=== PATIENT | male | born 1950 ===

== ENCOUNTER 2025-01-29 21:03 | Emergency (ER) | payer MEDICARE, SELFPAY ==
--- NOTE | ~2025-01-29 | XR_ITS ---
CLINICAL HISTORY: blunt trauma 3 view left foot Comparison: None Findings: Severe osteopenia. No acute fracture or dislocation. No ankle effusion. No radiopaque foreign body. IMPRESSION: 1. No acute findings. This document has been electronically signed by: Sabra Parra MD on 01/30/2025 00:31:28
--- NOTE | ~2025-01-29 | XR_ITS ---
CLINICAL HISTORY: post reduction 2 view right shoulder Comparison: CR/DE - XR SHOULDER RT MIN 2V - 01/29/25 23:36 EDT Findings: Normal alignment of the AC joint. No fracture or dislocation on the internal rotation views. IMPRESSION: Normal alignment of the AC joint status post reduction. This document has been electronically signed by: Sabra Parra MD on 01/30/2025 01:46:05
--- NOTE | ~2025-01-29 | XR_ITS ---
CLINICAL HISTORY: closed injury 3 view right foot Comparison: None Findings: Severe osteopenia. No acute fracture or dislocation. No ankle effusion. No radiopaque foreign body. IMPRESSION: No acute findings. This document has been electronically signed by: Sabra Parra MD on 01/30/2025 00:32:47
--- NOTE | ~2025-01-29 | XR_ITS ---
CLINICAL HISTORY: pain 3 view right wrist Comparison: None Findings: No fractures or dislocations. 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 No radiopaque foreign body. IMPRESSION: 1. No acute findings This document has been electronically signed by: Sabra Parra MD on 01/30/2025 00:30:03
--- NOTE | ~2025-01-29 | XR_ITS ---
CLINICAL HISTORY: fall 3 view right elbow Comparison: None Findings: No acute fractures or dislocations. No joint effusion. No radiopaque foreign body. IMPRESSION: 1. No acute findings This document has been electronically signed by: Sabra Parra MD on 01/30/2025 00:27:17
--- NOTE | ~2025-01-29 | XR_ITS ---
CLINICAL HISTORY: fall 3 view right shoulder Comparison: None Findings: No acute fracture. Age indeterminate type III AC joint injury with elevated distal clavicle relative to the acromion. Anterior subluxation of the humeral head. IMPRESSION: 1. Age indeterminate type III AC joint injury. 2. Anterior subluxation of the humeral head. This document has been electronically signed by: Sabra Parra MD on 01/30/2025 00:36:36
[2025-01-29 21:11] VITALS: BP 130/77; BP 157/95; PULSE 100; PULSE 110; RESP 17; TEMP 36.9; O2SAT 99; BMI 27.0
[2025-01-29 21:32] LABS: Appearance Urine Cloudy; Color Urine Yellow; Glucose Urine UA Negative (Negative); Leukocyte Esterase Urine Large (3+) (Negative); Nitrite Urine Positive (Negative); Specific Gravity - Urine 1.015 (1.005-1.025); UMIC TRIGGER UACC YES; Urine Blood Moderate (2+) (Negative); Urine Ketones Negative (Negative); Urine Protein 30 (1+) mg/dL (Neg-Trace)
[2025-01-29 21:43] LABS: Bacteria Urine 4+ (None Seen); RBC Urine >20 /HPF (0-2); Squamous Epithelial Cell Urine 0-2 /HPF (0-2); UACC Culture Trigger YES; WBC Urine >50 /HPF (0-5)
[2025-01-29 22:14] VITALS: BP 121/76; PULSE 113; RESP 20; TEMP 37.3; O2SAT 99
--- NOTE | 2025-01-29 22:47 | ED_ITS ---
HPI - Male Genitourinary General Chief complaint: Urogenital-Male Stated complaint: catheter issues Time Seen by Provider: 01/29/25 22:17 Source: family Mode of arrival: EMS Limitations: no limitations History of Present Illness ED Provider: HPI Narrative: Patient is paraplegic from thoracic 7 with indwelling Vicente catheter brought by his son 2 days ago from [place] comes here as son noticed purulent discharge in the urine also son was afraid as when they tried to move him from the plain to the wheelchair the pulled his right side patient complaining of pain in the right shoulder although patient has chronic right shoulder pain in the past patient is bed-bound mostly Related Data Previous Rx's ?Medication ?Instructions ?Recorded cefuroxime axetil 500 mg tablet 500 mg PO BID 7 days #14 tabs 01/30/25 Allergies Allergy/AdvReac Type Severity Reaction Status Date / Time No Known Allergies Allergy Verified 01/29/25 21:18 Review of Systems 2 Review of Systems: Yes all other systems are reviewed and are negative PMFSH Past Medical History Medical History Chronic indwelling Vicente catheter Neurogenic bladder Conus medullaris syndrome Hypertension Type 2 diabetes mellitus Chronic paraplegia Social History Social History Advance Directives: No Advance Directives Information Provided: No Do you have a plan to hurt others: No Plan Physical Exam 2 Vital Signs: Vital Signs: Last Vital Signs Temp 97.8 F 01/30/25 01:11 Pulse 106 H 01/30/25 01:11 Resp 18 01/30/25 01:11 BP 121/80 01/30/25 01:11 Pulse Ox 98 01/30/25 01:11 O2 Del Method Room Air 01/30/25 01:11 BMI result Body Mass Index 27.0 Appearance: Alert. Oriented X3. No acute distress. Eyes: PERRLA, No Nystagmus ENT: Pharynx normal. Oral Mucosa moist Neck: Normal inspection. Neck supple. CVS: Normal heart rate and rhythm. Pulses normal. Respiratory: No respiratory distress. Equal air entry bilateral, no wheezing/rales/rhonchi Abdomen: Soft and nontender. Bowel sounds are present, no mass palpable, no CVA tenderness Skin: Skin warm and dry. Normal skin color. Normal skin turgor. Extremities: Paraplegic good movements of the upper extremity Neuro: Oriented X 3. Paraplegic blow T7 Medications Administered Discontinued Medications Generic Name Dose Route Start Last Admin Trade Name Freq PRN Reason Stop Dose Admin Cefuroxime Axetil 500 mg 01/29/25 23:38 01/29/25 23:57 Cefuroxime Axetil 500 Mg Tablet PO 01/29/25 23:39 500 mg ONCE ONE Administration Lidocaine HCl 10 ml 01/30/25 00:55 01/30/25 01:46 Lidocaine Hcl 1 % Mpf 5 Ml Vial INFILTRATI 01/30/25 00:56 10 ml ONCE ONE Administration Medical Decision Making Medical Decision Making [facility] Narrative: Patient with UTI with chronic indwelling Vicente catheter with history of paraplegia x-ray your showed subluxation of the right shoulder which was placed back sling was given to the patient patient is bed-bound and does have chronic pain in the right shoulder likely chronic subluxation Differential Diagnosis Differential Diagnoses: The differential diagnosis associated with the presentation includes Lab Data [facility] Lab Attestation statement: I reviewed the patient's lab results. 01/29/25 22:54 01/29/25 22:54 Labs: Lab Results 01/29/25 01/29/25 Range/Units 21:24 22:54 WBC 7.4 (4.8-10.8) X10*3/uL RBC 4.44 L (4.60-5.80) X10*6/uL Hgb 11.9 L (14.0-18.0) g/dl Hct 34.3 L (42.0-52.0) % MCV 77.3 L (80.0-98.0) fL MCH 26.8 L (27.0-33.0) pg MCHC 34.7 (31.0-36.0) g/dl RDW 13.8 (11.0-16.0) % Plt Count 281 (160-400) X10*3/uL MPV 9.7 (9.4-12.4) fL Immature Gran % (Auto) 0.4 (0.0-0.4) % Neut % (Auto) 58.2 (45-73) % Lymph % (Auto) 23.7 (20-40) % [place] % (Auto) 13.4 H (2-11) % Eos % (Auto) 3.9 (0-4) % Baso % (Auto) 0.4 (0-2) % Lymph # (Auto) 1.8 (1.2-4.9) X10*3/uL [place] # (Auto) 1.0 (0.1-1.2) X10*3/uL Eos # (Auto) 0.3 (0.0-0.4) X10*3/uL Baso # (Auto) 0.0 (0.0-0.2) X10*3/uL Abs Immat Gran (auto) 0.03 (0.00-0.03) X10*3/uL Absolute Neuts (auto) 4.3 (2.0-8.3) x10*3/uL Absolute Nucleated RBC 0.000 (0.0-0.012) X10*3/uL Nucleated RBC % (auto) 0.0 (0.0-0.2) /100WBC Sodium 140 (135-145) mmol/L Potassium 3.6 (3.3-5.1) mmol/L Chloride 107 (96-108) mmol/L Carbon Dioxide 21 L (22-29) mmol/L Anion Gap 16 (12-20) BUN 27 H (9-16) mg/dL Creatinine 0.70 (0.5-1.4) mg/dL Estim Creat Clear Calc 81.7 Estimated GFR > 60 Random Glucose 118 H (60-115) mg/dL Calcium 8.8 (8.4-10.2) mg/dL Total Bilirubin 0.3 (0.0-1.0) mg/dL AST 36 (5-37) U/L ALT 29 (0-40) U/L Alkaline Phosphatase 116 (39-117) U/L Total Protein 6.8 (6.5-8.0) g/dL Albumin 3.5 (3.5-5.0) g/dL Urine Color Yellow Urine Appearance Cloudy Urine pH 5.0 (5.0-9.0) Ur Specific [place] 1.015 (1.005-1.025) Urine Protein 30 (1+) H (Neg-Trace) mg/dL Urine Glucose (UA) Negative (Negative) mg/dL Urine Ketones Negative (Negative) mg/dL Urine Blood Moderate (2+) H (Negative) Urine Nitrite Positive H (Negative) Ur Leukocyte Esterase Large (3+) H (Negative) Urine RBC >20 H (0-2) /HPF Urine WBC >50 H (0-5) /HPF Ur Squamous Epith Cells 0-2 (0-2) /HPF Urine Bacteria 4+ (None Seen) Hyaline Casts 6-10 (0-2) /LPF Radiology Impression Discussion of test interpretation with radiology: I have reviewed the radiologist's reading. Procedures Orthopedic Joint Reduction Joint #1: Time Out Performed: Yes Side: right Joint Reduction Location: shoulder Analgesia: hematoma block Local Anesthesia: lidocaine 1% Amount of anesthesic used (mL): 10 Shoulder Technique Used (if applicable): external rotation Technique used: traction/counter-traction Post-reduction neuro exam: intact Post-reduction vascular: intact Post Reduction X-Ray Obtained: Yes Post Reduction X-Ray Results: reduced Splint Applied: Yes Patient Tolerated Procedure: well Discharge Plan Discharge Clinical Impression: Urinary tract infection, Anterior subluxation of right shoulder Patient Disposition: Home, Self-Care Instructions: Shoulder Dislocation (ED), Catheter-associated Urinary Tract Infection (ED) Additional Instructions: Likely patient has chronic sub luxation of the right shoulder may use sling to support Drink plenty of fluids Antibiotic as prescribed Follow up with your PCP Prescriptions: New cefuroxime axetil 500 mg tablet 500 mg PO BID 7 Days Qty: 14 0RF Print Language: Urdu
[2025-01-29 22:57] LABS: MANUAL DIFF FLAG NO
[2025-01-29 23:01] LABS: Basophils Percent Auto 0.4 % (0-2); Eosinophils Absolute Auto 0.3 X10*3/uL (0.0-0.4); Eosinophils Percent Auto 3.9 % (0-4); Hematocrit 34.3 % (42.0-52.0); Hemoglobin 11.9 g/dl (14.0-18.0); Imm Gran Abs Auto 0.03 X10*3/uL (0.00-0.03); Imm Gran Pct Auto 0.4 % (0.0-0.4); Lymphocytes Absolute Auto 1.8 X10*3/uL (1.2-4.9); Lymphocytes Percent Auto 23.7 % (20-40); Mean Corpuscular HGB Conc 34.7 g/dl (31.0-36.0); Mean Corpuscular Hemoglobin 26.8 pg (27.0-33.0); Mean Corpuscular Volume 77.3 fL (80.0-98.0); Mean Platelet Volume 9.7 fL (9.4-12.4); Monocytes Percent Auto 13.4 % (2-11); Neutrophils Absolute Auto 4.3 x10*3/uL (2.0-8.3); Neutrophils Percent Auto 58.2 % (45-73); Platelet Count 281 X10*3/uL (160-400); Red Blood Count 4.44 X10*6/uL (4.60-5.80); Red Cell Distribution Width 13.8 % (11.0-16.0); White Blood Count 7.4 X10*3/uL (4.8-10.8)
--- NOTE | 2025-01-29 23:03 | PC.NURSE ---
pt biba from home, a&ox4, respirations even and unlabored. pt is paralyzed waist down, has chronic saha. per family members, pt saha has been draining thick urine and clots and has been draining around the saha. urine sample sent from saha port. pt also reports right shoulder pain from plane ride here.
--- NOTE | 2025-01-29 23:05 | PC.NURSE ---
pt previous saha removed per provider order. new 20F saha placed, pt tolerated well, 100ml urine voided.
[2025-01-29 23:16] LABS: Alanine Aminotransferase 29 U/L (0-40); Albumin Level 3.5 g/dL (3.5-5.0); Alkaline Phosphatase 116 U/L (39-117); Anion Gap 16 (12-20); Aspartate Amino Transferase 36 U/L (5-37); Bilirubin Total 0.3 mg/dL (0.0-1.0); Blood Urea Nitrogen 27 mg/dL (9-16); Calcium 8.8 mg/dL (8.4-10.2); Carbon Dioxide 21 mmol/L (22-29); Chloride 107 mmol/L (96-108); Creatinine Clr Calc Pharmacy 81.7; Estimated Glomerular Filt Rate > 60; Glucose Random 118 mg/dL (60-115); Potassium 3.6 mmol/L (3.3-5.1); Sodium 140 mmol/L (135-145); Total Protein 6.8 g/dL (6.5-8.0)
[2025-01-29] MEDS: cefuroxime axetiL 500 MG TABLET PO (23:57)
[2025-01-30 01:11] VITALS: BP 121/80; PULSE 106; RESP 18; TEMP 36.6; O2SAT 98
[2025-01-30] MEDS: Lidocaine HCl 1 % MPF 5 ML VIAL 10 ML INFILTRATI (01:46)
--- NOTE | 2025-01-30 02:01 | PC.NURSE ---
ems at bedside for transport.
[2025-01-30 02:03] VITALS: BP 114/59; PULSE 101; RESP 16; TEMP 36.6; O2SAT 96
[2025-01-30 02:10] VITALS: BP 114/59; PULSE 101; RESP 16; TEMP 36.6; O2SAT 96
--- NOTE | 2025-01-30 02:10 | PC.NURSE ---
late entry- shoulder reduced by , sling placed on right shoulder
== END 2025-01-30 02:11 | disposition home or self-care (01) ==
PROVIDERS: Emergency Provider Internal Medicine
DX: S43.004A Unspecified dislocation of right shoulder joint, initial encounter (principal); N39.0 Urinary tract infection, site not specified; R39.15 Urgency of urination; M79.672 Pain in left foot; M25.521 Pain in right elbow; M79.671 Pain in right foot; M79.601 Pain in right arm; M25.511 Pain in right shoulder; M25.531 Pain in right wrist; X50.9XXA Other and unspecified overexertion or strenuous movements or postures, initial encounter; Y93.9 Activity, unspecified; Y92.9 Unspecified place or not applicable; Y99.8 Other external cause status; Z79.899 Other long term (current) drug therapy
CPT/HCPCS: 23650; 36415; 51702; 73020; 73030; 73070; 73100; 73630; 80053; 81001; 85025; 87086; 87088; 87186; 99284; 99285; J2003

== ENCOUNTER → 2025-01-29 22:44 | Outpatient (BNV) | payer MEDICARE, SELFPAY | PROVIDERS: Emergency Provider Internal Medicine; Visit Provider Radiology Diagnostic Radiology | DX: S43.001A Unspecified subluxation of right shoulder joint, initial encounter (principal); W19.XXXA Unspecified fall, initial encounter; S99.922A Unspecified injury of left foot, initial encounter; M25.531 Pain in right wrist; S99.921A Unspecified injury of right foot, initial encounter | CPT/HCPCS: 73030; 73070; 73100; 73630 ==

== ENCOUNTER → 2025-01-30 01:11 | Outpatient (BNV) | payer MEDICARE, SELFPAY | PROVIDERS: Emergency Provider Internal Medicine; Visit Provider Radiology Diagnostic Radiology | DX: S43.084D Other dislocation of right shoulder joint, subsequent encounter (principal) | CPT/HCPCS: 73020 ==

== ENCOUNTER 2025-02-08 09:57 | Outpatient (REF) | payer MEDICARE, MEDICAID, SELFPAY ==
--- NOTE | ~2025-02-08 | XR_ITS ---
EXAMINATION: XR SHOULDER 2 OR MORE VIEWS RIGHT HISTORY: M25.511 - Pain in right shoulder COMPARISON: Comparison is made with the prior examination dated 01/30/2025. FINDINGS: Three views of the right shoulder are submitted. The examination is limited by difficulty in patient positioning. Osseous mineralization is normal. There is no fracture or dislocation. The glenohumeral joint is not well evaluated. There is mild degenerative change of the AC joint. The soft tissues are unremarkable. XR/XR shoulder RT min 2V IMPRESSION: Limited examination due to difficulty in patient positioning. Mild degenerative change of the AC joint. Electronically signed by: Lemuel Wynne MD 02/08/2025 11:33 AM EDT
== END 2025-02-08 09:58 | disposition home or self-care (01) ==
LOC: HO.HMGCX 09:57
PROVIDERS: Visit Provider Physician Assistant
DX: M25.511 Pain in right shoulder (principal); G89.29 Other chronic pain; R69 Illness, unspecified; R60.0 Localized edema
CPT/HCPCS: 73030; 99212

== ENCOUNTER 2025-02-08 09:57 | Outpatient (AMB) | payer MEDICARE, MEDICAID, SELFPAY ==
--- NOTE | 2025-02-08 10:01 | MHC.OFFWIV ---
Intake Vital Signs 02/08/25 10:07 BP 122/80 Blood Pressure Location Lt brachial Position Sitting Pulse 110 H Pulse Source Pulse Oximeter Pulse Oximetry (%) 99 Oxygen Delivery Method Room Air Intake Visit Reasons: [employer] Rt shoulder pain, foot issues Intake Note: Patient here for right shoulder pain. Patient Tobacco Use Status: Never used Tobacco Allergies No Known Allergies Allergy (Verified 02/08/25 10:03) HPI HPI Comments History of Present Illness Details History of Present Illness - The patient is a 74-year-old male with a past med hx of conus medullaris syndrome, CKD2 (mild), DM2, chronic saha presenting with elbow pain and follow-up for shoulder dislocation. - His elbow pain is described as substantial and recurring. - The shoulder dislocation was identified after the patient attended the ER on January 30 post-exacerbation of shoulder discomfort, initially noted upon return from [place]. - Despite the diagnosis, no analgesic regimen was provided at that visit. - Recently, the patient developed bilateral leg swelling, reported three days prior to this presentation, with concerns about possible dietary influences or medication effects. Denies increased salt intake or fluid intake. Was using compression stockings but does not have them anymore. - His medical history includes chronic kidney disease stage 2 and type 2 diabetes mellitus, influencing the management decisions regarding the use of NSAIDs. - The patient also has an indwelling Saha catheter, placed in the ED on 01/30 but has no Urologist or services to change it set up yet. - A urinary tract infection was treated with antibiotics for seven days, and the patient notes no ongoing urinary complaints. - Pt has an appt to establish care with PCP on 09/01 with [facility] [place], Eduardo Knowles NP however he has no supplies to check his BG due to issues when he moved here from [place]. He does have a supply of daily medications, which he is taking, as prescribed. Physical Exam General: Cooperative, healthy appearing, comfortable, no acute distress and well developed Orientation: Patient oriented x3 Limitations: paraplegic in wheelchair Head: Normal to inspection Ears: Hearing grossly normal bilaterally Nose: Normal External nose present Face and sinus: Normal facial exam Eyes: Appearance normal, both eyes and all related structures Neck: Normal visual inspection and Yes full ROM Respiratory: Normal respiratory effort and able to speak in complete sentences. Skin: No rashes or lesions noted Neuro: Patient oriented x3 Spine: no TTP cervical spine, torticollis noted towards the right Extremities: trace pitting edema bl le, right UE unable to flex or abduct beyond level of shoulder, hands 5/5 strength, sensation intact, full rom fingers and hand and elbow. [facility] Medical History (Updated 02/08/25 @ 11:26 by Natali Ramos PA-C) Chronic indwelling Saha catheter Neurogenic bladder Conus medullaris syndrome Hypertension Type 2 diabetes mellitus Chronic paraplegia Social History Patient Tobacco Use Status: Never used Tobacco Review of Systems Const All systems reviewed & are unremarkable except as noted in HPI and below Physical Exam Vital Signs: Last Vital Signs Pulse 122 H 02/08/25 10:07 BP 122/80 02/08/25 10:07 Pulse Ox 99 02/08/25 10:07 Oxygen Delivery Method Room Air 02/08/25 10:07 Assessment & Plan Assessment & Plan (1) Shoulder pain, right: Code(s): M25.511 - Pain in right shoulder Qualifiers: Chronicity: chronic Qualified Code(s): M25.511 - Pain in right shoulder; G89.29 - Other chronic pain Plan: For the elbow pain, we will get XR to verify he did not dislocate it again. He is aware if it is dislocated, he will need to go to the ED. I have prescribed meloxicam to BE USED SPARINGLY to manage severe pain and instructed the patient to use it sparingly due to chronic kidney disease (GFR >60 last week) and diabetes. I also recommended Voltaren gel, Tylenol and ice for relief. A sling should be employed for shoulder support to reduce discomfort and aid recovery, pt was given sling at ED visit last week. Monitoring for symptoms of recurrent UTI is essential, with a plan to seek emergency care if febrility occurs. The Saha catheter requires attention for scheduled removal and further urological evaluation, once he establishes care with the PCP. Patient was informed and verbally consented to the use of an ambient scribe for clinic note documentation during this visit. (2) Multiple chronic diseases: Code(s): R69 - Illness, unspecified Plan: I was able to call [facility] [place] PCP and got the pt an appt on 02/12 at 3:15pm with Shilpa Marie PA-C to establish care with a new PCP to address chronic saha (will need exchange services), CKD, and diabetes management and supplies. His son states he will upload his medical records to the portal. (3) Leg edema: Code(s): R60.0 - Localized edema Plan: For bilateral trace edema LE, I advised the use of compression stockings and to continue furosemide as usual. Lower salt intake. Orders: Orders XR shoulder RT min 2V Today M25.511 - Pain in right shoulder Medications: New meloxicam 15 mg PO DAILY 15 tabs 0RF Discontinued cefuroxime axetil Discontinued Reason: Patient Completed Course 500 mg PO BID 7 days 14 tabs 0RF Coding Level of Care Code New Pt Level 5 (02967) Diagnoses Chronic right shoulder pain M25.511; G89.29 Chronicity: chronic Multiple chronic diseases R69 Leg edema R60.0
[2025-02-08 10:07] VITALS: BP 122/80; PULSE 110; O2SAT 99
== END 2025-02-08 11:54 | disposition home or self-care (01) ==
PROVIDERS: Visit Provider Physician Assistant
DX: M25.511 Pain in right shoulder (principal); G89.29 Other chronic pain; R69 Illness, unspecified; R60.0 Localized edema

== ENCOUNTER → 2025-02-08 11:09 | Outpatient (BNV) | payer MEDICARE, MEDICAID, SELFPAY | PROVIDERS: Visit Provider Radiology Diagnostic Radiology | DX: M25.511 Pain in right shoulder (principal) | CPT/HCPCS: 73030 ==

== ENCOUNTER 2025-02-12 14:39 | Outpatient (AMB) | payer MEDICARE, MEDICAID, SELFPAY ==
--- NOTE | 2025-02-12 14:53 | A.OFFPC_ITS ---
Vital Signs 02/12/25 14:55 Height 5 ft 5 in BMI Reason not done Patient refused/unable BP 104/70 Blood Pressure Location Lt brachial Position Sitting Pulse 90 Pulse Source Pulse Oximeter Pulse Oximetry (%) 94 Oxygen Delivery Method Room Air Intake Visit Reasons: new patient Intake Note: Patient is a new patient here to establish care for DMII. Transferring care from [place] Medical records received. Vp Biology Required: No Accompanied by: Son Allergies No Known Allergies Allergy (Verified 02/12/25 15:01) Medication List - Last Reconciled 02/12/25 by Shilpa Marie PA-C atorvastatin 40 mg PO DAILY captopril 50 mg PO BID furosemide 40 mg PO DAILY meloxicam 15 mg PO DAILY metformin 500 mg PO DAILY pantoprazole 40 mg PO DAILY Tobacco use date assessed: 02/12/25 Fall risk assessment: No Falls in past year Last assessed Fall Risk: 02/12/25 Dental Screening Dental Screen Date: 02/12/25 Did you have a dental visit in the last 12 months?: No Did you have a dental problem in the last 6 months where you did not have access to dental care?: No Was dental information given to patient?: Patient declined HPI new patient HPI Details 74-year-old male coming to the office fo r the 1st time. Past medical history of hypertension, chronic kidney disease stage 2, diabetes mellitus, paraplegia, neurogenic bowel, conus medullaris syndrome. In review of the notes, patient was seen in [facility] ED for 04/2025 recently moved from [place] having purulent discharge in the urine and right shoulder pain. Patient found to have urinary tract infection given cefuroxime and discharged home.?Patient was seen in [facility] walk-in clinic 02/08/2025 for bilateral edema recommend furosemide and compression stockings and patient was discharged home. Presenting with concerns related to indwelling catheter management and situational depression. He has an indwelling catheter that requires management due to reports of pus formation, highlighting the need for urologist consultation. He was recently treated for UTI with antibiotic. He's also suffering from possible depressive symptoms due to recent relocation from [place], which led to separation from supportive relationships. A recent shoulder dislocation has been a concern, emphasizing a need for potential orthopedic follow-up. He is also requiring BODY COVERER and VNA services for difficulty with ADLs and medication and Vicente management. [facility] Medical History (Updated 02/12/25 @ 15:25 by Shilpa Marie PA-C) Type 2 diabetes mellitus with diabetic peripheral angiopathy without gangrene Type 2 diabetes mellitus with hyperglycemia Rash and other nonspecific skin eruption Neurogenic bowel, not elsewhere classified Other hemorrhoids Hiccough Nontraumatic subarachnoid hemorrhage, unspecified Hypertensive 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, with stage 1 through stage 4 chronic kidney disease, or unspecified chronic kidney disease Chronic kidney disease, stage 2 (mild) 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, complete Chronic indwelling Vicente catheter Neurogenic bladder Conus medullaris syndrome Hypertension Type 2 diabetes mellitus Chronic paraplegia Surgical History (Updated 02/12/25 @ 15:18 by Shilpa Marie PA-C) History of carpal tunnel release Social History Housing: House Patient Tobacco Use Status: Never used Tobacco e-Cigarette/Vaping Use: Never Used Cognitive needs: No Hearing needs: No Vision needs: No Questionnaire PHQ-9 Over the last 2 weeks, how often have you been bothered by any of the following problems? 1. Little interest or pleasure in doing things: several days 2. Feeling down, depressed, or hopeless: several days 3. Trouble falling or staying asleep, or sleeping too much: more than half the days 4. Feeling tired or having little energy: more than half the days 5. Poor appetite or overeating: more than half the days 6. Feeling bad about yourself - or that you are a failure or have let yourself or your family down: nearly every day 7. Trouble concentrating on things, such as reading the newspaper or watching television: more than half the days 8. Moving or speaking so slowly that other people could have noticed. Or the opposite - being so fidgety or restless that you have been moving around a lot more than usual: more than half the days 9. Thoughts that you would be better off or of hurting yourself in some way: not at all Total score: 15 Depression Screening Interpretation: Positive Depression Screening Follow-up: Existing condition and Declines treatment Depression Screening Done: Yes 66631 - PHQ-9 Billing: Yes Source: Developed by Drs. Lemuel Blake, Yazmin B.WAlphonso Hinojosa and colleagues, with an educational alisha from [employer]. Thrive Questionnaire Date Thrive assessed: 02/12/25 I am a: Patient What is your living situation today?: I have a steady place to live Within the past 12 months, did the food you bought not last and you didn't have the money to get more?: I choose not to answer this question Within the past 12 months, did you worry whether your food would run out before you got money to buy more?: I choose not to answer this question Do you have trouble paying for medicines?: Yes Do you have trouble getting transportation to medical appointments?: Yes Do you have trouble paying your heating and electricity bill?: Yes Do you have trouble taking care of your child, family member or friend?: No Do you have trouble with day-to-day activities such as bathing, preparing meals, shopping, managing finances, etc.?: Yes Are you currently unemployed and looking for a job?: I choose not to answer this question Are you interested in more education?: Yes Please select the resources that you would like help with: Paying for medicine, Transportation, Utilities, Care for elder or disabled and Daily support Currently or been in a relationship where the following occur: I choose not to answer THRIVE Score: 2 AUDIT C Alcohol Use Questionnaire (AUDIT-C) 1. How often do you have a drink containing alcohol?: Never 3. How often do you have six or more drinks on one occasion?: Never Total Score: 0 NASEEM-7 AMB Questionnaire NASEEM-7 Date NASEEM - 7 assessed: 02/12/25 Feeling nervous, anxious, or on edge: 2 = More than half the days Not being able to stop or control worryin = More than half the days Worrying too much about different things: 2 = More than half the days Trouble relaxin = More than half the days Being so restless that it is hard to sit still: 0 = Not at all Becoming easily annoyed or irritable: 2 = More than half the days Feeling afraid as if something awful might happen: 0 = Not at all Total NASEEM-7 score (0-4 normal; 5-9 mild; 10-14 moderate; 15-21 severe): 10 Source: Developed by Drs. Lemuel Blake, Alphonso Blevins and colleagues, with an educational alisha from [employer]. NASEEM-7 Assessment Billing NASEEM-7 Assessment Tool: NASEEM-7 Assessment 73061 Review of Systems Const Denies body aches, Denies chills, Denies fever(s), Denies headache(s) and Denies poor appetite Eyes Reports no additional complaints ENT Denies dysphagia, Denies dizziness, Denies headache(s) and Denies odynophagia Card Denies chest pain, Denies syncope, Denies edema, Denies irregular heart rhythm, Denies lightheadedness and Denies dyspnea Resp Denies cough and Denies dyspnea GI Denies abdominal pain, Denies constipation, Denies dysphagia, Denies diarrhea, Denies nausea, Denies odynophagia and Denies vomiting Reports no additional complaints Musc Reports no additional complaints and Denies abnormal gait Skin/Breast Reports system reviewed and no additional complaints, except as documented Neuro Denies abnormal gait, Denies dizziness, Denies syncope and Denies headache(s) Psych Reports no additional complaints Physical exam (Primary Care) Vital Signs: Last Vital Signs Pulse 90 02/12/25 14:55 BP 104/70 02/12/25 14:55 Pulse Ox 94 02/12/25 14:55 Oxygen Delivery Method Room Air 02/12/25 14:55 Tobacco/Smoking Status: Tobacco use Status Tobacco use date assessed 02/12/25 02/12/25 15:09 Patient Tobacco Use Status Never used Tobacco 02/12/25 14:54 e-Cigarette/Vaping Use Never Used 02/12/25 15:09 PHQ-9: PHQ-9 Score PHQ-9: Total score 15 02/12/25 15:31 Depression Screening Interpretation: Positive Depression Screening Follow-up: Existing condition and Declines treatment Thrive Assessment: Date of Thrive Assessment Date Thrive assessed 02/12/25 02/12/25 15:00 Currently or been in a relationship where the following occur: I choose not to answer Const General: cooperative, healthy appearing, comfortable and no acute distress Orientation/consciousness: patient oriented x3 HENMT Head: Yes normocephalic Ears: hearing grossly normal bilaterally General nose exam: Normal external nose present Eyes General: appearance normal, both eyes and all related structures Conjunctivae: conjunctivae normal Neck Neck: Yes full ROM and Yes no lymphadenopathy Resp Effort & Inspection: normal respiratory effort Auscultation: clear to auscultation bilaterally, no crackles, no rales, no rhonchi and no wheezes Cardio Rate: regular rate Rhythm: regular rhythm Skin General skin exam: no rashes or lesions noted Neuro General: patient oriented x3 Gait exam (Neuro): Normal gait present Extrem General: Yes normal to inspection, Yes full ROM and No edema Psych Affect: normal affect Attitude: cooperative Insight: Good insight present (Psych) Judgement: Good judgement present (Psych) Results AMB Hemoglobin A1c AMB Hemoglobin A1c 5.6 % Last Edit by RHYS Rodriguez on 02/12/25 15:31 Results Reviewed Results Reviewed: Laboratory Last Values Hgb A1c (Clinic) 5.6 % (4.0-6.0) 02/12/25 15:31 Coding Level of Care Code New Pt Level 4 (38066) Diagnoses Indwelling Vicente catheter present Z97.8 Incontinence R32 Paraplegia G82.20 Chronic right shoulder pain M25.511; G89.29 Chronicity: chronic Depression F32.A Anxiety F41.9 GERD (gastroesophageal reflux disease) K21.9 Conus medullaris syndrome G95.81 Type 2 diabetes mellitus E11.9 Hypertension I10 Chronic kidney disease, stage 2 (mild) N18.2 Additional Codes NASEEM-7 Assessment Billing - NASEEM-7 Assessment Tool: NASEEM-7 Assessment 06934 ([id number]) PHQ-9 - 89724 - PHQ-9 Billing: Yes ([id number]) Assessment & Plan Assessment & Plan (1) Indwelling Vicente catheter present: Code(s): Z97.8 - Presence of other specified devices Category: Medical Plan: Patient has presence of indwelling Vicente catheter requiring follow up and routine maintenance. Referral was placed to VNA for Vicente management and referral was placed to Urology for ongoing treatment. (2) Incontinence: Code(s): R32 - Unspecified urinary incontinence Category: Medical Plan: Referral was placed to Urology for neurogenic bladder. 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 His last MRI from 2022 was evidence. Plan to obtain new MRI and refer to spine Clinic for further evaluation and treatment. (4) Shoulder pain, right: Code(s): M25.511 - Pain in right shoulder Category: Medical Qualifiers: Chronicity: chronic Qualified Code(s): M25.511 - Pain in right shoulder; G89.29 - Other chronic pain Plan: Patient having right shoulder pain following dislocation injury. Shoulders currently in place and resting in his sling. Education was provided on appropriate sling application and referral was placed to Orthopedics today. (5) Depression: Code(s): F32.A - Depression, unspecified Category: Medical Plan: Patient complaining of depression and anxiety symptoms and positive screening test today. Referral was placed to counseling and declining medication management at this time. (6) Anxiety: Code(s): F41.9 - Anxiety disorder, unspecified Category: Medical Plan: See above plan (7) GERD (gastroesophageal reflux disease): Code(s): K21.9 - Gastro-esophageal reflux disease without esophagitis Category: Medical Plan: Avoid trigger foods such as citrus, tomato products, soda, caffeine, spicy foods and other foods that may be irritating to your stomach. Avoid laying flat 3-4 hours after eating and elevate the head of the bed 30 degrees to prevent acid from moving into the esophagus. Continue on pantoprazole (8) Conus medullaris syndrome: Code(s): G95.81 - Conus medullaris syndrome Category: Medical Plan: MRI was obtained in 2022 showing evidence of conus medullaris syndrome. Order was placed for repeat MRI and referral was placed to spine clinic today. (9) Type 2 diabetes mellitus: Code(s): E11.9 - Type 2 diabetes mellitus without complications Category: Medical Plan: Decrease the amount of carbohydrates such as pasta, bread, rice, and potatoes and limit the amount of sweets. Although fruits are generally healthy they should be eaten in moderation as they are still high in sugar. Hemoglobin A1c goal of less than 7%. A1c 5.5% today advised to discontinue metformin at this time. Plan to repeat in 3 months (10) Hypertension: Code(s): I10 - Essential (primary) hypertension Category: Medical Plan: Continue on current blood pressure medication. Avoid salt intake and encourage healthy diet and regular exercise. (11) Chronic kidney disease, stage 2 (mild): Code(s): N18.2 - Chronic kidney disease, stage 2 (mild) Category: Medical Plan: Continue to avoid kidney irritants and stay well hydrated. Plan For the management of the indwelling catheter, I will arrange a referral for urology consultation to address reported pus formation and mitigate risk of further complications. Further coordination with visiting nurses will ensure comprehensive evaluation and care. Orthopedic consultation is warranted for the shoulder dislocation, alongside physical therapy to restore function and manage discomfort. Due to depressive symptoms related to situational changes, referral to a counselor is advisable for cognitive and emotional support. Dietary modifications were advised to manage carbohydrate intake and blood sugar levels. Blood pressure management will be monitored, possibly adjusting medication regimens as needed. Additional referrals for specialists and follow-ups will be coordinated as necessary to address all concerns effectively. This note was constructed using voice recognition software. While every effort has been made to ensure accuracy and carpet winder, still areas may have been included sometimes these areas may affect the content or meeting of the given symptoms. Total time spent caring for the patient today was 30 minutes. This includes time spent before the visit reviewing the chart, time spent during the visit, and time spent after the visit and documentation. Patient was informed and verbally consented to the use of an ambient scribe for clinic note documentation during this visit. Orders: Orders Complete Blood Count Auto Diff 02/12/25 E11.9 - Type 2 diabetes mellitus without complications, Z00.00 - Encounter for general adult medical examination without abnormal findings Vitamin D 25-OH Total 02/12/25 E11.9 - Type 2 diabetes mellitus without complications, Z00.00 - Encounter for general adult medical examination without abnormal findings AMB Hemoglobin A1c 02/12/25 E11.9 - Type 2 diabetes mellitus without complications Comprehensive Met. Panel 02/12/25 E11.9 - Type 2 diabetes mellitus without complications, Z00.00 - Encounter for general adult medical examination without abnormal findings Lipid Panel 02/12/25 E11.9 - Type 2 diabetes mellitus without complications, E78.00 - Pure hypercholesterolemia, unspecified TSH reflex Free T4 02/12/25 E11.9 - Type 2 diabetes mellitus without complications, Z00.00 - Encounter for general adult medical examination without abnormal findings Vitamin B12 and Folate 02/12/25 E11.9 - Type 2 diabetes mellitus without complications, Z00.00 - Encounter for general adult medical examination without abnormal findings Referrals Urology Referral R32 - Unspecified urinary incontinence, Z97.8 - Presence of other specified devices Counseling Referral F32.A - Depression, unspecified, F41.9 - Anxiety disorder, unspecified Neuro Spine Referral G95.81 - Conus medullaris syndrome [facility] Referral G82.20 - Paraplegia, unspecified, G89.29 - Other chronic pain, M25.511 - Pain in right shoulder, Z97.8 - Presence of other specified devices Orthopedics Referral G89.29 - Other chronic pain, M25.511 - Pain in right shoulder Medications: New blood pressure monitor As directed 1 ea 0RF comp.stocking,knee,long,medium As directed 10-20 mmHg 12 ea 0RF lidocaine 5% leave on most painful area for up to 12 hrs 1 patch topical DAILY 30 ea 0RF Changed From furosemide 40 mg PO DAILY To furosemide 40 mg PO Q OTHER DAY 15 tabs 0RF
[2025-02-12 14:55] VITALS: BP 104/70; PULSE 90; O2SAT 94
== END 2025-02-12 15:52 | disposition home or self-care (01) ==
LOC: HO.HMCH 14:40
DX: E11.9 Type 2 diabetes mellitus without complications (principal)

== ENCOUNTER → 2025-02-12 14:39 | Outpatient (BNVA) | payer MEDICARE, MEDICAID, SELFPAY | DX: E11.22 Type 2 diabetes mellitus with diabetic chronic kidney disease (principal); I12.9 Hypertensive chronic kidney disease with stage 1 through stage 4 chronic kidney disease, or unspecified chronic kidney disease; N18.2 Chronic kidney disease, stage 2 (mild); G82.20 Paraplegia, unspecified; G95.81 Conus medullaris syndrome; R32 Unspecified urinary incontinence; M25.511 Pain in right shoulder; G89.29 Other chronic pain; F32.A Depression, unspecified; F41.9 Anxiety disorder, unspecified; K21.9 Gastro-esophageal reflux disease without esophagitis; Z96.0 Presence of urogenital implants; Z87.440 Personal history of urinary (tract) infections | CPT/HCPCS: 83036; 96127; 99202 ==

== ENCOUNTER 2025-02-15 23:07 | Emergency (ER) | payer MEDICARE, MEDICAID, SELFPAY ==
--- NOTE | ~2025-02-15 | XR_ITS ---
CLINICAL HISTORY: cp 1 view chest x-ray Comparison: None Findings: No consolidation or effusion. Normal size heart. No acute fracture. IMPRESSION: 1. No acute findings. This document has been electronically signed by: Mathew Estes MD on 02/16/2025 00:46:34
[2025-02-15 23:41] VITALS: BP 110/71; BP 128/69; PULSE 102; PULSE 105; RESP 14; TEMP 36.9; O2SAT 98; O2SAT 99; BMI 21.3
--- NOTE | 2025-02-15 23:59 | ED.MALEGU ---
HPI - Male Genitourinary General Chief complaint: Urogenital-Male Stated complaint: ?sepsis, uti, cloudy urine Time Seen by Provider: 02/15/25 23:37 History of Present Illness HPI Narrative: Patient is a 74-year-old male his paraplegic. Baseline patient has no sensation no motor no touch from the level of the nipple line down. Patient is from [place] just came to [place] about 2 weeks ago son has been giving him care. He has a PCP in the area. Usually Vicente change every 2 weeks to 1 month. Patient has not had his Vicente catheter change. The mental status is not changed patient has no fever no chills. He is awake alert he answers questions. He has no coughing or congestion he has no chest pain. Related Data Home Medications ?Medication ?Instructions ?Recorded ?Confirmed atorvastatin 40 mg tablet 40 mg PO DAILY 02/08/25 02/12/25 captopril 50 mg tablet 50 mg PO BID 02/08/25 02/12/25 pantoprazole 40 mg tablet,delayed 40 mg PO DAILY 02/08/25 02/12/25 release Previous Rx's ?Medication ?Instructions ?Recorded meloxicam 15 mg tablet 15 mg PO DAILY #15 tabs 02/08/25 blood pressure monitor #1 02/12/25 comp.stocking,knee,long,medium #12 02/12/25 furosemide 40 mg tablet 40 mg PO Q OTHER DAY #15 tabs 02/12/25 lidocaine 5 % topical patch 1 patch topical DAILY #30 ea 02/12/25 Disposable bed pads #100 02/15/25 adult diapers #240 02/15/25 disposable gloves #200 02/15/25 foam wedge #2 02/15/25 wipes #3 02/15/25 Allergies Allergy/AdvReac Type Severity Reaction Status Date / Time No Known Allergies Allergy Verified 02/15/25 23:44 Review of Systems Review of Systems: Positive need for Vicente change [facility] Past Medical History Attestation statement: The following information was validated with the patient. Medical History Type 2 diabetes mellitus with diabetic peripheral angiopathy without gangrene Type 2 diabetes mellitus with hyperglycemia Rash and other nonspecific skin eruption Neurogenic bowel, not elsewhere classified Other hemorrhoids Hiccough Nontraumatic subarachnoid hemorrhage, unspecified Hypertensive 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, with stage 1 through stage 4 chronic kidney disease, or unspecified chronic kidney disease Chronic kidney disease, stage 2 (mild) 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, complete Chronic indwelling Vicente catheter Neurogenic bladder Conus medullaris syndrome Hypertension Type 2 diabetes mellitus Chronic paraplegia Surgical History History of carpal tunnel release Social History Social History Housing: House Patient Tobacco Use Status: Never used Tobacco e-Cigarette/Vaping Use: Never Used Advance Directives: No Advance Directives Information Provided: Yes Do you have a plan to hurt others: No Plan Cognitive needs: No Hearing needs: No Vision needs: No Physical Exam Vital Signs: Vital Signs: Last Vital Signs Temp 98.5 F 02/15/25 23:41 Pulse 102 H 02/15/25 23:41 Resp 14 02/15/25 23:41 BP 128/69 02/15/25 23:41 Pulse Ox 99 02/15/25 23:41 O2 Del Method Room Air 02/15/25 23:41 BMI result Body Mass Index 21.3 Appearance: Alert. Oriented X3. No acute distress. Eyes: Pupils equal, round and reactive to light. ENT: Pharynx normal. Neck: Normal inspection. Neck supple. No lymph nodes noted. No crepitus CVS: Normal heart rate and rhythm. Pulses normal. Normal S1 and S2 Respiratory: No respiratory distress. Breath sounds normal. No Wheezing. No rales Abdomen: Soft and nontender. No rigidity. No distention. good BS x4 Skin: Skin warm and dry. Normal skin color. Normal skin turgor. No decubitus ulcer noted on his back. Extremities: No lower extremity edema. No motor in the lower extremity good motor movement in bilateral upper extremity. Neuro: Oriented X 3. No motor no sensation no pain below the level of T5. Lower extremity seems to be contracted. Medications Administered Discontinued Medications Generic Name Dose Route Start Last Admin Trade Name Freq PRN Reason Stop Dose Admin Sodium Chloride 500 mls @ 999 mls/hr 02/15/25 23:45 02/16/25 00:27 Ns IV 02/16/25 00:15 999 mls/hr .Q31M WAN Administration Medical Decision Making Medical Decision Making [facility] Narrative: Patient has no fever no chills no change in behavior mental status is baseline per son. Has a chronic Vicente catheter in place wanted it change. It also has looked a low more cloudy than usual. Explained to patient's family with no change in mental status no fever no chills the urine most likely will be colonized. Nevertheless we can certainly change the Vicente catheter. Send off some basic labs. We will check x-rays. There is no signs of decubitus ulcer. Currently in stable condition. Patient's son stated that he has enough help at home. His PCP is helping him arrange for additional visiting nurse. He does not want him to wait for case management. Patient's chest x-ray by my interpretation is grossly negative. Patient is white count is normal. Electrolytes baseline. No acute distress. COVID flu RSV were all negative. Patient has no fever no chills no change in behavior the urine likely going to be infected but is really more a colonization rather than a true infection. Will discharge patient home. Currently in stable condition. A new Vicente was placed. Differential Diagnosis Differential Diagnoses: The differential diagnosis associated with the presentation includes Vicente replacement, colonization of urine, COVID flu RSV, pneumonia Admission/Observation Consideration of admission/observation: Escalation of care including admission/observation considered Lab Data [facility] Lab Attestation statement: I reviewed the patient's lab results. 02/16/25 00:17 02/16/25 00:17 Labs: Lab Results 02/16/25 Range/Units 00:17 WBC 7.8 (4.8-10.8) X10*3/uL RBC 4.86 (4.60-5.80) X10*6/uL Hgb 12.9 L (14.0-18.0) g/dl Hct 38.4 L (42.0-52.0) % MCV 79.0 L (80.0-98.0) fL MCH 26.5 L (27.0-33.0) pg MCHC 33.6 (31.0-36.0) g/dl RDW 13.9 (11.0-16.0) % Plt Count 354 D (160-400) X10*3/uL MPV 9.8 (9.4-12.4) fL Immature Gran % (Auto) 0.5 H (0.0-0.4) % Neut % (Auto) 52.4 (45-73) % Lymph % (Auto) 30.2 (20-40) % [place] % (Auto) 12.6 H (2-11) % Eos % (Auto) 3.5 (0-4) % Baso % (Auto) 0.8 (0-2) % Lymph # (Auto) 2.3 (1.2-4.9) X10*3/uL [place] # (Auto) 1.0 (0.1-1.2) X10*3/uL Eos # (Auto) 0.3 (0.0-0.4) X10*3/uL Baso # (Auto) 0.1 (0.0-0.2) X10*3/uL Abs Immat Gran (auto) 0.04 H (0.00-0.03) X10*3/uL Absolute Neuts (auto) 4.1 (2.0-8.3) x10*3/uL Absolute Nucleated RBC 0.000 (0.0-0.012) X10*3/uL Nucleated RBC % (auto) 0.0 (0.0-0.2) /100WBC Sodium 139 (135-145) mmol/L Potassium 5.0 D (3.3-5.1) mmol/L Chloride 104 (96-108) mmol/L Carbon Dioxide 24 (22-29) mmol/L Anion Gap 16 (12-20) BUN 29 H (9-16) mg/dL Creatinine 0.70 (0.5-1.4) mg/dL Estim Creat Clear Calc 86.8 Estimated GFR > 60 Random Glucose 113 (60-115) mg/dL Calcium 9.7 D (8.4-10.2) mg/dL Total Bilirubin 0.3 (0.0-1.0) mg/dL Direct Bilirubin 0.1 (0.0-0.5) mg/dL AST 46 H (5-37) U/L ALT 53 H (0-40) U/L Alkaline Phosphatase 107 (39-117) U/L Total Protein 7.6 (6.5-8.0) g/dL Albumin 3.9 (3.5-5.0) g/dL Influenza Type A (PCR) NEGATIVE (Negative) Influenza Type B (PCR) NEGATIVE (Negative) RSV RNA Qual (PCR) NEGATIVE (Negative) SARS-CoV-2 RNA (RT-PCR) NEGATIVE (Negative) Independent Interpretation I performed an independent interpretation of an: Plain X-Ray (Chest x-ray negative) Radiology Impression Discussion of test interpretation with radiology: I have reviewed the radiologist's reading. Independent Historian Clinical information obtained from an independent historian. History obtained from or confirmed by: Other (Patient's son) External Record Review Previous labs reviewed Chronic Conditions History of being a paraplegic Social Determinants Patient?s care significantly limited by Social Determinants of Health including: Problems related to primary support group Discharge Plan Discharge Clinical Impression: Paraplegia Patient Disposition: Home, Self-Care Instructions: Vicente Catheter Placement and Care (ED) Prescriptions: No Action (DME) adult diapers large See Rx Instructions .Route .MEDSUPPLY Qty: 240 11RF Rx Instructions: As directed (DME) wipes See Rx Instructions .Route .MEDSUPPLY Qty: 3 11RF Rx Instructions: As directed (DME) Disposable bed pads See Rx Instructions .Route .MEDSUPPLY Qty: 100 11RF Rx Instructions: As directed (DME) disposable gloves Misc See Rx Instructions .Route Qty: 200 11RF Rx Instructions: As directed (DME) foam wedge See Rx Instructions .Route .MEDSUPPLY Qty: 2 0RF Rx Instructions: As directed atorvastatin 40 mg tablet 40 mg PO DAILY captopril 50 mg tablet 50 mg PO BID pantoprazole 40 mg tablet,delayed release (DR/EC) 40 mg PO DAILY meloxicam 15 mg tablet 15 mg PO DAILY Qty: 15 0RF (DME) blood pressure monitor Kit See Rx Instructions .Route Qty: 1 0RF Rx Instructions: As directed (DME) comp.stocking,knee,long,medium Misc See Rx Instructions .Route Qty: 12 0RF Rx Instructions: As directed 10-20 mmHg lidocaine 5 % adhesive patch,medicated 1 patch topical DAILY Qty: 30 0RF Rx Instructions: leave on most painful area for up to 12 hrs furosemide 40 mg tablet 40 mg PO Q OTHER DAY Qty: 15 0RF Print Language: Ukrainian
[2025-02-16 00:25] LABS: Basophils Absolute Auto 0.1 X10*3/uL (0.0-0.2); Basophils Percent Auto 0.8 % (0-2); Eosinophils Absolute Auto 0.3 X10*3/uL (0.0-0.4); Eosinophils Percent Auto 3.5 % (0-4); Hematocrit 38.4 % (42.0-52.0); Hemoglobin 12.9 g/dl (14.0-18.0); Imm Gran Abs Auto 0.04 X10*3/uL (0.00-0.03); Imm Gran Pct Auto 0.5 % (0.0-0.4); Lymphocytes Absolute Auto 2.3 X10*3/uL (1.2-4.9); Lymphocytes Percent Auto 30.2 % (20-40); MANUAL DIFF FLAG NO; Mean Corpuscular HGB Conc 33.6 g/dl (31.0-36.0); Mean Corpuscular Hemoglobin 26.5 pg (27.0-33.0); Mean Platelet Volume 9.8 fL (9.4-12.4); Monocytes Percent Auto 12.6 % (2-11); Neutrophils Absolute Auto 4.1 x10*3/uL (2.0-8.3); Neutrophils Percent Auto 52.4 % (45-73); Platelet Count 354 X10*3/uL (160-400); Red Blood Count 4.86 X10*6/uL (4.60-5.80); Red Cell Distribution Width 13.9 % (11.0-16.0); White Blood Count 7.8 X10*3/uL (4.8-10.8)
[2025-02-16] MEDS: 0.9 % Sodium Chloride 500 ML 999 ML IV (00:27)
[2025-02-16 00:43] LABS: Alanine Aminotransferase 53 U/L (0-40); Albumin Level 3.9 g/dL (3.5-5.0); Alkaline Phosphatase 107 U/L (39-117); Anion Gap 16 (12-20); Aspartate Amino Transferase 46 U/L (5-37); Bilirubin Direct 0.1 mg/dL (0.0-0.5); Bilirubin Total 0.3 mg/dL (0.0-1.0); Blood Urea Nitrogen 29 mg/dL (9-16); Calcium 9.7 mg/dL (8.4-10.2); Carbon Dioxide 24 mmol/L (22-29); Chloride 104 mmol/L (96-108); Creatinine Clr Calc Pharmacy 86.8; Estimated Glomerular Filt Rate > 60; Glucose Random 113 mg/dL (60-115); Sodium 139 mmol/L (135-145); Total Protein 7.6 g/dL (6.5-8.0)
[2025-02-16 01:04] LABS: Influenza A PCR NEGATIVE (Negative); Influenza B PCR NEGATIVE (Negative); Resp Syncy Virus RNA Qual PCR NEGATIVE (Negative); SARS COV2 PCR INHOUSE NEGATIVE (Negative)
[2025-02-16 01:30] VITALS: BP 122/61; PULSE 94; O2SAT 100
[2025-02-16 01:49] LABS: Appearance Urine Cloudy; Color Urine Yellow; Glucose Urine UA Negative (Negative); Leukocyte Esterase Urine Large (3+) (Negative); Nitrite Urine Positive (Negative); UMIC TRIGGER UACC YES; Urine Blood Large (3+) (Negative); Urine Ketones Negative (Negative); Urine Protein Trace mg/dL (Neg-Trace)
[2025-02-16 02:00] VITALS: BP 110/65; PULSE 108; O2SAT 100
[2025-02-16 02:09] LABS: Bacteria Urine 2+ (None Seen); Hyaline Casts Urine 0-2 /LPF (0-2); RBC Urine >20 /HPF (0-2); Squamous Epithelial Cell Urine 0-2 /HPF (0-2); UACC Culture Trigger YES; WBC Urine >50 /HPF (0-5)
--- NOTE | 2025-02-16 02:35 | PC.NURSE ---
saha replaced per dr green 20french coude 30cc balloon inflated upon removal 26cc balloon deflated pt tolerated well 30cc immediate output pt pending discharge awaiting ems trasnport back home
[2025-02-16 02:45] VITALS: BP 117/56; PULSE 102; O2SAT 100
[2025-02-16 04:22] VITALS: BP 104/70; PULSE 103; RESP 20; TEMP 36.8; O2SAT 98
[2025-02-16 04:23] VITALS: BP 104/70; PULSE 103; RESP 20; TEMP 36.8; O2SAT 98
== END 2025-02-16 04:45 | disposition home or self-care (01) ==
PROVIDERS: Emergency Provider Emergency Medicine Emergency Medical Services
DX: T83.511A Infection and inflammatory reaction due to indwelling urethral catheter, initial encounter (principal); N39.0 Urinary tract infection, site not specified; B96.20 Unspecified Escherichia coli [E. coli] as the cause of diseases classified elsewhere; B96.5 Pseudomonas (aeruginosa) (mallei) (pseudomallei) as the cause of diseases classified elsewhere; Y73.8 Miscellaneous gastroenterology and urology devices associated with adverse incidents, not elsewhere classified; Y92.9 Unspecified place or not applicable; G82.20 Paraplegia, unspecified; Z03.818 Encounter for observation for suspected exposure to other biological agents ruled out
CPT/HCPCS: 0241U; 36415; 51702; 71045; 80048; 80076; 81001; 85025; 87086; 87088; 87186; 96360; 96361; 99284; 99285

== ENCOUNTER → 2025-02-15 23:59 | Outpatient (BNV) | payer MEDICARE, MEDICAID, SELFPAY | PROVIDERS: Emergency Provider Emergency Medicine Emergency Medical Services; Visit Provider Radiology Diagnostic Radiology | DX: R07.9 Chest pain, unspecified (principal) | CPT/HCPCS: 71045 ==

== ENCOUNTER → 2025-02-22 08:39 | Outpatient (BNV) | payer MEDICARE, MEDICAID, SELFPAY | PROVIDERS: Visit Provider Radiology Diagnostic Radiology | DX: G95.81 Conus medullaris syndrome (principal) | CPT/HCPCS: 72158 ==

== ENCOUNTER 2025-02-22 08:58 | Outpatient (REF) | payer MEDICARE, MEDICAID, SELFPAY ==
--- NOTE | ~2025-02-22 | MR_ITS ---
EXAMINATION: MR LUMBAR SPINE WITHOUT AND WITH CONTRAST CLINICAL INFORMATION: Conus medullaris syndrome COMPARISON: None available. TECHNIQUE: MRI of the lumbar spine was obtained using routine sequences with and without contrast. Intravenous contrast: Gadavist 7.5 mL FINDINGS: There is normal lumbar lordosis. The vertebral heights and disc heights are maintained. There is grade 1 retrolisthesis L2 over L3. Rest of the vertebral alignment is normal. The T12-L1, L1-2 and L2-3 disc levels are unremarkable with a capacious thecal sac and patent neural foramina. At L2-3 disc level there is retrolisthesis loss of disc space. There is mild AP canal stenosis. The neural foramina are minimally narrowed bilaterally. No underlying disc bulge, herniation or spinal canal stenosis. At L3-4 disc level there is [id number] canal stenosis. There is no disc bulge, herniation. The neural foramina are mildly narrowed bilaterally. At L4-5 disc level there is no significant disc bulge or herniation. There is mild canal stenosis. The neural foramina are narrowed bilaterally. There is mild to moderate AP canal stenosis. At L5-S1 disc level there is noted of disc bulge, herniation or spinal canal stenosis. The neural foramina is mildly narrowed bilaterally. The facet joints are symmetrical and normal. The ligament flavum is symmetric and normal. There is abnormal T2 signal seen in the distal cord extending into the body of conus and approximately measures 3.8 cm in craniocaudad length. On precontrast exam there is slight hyperintensity on the T1 sequence. Postcontrast there is mild heterogeneous peripheral enhancement and minimal inhomogeneous central cord enhancement. Also visualized is focal enhancing dural nodule at the posterior tip of conus likely a primary or metastatic nodule. Differential diagnosis includes acute versus chronic myelitis. Etiologies such as chemotherapy, trauma, demyelination, infarction cord. Enhancing nodule may represent primary or dropped metastasis. There is mild nonspecific enhancement seen in the left ligament flavum and anterior dura at the L5-S1 disc level likely previous site of lumbar printer. Correlate clinically. The bone marrow signal is normal. The paravertebral soft tissues are normal. MR/MR lumbar spine wo/w con IMPRESSION: Abnormal conus as described above. Enhancing nodule posterior conus likely intradural. Differential diagnoses as described above. Recommend neurology consult Mild spinal canal stenosis L3-4 and L4-5 disc levels Electronically signed by: Jw Peace MD 02/22/2025 11:19 AM EDT RP Results were discussed with PA/ AUDIT SPEC Shilpa Nichols by phone at 10:45 AM
[2025-02-22] MEDS: gadobutroL 7.5 ML VIAL IVPUSH (10:11)
== END 2025-02-22 08:59 | disposition home or self-care (01) ==
LOC: HO.MRI 08:58
DX: K59.2 Neurogenic bowel, not elsewhere classified (principal); G95.81 Conus medullaris syndrome
CPT/HCPCS: 72158; A9585

== ENCOUNTER 2025-03-12 09:53 | Outpatient (REF) | payer MEDICARE, MEDICAID, SELFPAY ==
[2025-03-12 10:18] LABS: MANUAL DIFF FLAG NO
[2025-03-12 10:53] LABS: Basophils Absolute Auto 0.1 X10*3/uL (0.0-0.2); Basophils Percent Auto 0.8 % (0-2); Eosinophils Absolute Auto 0.3 X10*3/uL (0.0-0.4); Eosinophils Percent Auto 4.4 % (0-4); Hematocrit 41.3 % (42.0-52.0); Hemoglobin 13.4 g/dl (14.0-18.0); Imm Gran Abs Auto 0.03 X10*3/uL (0.00-0.03); Imm Gran Pct Auto 0.5 % (0.0-0.4); Lymphocytes Percent Auto 30.4 % (20-40); Mean Corpuscular HGB Conc 32.4 g/dl (31.0-36.0); Mean Corpuscular Hemoglobin 25.6 pg (27.0-33.0); Mean Platelet Volume 10.7 fL (9.4-12.4); Monocytes Absolute Auto 0.6 X10*3/uL (0.1-1.2); Monocytes Percent Auto 9.6 % (2-11); Neutrophils Absolute Auto 3.6 x10*3/uL (2.0-8.3); Neutrophils Percent Auto 54.3 % (45-73); Platelet Count 293 X10*3/uL (160-400); Red Blood Count 5.23 X10*6/uL (4.60-5.80); Red Cell Distribution Width 14.4 % (11.0-16.0); White Blood Count 6.6 X10*3/uL (4.8-10.8)
[2025-03-12 11:57] LABS: Folate 11.8 ng/mL (> or = 4.0); Vitamin B12 565 pg/mL (200-900)
[2025-03-12 12:20] LABS: Alanine Aminotransferase 121 U/L (0-40); Albumin Level 4.1 g/dL (3.5-5.0); Alkaline Phosphatase 97 U/L (39-117); Anion Gap 15 (12-20); Aspartate Amino Transferase 70 U/L (5-37); Bilirubin Total 0.4 mg/dL (0.0-1.0); Blood Urea Nitrogen 27 mg/dL (9-16); Carbon Dioxide 23 mmol/L (22-29); Chloride 105 mmol/L (96-108); Cholesterol 147 mg/dL (<200); Estimated Glomerular Filt Rate > 60; Glucose Random 107 mg/dL (60-115); HDL Cholesterol 40 mg/dL (>40); LDL Cholesterol Calculated 92 mg/dL (<100); Potassium 4.2 mmol/L (3.3-5.1); Sodium 139 mmol/L (135-145); TSH reflex Free T4 1.98 uIU/mL (0.32-4.0); Triglycerides 75 mg/dL (<150); Vitamin D 25-OH Total 44.6 ng/mL (>30)
== END 2025-03-12 09:54 | disposition home or self-care (01) ==
LOC: HO.LAB 09:53
DX: Z00.00 Encounter for general adult medical examination without abnormal findings (principal); E11.9 Type 2 diabetes mellitus without complications; E78.00 Pure hypercholesterolemia, unspecified; N31.9 Neuromuscular dysfunction of bladder, unspecified; Z96.0 Presence of urogenital implants
CPT/HCPCS: 36415; 80053; 80061; 82306; 82607; 82746; 84443; 85025; 99202

== ENCOUNTER 2025-03-12 13:38 | Outpatient (AMB) | payer MEDICARE, MEDICAID, SELFPAY ==
--- NOTE | 2025-03-12 13:47 | A.OFFVIS_ITS ---
Intake Visit Reasons: urinary incontinence/ chronic catheter Intake Note: Pt presents to the office today for urinary incontinence/chronic catheter. Allergies No Known Allergies Allergy (Verified 03/12/25 14:16) Medication List - Last Reconciled 03/12/25 by GINO Noguera [adult diapers As directed] ascorbic acid (vitamin C) 1 g PO DAILY 90 days atorvastatin 40 mg PO DAILY blood pressure monitor As directed captopril 50 mg PO BID comp.stocking,knee,long,medium As directed 10-20 mmHg [Disposable bed pads As directed] disposable gloves As directed [foam wedge As directed] furosemide 40 mg PO Q OTHER DAY [sabra lift As directed] lidocaine 5% 1 patch topical DAILY meloxicam 15 mg PO DAILY methenamine hippurate 1 g PO DAILY 90 days oral thermometer, electronic (Oral Temp Thermometer) As directed pantoprazole 40 mg PO DAILY [power hospital bed As directed] [power wheelchair As directed] [wipes As directed] HPI Comments Details: Kike is a very pleasant 74-year-old male patient of Dr. Marie was accompanied by his son at today's office visit. He has a past medical history of type 2 diabetes, neurogenic bowel, hemorrhoids, chronic kidney disease, neurogenic bladder, paraplegia, and hypertension. He presents to the office today as a new patient for a neurogenic bladder. In discussion with the patient and his son today he reports recently moving here from [place] and is looking to establish urological care. He reports since the diagnosis of paraplegia in [place] 2 years ago he has had an indwelling Vicente catheter. He discusses conus medullaris syndrome since his diagnosis of he has since had a neurogenic bladder and an indwelling Vicente catheter. The son and patient report he is changing Vicente catheter every 2 weeks. He also discusses his history of recurrent urinary tract infections. We did discussed further treatment options to include suprapubic tube. We also discussed suppression for recurrent urinary tract infections. Indwelling Vicente catheter is intact and Vicente is draining clear yellow urine. He reports prior to diagnosis of conus medullaris syndrome he had no bothersome urinary issues or concerns. He denies hematuria, flank pain, fever, and or chills. All questions were answered. [facility] Medical History (Updated 03/12/25 @ 14:29 by GINO Noguera) Type 2 diabetes mellitus with diabetic peripheral angiopathy without gangrene Type 2 diabetes mellitus with hyperglycemia Rash and other nonspecific skin eruption Neurogenic bowel, not elsewhere classified Other hemorrhoids Hiccough Nontraumatic subarachnoid hemorrhage, unspecified Hypertensive 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, with stage 1 through stage 4 chronic kidney disease, or unspecified chronic kidney disease Chronic kidney disease, stage 2 (mild) 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, complete Chronic indwelling Vicente catheter Neurogenic bladder Conus medullaris syndrome Hypertension Type 2 diabetes mellitus Chronic paraplegia Surgical History History of carpal tunnel release Social History Housing: House Patient Tobacco Use Status: Never used Tobacco e-Cigarette/Vaping Use: Never Used Cognitive needs: No Hearing needs: No Vision needs: No Review of Systems Eyes Reports no additional complaints ENT Reports no additional complaints Card Reports as per HPI Resp Reports no additional complaints GI Reports as per HPI Reports as per HPI Musc Reports as per HPI Neuro Reports as per HPI Psych Reports no additional complaints Endo Reports as per HPI Paul/Lymph Reports no additional complaints Physical Exam Const General: cooperative, healthy appearing, comfortable, no acute distress, well developed, alert and awake Orientation/consciousness: patient oriented x3 Limitations: other limitations (Stretcher) HEENT Head: Yes normal to inspection Eyes General: appearance normal, both eyes and all related structures Neck Neck: Yes normal visual inspection Chest Chest palpation & inspection: normal inspection of the chest Resp Effort & Inspection: normal respiratory effort and able to speak in complete sentences Cardio Rate: regular rate GI Inspection: Yes normal to inspection Other: Indwelling Vicente catheter draining clear yellow urine Skin General skin exam: no rashes or lesions noted Neuro General: patient oriented x3 Psych Appearance: well kempt Mental Status: mental status grossly normal Speech and movement: Clear speech present Affect: normal affect Attitude: cooperative Thought content: Normal thought content present Insight: Fair insight present (Psych) Judgement: Fair judgement present (Psych) Assessment & Plan Assessment & Plan (1) Neurogenic bladder: Code(s): N31.9 - Neuromuscular dysfunction of bladder, unspecified Category: Medical Plan We discussed further treatment options to include suprapubic tube verses indwelling Vicente catheter; risks and benefits of these interventions were discussed. We discussed further treatment options of recurrent urinary tract infections Will continue with catheter changes through care tenders as requested at this time; will send orders We discussed cycling bladder with catheter cap verses drainage bag Start methenamine and vitamin-C as discussed. Will obtain PSA for further assessment evaluation. Will obtain renal ultrasound Follow-up in 3 months with imaging and labs to be completed prior; or sooner with any issues, concerns, and or questions. Orders: Orders Prostate Specific Antigen Today N31.9 - Neuromuscular dysfunction of bladder, unspecified US retroperitoneal comp Today N31.9 - Neuromuscular dysfunction of bladder, unspecified Medications: New ascorbic acid (vitamin C) 1 g PO DAILY 90 tabs 1RF 90 days N39.0 - Urinary tract infection, site not specified methenamine hippurate 1 g PO DAILY 90 tabs 1RF 90 days N39.0 - Urinary tract infection, site not specified Patient Instructions: The patient had an opportunity to ask questions regarding the treatment plan. All questions were answered. Physical exam, labs, and imaging were discussed and reviewed in detail. As well as risks, benefits, and discussion of treatment choices. No major barriers to understanding were identified. The patient expressed understanding and agreement with the above treatment plan. The patient was made aware they should contact our office by phone for worsening of their current condition, the appearance of new symptoms, or with any questions or concerns. Compliance is encouraged with any medications and follow up testing that is ordered. It is a privilege to be allowed the opportunity to participate in? your urological care.? Again, if you have any questions or concerns If you have any questions or concerns please do not hesitate to contact me. The office is [phone]. This note is constructed using voice recognition software. While every effort has been made to ensure accuracy medical center director errors may have been included. Yours sincerely, GINO Noguera Coding Level of Care Code New Pt Level 4 (86805) Diagnoses Neurogenic bladder N31.9
== END 2025-03-12 14:18 | disposition home or self-care (01) ==
LOC: HO.HUSH 13:39
PROVIDERS: Visit Provider Nurse Practitioner Family
DX: N31.9 Neuromuscular dysfunction of bladder, unspecified (principal)
CPT/HCPCS: 99204

== ENCOUNTER 2025-03-14 08:49 | Outpatient (AMB) | payer MEDICARE, MEDICAID, SELFPAY ==
--- NOTE | 2025-03-14 08:51 | MHC.PC.OV ---
Vital Signs 03/14/25 08:53 Height 5 ft 9 in BMI Reason not done Patient refused/unable BP 120/66 Blood Pressure Location Lt brachial Position Sitting Pulse 103 H Pulse Source Pulse Oximeter Temp 97.1 F Temp Source Temporal Artery Scan Pulse Oximetry (%) 97 Oxygen Delivery Method Room Air Intake Visit Reasons: f/u medications Intake Note: Patient is here to follow up on Med review. Java Xml Developer Required: No Web Methods Developer: Present Accompanied by: Son Allergies No Known Allergies Allergy (Verified 03/14/25 09:03) Medication List - Last Reconciled 03/14/25 by Shilpa Marie PA-C [adult diapers As directed] ascorbic acid (vitamin C) 1 g PO DAILY 90 days atorvastatin 40 mg PO DAILY blood pressure monitor As directed captopril 50 mg PO BID comp.stocking,knee,long,medium As directed 10-20 mmHg [Disposable bed pads As directed] disposable gloves As directed [foam wedge As directed] furosemide 40 mg PO Q OTHER DAY [sabra lift As directed] lidocaine 5% 1 patch topical DAILY meloxicam 15 mg PO DAILY methenamine hippurate 1 g PO DAILY 90 days oral thermometer, electronic (Oral Temp Thermometer) As directed pantoprazole 40 mg PO DAILY [power hospital bed As directed] [power wheelchair As directed] [wipes As directed] Tobacco use date assessed: 03/14/25 Fall risk assessment: No Falls in past year Last assessed Fall Risk: 03/14/25 Dental Screening Dental Screen Date: 02/12/25 HPI f/u medications HPI Details 74-year-old male with past medical history of diabetes mellitus, paraplegia with chronic indwelling catheter, conus medullaris syndrome, GERD, anxiety, depression, chronic kidney disease, hypertension last seen 01/2025 coming in for follow up. In review of the notes, patient was seen by Urology 02/2025 discussed possible options including suprapubic tube versus indwelling Vicente catheter plan to continue with catheter changes through [facility] started on methenamine and vitamin-C and plan to obtain imaging.?Patient is seeing spine Center later today. Presenting with management concerns for multiple ongoing health issues, including history and progress of each condition. Cognitive impairment is under evaluation, with neurology consultations and plans for monitoring. Elevated liver enzymes noted, with continued investigation to rule out underlying causes such as medication-induced effects or prior liver injury. Shoulder pain, particularly severe at night, is being monitored for treatment efficacy and evaluation of potential underlying etiologies. Urinary tract concerns are under urological management. [facility] Medical History (Updated 03/14/25 @ 09:51 by Shilpa Marie PA-C) Type 2 diabetes mellitus with diabetic peripheral angiopathy without gangrene Type 2 diabetes mellitus with hyperglycemia Rash and other nonspecific skin eruption Neurogenic bowel, not elsewhere classified Other hemorrhoids Hiccough Nontraumatic subarachnoid hemorrhage, unspecified Hypertensive 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, with stage 1 through stage 4 chronic kidney disease, or unspecified chronic kidney disease Chronic kidney disease, stage 2 (mild) 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, complete Chronic indwelling Vicente catheter Neurogenic bladder Conus medullaris syndrome Hypertension Type 2 diabetes mellitus Chronic paraplegia Surgical History History of carpal tunnel release Social History Housing: House Patient Tobacco Use Status: Never used Tobacco e-Cigarette/Vaping Use: Never Used Second Hand Smoke Exposure: No service: No Current occupational status: retired and disabled Cognitive needs: No Hearing needs: No Vision needs: No Questionnaire Thrive Questionnaire Date Thrive assessed: 02/12/25 I am a: Patient What is your living situation today?: I have a steady place to live Within the past 12 months, did the food you bought not last and you didn't have the money to get more?: I choose not to answer this question Within the past 12 months, did you worry whether your food would run out before you got money to buy more?: I choose not to answer this question Do you have trouble paying for medicines?: Yes Do you have trouble getting transportation to medical appointments?: Yes Do you have trouble paying your heating and electricity bill?: Yes Do you have trouble taking care of your child, family member or friend?: No Do you have trouble with day-to-day activities such as bathing, preparing meals, shopping, managing finances, etc.?: Yes Are you currently unemployed and looking for a job?: I choose not to answer this question Are you interested in more education?: Yes Currently or been in a relationship where the following occur: I choose not to answer THRIVE Score: 2 NASEEM-7 AMB Questionnaire NASEEM-7 Date NASEEM - 7 assessed: 02/12/25 Source: Developed by Drs. Lemuel Blake, Yazmin Simpson, Alphonso Oneill and colleagues, with an educational alisha from [employer]. Review of Systems Const Denies body aches, Denies chills, Denies fever(s), Denies headache(s) and Denies poor appetite Eyes Reports no additional complaints ENT Denies dizziness and Denies headache(s) Card Denies chest pain, Denies irregular heart rhythm, Denies lightheadedness and Denies dyspnea Resp Denies cough and Denies dyspnea Reports no additional complaints Skin/Breast Reports system reviewed and no additional complaints, except as documented Neuro Denies dizziness and Denies headache(s) Psych Reports no additional complaints Physical exam (Primary Care) Vital Signs: Last Vital Signs Temp 97.1 F 03/14/25 08:53 Pulse 103 H 03/14/25 08:53 BP 120/66 03/14/25 08:53 Pulse Ox 97 03/14/25 08:53 Oxygen Delivery Method Room Air 03/14/25 08:53 Tobacco/Smoking Status: Tobacco use Status Tobacco use date assessed 03/14/25 03/14/25 08:58 Patient Tobacco Use Status Never used Tobacco 03/14/25 08:51 e-Cigarette/Vaping Use Never Used 03/14/25 08:51 Thrive Assessment: Date of Thrive Assessment Date Thrive assessed 02/12/25 03/14/25 08:51 Currently or been in a relationship where the following occur: I choose not to answer Const General: cooperative, healthy appearing, comfortable and no acute distress Orientation/consciousness: patient oriented x3 HENMT Head: Yes normocephalic Ears: hearing grossly normal bilaterally General nose exam: Normal external nose present Eyes General: appearance normal, both eyes and all related structures Conjunctivae: conjunctivae normal Neck Neck: Yes full ROM and Yes no lymphadenopathy Resp Effort & Inspection: normal respiratory effort Cardio Rate: regular rate Rhythm: regular rhythm Neuro General: patient oriented x3 Extrem General: No edema Psych Affect: normal affect Attitude: cooperative Insight: Good insight present (Psych) Judgement: Good judgement present (Psych) Coding Level of Care Code Est Pt Level 3 (95550) Diagnoses Conus medullaris syndrome G95.81 Incontinence R32 Indwelling Vicente catheter present Z97.8 Chronic right shoulder pain M25.511; G89.29 Chronicity: chronic GERD (gastroesophageal reflux disease) K21.9 Type 2 diabetes mellitus E11.9 Hypertension I10 Dysphagia R13.10 Elevated LFTs R79.89 Tachycardia R00.0 Assessment & Plan Assessment & Plan (1) Conus medullaris syndrome: Code(s): G95.81 - Conus medullaris syndrome Category: Medical Plan: MRI was obtained and has been reviewed with the patient today. He has seen a spinal specialist later today and referral was placed to Neurology at last visit and patient has a appointment with Neurology march 21 (2) Incontinence: Code(s): R32 - Unspecified urinary incontinence Category: Medical Plan: Patient was seen by Urology started on methenamine in ordered for blood work as well as imaging. He has an appointment coming up in 3 months for follow up. Discussed further treatment options including indwelling catheter versus suprapubic tube. Patient to follow with Urology (3) Indwelling Vicente catheter present: Code(s): Z97.8 - Presence of other specified devices Category: Medical Plan: See above. Continue to follow with [facility] for catheter changes (4) Shoulder pain, right: Code(s): M25.511 - Pain in right shoulder Category: Medical Qualifiers: Chronicity: chronic Qualified Code(s): M25.511 - Pain in right shoulder; G89.29 - Other chronic pain Plan: Patient continues to have right shoulder pain and does have an appointment with Orthopedics in the coming months. I did recommend the patient use the sling only as needed to prevent stiffness and limited range of motion. (5) GERD (gastroesophageal reflux disease): Code(s): K21.9 - Gastro-esophageal reflux disease without esophagitis Category: Medical Plan: Avoid trigger foods such as citrus, tomato products, soda, caffeine, spicy foods and other foods that may be irritating to your stomach. Avoid laying flat 3-4 hours after eating and elevate the head of the bed 30 degrees to prevent acid from moving into the esophagus. Continue on pantoprazole (6) Type 2 diabetes mellitus: Code(s): E11.9 - Type 2 diabetes mellitus without complications Category: Medical Plan: Decrease the amount of carbohydrates such as pasta, bread, rice, and potatoes and limit the amount of sweets. Although fruits are generally healthy they should be eaten in moderation as they are still high in sugar. Hemoglobin A1c goal of less than 7%. A1c 5.5% today advised to discontinue metformin at this time. Plan to repeat in 2 months (7) Hypertension: Code(s): I10 - Essential (primary) hypertension Category: Medical Plan: Continue on current blood pressure medication. Avoid salt intake and encourage healthy diet and regular exercise. (8) Dysphagia: Code(s): R13.10 - Dysphagia, unspecified Category: Medical Plan: Patient being evaluated by visiting nurse through [facility] recommended speech therapy referral was placed today (9) Elevated LFTs: Code(s): R79.89 - Other specified abnormal findings of blood chemistry Category: Medical Plan: Blood work and imaging to be obtained. Avoid liver irritants such as Tylenol and alcohol. (10) Tachycardia: Code(s): R00.0 - Tachycardia, unspecified Category: Medical Plan: EKG ordered for further evaluation. Plan I addressed the patient's various chronic conditions through a coordinated plan involving multiple specialists. Plans for cognitive decline involve neurology, with necessary tests to determine liver issues, factoring recent elevated enzyme levels. Anemia is improving, evidenced by lab results, whereas his shoulder pain management awaits further orthopedic evaluation. Urology is central to the urinary concerns, navigating the potential UTI and considering different catheterization methods, pending specialist opinions. We ensure proactive engagement with neurology and spine consultations, monitoring the spine MRI findings. The equipment requirements for patient comfort and management were systematically reviewed and requested. This note was constructed using voice recognition software. While every effort has been made to ensure accuracy and engagement lead, still areas may have been included sometimes these areas may affect the content or meeting of the given symptoms. Total time spent caring for the patient today was 20 minutes. This includes time spent before the visit reviewing the chart, time spent during the visit, and time spent after the visit and documentation. Patient was informed and verbally consented to the use of an ambient scribe for clinic note documentation during this visit. Orders: Orders ECG 12 lead EKG Today R00.0 - Tachycardia, unspecified UA CC w/rflx Micro + Cult Today R35.89 - Other polyuria Referrals Speech and Hearing Referral R13.10 - Dysphagia, unspecified
[2025-03-14 08:53] VITALS: BP 120/66; PULSE 103; TEMP 36.2; O2SAT 97
== END 2025-03-14 09:29 | disposition home or self-care (01) ==
LOC: HO.HMCH 08:50
DX: E11.9 Type 2 diabetes mellitus without complications (principal); G95.81 Conus medullaris syndrome; R32 Unspecified urinary incontinence; Z97.8 Presence of other specified devices; M25.511 Pain in right shoulder; G89.29 Other chronic pain; K21.9 Gastro-esophageal reflux disease without esophagitis; I10 Essential (primary) hypertension; R13.10 Dysphagia, unspecified; R79.89 Other specified abnormal findings of blood chemistry; R00.0 Tachycardia, unspecified

== ENCOUNTER → 2025-03-14 08:49 | Outpatient (BNVA) | payer MEDICARE, MEDICAID, SELFPAY | DX: M47.14 Other spondylosis with myelopathy, thoracic region (principal); G95.81 Conus medullaris syndrome; R32 Unspecified urinary incontinence; M25.511 Pain in right shoulder; G89.29 Other chronic pain; K21.9 Gastro-esophageal reflux disease without esophagitis; E11.9 Type 2 diabetes mellitus without complications; R13.10 Dysphagia, unspecified; R79.89 Other specified abnormal findings of blood chemistry; R00.0 Tachycardia, unspecified; I10 Essential (primary) hypertension | CPT/HCPCS: 99202; 99212 ==

== ENCOUNTER 2025-03-14 14:00 | Outpatient (AMB) | payer MEDICARE, MEDICAID, SELFPAY ==
--- NOTE | 2025-03-14 14:25 | HO.SPINEOV ---
Intake Visit Reasons: conus medullaris syndrome Intake Note: Mr. Neto Botello is here today c/o back pain. Clinical Informatics Specialist Required: No Allergies No Known Allergies Allergy (Verified 03/14/25 09:03) Assessment & Plan Assessment & Plan (1) Thoracic myelopathy: Code(s): M47.14 - Other spondylosis with myelopathy, thoracic region Category: Medical Plan Dear PANDA Marie, Thank you for referring Kike to our office today. He is a pleasant 74-year-old male who comes in today accompanied by his son for evaluation of 1.5 years of paraplegia. His son helps provide the bulk of his history. They state that about a year and a half ago the patient was walking down the street in [place] when he spontaneously lost the ability to engage his lower extremities. He also host immediately lost sensation below the nipple line. He was evaluated at a hospital in [place], who informed the patient that he likely had a heart attack leading to his paraplegia. After that, the patient's son attempted to take the patient to the [facility] for evaluation by neurological specialists, however the family fought him for the next year, stating they wanted the patient to remain in [place]. The patient has had no return of sensation below the nipple line since his initial incident. He has essentially remained wheelchair-bound with a Vicente catheter in place since his hospital admission 1.5 years ago. His son is now his primary caregiver, and needs to complete most of his basic daily needs. In addition to this, the patient has also developed a slight resting tremor of his right hand. The patient states that this has occurred on and off since a carpal tunnel release surgery completed several years ago. The patient does have an upcoming appointment with [facility] on 03/21/2025. PMH: Hypertension, cataracts, type 2 diabetes (unsure of last A1c), right-sided carpal tunnel release, chronic kidney disease stage 2, GERD, anxiety, depression, right rotator cuff injury. Social hx: The patient does not smoke, reports no substance use. Medications: See Valneva list. Allergies: NKDA Physical exam: Cranial nerves II-XII grossly intact. PERRL. EOMI. Some slight nystagmus with lateral eye tracking. The patient has no strength or sensation in his bilateral lower extremities. He denies any sensation to light touch up to the nipple line. He maintains good strength in his bilateral upper extremities, but has some difficulty fully engaging his right hand strength, which he states has been his baseline since his right-sided carpal tunnel release. Notable tremor of the right wrist when attempting to engage the musculature of the forearm. (+) bilateral Hutson's. Imaging review: MRI of the lumbar spine completed here at [facility] shows evidence of diffuse T2 signal change throughout the spinal cord entering into the thecal sac. There is also a notable nodule near the posterior aspect of the conus medullaris, which radiology states may be a primary or dropped metastasis. Grade 1 slight spondylolisthesis of L2-3. No significant foraminal or central canal narrowing. Impression: Kike is a pleasant 74-year-old male who comes in today for evaluation of 1.5 years of paraplegia secondary to an unknown inciting incident in [place]. This is a very unfortunate case, where the patient is unable to ambulate, with a Vicente catheter permanently in place, and needs essentially 24 hour care. Upon initial review this sounded most like a cord infarct causing severe spinal cord damage and loss of signal below the level of T4. However after further review and consideration of the radiology read, there may be a more insidious underlying process occurring. I would like to send the patient for MRI with & without contrast of his brain, cervical spine, and thoracic spine. We would like to do this so we can more adequately make a diagnosis for this patient and his family, and potentially make treatment options and/or referrals from there. Thank you for allowing us to care for your patient. The total time spent with this visit with this patient was 45 minutes reviewing history, physical exam, MRI imaging review, and implementation of treatment plan or further diagnostic testing Darius Bar MD,PhD [facility] Orders: Orders MR thoracic spine wo/w con Today M47.14 - Other spondylosis with myelopathy, thoracic region MR head/brain wo/w con Today M47.14 - Other spondylosis with myelopathy, thoracic region MR cervical spine wo/w con Today M47.14 - Other spondylosis with myelopathy, thoracic region Coding Level of Care Code New Pt Level 4 (39242) Diagnoses Thoracic myelopathy M47.14
== END 2025-03-14 14:56 | disposition home or self-care (01) ==
PROVIDERS: Visit Provider Physician Assistant
DX: M47.14 Other spondylosis with myelopathy, thoracic region (principal)
CPT/HCPCS: 99204

== ENCOUNTER 2025-03-26 20:27 | Inpatient (IN) | payer MEDICARE, MEDICAID, SELFPAY ==
--- NOTE | ~2025-03-26 | XR_ITS ---
CLINICAL HISTORY: pain 1 view right shoulder Comparison: None Findings: Limited study based on single projection. No definite fracture. Alignment not evaluated. No erosions. No radiopaque foreign body. IMPRESSION: Limited study based on single projection. No definite fracture. Dislocation not excluded. This document has been electronically signed by: Norman Gaspar MD on 03/27/2025 18:11:42
--- NOTE | ~2025-03-26 | CT_ITS ---
CLINICAL HISTORY: urosepsis source CT abdomen and pelvis with and without contrast Comparison: None Findings: Bibasilar atelectatic/dependent changes. Large hiatal hernia. Unremarkable gallbladder and solid organs. No urolithiasis. No hydronephrosis. No bowel obstruction, pneumoperitoneum, or pneumatosis. Large colonic and rectal stool burden. Normal appendix. Partially distended urinary bladder containing moderate air. An indwelling urinary catheter balloon is noted within the penile urethra and its tip within the prostatic urethra. The bones are intact. IMPRESSION: An indwelling urinary catheter balloon within the penile urethra and its tip within the prostatic urethra. Removal or repositioning of the catheter is recommended. Partially distended urinary bladder containing moderate air and with moderate circumferential wall thickening, concerning for cystitis. Correlate with urinalysis. No hydronephrosis or nephrolithiasis. Normal symmetric enhancement of the kidneys. Large colonic and rectal stool burden. Large hiatal hernia. This document has been electronically signed by: Linda Bedolla MD on 03/28/2025 18:44:51
[2025-03-26 20:35] VITALS: BP 160/70; PULSE 130; O2SAT 98
[2025-03-26 20:39] VITALS: BP 141/51; PULSE 134; RESP 20; TEMP 38; O2SAT 99; BMI 25.1
--- NOTE | 2025-03-26 20:42 | ECG_ITS ---
Test Reason : TACHYCARDIA Blood Pressure : */* mmHG Vent. Rate : 133 BPM Atrial Rate : 133 BPM P-R Int : 188 ms QRS Dur : 64 ms QT Int : 284 ms P-R-T Axes : 94 74 76 degrees QTcB Int : 422 ms Artifact in tracing Sinus tachycardia Low voltage QRS Cannot rule out Anterior infarct , age undetermined Abnormal ECG No previous ECGs available Referred By: Generic ED Physician Electronically Signed By: RIKI BALL
[2025-03-26] MEDS: Acetaminophen 1,000 MG/100 ML PIGGYBACK 400 MG IV (21:02)
--- NOTE | 2025-03-26 21:15 | ED.MALEGU ---
HPI - Male Genitourinary General Chief complaint: Urogenital-Male Stated complaint: PER EMS HALLUCINATIONS, TACHY Time Seen by Provider: 03/26/25 21:11 Source: patient Mode of arrival: ambulatory Limitations: no limitations History of Present Illness ED Provider: HPI Narrative: patient is 74 years old with history of hypertension diabetes CKD and depression with paraplegia for last 18 months? 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 with chronic Vicente catheter which was changed 2 weeks ago comes here as since last night patient has been more lethargic with slight confusion with history of same in any had UTI with ESBL and Pseudomonas no bad sore no open wounds on arrival patient's temperature was 100.4 degrees Related Data Home Medications ?Medication ?Instructions ?Recorded ?Confirmed atorvastatin 40 mg tablet 40 mg PO DAILY 02/08/25 03/14/25 captopril 50 mg tablet 50 mg PO BID 02/08/25 03/14/25 pantoprazole 40 mg tablet,delayed 40 mg PO DAILY 02/08/25 03/14/25 release Previous Rx's ?Medication ?Instructions ?Recorded meloxicam 15 mg tablet 15 mg PO DAILY #15 tabs 02/08/25 blood pressure monitor #1 ea 02/12/25 comp.stocking,knee,long,medium #12 ea 02/12/25 lidocaine 5 % topical patch 1 patch topical DAILY #30 ea 02/12/25 Disposable bed pads #100 ea 02/15/25 adult diapers #240 ea 02/15/25 disposable gloves #200 ea 02/15/25 foam wedge #2 02/15/25 wipes #3 ea 02/15/25 oral thermometer, electronic (Oral #1 ea 02/19/25 Temp Thermometer) sabra lift #1 ea 03/05/25 power hospital bed #1 ea 03/05/25 power wheelchair #1 ea 03/05/25 ascorbic acid (vitamin C) 1,000 mg 1 g PO DAILY 90 days #90 tabs 03/12/25 tablet methenamine hippurate 1 gram tablet 1 g PO DAILY 90 days #90 tabs 03/12/25 furosemide 40 mg tablet 40 mg PO Q OTHER DAY #15 tabs 03/20/25 Allergies Allergy/AdvReac Type Severity Reaction Status Date / Time No Known Allergies Allergy Verified 03/26/25 20:40 Review of Systems Review of Systems: Yes all other systems are reviewed and are negative [facility] Past Medical History Medical History Type 2 diabetes mellitus with diabetic peripheral angiopathy without gangrene Type 2 diabetes mellitus with hyperglycemia Rash and other nonspecific skin eruption Neurogenic bowel, not elsewhere classified Other hemorrhoids Hiccough Nontraumatic subarachnoid hemorrhage, unspecified Hypertensive 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, with stage 1 through stage 4 chronic kidney disease, or unspecified chronic kidney disease Chronic kidney disease, stage 2 (mild) 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, complete Chronic indwelling Vicente catheter Neurogenic bladder Conus medullaris syndrome Hypertension Type 2 diabetes mellitus Chronic paraplegia Surgical History History of carpal tunnel release Social History Social History Housing: House Patient Tobacco Use Status: Never used Tobacco Smoked in Last 30 Days: No e-Cigarette/Vaping Use: Never Used Second Hand Smoke Exposure: No Use of substances other than those prescribed or required for medical reasons: No Advance Directives: No Advance Directives Information Provided: Yes service: No Current occupational status: retired and disabled Cognitive needs: No Hearing needs: No Vision needs: No Physical Exam Vital Signs: Vital Signs: Last Vital Signs Temp 97.9 F 03/27/25 03:56 Pulse 119 H 03/27/25 03:56 Resp 20 03/27/25 03:56 BP 131/91 H 03/27/25 03:56 Pulse Ox 100 03/27/25 03:56 O2 Del Method Room Air 03/27/25 03:56 BMI result Body Mass Index 25.1 Appearance: Alert. Oriented X3. No acute distress. Eyes: PERRLA, No Nystagmus ENT: Pharynx normal. Oral Mucosa Dry Neck: Normal inspection. Neck supple. CVS: Normal heart rate and rhythm. Pulses normal. Respiratory: No respiratory distress. Equal air entry bilateral, no wheezing/rales/rhonchi Abdomen: Soft and nontender. Bowel sounds are present, no mass palpable, no CVA tenderness Skin: Skin warm and dry. Normal skin color. Normal skin turgor. Extremities: No lower extremity edema. No calf tenderness Neuro: Oriented X 3. paraplegic below T4 with indwelling Vicente catheter Medications Administered Discontinued Medications Generic Name Dose Route Start Last Admin Trade Name Lj PRN Reason Stop Dose Admin Acetaminophen 1,000 mg in 100 mls @ 400 mls/hr 03/26/25 20:55 03/27/25 00:11 Ofirmev IV 03/26/25 21:09 Infused ONCE ONE Infusion Sodium Chloride 1,000 mls @ 999 mls/hr 03/26/25 22:12 03/27/25 00:09 Ns IV 03/26/25 23:12 Infused .Q1H1M ONE Infusion Meropenem 1 gm 03/26/25 21:19 03/26/25 21:33 Meropenem 1 Gm Vial IVPUSH 03/26/25 21:20 1 gm ONCE ONE Administration Medical Decision Making Medical Decision Making [facility] Narrative: patient with ESBL and Pseudomonas in the urine in 02/16 comes here for fever tachycardia and leukocytosis meeting the criteria for sepsis will give IV fluids and meropenem to cover both Pseudomonas and ESBL Differential Diagnosis Differential Diagnoses: The differential diagnosis associated with the presentation includes Admission/Observation Consideration of admission/observation: Escalation of care including admission/observation considered Consult Healthcare Provider Management of the patient was discussed with: Hospitalist Lab Data [facility] Lab Attestation statement: I reviewed the patient's lab results. 03/26/25 21:12 03/26/25 21:12 Labs: Lab Results 03/26/25 03/26/25 03/26/25 Range/Units 21:12 21:14 21:21 WBC 12.3 H (4.8-10.8) X10*3/uL RBC 4.41 L (4.60-5.80) X10*6/uL Hgb 11.2 L (14.0-18.0) g/dl Hct 33.7 L (42.0-52.0) % MCV 76.4 L (80.0-98.0) fL MCH 25.4 L (27.0-33.0) pg MCHC 33.2 (31.0-36.0) g/dl RDW 14.9 (11.0-16.0) % Plt Count 324 (160-400) X10*3/uL MPV 9.6 (9.4-12.4) fL Immature Gran % (Auto) 0.5 H (0.0-0.4) % Neut % (Auto) 83.7 H (45-73) % Lymph % (Auto) 7.6 L (20-40) % [place] % (Auto) 7.7 (2-11) % Eos % (Auto) 0.3 (0-4) % Baso % (Auto) 0.2 (0-2) % Lymph # (Auto) 0.9 L (1.2-4.9) X10*3/uL [place] # (Auto) 1.0 (0.1-1.2) X10*3/uL Eos # (Auto) 0.0 (0.0-0.4) X10*3/uL Baso # (Auto) 0.0 (0.0-0.2) X10*3/uL Abs Immat Gran (auto) 0.06 H (0.00-0.03) X10*3/uL Absolute Neuts (auto) 10.3 H (2.0-8.3) x10*3/uL Absolute Nucleated RBC 0.000 (0.0-0.012) X10*3/uL Nucleated RBC % (auto) 0.0 (0.0-0.2) /100WBC VBG pH 7.38 (7.32-7.43) VBG pCO2 39 mmHg VBG pO2 48 mmHg VBG HCO3 23 (22-26) mmol/L VBG O2 Saturation 68.0 % VBG Base Excess -1.1 mmol/L Sodium 137 (135-145) mmol/L Potassium 4.4 (3.3-5.1) mmol/L Chloride 107 (96-108) mmol/L Carbon Dioxide 23 (22-29) mmol/L Anion Gap 11 L (12-20) BUN 30 H (9-16) mg/dL Creatinine 0.64 (0.5-1.4) mg/dL Estim Creat Clear Calc 86.0 Estimated GFR > 60 Random Glucose 134 H (60-115) mg/dL Lactic Acid 1.6 (0.5-2.0) mmol/L Calcium 8.7 D (8.4-10.2) mg/dL Total Bilirubin 0.3 (0.0-1.0) mg/dL AST 62 H (5-37) U/L ALT 98 H (0-40) U/L Alkaline Phosphatase 104 (39-117) U/L Total Protein 6.9 (6.5-8.0) g/dL Albumin 3.4 L (3.5-5.0) g/dL Urine Color Yellow Urine Appearance Cloudy Urine pH 6.5 (5.0-9.0) Ur Specific [place] 1.020 (1.005-1.025) Urine Protein 30 (1+) H (Neg-Trace) mg/dL Urine Glucose (UA) Negative (Negative) mg/dL Urine Ketones Negative (Negative) mg/dL Urine Blood Moderate (2+) H (Negative) Urine Nitrite Positive H (Negative) Ur Leukocyte Esterase Large (3+) H (Negative) Urine RBC >20 H (0-2) /HPF Urine WBC >50 H (0-5) /HPF Ur Squamous Epith Cells 0-2 (0-2) /HPF Urine Bacteria 4+ (None Seen) Hyaline Casts 0-2 (0-2) /LPF Discharge Plan Discharge Clinical Impression: Urinary tract infection, Indwelling Vicente catheter present Patient Disposition: Admitted As Inpatient
[2025-03-26 21:20] LABS: MANUAL DIFF FLAG NO
[2025-03-26 21:23] LABS: Appearance Urine Cloudy; Basophils Percent Auto 0.2 % (0-2); Color Urine Yellow; Eosinophils Percent Auto 0.3 % (0-4); Glucose Urine UA Negative (Negative); Hematocrit 33.7 % (42.0-52.0); Hemoglobin 11.2 g/dl (14.0-18.0); Imm Gran Abs Auto 0.06 X10*3/uL (0.00-0.03); Imm Gran Pct Auto 0.5 % (0.0-0.4); Leukocyte Esterase Urine Large (3+) (Negative); Lymphocytes Absolute Auto 0.9 X10*3/uL (1.2-4.9); Lymphocytes Percent Auto 7.6 % (20-40); Mean Corpuscular HGB Conc 33.2 g/dl (31.0-36.0); Mean Corpuscular Hemoglobin 25.4 pg (27.0-33.0); Mean Corpuscular Volume 76.4 fL (80.0-98.0); Mean Platelet Volume 9.6 fL (9.4-12.4); Monocytes Percent Auto 7.7 % (2-11); Neutrophils Absolute Auto 10.3 x10*3/uL (2.0-8.3); Neutrophils Percent Auto 83.7 % (45-73); Nitrite Urine Positive (Negative); PH 6.5 (5.0-9.0); Platelet Count 324 X10*3/uL (160-400); Red Blood Count 4.41 X10*6/uL (4.60-5.80); Red Cell Distribution Width 14.9 % (11.0-16.0); UMIC TRIGGER UACC YES; Urine Blood Moderate (2+) (Negative); Urine Ketones Negative (Negative); Urine Protein 30 (1+) mg/dL (Neg-Trace); White Blood Count 12.3 X10*3/uL (4.8-10.8)
[2025-03-26 21:25] LABS: VBG Base Excess -1.1 mmol/L; VBG HCO3 23 mmol/L (22-26); VBG pCO2 39 mmHg; VBG pH 7.38 (7.32-7.43); VBG pO2 48 mmHg
[2025-03-26 21:28] LABS: Bacteria Urine 4+ (None Seen); Hyaline Casts Urine 0-2 /LPF (0-2); RBC Urine >20 /HPF (0-2); Squamous Epithelial Cell Urine 0-2 /HPF (0-2); UACC Culture Trigger YES; WBC Urine >50 /HPF (0-5)
[2025-03-26] MEDS: Meropenem 1 GM VIAL IVPUSH (21:33)
[2025-03-26 21:40] LABS: Lactic Acid 1.6 mmol/L (0.5-2.0)
[2025-03-26 21:41] LABS: Alanine Aminotransferase 98 U/L (0-40); Albumin Level 3.4 g/dL (3.5-5.0); Alkaline Phosphatase 104 U/L (39-117); Anion Gap 11 (12-20); Aspartate Amino Transferase 62 U/L (5-37); Bilirubin Total 0.3 mg/dL (0.0-1.0); Blood Urea Nitrogen 30 mg/dL (9-16); Calcium 8.7 mg/dL (8.4-10.2); Carbon Dioxide 23 mmol/L (22-29); Chloride 107 mmol/L (96-108); Estimated Glomerular Filt Rate > 60; Glucose Random 134 mg/dL (60-115); Potassium 4.4 mmol/L (3.3-5.1); Sodium 137 mmol/L (135-145); Total Protein 6.9 g/dL (6.5-8.0)
[2025-03-26 21:41] LABS: Venous Blood Gas Refer to POC result
[2025-03-26] MEDS: 0.9 % Sodium Chloride 1,000 ML 999 ML IV (22:17)
[2025-03-26 22:19] VITALS: BP 93/53; PULSE 114; RESP 21; TEMP 38.1; O2SAT 97
--- NOTE | 2025-03-26 23:07 | P.HPHOSP_ITS ---
History of Present Illness Date of Service: 03/26/25 Attending physician on admission: Hardik Minaya Chief Complaint: Lethargy/confusion patient is 74 year old male with a past medical history of hypertension, diabetes, CKD, depression, and paraplegia for last 18 months? 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 the pt's son is his primary well service derrick worker and notes that he has been off for the past few days but he has not had a fever and his urine has looked normal. today he noticed purulent urine and decided to take him to the ED. his last measured temp at home was 99.1. the pt has history of same in 02/16 any had UTI with ESBL and Pseudomonas no bad sore no open wounds on arrival patient's temperature was 100.4 degrees. he pt is asymptomatic at this time and has no sensation from the upper chest, down. he has had chronic UTIs and is seeing a urologist. Review of Systems 2 Constitutional: Constitutional: Denies chills, Denies fatigue, Denies fever(s) and Denies headache(s) Eyes: Eyes: Denies change in vision and Denies photophobia ENT: Denies headache(s), Denies nasal congestion, Denies nasal discharge and Denies sore throat Cardiovascular: Cardiovascular: Denies chest pain, Denies rapid heart rate, Denies leg edema, Denies lightheadedness and Denies dyspnea Respiratory: Respiratory: Denies chest congestion, Denies cough, Denies dyspnea and Denies wheezing Gastrointestinal: Gastrointestinal: Denies abdominal pain, Denies diarrhea, Denies nausea and Denies vomiting Genitourinary: Genitourinary: Denies dysuria Musculoskeletal: Musculoskeletal: Denies back pain Integumentary/Breasts: Skin/Breast: Denies rash Neurologic: Reports confusion and Denies headache(s) Psychiatric: Psychiatric: Reports confusion Endocrine: Endocrine: Denies fatigue Hematologic/Lymphatic: Hematologic/Lymphatic: Denies easy bleeding and Denies easy bruising Allergic/Immunologic: Allergic/Immunologic: Denies wheezing PMFSH Medical History Type 2 diabetes mellitus with diabetic peripheral angiopathy without gangrene Type 2 diabetes mellitus with hyperglycemia Rash and other nonspecific skin eruption Neurogenic bowel, not elsewhere classified Other hemorrhoids Hiccough Nontraumatic subarachnoid hemorrhage, unspecified Hypertensive 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, with stage 1 through stage 4 chronic kidney disease, or unspecified chronic kidney disease Chronic kidney disease, stage 2 (mild) 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, complete Chronic indwelling Saha catheter Neurogenic bladder Conus medullaris syndrome Hypertension Type 2 diabetes mellitus Chronic paraplegia Functional capacity: bed bound Surgical History History of carpal tunnel release Social History Housing: House Patient Tobacco Use Status: Never used Tobacco Smoked in Last 30 Days: No e-Cigarette/Vaping Use: Never Used Second Hand Smoke Exposure: No Use of substances other than those prescribed or required for medical reasons: No Advance Directives: No Advance Directives Information Provided: Yes service: No Current occupational status: retired and disabled Cognitive needs: No Hearing needs: No Vision needs: No Meds Allergies Allergy/AdvReac Type Severity Reaction Status Date / Time No Known Allergies Allergy Verified 03/26/25 20:40 Active Medications: Current Medications Sodium Chloride (Ns) 1,000 mls @ 999 mls/hr IV .Q1H1M ONE Stop: 03/26/25 23:12 Last Admin: 03/26/25 22:17 Dose: 999 mls/hr Home Medications ?Medication ?Instructions ?Recorded ?Confirmed ?Last Taken ?Type atorvastatin 40 mg tablet 40 mg PO DAILY 02/08/25 03/14/25 Unknown History captopril 50 mg tablet 50 mg PO BID 02/08/25 03/14/25 Unknown History pantoprazole 40 mg tablet,delayed 40 mg PO DAILY 02/08/25 03/14/25 Unknown History release Physical Exam 2 Vital Signs and Narrative: Vital Signs: Last Vital Signs Temp 100.5 F H 03/26/25 22:19 Pulse 114 H 03/26/25 22:19 Resp 21 H 03/26/25 22:19 BP 93/53 L 03/26/25 22:19 Pulse Ox 97 03/26/25 22:19 O2 Del Method Room Air 03/26/25 22:19 BMI result Body Mass Index 25.1 General: AOx3, no acute distress Resp: CTA bilaterally CVS: S1, S2, RRR GI/: +BS, NT, no distention. saha catheter draining straw colored urine. Skin: Warm, dry Neuro: Cranial nerves II-XII grossly intact bilaterally. Motor grossly intact bilaterally Extremities: No LE edema Psych: Appropriate affect Const: General: confusion Orientation/consciousness: confusion Eyes: Direct Ophthalmoscopy: No photophobia Neuro: General: confusion Results Labs 03/26/25 21:12 03/26/25 21:12 Labs: Laboratory Results - last 24 hr 03/26/25 03/26/25 03/26/25 21:12 21:14 21:21 MCV 76.4 L MCH 25.4 L MCHC 33.2 RDW 14.9 Plt Count 324 MPV 9.6 Immature Gran % (Auto) 0.5 H Neut % (Auto) 83.7 H Lymph % (Auto) 7.6 L [place] % (Auto) 7.7 Eos % (Auto) 0.3 Baso % (Auto) 0.2 Lymph # (Auto) 0.9 L [place] # (Auto) 1.0 Eos # (Auto) 0.0 Baso # (Auto) 0.0 Abs Immat Gran (auto) 0.06 H Absolute Neuts (auto) 10.3 H Absolute Nucleated RBC 0.000 Nucleated RBC % (auto) 0.0 VBG pH 7.38 VBG pCO2 39 VBG pO2 48 VBG HCO3 23 VBG O2 Saturation 68.0 VBG Base Excess -1.1 Anion Gap 11 L Estim Creat Clear Calc 86.0 Estimated GFR > 60 Random Glucose 134 H Lactic Acid 1.6 Calcium 8.7 D Total Bilirubin 0.3 AST 62 H ALT 98 H Alkaline Phosphatase 104 Total Protein 6.9 Albumin 3.4 L Urine Color Yellow Urine Appearance Cloudy Urine pH 6.5 Ur Specific [place] 1.020 Urine Protein 30 (1+) H Urine Glucose (UA) Negative Urine Ketones Negative Urine Blood Moderate (2+) H Urine Nitrite Positive H Ur Leukocyte Esterase Large (3+) H Urine RBC >20 H Urine WBC >50 H Ur Squamous Epith Cells 0-2 Urine Bacteria 4+ Hyaline Casts 0-2 Assessment and Plan (1) Sepsis: Status: Acute (2) Urinary tract infection: Status: Acute (3) Neurogenic bladder: Status: Acute (4) Chronic kidney disease, stage 2 (mild): Status: Acute Plan patient is 74 year old male with a past medical history of hypertension, diabetes, CKD, depression, and paraplegia for last 18 months? 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 sepsis secondary to UTI, neurogenic bladder with chronic saha - WBC 12.3, tachycardic and tachypneic with fever of 100.5, lactic acid normal, blood cultures x2 pending - UA +, culture pending - started on meropenum in ED, swtich to ertapenum - ID consult - given 1L IVF, BP ok, no need for further fluids at this time - monitor CBC and BMP elevated LFTs - chronic and mild chronic microcytic anemia - at baseline - no need for blood transfusion at this time - monitor CBC HTN - continue home meds when appropriate T2DM - no home meds - sliding scale insulin - diabetic diet CKD2 - cr 0.64, no TAWNY - monitor BMP full code VTE prophy: lovenox Pt with sepsis secondary to UTI requiring admission for at least 2 midnights stay for IV abx and monitoring. Quality Stroke Does the patient have a stroke diagnosis?: No VTE Prior VTE?: No VTE Risk Level:: Medical - moderate - high VTE Device Contraindication: Treatment Not Indicated VTE Drug Contraindication: N/A - Med Ordered
[2025-03-27] VITALS (12 sets, daily range): BP systolic 103–161; BP diastolic 58–91; PULSE 92–119; RESP 16–24; TEMP 36.4–37.8; O2SAT 94–100; BMI 24.9
--- NOTE | 2025-03-27 | ECG_ITS ---
Test Reason : ABNORMAL RHYTHM ON TELE Blood Pressure : */* mmHG Vent. Rate : 125 BPM Atrial Rate : 125 BPM P-R Int : 164 ms QRS Dur : 70 ms QT Int : 312 ms P-R-T Axes : 85 72 37 degrees QTcB Int : 450 ms Artifact in tracing Sinus tachycardia Low voltage QRS due to poor quality, cannot assess further When compared with ECG of 26-Mar-2025 20:54, No significant changes seen Referred By: Elaine Carpenter Electronically Signed By: RIKI BALL
--- NOTE | 2025-03-27 | ECG_ITS ---
Test Reason : TACHYCARDIA Blood Pressure : */* mmHG Vent. Rate : 98 BPM Atrial Rate : 98 BPM P-R Int : 134 ms QRS Dur : 80 ms QT Int : 362 ms P-R-T Axes : 53 40 50 degrees QTcB Int : 462 ms Normal sinus rhythm Low voltage QRS Borderline ECG When compared with ECG of 27-Mar-2025 02:08, No significant changes seen Referred By: Elaine Carpenter Electronically Signed By: RIKI BALL
[2025-03-27 05:00] LABS: MANUAL DIFF FLAG NO
[2025-03-27 05:04] LABS: Basophils Absolute Auto 0.1 X10*3/uL (0.0-0.2); Basophils Percent Auto 0.4 % (0-2); Eosinophils Percent Auto 0.2 % (0-4); Hematocrit 36.2 % (42.0-52.0); Hemoglobin 11.6 g/dl (14.0-18.0); Imm Gran Abs Auto 0.06 X10*3/uL (0.00-0.03); Imm Gran Pct Auto 0.5 % (0.0-0.4); Lymphocytes Absolute Auto 1.3 X10*3/uL (1.2-4.9); Lymphocytes Percent Auto 10.9 % (20-40); Mean Corpuscular Hemoglobin 24.8 pg (27.0-33.0); Mean Corpuscular Volume 77.4 fL (80.0-98.0); Mean Platelet Volume 9.4 fL (9.4-12.4); Monocytes Absolute Auto 1.3 X10*3/uL (0.1-1.2); Neutrophils Absolute Auto 8.8 x10*3/uL (2.0-8.3); Platelet Count 303 X10*3/uL (160-400); Red Blood Count 4.68 X10*6/uL (4.60-5.80); White Blood Count 11.4 X10*3/uL (4.8-10.8)
[2025-03-27 05:19] LABS: Anion Gap 14 (12-20); Blood Urea Nitrogen 25 mg/dL (9-16); Calcium 9.1 mg/dL (8.4-10.2); Carbon Dioxide 20 mmol/L (22-29); Chloride 107 mmol/L (96-108); Creatinine Clr Calc Pharmacy 94.9; Estimated Glomerular Filt Rate > 60; Glucose Random 115 mg/dL (60-115); Potassium 4.1 mmol/L (3.3-5.1); Sodium 137 mmol/L (135-145)
[2025-03-27] MEDS: Acetaminophen 325 MG TABLET 975 MG PO ×2 (05:54→22:12)
--- NOTE | 2025-03-27 05:56 | PM.EVENT ---
Event Note Date of Service: 03/27/25 Event Note: pt tachycardic in the 150s, ordered metoprolol 5mg IV and PO tylenol 975mg was just given. temp is 100.1 rectally. pt is resting comfortably and asx. repeat EKG ordered. Time Spent With Patient Time: Total time managing care of this patient today ____ minutes.
[2025-03-27] MEDS: Metoprolol Tartrate 5 MG/5 ML VIAL IVPUSH (06:03)
--- NOTE | 2025-03-27 07:15 | PC.NURSE ---
assumed care of patient at 0700, patient is awake and alert, resp even and unlabored. patient son at bedside, VSS, patient has saha cath in place draining yellow urine
[2025-03-27 07:27] LABS: Glucose, Whole Blood 119 mg/dL (60-115)
--- NOTE | 2025-03-27 08:29 | PHA.MEDREC ---
Pharmacy Consult ? Medication Reconciliation Pharmacy has completed the medication reconciliation.
[2025-03-27] MEDS: Enoxaparin Sodium 40 MG/0.4 ML SYRINGE SUBCUT (09:13)
[2025-03-27] MEDS: Meropenem 1 GM VIAL IVPUSH ×2 (09:13→17:56)
[2025-03-27 11:42] LABS: Glucose, Whole Blood 124 mg/dL (60-115)
--- NOTE | 2025-03-27 12:52 | MHC.CM.PN ---
Patient is here with s/s of Confusion; CM spoke with Son/HCP/Kike @ [phone] and addressed IMM with him (original will be left at bedside and a copy will be placed on the chart). Patient lives alone in an apartment but his Son and/or his Son's Girlfriend make sure that he is never left alone. Patient uses a w/c for mobility and he is active with [facility]; home/resume said services is Patient's goal and CM has initiated and will follow for dc planning. PCP/PA is Shilpa Marie and Son will transport to home at time of dc.
[2025-03-27 16:37] LABS: Glucose, Whole Blood 121 mg/dL (60-115)
--- NOTE | 2025-03-27 16:52 | HO.PM.IMPN ---
Subjective Subjective Date of Service: 03/27/25 Review of Systems Follow up sepsis and UTI better today now with GNR bacteremia Physical Exam Vital Signs: Vital Signs: Last Vital Signs Temp 98.9 F 03/27/25 15:53 Pulse 110 H 03/27/25 15:53 Resp 18 03/27/25 15:53 BP 140/86 H 03/27/25 15:53 Pulse Ox 97 03/27/25 15:53 O2 Del Method Room Air 03/27/25 15:53 BMI result Body Mass Index 25.1 Appearing in no acute distress lung sounds are clear to auscultation heart regular rate rhythm, clear S1, S2 positive bowel sounds, abdomen is soft, nontender neuro patient is alert x3, paraplegia Objective Data Active Medications Acetaminophen (Acetaminophen 325 Mg Tablet) 975 mg PO Q6H PRN PRN Reason: Pain, Mild 1-3,fever,headache Last Admin: 03/27/25 05:54 Dose: 975 mg Documented By: KENIA Calcium Carbonate (Calcium Carbonate 750 Mg Tab.Chew) 750 mg PO Q4H PRN PRN Reason: Heartburn Dextrose (Dextrose 50 % 25 Gm/50 Ml Syringe) 25 gm IVPUSH Q15M PRN; Protocol PRN Reason: per Hypoglycemia Standing Ord. Enoxaparin Sodium (Enoxaparin Sodium 40 Mg/0.4 Ml Syringe) 40 mg SUBCUT Q24H [facility] Last Admin: 03/27/25 09:13 Dose: 40 mg Documented By: ZAIDA Glucose (Glucose Gel 15 Gm Gel..Gram.) 15 gm PO Q15M PRN; Protocol PRN Reason: per Hypoglycemia Standing Ord. Insulin Human Lispro (Insulin Lispro 100 Unit/Ml 3 Ml Vial) 0 unit SUBCUT QIDACHS [facility]; Protocol Last Admin: 03/27/25 16:45 Dose: Not Given Documented By: JARED Non-Admin Reason: No Insulin Coverage Magnesium Hydroxide (Milk Of Magnesia 30 Ml Oral.Susp) 30 ml PO DAILY PRN PRN Reason: Constipation Melatonin (Melatonin 3 Mg Tablet) 6 mg PO BEDTIME PRN PRN Reason: Insomnia Meropenem (Meropenem 1 Gm Vial) 1 gm IVPUSH Q8H [facility] Last Admin: 03/27/25 09:13 Dose: 1 gm Documented By: ZAIDA Morphine Sulfate (Morphine Sulfate 4 Mg/Ml Cartridge) 2 mg IVPUSH Q4H PRN; Protocol PRN Reason: Pain, Severe (Pain Scale 7-10) Ondansetron HCl (Ondansetron Hcl 4 Mg/2 Ml Vial) 4 mg IVPUSH Q8H PRN PRN Reason: Nausea and Vomiting Oxycodone HCl (Oxycodone Hcl Immed Release 5 Mg Tablet) 5 mg PO Q6H PRN PRN Reason: Pain, Moderate(Pain Scale 4-6) Sodium Chloride (0.9 % Sodium Chloride Flush 3 Ml Syringe) 3 ml IVFLUSH QSHIFT [facility] Last Admin: 03/27/25 16:45 Dose: Not Given Documented By: JARED Non-Admin Reason: See Note Labs 03/27/25 04:45 03/27/25 04:45 Labs: Laboratory Results - last 24 hr 03/26/25 03/26/25 03/26/25 21:12 21:14 21:21 MCV 76.4 L MCH 25.4 L MCHC 33.2 RDW 14.9 Plt Count 324 MPV 9.6 Immature Gran % (Auto) 0.5 H Neut % (Auto) 83.7 H Lymph % (Auto) 7.6 L [place] % (Auto) 7.7 Eos % (Auto) 0.3 Baso % (Auto) 0.2 Lymph # (Auto) 0.9 L [place] # (Auto) 1.0 Eos # (Auto) 0.0 Baso # (Auto) 0.0 Abs Immat Gran (auto) 0.06 H Absolute Neuts (auto) 10.3 H Absolute Nucleated RBC 0.000 Nucleated RBC % (auto) 0.0 VBG pH 7.38 VBG pCO2 39 VBG pO2 48 VBG HCO3 23 VBG O2 Saturation 68.0 VBG Base Excess -1.1 Anion Gap 11 L Estim Creat Clear Calc 86.0 Estimated GFR > 60 POC Glucose Random Glucose 134 H Lactic Acid 1.6 Calcium 8.7 D Total Bilirubin 0.3 AST 62 H ALT 98 H Alkaline Phosphatase 104 Total Protein 6.9 Albumin 3.4 L Urine Color Yellow Urine Appearance Cloudy Urine pH 6.5 Ur Specific [place] 1.020 Urine Protein 30 (1+) H Urine Glucose (UA) Negative Urine Ketones Negative Urine Blood Moderate (2+) H Urine Nitrite Positive H Ur Leukocyte Esterase Large (3+) H Urine RBC >20 H Urine WBC >50 H Ur Squamous Epith Cells 0-2 Urine Bacteria 4+ Hyaline Casts 0-2 03/27/25 03/27/25 03/27/25 04:45 07:17 11:33 MCV 77.4 L MCH 24.8 L MCHC 32.0 RDW 15.0 Plt Count 303 MPV 9.4 Immature Gran % (Auto) 0.5 H Neut % (Auto) 77.0 H Lymph % (Auto) 10.9 L [place] % (Auto) 11.0 Eos % (Auto) 0.2 Baso % (Auto) 0.4 Lymph # (Auto) 1.3 [place] # (Auto) 1.3 H Eos # (Auto) 0.0 Baso # (Auto) 0.1 Abs Immat Gran (auto) 0.06 H Absolute Neuts (auto) 8.8 H Absolute Nucleated RBC 0.000 Nucleated RBC % (auto) 0.0 VBG pH VBG pCO2 VBG pO2 VBG HCO3 VBG O2 Saturation VBG Base Excess Anion Gap 14 Estim Creat Clear Calc 94.9 Estimated GFR > 60 POC Glucose 119 H 124 H Random Glucose 115 Lactic Acid Calcium 9.1 Total Bilirubin AST ALT Alkaline Phosphatase Total Protein Albumin Urine Color Urine Appearance Urine pH Ur Specific [place] Urine Protein Urine Glucose (UA) Urine Ketones Urine Blood Urine Nitrite Ur Leukocyte Esterase Urine RBC Urine WBC Ur Squamous Epith Cells Urine Bacteria Hyaline Casts 03/27/25 16:30 MCV MCH MCHC RDW Plt Count MPV Immature Gran % (Auto) Neut % (Auto) Lymph % (Auto) [place] % (Auto) Eos % (Auto) Baso % (Auto) Lymph # (Auto) [place] # (Auto) Eos # (Auto) Baso # (Auto) Abs Immat Gran (auto) Absolute Neuts (auto) Absolute Nucleated RBC Nucleated RBC % (auto) VBG pH VBG pCO2 VBG pO2 VBG HCO3 VBG O2 Saturation VBG Base Excess Anion Gap Estim Creat Clear Calc Estimated GFR POC Glucose 121 H Random Glucose Lactic Acid Calcium Total Bilirubin AST ALT Alkaline Phosphatase Total Protein Albumin Urine Color Urine Appearance Urine pH Ur Specific [place] Urine Protein Urine Glucose (UA) Urine Ketones Urine Blood Urine Nitrite Ur Leukocyte Esterase Urine RBC Urine WBC Ur Squamous Epith Cells Urine Bacteria Hyaline Casts Microbiology Microbiology Results: Microbiology 03/26/25 21:28 Blood Culture - Preliminary Blood - Venous Prelim: GNR Gram Stain only 03/26/25 21:12 Blood Culture - Preliminary Blood - Venous Prelim: GNR Gram Stain only 03/26/25 21:32 Urine Culture - Preliminary Urine clean catch - Clean Catch Midstream Gram negative lavinia Assessment and Plan (1) Urinary tract infection: Status: Acute Plan 74 year old male with a past medical history of hypertension, diabetes, CKD, depression, and paraplegia for last 18 months? 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 GNR Bacteremia and GNR UTI on meropenem Follow final cx ID consultation pending Sepsis secondary to UTI, neurogenic bladder with chronic saha. Sepsis resolved WBC 12.3, tachycardic and tachypneic with fever of 100.5, lactic acid normal, blood cultures x2 pending UA +, culture pending Hx of ESBL>meropenem elevated LFTs chronic and mild chronic microcytic anemia at baseline no need for blood transfusion at this time monitor CBC HTN continue home meds T2DM no home meds sliding scale insulin diabetic diet CKD2 cr 0.58 monitor BMP full code VTE prophy: lovenox Quality Stroke Does the patient have a stroke diagnosis?: No VTE Prior VTE?: No VTE Risk Level:: Medical - moderate - high VTE Device Contraindication: Treatment Not Indicated VTE Drug Contraindication: N/A - Med Ordered
[2025-03-27] MEDS: Furosemide 40 MG TABLET PO (17:56)
[2025-03-27 20:26] LABS: Glucose, Whole Blood 159 mg/dL (60-115)
[2025-03-27 21:54] LABS: Glucose, Whole Blood 186 mg/dL (60-115)
[2025-03-27] MEDS: captopriL 25 MG TABLET 50 MG PO (21:57)
[2025-03-27] MEDS: Insulin Lispro 100 UNIT/ML 3 ML VIAL SUBCUT (22:00)
[2025-03-27] MEDS: 0.9 % Sodium Chloride Flush 3 ML SYRINGE IVFLUSH (22:02)
[2025-03-28] VITALS (8 sets, daily range): BP systolic 84–129; BP diastolic 50–89; PULSE 96–113; RESP 16–18; TEMP 36.1–36.9; O2SAT 97–100
[2025-03-28] MEDS: Meropenem 1 GM VIAL IVPUSH ×3 (00:15→20:55)
[2025-03-28] MEDS: Omeprazole 20 MG CAPSULE.DR PO (05:09)
[2025-03-28 07:07] LABS: MANUAL DIFF FLAG NO
[2025-03-28 07:10] LABS: Glucose, Whole Blood 101 mg/dL (60-115)
[2025-03-28 07:17] LABS: Basophils Percent Auto 0.5 % (0-2); Eosinophils Absolute Auto 0.1 X10*3/uL (0.0-0.4); Eosinophils Percent Auto 0.9 % (0-4); Hematocrit 31.8 % (42.0-52.0); Hemoglobin 10.4 g/dl (14.0-18.0); Imm Gran Pct Auto 1.2 % (0.0-0.4); Lymphocytes Absolute Auto 1.9 X10*3/uL (1.2-4.9); Lymphocytes Percent Auto 22.2 % (20-40); Mean Corpuscular HGB Conc 32.7 g/dl (31.0-36.0); Mean Corpuscular Hemoglobin 24.8 pg (27.0-33.0); Mean Corpuscular Volume 75.9 fL (80.0-98.0); Mean Platelet Volume 9.8 fL (9.4-12.4); Neutrophils Absolute Auto 5.4 x10*3/uL (2.0-8.3); Neutrophils Percent Auto 63.2 % (45-73); Platelet Count 237 X10*3/uL (160-400); Red Blood Count 4.19 X10*6/uL (4.60-5.80); Red Cell Distribution Width 15.5 % (11.0-16.0); White Blood Count 8.5 X10*3/uL (4.8-10.8)
[2025-03-28 07:32] LABS: Anion Gap 14 (12-20); Blood Urea Nitrogen 29 mg/dL (9-16); Calcium 8.7 mg/dL (8.4-10.2); Carbon Dioxide 22 mmol/L (22-29); Chloride 105 mmol/L (96-108); Creatinine Clr Calc Pharmacy 71.5; Estimated Glomerular Filt Rate > 60; Glucose Random 112 mg/dL (60-115); Potassium 3.8 mmol/L (3.3-5.1); Sodium 137 mmol/L (135-145)
[2025-03-28] MEDS: LACTATED RINGERS 1000 ML IV (08:33)
[2025-03-28] MEDS: Enoxaparin Sodium 40 MG/0.4 ML SYRINGE SUBCUT (08:34)
[2025-03-28] MEDS: Atorvastatin Calcium 40 MG TABLET PO (08:35)
[2025-03-28] MEDS: Ascorbic Acid 500 MG TABLET 1000 MG PO (08:35)
[2025-03-28] MEDS: 0.9 % Sodium Chloride Flush 3 ML SYRINGE IVFLUSH (08:37)
[2025-03-28 08:49] LABS: Albumin Level 3.1 g/dL (3.5-5.0); Iron 20 mcg/dL (45-160); Percent Iron Saturation 9 % (15-50); Total Iron Binding Capacity 230 mcg/dL (228-428); Unsaturated Iron Binding 210 ug/dL
[2025-03-28 09:03] LABS: Ferritin 86 ng/mL (20-250)
[2025-03-28 10:58] LABS: Glucose, Whole Blood 149 mg/dL (60-115)
--- NOTE | 2025-03-28 11:46 | P.PNIM_ITS ---
Subjective Subjective Date of Service: 03/28/25 Interval History: BP low this AM, 84/58, now 97/54 after 2L IV LR; denies lightheadedness no sensation below nipple line Review of Systems Review of Systems: Yes all other systems are reviewed and are negative Physical Exam 2 Vital Signs: Vital Signs: Last Vital Signs Temp 97.0 F 03/28/25 11:15 Pulse 105 H 03/28/25 11:15 Resp 18 03/28/25 11:15 BP 97/54 L 03/28/25 11:15 Pulse Ox 100 03/28/25 11:15 O2 Del Method Room Air 03/28/25 11:15 O2 Flow Rate 99 03/28/25 07:35 BMI result Body Mass Index 24.9 Gen: in no acute distress HEENT: sclera anicteric, moist mucus membranes Neck: supple Lungs: clear to auscultation bilaterally Heart: regular rate and rhythm, no murmurs Abd: soft, non-tender, non-distended : Vicente with clear urine Ext: no edema Skin: warm/well-perfused Neuro: alert and oriented x3, no focal sensation below nipple line, 0/5 strength in bilateral lower extremities Psych: appropriate affect Objective Data Active Medications Acetaminophen (Acetaminophen 325 Mg Tablet) 975 mg PO Q6H PRN PRN Reason: Pain, Mild 1-3,fever,headache Last Admin: 03/27/25 22:12 Dose: 975 mg Documented By: ALISA Ascorbic Acid (Ascorbic Acid 500 Mg Tablet) 1,000 mg PO DAILY [facility] Last Admin: 03/28/25 08:35 Dose: 1,000 mg Documented By: SARA Atorvastatin Calcium (Atorvastatin Calcium 40 Mg Tablet) 40 mg PO DAILY [facility] Last Admin: 03/28/25 08:35 Dose: 40 mg Documented By: SARA Calcium Carbonate (Calcium Carbonate 750 Mg Tab.Chew) 750 mg PO Q4H PRN PRN Reason: Heartburn Captopril (Captopril 25 Mg Tablet) 50 mg PO BID [facility] Last Admin: 03/27/25 21:57 Dose: 50 mg Documented By: ALISA Dextrose (Dextrose 50 % 25 Gm/50 Ml Syringe) 25 gm IVPUSH Q15M PRN; Protocol PRN Reason: per Hypoglycemia Standing Ord. Enoxaparin Sodium (Enoxaparin Sodium 40 Mg/0.4 Ml Syringe) 40 mg SUBCUT Q24H [facility] Last Admin: 03/28/25 08:34 Dose: 40 mg Documented By: SARA Furosemide (Furosemide 40 Mg Tablet) 40 mg PO Q2D [facility]; Protocol Last Admin: 03/27/25 17:56 Dose: 40 mg Documented By: FEI Glucose (Glucose Gel 15 Gm Gel..Gram.) 15 gm PO Q15M PRN; Protocol PRN Reason: per Hypoglycemia Standing Ord. Insulin Human Lispro (Insulin Lispro 100 Unit/Ml 3 Ml Vial) 0 unit SUBCUT QIDACHS [facility]; Protocol Last Admin: 03/28/25 07:20 Dose: Not Given Documented By: SARA Non-Admin Reason: No Insulin Coverage Magnesium Hydroxide (Milk Of Magnesia 30 Ml Oral.Susp) 30 ml PO DAILY PRN PRN Reason: Constipation Melatonin (Melatonin 3 Mg Tablet) 6 mg PO BEDTIME PRN PRN Reason: Insomnia Meropenem (Meropenem 1 Gm Vial) 1 gm IVPUSH Q8H [facility] Last Admin: 03/28/25 08:34 Dose: 1 gm Documented By: SARA Morphine Sulfate (Morphine Sulfate 4 Mg/Ml Cartridge) 2 mg IVPUSH Q4H PRN; Protocol PRN Reason: Pain, Severe (Pain Scale 7-10) Omeprazole (Omeprazole 20 Mg Capsule.Dr) 20 mg PO DAILY@0630 [facility] Last Admin: 03/28/25 05:09 Dose: 20 mg Documented By: ALISA Ondansetron HCl (Ondansetron Hcl 4 Mg/2 Ml Vial) 4 mg IVPUSH Q8H PRN PRN Reason: Nausea and Vomiting Oxycodone HCl (Oxycodone Hcl Immed Release 5 Mg Tablet) 5 mg PO Q6H PRN PRN Reason: Pain, Moderate(Pain Scale 4-6) Sodium Chloride (0.9 % Sodium Chloride Flush 3 Ml Syringe) 3 ml IVFLUSH QSHIFT [facility] Last Admin: 03/28/25 08:37 Dose: 3 ml Documented By: SARA Labs 03/28/25 06:45 03/28/25 06:45 Labs: Laboratory Results - last 24 hr 03/27/25 03/27/25 03/27/25 16:30 20:23 21:49 MCV MCH MCHC RDW Plt Count MPV Immature Gran % (Auto) Neut % (Auto) Lymph % (Auto) [place] % (Auto) Eos % (Auto) Baso % (Auto) Lymph # (Auto) [place] # (Auto) Eos # (Auto) Baso # (Auto) Abs Immat Gran (auto) Absolute Neuts (auto) Absolute Nucleated RBC Nucleated RBC % (auto) Anion Gap Estim Creat Clear Calc Estimated GFR POC Glucose 121 H 159 H 186 H Random Glucose Calcium Iron TIBC % Saturation Unsat Iron Binding Ferritin Albumin 03/28/25 03/28/25 03/28/25 06:45 07:01 10:49 MCV 75.9 L MCH 24.8 L MCHC 32.7 RDW 15.5 Plt Count 237 MPV 9.8 Immature Gran % (Auto) 1.2 H Neut % (Auto) 63.2 Lymph % (Auto) 22.2 [place] % (Auto) 12.0 H Eos % (Auto) 0.9 Baso % (Auto) 0.5 Lymph # (Auto) 1.9 [place] # (Auto) 1.0 Eos # (Auto) 0.1 Baso # (Auto) 0.0 Abs Immat Gran (auto) 0.10 H Absolute Neuts (auto) 5.4 Absolute Nucleated RBC 0.000 Nucleated RBC % (auto) 0.0 Anion Gap 14 Estim Creat Clear Calc 71.5 Estimated GFR > 60 POC Glucose 101 149 H Random Glucose 112 Calcium 8.7 Iron 20 L TIBC 230 % Saturation 9 L Unsat Iron Binding 210 Ferritin 86 Albumin 3.1 L Microbiology Microbiology Results: Microbiology 03/26/25 21:12 Blood Culture - Preliminary Blood - Venous Gram negative lavinia Prelim: GPC Gram Stain only 03/26/25 21:28 Blood Culture - Preliminary Blood - Venous Gram negative lavinia 03/26/25 21:32 Urine Culture - Final Urine clean catch - Clean Catch Midstream Escherichia coli Assessment and Plan (1) Urinary tract infection: Status: Acute Plan d3 for 74yo M with T4 paraplegia x 1.5 yr possibly due to spinal infarct vs drop metastasis [place] [facility], chronic Vicente, HTN, and DM2 presenting with lethargy and confusion, admitted for sepsis due to UTI, found to be bacteremic ESBL complicated UTI and GNR bacteremia - meropenem 6/2- - follow BCx speciation/susceptibilities - also growing GPCs in 1 blood culture but PCR negative for Staph aureus and MRSA - ID + Urology consultations, CT A/P, repeat BCx tomorrow hypotension hx HTN - hold captopril and furosemide, will give 50g IV albumin sepsis due to UTI - SIRS physiology resolved acute encephalopathy due to infection - resolved MONIQUE - replete Fe when bacterial infection under control DM2 - correction-dose lispro VTE ppx - enoxaparin dispo - eventual home with VNA In my clinical judgment, the patient requires continued inpatient hospitalization for the following reasons: hypotension, IV ABX Total time managing care of this patient today: 50 minutes. Quality Stroke Does the patient have a stroke diagnosis?: No VTE Prior VTE?: No VTE Risk Level:: Medical - moderate - high VTE Device Contraindication: Treatment Not Indicated VTE Drug Contraindication: N/A - Med Ordered
[2025-03-28] MEDS: Albumin Human 25 % 100 ML 133.33 ML IV (12:52)
--- NOTE | 2025-03-28 13:27 | P.CNUR_ITS ---
History of Present Illness Consult details Consult date: 03/28/25 Reason for consult: other (Hematuria, UTI) Narrative: Hematuria, UTI, Chronic saha, hematuria resolved. 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, complete Chronic indwelling Saha catheter Neurogenic bladder Conus medullaris syndrome Hypertension Type 2 diabetes mellitus Chronic paraplegia Surgical History Surgical History History of carpal tunnel release Social History Social History Household Members: None Housing: Apartment Do you presently have visiting nurse or other home services: Yes Patient Tobacco Use Status: Never used Tobacco e-Cigarette/Vaping Use: Never Used Second Hand Smoke Exposure: No service: No Current occupational status: retired and disabled Cognitive needs: No Hearing needs: No Vision needs: No Meds Allergies Allergy/AdvReac Type Severity Reaction Status Date / Time No Known Allergies Allergy Verified 03/26/25 20:40 Active Medications: Current Medications Acetaminophen (Acetaminophen 325 Mg Tablet) 975 mg PO Q6H PRN PRN Reason: Pain, Mild 1-3,fever,headache Last Admin: 03/27/25 22:12 Dose: 975 mg Ascorbic Acid (Ascorbic Acid 500 Mg Tablet) 1,000 mg PO DAILY [facility] Last Admin: 03/28/25 08:35 Dose: 1,000 mg Atorvastatin Calcium (Atorvastatin Calcium 40 Mg Tablet) 40 mg PO DAILY [facility] Last Admin: 03/28/25 08:35 Dose: 40 mg Calcium Carbonate (Calcium Carbonate 750 Mg Tab.Chew) 750 mg PO Q4H PRN PRN Reason: Heartburn Captopril (Captopril 25 Mg Tablet) 50 mg PO BID [facility] Last Admin: 03/27/25 21:57 Dose: 50 mg Dextrose (Dextrose 50 % 25 Gm/50 Ml Syringe) 25 gm IVPUSH Q15M PRN; Protocol PRN Reason: per Hypoglycemia Standing Ord. Enoxaparin Sodium (Enoxaparin Sodium 40 Mg/0.4 Ml Syringe) 40 mg SUBCUT Q24H [facility] Last Admin: 03/28/25 08:34 Dose: 40 mg Furosemide (Furosemide 40 Mg Tablet) 40 mg PO Q2D [facility]; Protocol Last Admin: 03/27/25 17:56 Dose: 40 mg Glucose (Glucose Gel 15 Gm Gel..Gram.) 15 gm PO Q15M PRN; Protocol PRN Reason: per Hypoglycemia Standing Ord. Albumin Human (Kedbumin 25 %) 100 mls @ 133.333 mls/hr IV Q1H [facility] Stop: 03/28/25 13:44 Last Admin: 03/28/25 12:52 Dose: 133.33 mls/hr Insulin Human Lispro (Insulin Lispro 100 Unit/Ml 3 Ml Vial) 0 unit SUBCUT QIDACHS [facility]; Protocol Last Admin: 03/28/25 12:00 Dose: Not Given Magnesium Hydroxide (Milk Of Magnesia 30 Ml Oral.Susp) 30 ml PO DAILY PRN PRN Reason: Constipation Melatonin (Melatonin 3 Mg Tablet) 6 mg PO BEDTIME PRN PRN Reason: Insomnia Meropenem (Meropenem 1 Gm Vial) 1 gm IVPUSH Q8H [facility] Last Admin: 03/28/25 08:34 Dose: 1 gm Morphine Sulfate (Morphine Sulfate 4 Mg/Ml Cartridge) 2 mg IVPUSH Q4H PRN; Protocol PRN Reason: Pain, Severe (Pain Scale 7-10) Omeprazole (Omeprazole 20 Mg Capsule.Dr) 20 mg PO DAILY@0630 [facility] Last Admin: 03/28/25 05:09 Dose: 20 mg Ondansetron HCl (Ondansetron Hcl 4 Mg/2 Ml Vial) 4 mg IVPUSH Q8H PRN PRN Reason: Nausea and Vomiting Oxycodone HCl (Oxycodone Hcl Immed Release 5 Mg Tablet) 5 mg PO Q6H PRN PRN Reason: Pain, Moderate(Pain Scale 4-6) Sodium Chloride (0.9 % Sodium Chloride Flush 3 Ml Syringe) 3 ml IVFLUSH QSHIFT [facility] Last Admin: 03/28/25 08:37 Dose: 3 ml Home Medications ?Medication ?Instructions ?Recorded ?Confirmed ?Last Taken ?Type atorvastatin 40 mg tablet 40 mg PO DAILY 02/08/25 03/27/25 03/26/25 History captopril 50 mg tablet 50 mg PO BID 02/08/25 03/27/25 03/26/25 History pantoprazole 40 mg tablet,delayed 40 mg PO DAILY 02/08/25 03/27/25 03/26/25 History release furosemide 40 mg tablet 40 mg PO Q2D 03/27/25 03/27/25 03/26/25 History meloxicam 15 mg tablet 15 mg PO DAILY PRN Pain 03/27/25 03/27/25 03/26/25 History Physical Exam 2 Vital Signs: Vital Signs: Last Vital Signs Temp 97.0 F 03/28/25 11:15 Pulse 105 H 03/28/25 11:15 Resp 18 03/28/25 11:15 BP 97/54 L 03/28/25 11:15 Pulse Ox 100 03/28/25 11:15 O2 Del Method Room Air 03/28/25 11:15 O2 Flow Rate 99 03/28/25 07:35 BMI result Body Mass Index 24.9 Results Labs 03/28/25 06:45 03/28/25 06:45 Labs: Abnormal lab results 03/27/25 03/27/25 03/27/25 Range/Units 16:30 20:23 21:49 RBC (4.60-5.80) X10*6/uL Hgb (14.0-18.0) g/dl Hct (42.0-52.0) % MCV (80.0-98.0) fL MCH (27.0-33.0) pg Immature Gran % (Auto) (0.0-0.4) % [place] % (Auto) (2-11) % Abs Immat Gran (auto) (0.00-0.03) X10*3/uL BUN (9-16) mg/dL POC Glucose 121 H 159 H 186 H (60-115) mg/dL Iron (45-160) mcg/dL % Saturation (15-50) % Albumin (3.5-5.0) g/dL 03/28/25 03/28/25 Range/Units 06:45 10:49 RBC 4.19 L (4.60-5.80) X10*6/uL Hgb 10.4 L (14.0-18.0) g/dl Hct 31.8 L (42.0-52.0) % MCV 75.9 L (80.0-98.0) fL MCH 24.8 L (27.0-33.0) pg Immature Gran % (Auto) 1.2 H (0.0-0.4) % [place] % (Auto) 12.0 H (2-11) % Abs Immat Gran (auto) 0.10 H (0.00-0.03) X10*3/uL BUN 29 H (9-16) mg/dL POC Glucose 149 H (60-115) mg/dL Iron 20 L (45-160) mcg/dL % Saturation 9 L (15-50) % Albumin 3.1 L (3.5-5.0) g/dL Short CBC 03/28/25 Range/Units 06:45 WBC 8.5 (4.8-10.8) X10*3/uL Hgb 10.4 L (14.0-18.0) g/dl Hct 31.8 L (42.0-52.0) % Plt Count 237 (160-400) X10*3/uL BMP 03/28/25 06:45 Sodium 137 Potassium 3.8 Chloride 105 Carbon Dioxide 22 BUN 29 H Creatinine 0.77 Calcium 8.7 Liver Function 03/28/25 Range/Units 06:45 Albumin 3.1 L (3.5-5.0) g/dL Urine 03/26/25 Range/Units 21:12 Urine Color Yellow Urine Appearance Cloudy Urine pH 6.5 (5.0-9.0) Ur Specific [place] 1.020 (1.005-1.025) Urine Protein 30 (1+) H (Neg-Trace) mg/dL Urine Glucose (UA) Negative (Negative) mg/dL All other labs normal. Assessment and Plan Plan h/o neurogenic bladder, Chronic saha, UTI, and MARTY, on IV abx, renal fxn improving, hematuria resolved Per son, here from [place] about 2 months. No recent imaging of urinary tract. Recommend CT-Abd/pelvis wo IV contrast Procedures Date of Service Date of Service: 03/28/25
--- NOTE | 2025-03-28 14:40 | P.CNID_ITS ---
History of Present Illness Data of Consult Service Date: 03/28/25 Requesting physician: Alexa Ware Primary Care Provider: Shilpa Marie PA-C HPI Reason for consult: sepsis He presents with chills and lethargy. 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 He has neurogenic bladder and Vicente with reported regular changes Review of Systems 2 Review of Systems: Yes Unobtainable due to mental condition PMFSH Past Medical History Medical History Type 2 diabetes mellitus with diabetic peripheral angiopathy without gangrene Type 2 diabetes mellitus with hyperglycemia Rash and other nonspecific skin eruption Neurogenic bowel, not elsewhere classified Other hemorrhoids Hiccough Nontraumatic subarachnoid hemorrhage, unspecified Hypertensive 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, with stage 1 through stage 4 chronic kidney disease, or unspecified chronic kidney disease Chronic kidney disease, stage 2 (mild) 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, complete Chronic indwelling Vicente catheter Neurogenic bladder Conus medullaris syndrome Hypertension Type 2 diabetes mellitus Chronic paraplegia Family History Family history: reviewed and not pertinent Surgical History Surgical History History of carpal tunnel release Social History Social History Household Members: None Housing: Apartment Do you presently have visiting nurse or other home services: Yes Patient Tobacco Use Status: Never used Tobacco e-Cigarette/Vaping Use: Never Used Second Hand Smoke Exposure: No service: No Current occupational status: retired and disabled Cognitive needs: No Hearing needs: No Vision needs: No Meds Allergies Allergy/AdvReac Type Severity Reaction Status Date / Time No Known Allergies Allergy Verified 03/26/25 20:40 Active Medications: Current Medications Acetaminophen (Acetaminophen 325 Mg Tablet) 975 mg PO Q6H PRN PRN Reason: Pain, Mild 1-3,fever,headache Last Admin: 03/27/25 22:12 Dose: 975 mg Ascorbic Acid (Ascorbic Acid 500 Mg Tablet) 1,000 mg PO DAILY [facility] Last Admin: 03/28/25 08:35 Dose: 1,000 mg Atorvastatin Calcium (Atorvastatin Calcium 40 Mg Tablet) 40 mg PO DAILY [facility] Last Admin: 03/28/25 08:35 Dose: 40 mg Calcium Carbonate (Calcium Carbonate 750 Mg Tab.Chew) 750 mg PO Q4H PRN PRN Reason: Heartburn Captopril (Captopril 25 Mg Tablet) 50 mg PO BID [facility] Last Admin: 03/27/25 21:57 Dose: 50 mg Dextrose (Dextrose 50 % 25 Gm/50 Ml Syringe) 25 gm IVPUSH Q15M PRN; Protocol PRN Reason: per Hypoglycemia Standing Ord. Enoxaparin Sodium (Enoxaparin Sodium 40 Mg/0.4 Ml Syringe) 40 mg SUBCUT Q24H [facility] Last Admin: 03/28/25 08:34 Dose: 40 mg Furosemide (Furosemide 40 Mg Tablet) 40 mg PO Q2D [facility]; Protocol Last Admin: 03/27/25 17:56 Dose: 40 mg Glucose (Glucose Gel 15 Gm Gel..Gram.) 15 gm PO Q15M PRN; Protocol PRN Reason: per Hypoglycemia Standing Ord. Insulin Human Lispro (Insulin Lispro 100 Unit/Ml 3 Ml Vial) 0 unit SUBCUT QIDACHS [facility]; Protocol Last Admin: 03/28/25 12:00 Dose: Not Given Magnesium Hydroxide (Milk Of Magnesia 30 Ml Oral.Susp) 30 ml PO DAILY PRN PRN Reason: Constipation Melatonin (Melatonin 3 Mg Tablet) 6 mg PO BEDTIME PRN PRN Reason: Insomnia Meropenem (Meropenem 1 Gm Vial) 1 gm IVPUSH Q8H [facility] Last Admin: 03/28/25 08:34 Dose: 1 gm Morphine Sulfate (Morphine Sulfate 4 Mg/Ml Cartridge) 2 mg IVPUSH Q4H PRN; Protocol PRN Reason: Pain, Severe (Pain Scale 7-10) Omeprazole (Omeprazole 20 Mg Capsule.Dr) 20 mg PO DAILY@0630 [facility] Last Admin: 03/28/25 05:09 Dose: 20 mg Ondansetron HCl (Ondansetron Hcl 4 Mg/2 Ml Vial) 4 mg IVPUSH Q8H PRN PRN Reason: Nausea and Vomiting Oxycodone HCl (Oxycodone Hcl Immed Release 5 Mg Tablet) 5 mg PO Q6H PRN PRN Reason: Pain, Moderate(Pain Scale 4-6) Sodium Chloride (0.9 % Sodium Chloride Flush 3 Ml Syringe) 3 ml IVFLUSH QSHIFT [facility] Last Admin: 03/28/25 08:37 Dose: 3 ml Home Medications ?Medication ?Instructions ?Recorded ?Confirmed ?Last Taken ?Type atorvastatin 40 mg tablet 40 mg PO DAILY 02/08/25 03/27/25 03/26/25 History captopril 50 mg tablet 50 mg PO BID 02/08/25 03/27/25 03/26/25 History pantoprazole 40 mg tablet,delayed 40 mg PO DAILY 02/08/25 03/27/25 03/26/25 History release furosemide 40 mg tablet 40 mg PO Q2D 03/27/25 03/27/25 03/26/25 History meloxicam 15 mg tablet 15 mg PO DAILY PRN Pain 03/27/25 03/27/25 03/26/25 History Physical Exam 2 Vital Signs: Vital Signs: Last Vital Signs Temp 97.0 F 03/28/25 11:15 Pulse 105 H 03/28/25 11:15 Resp 18 03/28/25 11:15 BP 97/54 L 03/28/25 11:15 Pulse Ox 100 03/28/25 11:15 O2 Del Method Room Air 03/28/25 11:15 O2 Flow Rate 99 03/28/25 07:35 BMI result Body Mass Index 24.9 Neuro: Other: paralysis below chest area Results Labs 03/28/25 06:45 03/28/25 06:45 Labs: Short CBC 03/28/25 Range/Units 06:45 WBC 8.5 (4.8-10.8) X10*3/uL Hgb 10.4 L (14.0-18.0) g/dl Hct 31.8 L (42.0-52.0) % Plt Count 237 (160-400) X10*3/uL BMP 03/28/25 06:45 Sodium 137 Potassium 3.8 Chloride 105 Carbon Dioxide 22 BUN 29 H Creatinine 0.77 Calcium 8.7 Liver Function 03/28/25 Range/Units 06:45 Albumin 3.1 L (3.5-5.0) g/dL Microbiology Microbiology Results: Microbiology 03/26/25 21:12 Blood - Venous Blood Culture - Preliminary Gram negative lavinia Prelim: GPC Gram Stain only 03/26/25 21:28 Blood - Venous Blood Culture - Preliminary Gram negative lavinia 03/26/25 21:32 Urine clean catch - Clean Catch Midstream Urine Culture - Final Escherichia coli Assessment and Plan (1) Urinary tract infection: Status: Acute (2) Sepsis: Status: Acute (3) Thoracic myelopathy: Status: Acute Plan Merem/Ertapenem 14 days from clearance of organism Follow Urology. Continue regular Vicente changes/monthly.
[2025-03-28 15:58] LABS: Glucose, Whole Blood 73 mg/dL (60-115)
--- NOTE | 2025-03-28 16:07 | MHC.CM.PN ---
EMR REVIEWED, PT W/SEPSIS/UTI REMAINS ON IV ABX, IV FLUIDS GIVEN, PER ID NOTE PT WILL NEED 14 DAYS OF IV ERTAPENEM AFTER BC'S CLEARED, CM WILL CONT TO FOLLOW DC NEEDS.
[2025-03-28] MEDS: iohexoL 350 MG/ML 100 ML INFUS..BTL IV (17:26)
[2025-03-28] MEDS: Albumin Human 25 % 100 ML 133.3 ML IV (17:44)
[2025-03-28 20:42] LABS: Glucose, Whole Blood 159 mg/dL (60-115)
[2025-03-28] MEDS: Insulin Lispro 100 UNIT/ML 3 ML VIAL SUBCUT (20:55)
[2025-03-29] VITALS (8 sets, daily range): BP systolic 86–129; BP diastolic 52–70; PULSE 91–105; RESP 16–18; TEMP 36.2–37.7; O2SAT 98–99
[2025-03-29] MEDS: Omeprazole 20 MG CAPSULE.DR PO (05:27)
[2025-03-29] MEDS: Meropenem 1 GM VIAL IVPUSH ×3 (05:27→21:15)
[2025-03-29 06:51] LABS: MANUAL DIFF FLAG NO
[2025-03-29 06:59] LABS: Basophils Percent Auto 0.3 % (0-2); Eosinophils Absolute Auto 0.2 X10*3/uL (0.0-0.4); Eosinophils Percent Auto 2.4 % (0-4); Hematocrit 30.2 % (42.0-52.0); Hemoglobin 10.2 g/dl (14.0-18.0); Imm Gran Abs Auto 0.06 X10*3/uL (0.00-0.03); Imm Gran Pct Auto 0.8 % (0.0-0.4); Lymphocytes Absolute Auto 1.6 X10*3/uL (1.2-4.9); Lymphocytes Percent Auto 20.6 % (20-40); Mean Corpuscular HGB Conc 33.8 g/dl (31.0-36.0); Mean Platelet Volume 9.4 fL (9.4-12.4); Monocytes Absolute Auto 0.9 X10*3/uL (0.1-1.2); Monocytes Percent Auto 11.7 % (2-11); Neutrophils Absolute Auto 5.1 x10*3/uL (2.0-8.3); Neutrophils Percent Auto 64.2 % (45-73); Platelet Count 251 X10*3/uL (160-400); Red Blood Count 4.08 X10*6/uL (4.60-5.80); Red Cell Distribution Width 15.1 % (11.0-16.0); White Blood Count 7.9 X10*3/uL (4.8-10.8)
[2025-03-29 07:14] LABS: Anion Gap 11 (12-20); Blood Urea Nitrogen 17 mg/dL (9-16); Calcium 9.1 mg/dL (8.4-10.2); Carbon Dioxide 26 mmol/L (22-29); Chloride 103 mmol/L (96-108); Creatinine Clr Calc Pharmacy 94.9; Estimated Glomerular Filt Rate > 60; Glucose Random 90 mg/dL (60-115); Potassium 4.2 mmol/L (3.3-5.1); Sodium 136 mmol/L (135-145)
[2025-03-29 07:16] LABS: Glucose, Whole Blood 95 mg/dL (60-115)
[2025-03-29] MEDS: 0.9 % Sodium Chloride Flush 3 ML SYRINGE IVFLUSH (09:29)
[2025-03-29] MEDS: Ascorbic Acid 500 MG TABLET 1000 MG PO (09:29)
[2025-03-29] MEDS: Atorvastatin Calcium 40 MG TABLET PO (09:29)
[2025-03-29] MEDS: Furosemide 40 MG/4 ML VIAL IVPUSH (09:30)
[2025-03-29] MEDS: Enoxaparin Sodium 40 MG/0.4 ML SYRINGE SUBCUT (09:30)
--- NOTE | 2025-03-29 09:54 | PC.NURSE ---
saha cath removed and replaced with new 16fr saha. pink tinged urine noted upon removal of old saha cath. 100mL of urine drained upon insertion.
--- NOTE | 2025-03-29 10:44 | MHC.CM.PN ---
Per ROUNDS discussion, Patient will need 14 days total of IV Ertapenem. Patient will get a midline on 04/02/25; he is active with [facility] and a new referral has been made to [facility]. Son or his Girlfriend may be able to be taught to do IV meds.CM will follow.
--- NOTE | 2025-03-29 11:02 | HO.PM.IMPN ---
Subjective Subjective Date of Service: 03/29/25 Interval History: Vicente replaced BP improved Review of Systems Review of Systems: Yes all other systems are reviewed and are negative Physical Exam Vital Signs: Vital Signs: Last Vital Signs Temp 98.6 F 03/29/25 07:59 Pulse 91 03/29/25 07:59 Resp 18 03/29/25 07:59 BP 129/70 03/29/25 07:59 Pulse Ox 98 03/29/25 07:59 O2 Del Method Room Air 03/29/25 07:59 O2 Flow Rate 99 03/28/25 07:35 BMI result Body Mass Index 24.9 Gen: in no acute distress HEENT: sclera anicteric, moist mucus membranes Neck: supple Lungs: clear to auscultation bilaterally Heart: regular rate and rhythm, no murmurs Abd: soft, non-tender, non-distended : Vicente with clear urine Ext: no edema Skin: warm/well-perfused Neuro: alert and oriented x3, no focal sensation below nipple line, 0/5 strength in bilateral lower extremities Psych: appropriate affect Objective Data Active Medications Acetaminophen (Acetaminophen 325 Mg Tablet) 975 mg PO Q6H PRN PRN Reason: Pain, Mild 1-3,fever,headache Last Admin: 03/27/25 22:12 Dose: 975 mg Documented By: ALISA Ascorbic Acid (Ascorbic Acid 500 Mg Tablet) 1,000 mg PO DAILY [facility] Last Admin: 03/29/25 09:29 Dose: 1,000 mg Documented By: SARA Atorvastatin Calcium (Atorvastatin Calcium 40 Mg Tablet) 40 mg PO DAILY [facility] Last Admin: 03/29/25 09:29 Dose: 40 mg Documented By: SARA Calcium Carbonate (Calcium Carbonate 750 Mg Tab.Chew) 750 mg PO Q4H PRN PRN Reason: Heartburn Captopril (Captopril 25 Mg Tablet) 50 mg PO BID [facility] Last Admin: 03/27/25 21:57 Dose: 50 mg Documented By: ALISA Dextrose (Dextrose 50 % 25 Gm/50 Ml Syringe) 25 gm IVPUSH Q15M PRN; Protocol PRN Reason: per Hypoglycemia Standing Ord. Enoxaparin Sodium (Enoxaparin Sodium 40 Mg/0.4 Ml Syringe) 40 mg SUBCUT Q24H [facility] Last Admin: 03/29/25 09:30 Dose: 40 mg Documented By: SARA Furosemide (Furosemide 40 Mg Tablet) 40 mg PO Q2D [facility]; Protocol Last Admin: 03/27/25 17:56 Dose: 40 mg Documented By: FEI Furosemide (Furosemide 40 Mg/4 Ml Vial) 40 mg IVPUSH BID@0900,1800 [facility]; Protocol Last Admin: 03/29/25 09:30 Dose: 40 mg Documented By: SARA Glucose (Glucose Gel 15 Gm Gel..Gram.) 15 gm PO Q15M PRN; Protocol PRN Reason: per Hypoglycemia Standing Ord. Insulin Human Lispro (Insulin Lispro 100 Unit/Ml 3 Ml Vial) 0 unit SUBCUT QIDACHS [facility]; Protocol Last Admin: 03/29/25 07:18 Dose: Not Given Documented By: SARA Non-Admin Reason: No Insulin Coverage Magnesium Hydroxide (Milk Of Magnesia 30 Ml Oral.Susp) 30 ml PO DAILY PRN PRN Reason: Constipation Melatonin (Melatonin 3 Mg Tablet) 6 mg PO BEDTIME PRN PRN Reason: Insomnia Meropenem (Meropenem 1 Gm Vial) 1 gm IVPUSH Q8H [facility] Last Admin: 03/29/25 05:27 Dose: 1 gm Documented By: MICHAELZEJeff Morphine Sulfate (Morphine Sulfate 4 Mg/Ml Cartridge) 2 mg IVPUSH Q4H PRN; Protocol PRN Reason: Pain, Severe (Pain Scale 7-10) Omeprazole (Omeprazole 20 Mg Capsule.Dr) 20 mg PO DAILY@0630 [facility] Last Admin: 03/29/25 05:27 Dose: 20 mg Documented By: MAURISIO Ondansetron HCl (Ondansetron Hcl 4 Mg/2 Ml Vial) 4 mg IVPUSH Q8H PRN PRN Reason: Nausea and Vomiting Oxycodone HCl (Oxycodone Hcl Immed Release 5 Mg Tablet) 5 mg PO Q6H PRN PRN Reason: Pain, Moderate(Pain Scale 4-6) Sodium Chloride (0.9 % Sodium Chloride Flush 3 Ml Syringe) 3 ml IVFLUSH QSHIFT [facility] Last Admin: 03/29/25 09:29 Dose: 3 ml Documented By: SARA Labs 03/29/25 06:35 03/29/25 06:35 Labs: Laboratory Results - last 24 hr 06/04/25 06/04/25 06/05/25 15:53 20:39 06:35 MCV 74.0 L MCH 25.0 L MCHC 33.8 RDW 15.1 Plt Count 251 MPV 9.4 Immature Gran % (Auto) 0.8 H Neut % (Auto) 64.2 Lymph % (Auto) 20.6 [place] % (Auto) 11.7 H Eos % (Auto) 2.4 Baso % (Auto) 0.3 Lymph # (Auto) 1.6 [place] # (Auto) 0.9 Eos # (Auto) 0.2 Baso # (Auto) 0.0 Abs Immat Gran (auto) 0.06 H Absolute Neuts (auto) 5.1 Absolute Nucleated RBC 0.000 Nucleated RBC % (auto) 0.0 Anion Gap 11 L Estim Creat Clear Calc 94.9 Estimated GFR > 60 POC Glucose 73 159 H Random Glucose 90 Calcium 9.1 03/29/25 07:11 MCV MCH MCHC RDW Plt Count MPV Immature Gran % (Auto) Neut % (Auto) Lymph % (Auto) [place] % (Auto) Eos % (Auto) Baso % (Auto) Lymph # (Auto) [place] # (Auto) Eos # (Auto) Baso # (Auto) Abs Immat Gran (auto) Absolute Neuts (auto) Absolute Nucleated RBC Nucleated RBC % (auto) Anion Gap Estim Creat Clear Calc Estimated GFR POC Glucose [address] A/P 03/28/25 An indwelling urinary catheter balloon within the penile urethra and its tip within the prostatic urethra. Removal or repositioning of the catheter is recommended. Partially distended urinary bladder containing moderate air and with moderate circumferential wall thickening, concerning for cystitis. Correlate with urinalysis. No hydronephrosis or nephrolithiasis. Normal symmetric enhancement of the kidneys. Large colonic and rectal stool burden. Large hiatal hernia. Microbiology Microbiology Results: Microbiology 03/26/25 21:12 Blood Culture - Final Blood - Venous Escherichia coli Coag negative Staphylococcus 03/26/25 21:28 Blood Culture - Final Blood - Venous Escherichia coli 03/26/25 21:32 Urine Culture - Final Urine clean catch - Clean Catch Midstream Escherichia coli Assessment and Plan (1) Urinary tract infection: Status: Acute Plan d4 for 74yo M with T4 paraplegia x 1.5 yr possibly due to spinal infarct vs drop metastasis undergoing workup by [facility] Neurosurgery, chronic Vicente, HTN, and DM2 presenting with lethargy and confusion, admitted for sepsis due to UTI, found to be bacteremic ESBL complicated UTI and bacteremia - meropenem 03/26- , change to ertapenem upon discharge, plan 14d total from 1st negative BCx (drawn 03/29), midline once BCx negative (earliest would be hypotension hx HTN - holding captopril and furosemide, BP has normalized after fluids + albumin sepsis due to UTI - SIRS physiology resolved acute encephalopathy due to infection - resolved MONIQUE - replete Fe when bacterial infection under control DM2 - correction-dose lispro VTE ppx - enoxaparin dispo - eventual home with VNA In my clinical judgment, the patient requires continued inpatient hospitalization for the following reasons: IV ABX Total time managing care of this patient today: 40 minutes. Quality Stroke Does the patient have a stroke diagnosis?: No VTE Prior VTE?: No VTE Risk Level:: Medical - moderate - high VTE Device Contraindication: Treatment Not Indicated VTE Drug Contraindication: N/A - Med Ordered
[2025-03-29 11:19] LABS: Glucose, Whole Blood 167 mg/dL (60-115)
[2025-03-29] MEDS: Insulin Lispro 100 UNIT/ML 3 ML VIAL SUBCUT ×2 (13:20→21:15)
[2025-03-29 16:05] LABS: Glucose, Whole Blood 90 mg/dL (60-115)
[2025-03-29] MEDS: Lactated Ringers 1,000 ML 999 ML IV (16:08)
[2025-03-29 20:38] LABS: Glucose, Whole Blood 191 mg/dL (60-115)
[2025-03-30] VITALS: BP 121/60; PULSE 96; RESP 16; TEMP 36.7; O2SAT 98
[2025-03-30] MEDS: Omeprazole 20 MG CAPSULE.DR PO (03:40)
[2025-03-30] MEDS: Meropenem 1 GM VIAL IVPUSH ×3 (03:40→20:00)
[2025-03-30 04:00] VITALS: BP 90/57; PULSE 92; RESP 16; TEMP 36.5; O2SAT 98
[2025-03-30 07:00] LABS: Glucose, Whole Blood 95 mg/dL (60-115)
[2025-03-30 07:26] VITALS: BP 109/64; PULSE 82; RESP 20; TEMP 36.2; O2SAT 99
[2025-03-30] MEDS: Ascorbic Acid 500 MG TABLET 1000 MG PO (08:43)
[2025-03-30] MEDS: Enoxaparin Sodium 40 MG/0.4 ML SYRINGE SUBCUT (08:43)
[2025-03-30] MEDS: Atorvastatin Calcium 40 MG TABLET PO (08:43)
[2025-03-30] MEDS: Furosemide 40 MG/4 ML VIAL IVPUSH (08:44)
[2025-03-30] MEDS: 0.9 % Sodium Chloride Flush 3 ML SYRINGE IVFLUSH ×3 (08:44→20:11)
[2025-03-30] MEDS: Methenamine Hippurate 1 GM TABLET PO (10:52)
[2025-03-30 10:54] LABS: Glucose, Whole Blood 141 mg/dL (60-115)
[2025-03-30 11:05] VITALS: BP 109/63; PULSE 93; RESP 20; TEMP 37.1; O2SAT 99
--- NOTE | 2025-03-30 12:17 | HO.PM.IMPN ---
Subjective Subjective Date of Service: 03/30/25 Interval History: This history was taken in Irish from the patient. 1L LR bolus yesterday for BP 86/52 BP now 109/63 Denies lightheadedness Review of Systems Review of Systems: Yes all other systems are reviewed and are negative Physical Exam Vital Signs: Vital Signs: Last Vital Signs Temp 98.8 F 03/30/25 11:05 Pulse 93 03/30/25 11:05 Resp 20 03/30/25 11:05 BP 109/63 03/30/25 11:05 Pulse Ox 99 03/30/25 11:05 O2 Del Method Room Air 03/30/25 11:05 O2 Flow Rate 99 03/28/25 07:35 BMI result Body Mass Index 24.9 Gen: in no acute distress HEENT: sclera anicteric, moist mucus membranes Neck: supple Lungs: clear to auscultation bilaterally Heart: regular rate and rhythm, no murmurs Abd: soft, non-tender, non-distended : Vicente with clear urine Ext: no edema Skin: warm/well-perfused Neuro: alert and oriented x3, no focal sensation below nipple line, 0/5 strength in bilateral lower extremities Psych: appropriate affect Objective Data Active Medications Acetaminophen (Acetaminophen 325 Mg Tablet) 975 mg PO Q6H PRN PRN Reason: Pain, Mild 1-3,fever,headache Last Admin: 03/27/25 22:12 Dose: 975 mg Documented By: ALISA Ascorbic Acid (Ascorbic Acid 500 Mg Tablet) 1,000 mg PO DAILY [facility] Last Admin: 03/30/25 08:43 Dose: 1,000 mg Documented By: FEI Atorvastatin Calcium (Atorvastatin Calcium 40 Mg Tablet) 40 mg PO DAILY [facility] Last Admin: 03/30/25 08:43 Dose: 40 mg Documented By: FEI Calcium Carbonate (Calcium Carbonate 750 Mg Tab.Chew) 750 mg PO Q4H PRN PRN Reason: Heartburn Captopril (Captopril 25 Mg Tablet) 50 mg PO BID [facility] Last Admin: 03/27/25 21:57 Dose: 50 mg Documented By: ALISA Dextrose (Dextrose 50 % 25 Gm/50 Ml Syringe) 25 gm IVPUSH Q15M PRN; Protocol PRN Reason: per Hypoglycemia Standing Ord. Enoxaparin Sodium (Enoxaparin Sodium 40 Mg/0.4 Ml Syringe) 40 mg SUBCUT Q24H [facility] Last Admin: 03/30/25 08:43 Dose: 40 mg Documented By: FEI Furosemide (Furosemide 40 Mg Tablet) 40 mg PO Q2D [facility]; Protocol Last Admin: 03/27/25 17:56 Dose: 40 mg Documented By: FEI Furosemide (Furosemide 40 Mg/4 Ml Vial) 40 mg IVPUSH BID@0900,1800 [facility]; Protocol Last Admin: 03/30/25 08:44 Dose: 40 mg Documented By: FEI Glucose (Glucose Gel 15 Gm Gel..Gram.) 15 gm PO Q15M PRN; Protocol PRN Reason: per Hypoglycemia Standing Ord. Insulin Human Lispro (Insulin Lispro 100 Unit/Ml 3 Ml Vial) 0 unit SUBCUT QIDACHS [facility]; Protocol Last Admin: 03/30/25 11:43 Dose: Not Given Documented By: FEI Non-Admin Reason: No Insulin Coverage Magnesium Hydroxide (Milk Of Magnesia 30 Ml Oral.Susp) 30 ml PO DAILY PRN PRN Reason: Constipation Melatonin (Melatonin 3 Mg Tablet) 6 mg PO BEDTIME PRN PRN Reason: Insomnia Meropenem (Meropenem 1 Gm Vial) 1 gm IVPUSH Q8H [facility] Last Admin: 03/30/25 03:40 Dose: 1 gm Documented By: MAURISIO Methenamine Hippurate (Methenamine Hippurate 1 Gm Tablet) 1 gm PO DAILY [facility] Last Admin: 03/30/25 10:52 Dose: 1 gm Documented By: FEI Morphine Sulfate (Morphine Sulfate 4 Mg/Ml Cartridge) 2 mg IVPUSH Q4H PRN; Protocol PRN Reason: Pain, Severe (Pain Scale 7-10) Omeprazole (Omeprazole 20 Mg Capsule.Dr) 20 mg PO DAILY@0630 [facility] Last Admin: 03/30/25 03:40 Dose: 20 mg Documented By: MAURISIO Ondansetron HCl (Ondansetron Hcl 4 Mg/2 Ml Vial) 4 mg IVPUSH Q8H PRN PRN Reason: Nausea and Vomiting Oxycodone HCl (Oxycodone Hcl Immed Release 5 Mg Tablet) 5 mg PO Q6H PRN PRN Reason: Pain, Moderate(Pain Scale 4-6) Sodium Chloride (0.9 % Sodium Chloride Flush 3 Ml Syringe) 3 ml IVFLUSH QSHIFT [facility] Last Admin: 03/30/25 08:44 Dose: 3 ml Documented By: FEI Labs 03/29/25 06:35 03/29/25 06:35 Labs: Laboratory Results - last 24 hr 03/29/25 03/29/25 03/30/25 15:27 20:33 06:53 POC Glucose 90 191 H 95 03/30/25 10:50 POC Glucose 141 H Microbiology Microbiology Results: Microbiology 03/29/25 06:35 Blood Culture - Preliminary Blood - Venous No growth after 24 hours. 03/29/25 06:40 Blood Culture - Preliminary Blood - Venous No growth after 24 hours. 03/26/25 21:12 Blood Culture - Final Blood - Venous Escherichia coli Coag negative Staphylococcus 03/26/25 21:28 Blood Culture - Final Blood - Venous Escherichia coli Assessment and Plan (1) Urinary tract infection: Status: Acute Plan d5 for 74yo M with T4 paraplegia x 1.5 yr possibly due to spinal infarct vs drop metastasis undergoing workup by [facility] Neurosurgery, chronic Vicente, HTN, and DM2 presenting with lethargy and confusion, admitted for sepsis due to UTI, found to be bacteremic ESBL complicated UTI and bacteremia - meropenem 03/26- , change to ertapenem upon discharge, plan 14d total from 1st negative BCx (drawn 03/29), midline once BCx negative (earliest would be 04/02) hypotension hx HTN - holding captopril and furosemide, BP has normalized after fluids + albumin, got more fluids 03/29 sepsis due to UTI - SIRS physiology resolved acute encephalopathy due to infection - resolved MONIQUE - replete Fe when bacterial infection more under control DM2 - correction-dose lispro VTE ppx - enoxaparin dispo - eventual home with VNA In my clinical judgment, the patient requires continued inpatient hospitalization for the following reasons: IV ABX Total time managing care of this patient today: 35 minutes. Quality Stroke Does the patient have a stroke diagnosis?: No VTE Prior VTE?: No VTE Risk Level:: Medical - moderate - high VTE Device Contraindication: Treatment Not Indicated VTE Drug Contraindication: N/A - Med Ordered
[2025-03-30 15:29] VITALS: BP 99/56; PULSE 94; RESP 18; TEMP 36.2; O2SAT 100
[2025-03-30 16:10] LABS: Glucose, Whole Blood 106 mg/dL (60-115)
[2025-03-30 19:48] VITALS: BP 102/60; PULSE 97; RESP 18; TEMP 36.3; O2SAT 98
[2025-03-30] MEDS: oxyCODONE HCl Immed Release 5 MG TABLET PO (20:07)
[2025-03-30 20:59] LABS: Glucose, Whole Blood 115 mg/dL (60-115)
[2025-03-31] VITALS (7 sets, daily range): BP systolic 96–112; BP diastolic 54–67; PULSE 76–95; RESP 16–20; TEMP 36.1–37; O2SAT 97–100
[2025-03-31] MEDS: Omeprazole 20 MG CAPSULE.DR PO (05:14)
[2025-03-31] MEDS: Meropenem 1 GM VIAL IVPUSH ×3 (05:14→19:38)
[2025-03-31 07:30] LABS: Glucose, Whole Blood 98 mg/dL (60-115)
[2025-03-31] MEDS: Methenamine Hippurate 1 GM TABLET PO (08:48)
[2025-03-31] MEDS: Enoxaparin Sodium 40 MG/0.4 ML SYRINGE SUBCUT (08:48)
[2025-03-31] MEDS: Ascorbic Acid 500 MG TABLET 1000 MG PO (08:49)
[2025-03-31] MEDS: 0.9 % Sodium Chloride Flush 3 ML SYRINGE IVFLUSH ×2 (08:49→19:43)
[2025-03-31] MEDS: Atorvastatin Calcium 40 MG TABLET PO (08:49)
[2025-03-31 11:31] LABS: Glucose, Whole Blood 194 mg/dL (60-115)
--- NOTE | 2025-03-31 11:46 | P.PNIM_ITS ---
Subjective Subjective Date of Service: 03/31/25 Interval History: This history was taken in Latvian from the patient. No complaints today Review of Systems Review of Systems: Yes all other systems are reviewed and are negative Physical Exam 2 Vital Signs: Vital Signs: Last Vital Signs Temp 97.2 F 03/31/25 11:15 Pulse 95 03/31/25 11:15 Resp 18 03/31/25 11:15 BP 101/67 03/31/25 11:15 Pulse Ox 97 03/31/25 11:15 O2 Del Method Room Air 03/31/25 11:15 O2 Flow Rate 99 03/28/25 07:35 BMI result Body Mass Index 24.9 Gen: in no acute distress HEENT: sclera anicteric, moist mucus membranes Neck: supple Lungs: clear to auscultation bilaterally Heart: regular rate and rhythm, no murmurs Abd: soft, non-tender, non-distended : Vicente with clear urine Ext: no edema Skin: warm/well-perfused Neuro: alert and oriented x3, no focal sensation below nipple line, 0/5 strength in bilateral lower extremities Psych: appropriate affect Objective Data Active Medications Acetaminophen (Acetaminophen 325 Mg Tablet) 975 mg PO Q6H PRN PRN Reason: Pain, Mild 1-3,fever,headache Last Admin: 03/27/25 22:12 Dose: 975 mg Documented By: ALISA Ascorbic Acid (Ascorbic Acid 500 Mg Tablet) 1,000 mg PO DAILY [facility] Last Admin: 03/31/25 08:49 Dose: 1,000 mg Documented By: JUSTYNA Atorvastatin Calcium (Atorvastatin Calcium 40 Mg Tablet) 40 mg PO DAILY [facility] Last Admin: 03/31/25 08:49 Dose: 40 mg Documented By: JUSTYNA Calcium Carbonate (Calcium Carbonate 750 Mg Tab.Chew) 750 mg PO Q4H PRN PRN Reason: Heartburn Captopril (Captopril 25 Mg Tablet) 50 mg PO BID [facility] Last Admin: 03/27/25 21:57 Dose: 50 mg Documented By: ALISA Dextrose (Dextrose 50 % 25 Gm/50 Ml Syringe) 25 gm IVPUSH Q15M PRN; Protocol PRN Reason: per Hypoglycemia Standing Ord. Enoxaparin Sodium (Enoxaparin Sodium 40 Mg/0.4 Ml Syringe) 40 mg SUBCUT Q24H [facility] Last Admin: 03/31/25 08:48 Dose: 40 mg Documented By: JUSTYNA Furosemide (Furosemide 40 Mg Tablet) 40 mg PO Q2D [facility]; Protocol Last Admin: 03/27/25 17:56 Dose: 40 mg Documented By: FEI Glucose (Glucose Gel 15 Gm Gel..Gram.) 15 gm PO Q15M PRN; Protocol PRN Reason: per Hypoglycemia Standing Ord. Insulin Human Lispro (Insulin Lispro 100 Unit/Ml 3 Ml Vial) 0 unit SUBCUT QIDACHS [facility]; Protocol Last Admin: 03/31/25 08:47 Dose: Not Given Documented By: JUSTYNA Non-Admin Reason: No Insulin Coverage Magnesium Hydroxide (Milk Of Magnesia 30 Ml Oral.Susp) 30 ml PO DAILY PRN PRN Reason: Constipation Melatonin (Melatonin 3 Mg Tablet) 6 mg PO BEDTIME PRN PRN Reason: Insomnia Meropenem (Meropenem 1 Gm Vial) 1 gm IVPUSH Q8H [facility] Last Admin: 03/31/25 05:14 Dose: 1 gm Documented By: MIHIR Methenamine Hippurate (Methenamine Hippurate 1 Gm Tablet) 1 gm PO DAILY [facility] Last Admin: 03/31/25 08:48 Dose: 1 gm Documented By: JUSTYNA Morphine Sulfate (Morphine Sulfate 4 Mg/Ml Cartridge) 2 mg IVPUSH Q4H PRN; Protocol PRN Reason: Pain, Severe (Pain Scale 7-10) Omeprazole (Omeprazole 20 Mg Capsule.Dr) 20 mg PO DAILY@0630 [facility] Last Admin: 03/31/25 05:14 Dose: 20 mg Documented By: MIHIR Ondansetron HCl (Ondansetron Hcl 4 Mg/2 Ml Vial) 4 mg IVPUSH Q8H PRN PRN Reason: Nausea and Vomiting Oxycodone HCl (Oxycodone Hcl Immed Release 5 Mg Tablet) 5 mg PO Q6H PRN PRN Reason: Pain, Moderate(Pain Scale 4-6) Last Admin: 03/30/25 20:07 Dose: 5 mg Documented By: MIHIR Sodium Chloride (0.9 % Sodium Chloride Flush 3 Ml Syringe) 3 ml IVFLUSH QSHIFT [facility] Last Admin: 03/31/25 08:49 Dose: 3 ml Documented By: JUSTYNA Labs 03/29/25 06:35 03/29/25 06:35 Labs: Laboratory Results - last 24 hr 03/30/25 03/30/25 03/31/25 16:07 20:55 07:23 POC Glucose 106 115 98 03/31/25 11:27 POC Glucose 194 H Microbiology Microbiology Results: Microbiology 03/29/25 06:35 Blood Culture - Preliminary Blood - Venous No growth after 48 hours. 03/29/25 06:40 Blood Culture - Preliminary Blood - Venous No growth after 48 hours. Assessment and Plan (1) Urinary tract infection: Status: Acute Plan d5 for 74yo M with T4 paraplegia x 1.5 yr possibly due to spinal infarct vs drop metastasis undergoing workup by [facility] Neurosurgery, chronic Vicente, HTN, and DM2 presenting with lethargy and confusion, admitted for sepsis due to UTI, found to be bacteremic ESBL complicated UTI and bacteremia - meropenem 03/26- , change to ertapenem upon discharge, plan 14d total from 1st negative BCx (drawn 03/29), so end date of 04/12, midline once BCx negative (earliest would be 04/02) hypotension hx HTN - holding captopril and furosemide, BP has normalized after fluids + albumin, got more fluids 03/29 sepsis due to UTI - SIRS physiology resolved acute encephalopathy due to infection - resolved MONIQUE - replete DM2 - correction-dose lispro VTE ppx - enoxaparin dispo - eventual home with VNA In my clinical judgment, the patient requires continued inpatient hospitalization for the following reasons: IV ABX Total time managing care of this patient today: 35 minutes. Quality Stroke Does the patient have a stroke diagnosis?: No VTE Prior VTE?: No VTE Risk Level:: Medical - moderate - high VTE Device Contraindication: Treatment Not Indicated VTE Drug Contraindication: N/A - Med Ordered
[2025-03-31] MEDS: Insulin Lispro 100 UNIT/ML 3 ML VIAL SUBCUT ×2 (12:47→21:51)
[2025-03-31] MEDS: oxyCODONE HCl Immed Release 5 MG TABLET PO (12:48)
[2025-03-31 16:08] LABS: Glucose, Whole Blood 97 mg/dL (60-115)
[2025-03-31 21:46] LABS: Glucose, Whole Blood 158 mg/dL (60-115)
[2025-04-01] MEDS: Meropenem 1 GM VIAL IVPUSH ×3 (03:47→19:30)
[2025-04-01 03:49] VITALS: BP 122/59; PULSE 71; RESP 18; TEMP 36; O2SAT 100
[2025-04-01 03:53] LABS: Glucose, Whole Blood 115 mg/dL (60-115)
[2025-04-01] MEDS: Omeprazole 20 MG CAPSULE.DR PO (05:44)
[2025-04-01 07:12] VITALS: BP 115/60; PULSE 75; RESP 18; TEMP 36.2; O2SAT 100
[2025-04-01 07:16] LABS: Glucose, Whole Blood 127 mg/dL (60-115)
[2025-04-01] MEDS: 0.9 % Sodium Chloride Flush 3 ML SYRINGE IVFLUSH ×3 (08:46→19:30)
[2025-04-01] MEDS: Methenamine Hippurate 1 GM TABLET PO (08:46)
[2025-04-01] MEDS: Ascorbic Acid 500 MG TABLET 1000 MG PO (08:47)
[2025-04-01] MEDS: Ferrous Sulfate 324 MG TABLET.DR PO (08:47)
[2025-04-01] MEDS: Enoxaparin Sodium 40 MG/0.4 ML SYRINGE SUBCUT (08:47)
[2025-04-01] MEDS: Atorvastatin Calcium 40 MG TABLET PO (08:47)
--- NOTE | 2025-04-01 10:17 | HO.PM.IMPN ---
Subjective Subjective Date of Service: 04/01/25 Interval History: This history was taken in Maltese from the patient. No N/V or diarrhea Review of Systems Review of Systems: Yes all other systems are reviewed and are negative Physical Exam Vital Signs: Vital Signs: Last Vital Signs Temp 97.1 F 04/01/25 07:12 Pulse 75 04/01/25 07:12 Resp 18 04/01/25 07:12 BP 115/60 04/01/25 07:12 Pulse Ox 100 04/01/25 07:12 O2 Del Method Room Air 04/01/25 07:12 O2 Flow Rate 99 03/28/25 07:35 BMI result Body Mass Index 24.9 Gen: in no acute distress HEENT: sclera anicteric, moist mucus membranes Neck: supple Lungs: clear to auscultation bilaterally Heart: regular rate and rhythm, no murmurs Abd: soft, non-tender, non-distended : Vicente with clear urine Ext: no edema Skin: warm/well-perfused Neuro: alert and oriented x3, no focal sensation below nipple line, 0/5 strength in bilateral lower extremities Psych: appropriate affect Objective Data Active Medications Acetaminophen (Acetaminophen 325 Mg Tablet) 975 mg PO Q6H PRN PRN Reason: Pain, Mild 1-3,fever,headache Last Admin: 03/27/25 22:12 Dose: 975 mg Documented By: ALISA Ascorbic Acid (Ascorbic Acid 500 Mg Tablet) 1,000 mg PO DAILY [facility] Last Admin: 04/01/25 08:47 Dose: 1,000 mg Documented By: JUSTYNA Atorvastatin Calcium (Atorvastatin Calcium 40 Mg Tablet) 40 mg PO DAILY [facility] Last Admin: 04/01/25 08:47 Dose: 40 mg Documented By: JUSTYNA Calcium Carbonate (Calcium Carbonate 750 Mg Tab.Chew) 750 mg PO Q4H PRN PRN Reason: Heartburn Captopril (Captopril 25 Mg Tablet) 50 mg PO BID [facility] Last Admin: 03/27/25 21:57 Dose: 50 mg Documented By: ALISA Dextrose (Dextrose 50 % 25 Gm/50 Ml Syringe) 25 gm IVPUSH Q15M PRN; Protocol PRN Reason: per Hypoglycemia Standing Ord. Enoxaparin Sodium (Enoxaparin Sodium 40 Mg/0.4 Ml Syringe) 40 mg SUBCUT Q24H [facility] Last Admin: 04/01/25 08:47 Dose: 40 mg Documented By: JUSTYNA Ferrous Sulfate (Ferrous Sulfate 324 Mg Tablet.) 324 mg PO DAILY [facility] Last Admin: 04/01/25 08:47 Dose: 324 mg Documented By: JUSTYNA Furosemide (Furosemide 40 Mg Tablet) 40 mg PO Q2D [facility]; Protocol Last Admin: 03/27/25 17:56 Dose: 40 mg Documented By: FEI Glucose (Glucose Gel 15 Gm Gel..Gram.) 15 gm PO Q15M PRN; Protocol PRN Reason: per Hypoglycemia Standing Ord. Insulin Human Lispro (Insulin Lispro 100 Unit/Ml 3 Ml Vial) 0 unit SUBCUT QIDACHS [facility]; Protocol Last Admin: 04/01/25 07:41 Dose: Not Given Documented By: JUSTYNA Non-Admin Reason: No Insulin Coverage Magnesium Hydroxide (Milk Of Magnesia 30 Ml Oral.Susp) 30 ml PO DAILY PRN PRN Reason: Constipation Melatonin (Melatonin 3 Mg Tablet) 6 mg PO BEDTIME PRN PRN Reason: Insomnia Meropenem (Meropenem 1 Gm Vial) 1 gm IVPUSH Q8H [facility] Last Admin: 04/01/25 03:47 Dose: 1 gm Documented By: MIHIR Methenamine Hippurate (Methenamine Hippurate 1 Gm Tablet) 1 gm PO DAILY [facility] Last Admin: 04/01/25 08:46 Dose: 1 gm Documented By: JUSTYNA Morphine Sulfate (Morphine Sulfate 4 Mg/Ml Cartridge) 2 mg IVPUSH Q4H PRN; Protocol PRN Reason: Pain, Severe (Pain Scale 7-10) Omeprazole (Omeprazole 20 Mg Capsule.) 20 mg PO DAILY@0630 [facility] Last Admin: 04/01/25 05:44 Dose: 20 mg Documented By: MIHIR Ondansetron HCl (Ondansetron Hcl 4 Mg/2 Ml Vial) 4 mg IVPUSH Q8H PRN PRN Reason: Nausea and Vomiting Oxycodone HCl (Oxycodone Hcl Immed Release 5 Mg Tablet) 5 mg PO Q6H PRN PRN Reason: Pain, Moderate(Pain Scale 4-6) Last Admin: 03/31/25 12:48 Dose: 5 mg Documented By: JUSTYNA Sodium Chloride (0.9 % Sodium Chloride Flush 3 Ml Syringe) 3 ml IVFLUSH QSHIFT [facility] Last Admin: 04/01/25 08:46 Dose: 3 ml Documented By: JUSTYNA Labs 03/29/25 06:35 03/29/25 06:35 Labs: Laboratory Results - last 24 hr 03/31/25 03/31/25 03/31/25 11:27 15:59 21:43 POC Glucose 194 H 97 158 H 04/01/25 04/01/25 03:48 07:10 POC Glucose 115 127 H Microbiology Microbiology Results: Microbiology 03/29/25 06:35 Blood Culture - Preliminary Blood - Venous No growth after 48 hours. 03/29/25 06:40 Blood Culture - Preliminary Blood - Venous No growth after 48 hours. 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 Pt to follow up with his urologist as outpt and consider conversion to SPC hypotension hx HTN - holding captopril and furosemide, BP has normalized after fluids + albumin, got more fluids 03/29 sepsis due to UTI - SIRS physiology resolved acute encephalopathy due to infection - resolved MONIQUE - replete DM2 - correction-dose lispro VTE ppx - enoxaparin dispo - eventual home with VNA In my clinical judgment, the patient requires continued inpatient hospitalization for the following reasons: IV ABX Total time managing care of this patient today: 35 minutes. Quality Stroke Does the patient have a stroke diagnosis?: No VTE Prior VTE?: No VTE Risk Level:: Medical - moderate - high VTE Device Contraindication: Treatment Not Indicated VTE Drug Contraindication: N/A - Med Ordered
--- NOTE | 2025-04-01 11:21 | P.CDIM_ITS ---
PROVIDER RESPONSE TEXT: To clarify, the appropriate diagnosis supported by the clinical indicators: Yes, UTI is related to / associated with / due to chronic Vicente catheter QUERY TEXT: PHYSICIAN'S DOCUMENTATION REQUEST Date of Query: 03/29/2025 10:37 AM EDT Patient Name: Kike Villanueva Admit Date: 03/27/2025 Dear Alexa Ware MD, A review of the medical record indicates additional documentation may be needed. Please review below and update the documentation accordingly. Documentation includes the conditions of UTI and chronic Vicente catheter. Clinical Indicators: admit with sepsis secondary to UTI neurogenic bladder with chronic Vicente IV antibiotic Please clarify the relationship between these conditions: Yes, UTI is related to / associated with / due to chronic Vicente catheter No, UTI is not related to / associated with / due to chronic Vicente catheter Other (explain) Clinically unable to determine (explain) Thank you, Nandini Jarrell RN Use of terms such as suspected, likely, concern for, or probable (associated with a specific diagnosi s that is being evaluated, monitored, or treated as if it exists) are acceptable and can be coded in the inpatient se tting, when documented at the time of discharge. Please use your independent medical judgment in providing your response. THIS QUERY IS PART OF THE PERMANENT MEDICAL RECORD
[2025-04-01 11:23] VITALS: BP 111/67; PULSE 75; RESP 18; TEMP 36.3; O2SAT 100
[2025-04-01 11:28] LABS: Glucose, Whole Blood 91 mg/dL (60-115)
[2025-04-01 15:48] VITALS: BP 126/65; PULSE 72; RESP 18; TEMP 36.3; O2SAT 100
[2025-04-01 16:11] LABS: Glucose, Whole Blood 111 mg/dL (60-115)
[2025-04-01 19:46] VITALS: BP 127/72; PULSE 82; RESP 16; TEMP 36; O2SAT 100
[2025-04-01 20:14] LABS: Glucose, Whole Blood 125 mg/dL (60-115)
[2025-04-01 23:41] VITALS: BP 126/64; PULSE 84; RESP 16; TEMP 37.1; O2SAT 100
[2025-04-02] MEDS: Meropenem 1 GM VIAL IVPUSH ×2 (03:12→13:22)
[2025-04-02 03:27] VITALS: BP 128/66; PULSE 77; RESP 16; TEMP 36.1; O2SAT 100
[2025-04-02] MEDS: Omeprazole 20 MG CAPSULE.DR PO (06:22)
[2025-04-02 06:55] LABS: Glucose, Whole Blood 106 mg/dL (60-115)
[2025-04-02 07:10] VITALS: BP 116/66; PULSE 76; RESP 18; TEMP 36.3; O2SAT 100
[2025-04-02] MEDS: Ascorbic Acid 500 MG TABLET 1000 MG PO (09:57)
[2025-04-02] MEDS: Atorvastatin Calcium 40 MG TABLET PO (09:57)
[2025-04-02] MEDS: 0.9 % Sodium Chloride Flush 3 ML SYRINGE IVFLUSH ×2 (09:57→16:34)
[2025-04-02] MEDS: Ferrous Sulfate 324 MG TABLET.DR PO (09:57)
[2025-04-02] MEDS: Enoxaparin Sodium 40 MG/0.4 ML SYRINGE SUBCUT (09:57)
[2025-04-02] MEDS: Methenamine Hippurate 1 GM TABLET PO (09:57)
[2025-04-02 10:57] LABS: Glucose, Whole Blood 122 mg/dL (60-115)
[2025-04-02 11:08] VITALS: BP 116/60; PULSE 80; RESP 18; TEMP 36.2; O2SAT 100
--- NOTE | 2025-04-02 11:40 | W.MHC.F2F ---
Service Date Service Date: 04/02/25 Encounter Date of encounter: 04/02/25 Reasons for Services Signs and symptoms assessed: ESBL UTI Reason for senior care: administration of IV, SQ, or IM injection and central line care MD Overseeing Care: Shilpa Marie Homebound: Leaving the home is medically contraindicated at this time without the asist of a device and/or another person due th the listed conditions above and below. Reason homebound: bedbound/chairbound Certification: Based on the above findings, I certify that this patient is confined to the home and needs intermittent senior care care, physical therapy and/or speech therapy, or continues to need occupational therapy. The patient is under my care, and I have initiated the establishment of the plan of care. The patient will be followed by a physician who will periodically review the plan of care. Time Spent With Patient Time: Total time managing care of this patient today ____ minutes.
--- NOTE | 2025-04-02 12:10 | PM.DS ---
DS: Providers Provider Date of Service: 04/02/25 Date of admission: 03/27/25 06:59 Date of discharge: 04/02/25 Primary care physician: Shilpa Marie PA-C Consults: 03/27/25 01:19 Consult to Infectious Diseases Routine Consulting Provider: [facility] Reason for consultation: UTI, catheter, hx ESBL pseudomonas Has provider been notified: No 03/27/25 17:25 Consult to Urology Routine Consulting Provider: [facility] Reason for consultation: recurrent uti DS: Diagnosis Discharge Diagnosis (1) Urinary tract infection: Status: Acute (2) Complicated UTI (urinary tract infection): Status: Acute (3) UTI (urinary tract infection) due to urinary indwelling catheter: Status: Acute (4) Malfunction of Vicente catheter: Status: Acute (5) ESBL (extended spectrum beta-lactamase) producing bacteria infection: Status: Acute (6) E coli bacteremia: Status: Acute (7) Encephalopathy due to infection: Status: Acute (8) Sepsis: Status: Acute (9) Iron deficiency anemia: Status: Acute (10) Neurogenic bladder: Status: Acute (11) Paraplegia: Status: Acute DS: Summary Hospital Course Hospital Course: From the history and physical by the admitting hospitalist, PANDA Lynch, 03/26/25: patient is 74 year old male with a past medical history of hypertension, diabetes, CKD, depression, and paraplegia for last 18 months? 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 the pt's son is his primary net ui developer and notes that he has been off for the past few days but he has not had a fever and his urine has looked normal. today he noticed purulent urine and decided to take him to the ED. his last measured temp at home was 99.1. the pt has history of same in 02/16 any had UTI with ESBL and Pseudomonas no bad sore no open wounds on arrival patient's temperature was 100.4 degrees. he pt is asymptomatic at this time and has no sensation from the upper chest, down. he has had chronic UTIs and is seeing a urologist. 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 coli. Hospital course by problem: sepsis and acute encephalopathy due to ESBL complicated UTI and bacteremia neurogenic bladder - treated with meropenem 03/26- , changed to ertapenem upon discharge, plan 14d total from 1st negative BCx (drawn 03/29), so end date of 04/12, midline placed 04/02/25 - Vicente catheter tip was coiled in urethra on CT; catheter replaced. Pt to follow up with his urologist as outpt and consider conversion to SPC - SIRS physiology resolved - encephalopathy resolved hypotension hx HTN - held captopril and furosemide, BP has normalized after fluids + albumin, got more fluids 03/29; continue to hold captopril and furosemide for now and re-introduce if needed for BP and edema control iron deficiency anemia - started on PO repletion He was discharged home with [facility] services for home infusion. He should follow up with his neurosurgeon at [facility] after outpatient MRIs ordered by them are done. Time Attestation Discharge Coordination Time (in mins): 35 Quality: Safe Use of Opioids Does Pt have an Active Cancer Diagnosis on the Problem List?: No Quality: Stroke Does the patient have a stroke diagnosis?: No Physical Exam Vital Signs: Vital Signs: Last Vital Signs Temp 97.2 F 04/02/25 11:08 Pulse 80 04/02/25 11:08 Resp 18 04/02/25 11:08 BP 116/60 04/02/25 11:08 Pulse Ox 100 04/02/25 11:08 O2 Del Method Room Air 04/02/25 11:08 O2 Flow Rate 99 03/28/25 07:35 BMI result Body Mass Index 24.9 Gen: in no acute distress HEENT: sclera anicteric, moist mucus membranes Neck: supple Lungs: clear to auscultation bilaterally Heart: regular rate and rhythm, no murmurs Abd: soft, non-tender, non-distended : Vicente with clear urine Ext: no edema Skin: warm/well-perfused Neuro: alert and oriented x3, no focal sensation below nipple line, 0/5 strength in bilateral lower extremities Psych: appropriate affect DS: Data Data Completed and Pending Completed studies during hospitalization [Text1]: Laboratory Results WBC 7.9 X10*3/uL (4.8-10.8) 03/29/25 06:35 RBC 4.08 X10*6/uL (4.60-5.80) L 03/29/25 06:35 Hgb 10.2 g/dl (14.0-18.0) L 03/29/25 06:35 Hct 30.2 % (42.0-52.0) L 03/29/25 06:35 MCV 74.0 fL (80.0-98.0) L 03/29/25 06:35 MCH 25.0 pg (27.0-33.0) L 03/29/25 06:35 MCHC 33.8 g/dl (31.0-36.0) 03/29/25 06:35 RDW 15.1 % (11.0-16.0) 03/29/25 06:35 Plt Count 251 X10*3/uL (160-400) 03/29/25 06:35 MPV 9.4 fL (9.4-12.4) 03/29/25 06:35 Immature Gran % (Auto) 0.8 % (0.0-0.4) H 03/29/25 06:35 Neut % (Auto) 64.2 % (45-73) 03/29/25 06:35 Lymph % (Auto) 20.6 % (20-40) 03/29/25 06:35 [place] % (Auto) 11.7 % (2-11) H 03/29/25 06:35 Eos % (Auto) 2.4 % (0-4) 03/29/25 06:35 Baso % (Auto) 0.3 % (0-2) 03/29/25 06:35 Lymph # (Auto) 1.6 X10*3/uL (1.2-4.9) 03/29/25 06:35 [place] # (Auto) 0.9 X10*3/uL (0.1-1.2) 03/29/25 06:35 Eos # (Auto) 0.2 X10*3/uL (0.0-0.4) 03/29/25 06:35 Baso # (Auto) 0.0 X10*3/uL (0.0-0.2) 03/29/25 06:35 Abs Immat Gran (auto) 0.06 X10*3/uL (0.00-0.03) H 03/29/25 06:35 Absolute Neuts (auto) 5.1 x10*3/uL (2.0-8.3) 03/29/25 06:35 Absolute Nucleated RBC 0.000 X10*3/uL (0.0-0.012) 03/29/25 06:35 Nucleated RBC % (auto) 0.0 /100WBC (0.0-0.2) 03/29/25 06:35 VBG pH 7.38 (7.32-7.43) 03/26/25 21:21 VBG pCO2 39 mmHg 03/26/25 21:21 VBG pO2 48 mmHg 03/26/25 21:21 VBG HCO3 23 mmol/L (22-26) 03/26/25 21:21 VBG O2 Saturation 68.0 % 03/26/25 21:21 VBG Base Excess -1.1 mmol/L 03/26/25 21:21 Sodium 136 mmol/L (135-145) 03/29/25 06:35 Potassium 4.2 mmol/L (3.3-5.1) 03/29/25 06:35 Chloride 103 mmol/L (96-108) 03/29/25 06:35 Carbon Dioxide 26 mmol/L (22-29) 03/29/25 06:35 Anion Gap 11 (12-20) L 03/29/25 06:35 BUN 17 mg/dL (9-16) H 03/29/25 06:35 Creatinine 0.58 mg/dL (0.5-1.4) 03/29/25 06:35 Estim Creat Clear Calc 94.9 03/29/25 06:35 Estimated GFR > 60 03/29/25 06:35 POC Glucose 122 mg/dL (60-115) H 04/02/25 10:53 Random Glucose 90 mg/dL (60-115) 03/29/25 06:35 Lactic Acid 1.6 mmol/L (0.5-2.0) 03/26/25 21:14 Calcium 9.1 mg/dL (8.4-10.2) 03/29/25 06:35 Iron 20 mcg/dL (45-160) L 03/28/25 06:45 TIBC 230 mcg/dL (228-428) 03/28/25 06:45 % Saturation 9 % (15-50) L 03/28/25 06:45 Unsat Iron Binding 210 ug/dL 03/28/25 06:45 Ferritin 86 ng/mL (20-250) 03/28/25 06:45 Total Bilirubin 0.3 mg/dL (0.0-1.0) 03/26/25 21:12 AST 62 U/L (5-37) H 03/26/25 21:12 ALT 98 U/L (0-40) H 03/26/25 21:12 Alkaline Phosphatase 104 U/L (39-117) 03/26/25 21:12 Total Protein 6.9 g/dL (6.5-8.0) 03/26/25 21:12 Albumin 3.1 g/dL (3.5-5.0) L 03/28/25 06:45 Urine Color Yellow 03/26/25 21:12 Urine Appearance Cloudy 03/26/25 21:12 Urine pH 6.5 (5.0-9.0) 03/26/25 21:12 Ur Specific [place] 1.020 (1.005-1.025) 03/26/25 21:12 Urine Protein 30 (1+) mg/dL (Neg-Trace) H 03/26/25 21:12 Urine Glucose (UA) Negative mg/dL (Negative) 03/26/25 21:12 Urine Ketones Negative mg/dL (Negative) 03/26/25 21:12 Urine Blood Moderate (2+) (Negative) H 03/26/25 21:12 Urine Nitrite Positive (Negative) H 03/26/25 21:12 Ur Leukocyte Esterase Large (3+) (Negative) H 03/26/25 21:12 Urine RBC >20 /HPF (0-2) H 03/26/25 21:12 Urine WBC >50 /HPF (0-5) H 03/26/25 21:12 Ur Squamous Epith Cells 0-2 /HPF (0-2) 03/26/25 21:12 Urine Bacteria 4+ (None Seen) 03/26/25 21:12 Hyaline Casts 0-2 /LPF (0-2) 03/26/25 21:12 Microbiology 03/29/25 06:35 Blood - Venous Blood Culture - Preliminary No growth after 48 hours. 03/29/25 06:40 Blood - Venous Blood Culture - Preliminary No growth after 48 hours. 03/26/25 21:12 Blood - Venous Blood Culture - Final Escherichia coli Coag negative Staphylococcus 03/26/25 21:28 Blood - Venous Blood Culture - Final Escherichia coli 03/26/25 21:32 Urine clean catch - Clean Catch Midstream Urine Culture - Final Escherichia coli Labs on day of discharge: Laboratory Results - last 24 hr 04/01/25 04/01/25 04/02/25 15:43 20:07 06:52 POC Glucose 111 125 H 106 04/02/25 10:53 POC Glucose 122 H Preliminary micro results at discharge 03/29/25 06:35 Blood Culture - Preliminary Blood - Venous No growth after 48 hours. 03/29/25 06:40 Blood Culture - Preliminary Blood - Venous No growth after 48 hours. Discharge Plan Discharge Anticipated Discharge Date/Time: 04/02/25 17:41 Patient Disposition: Home Health Service Discharge Diagnosis: ESBL complicated UTI/bacteremia due to indwelling Vicente catheter iron deficiency anemia paraplegia Referrals: [facility] [Outside] - 1 Week Shilpa Marie PA-C [Primary Care Provider] - 1 Week Chana Roach FNP-BC [Nurse Practitioner] - 1 Week Darius Lyon PA [Physician Measurement Superintendent] - 1 Week Discharge Medications: New ferrous sulfate 324 mg (65 mg iron) Tablet,Delayed Release (Dr/Ec) 324 mg PO DAILY Qty: 30 0RF ertapenem 1 gram recon soln 1 g IV DAILY Qty: 10 0RF Continued (DME) adult diapers large See Rx Instructions .Route .MEDSUPPLY Qty: 240 11RF Rx Instructions: As directed (DME) wipes See Rx Instructions .Route .MEDSUPPLY Qty: 3 11RF Rx Instructions: As directed (DME) Disposable bed pads See Rx Instructions .Route .MEDSUPPLY Qty: 100 11RF Rx Instructions: As directed (DME) disposable gloves Misc See Rx Instructions .Route Qty: 200 11RF Rx Instructions: As directed (DME) foam wedge See Rx Instructions .Route .MEDSUPPLY Qty: 2 0RF Rx Instructions: As directed (DME) oral thermometer, electronic [Oral Temp Thermometer] Misc See Rx Instructions .Route Qty: 1 0RF Rx Instructions: As directed (DME) sabra lift See Rx Instructions .Route .MEDSUPPLY Qty: 1 0RF Rx Instructions: As directed (DME) power wheelchair See Rx Instructions .Route .MEDSUPPLY Qty: 1 0RF Rx Instructions: As directed (DME) power hospital bed See Rx Instructions .Route .MEDSUPPLY Qty: 1 0RF Rx Instructions: As directed meloxicam 15 mg tablet 15 mg PO DAILY PRN (Reason: Pain) atorvastatin 40 mg tablet 40 mg PO DAILY pantoprazole 40 mg tablet,delayed release (DR/EC) 40 mg PO DAILY (DME) blood pressure monitor Kit See Rx Instructions .Route Qty: 1 0RF Rx Instructions: As directed (DME) comp.stocking,knee,long,medium Misc See Rx Instructions .Route Qty: 12 0RF Rx Instructions: As directed 10-20 mmHg lidocaine 5 % adhesive patch,medicated 1 patch topical DAILY Qty: 30 0RF Rx Instructions: leave on most painful area for up to 12 hrs ascorbic acid (vitamin C) 1,000 mg tablet 1 g PO DAILY 90 Days Qty: 90 1RF methenamine hippurate 1 gram tablet 1 g PO DAILY 90 Days Qty: 90 1RF Held furosemide 40 mg tablet 40 mg PO Q2D Hold Instructions: Resume on 04/24/25. HOLD for now; resume if needed to control blood pressure and edema at discretion of primary care doctor captopril 50 mg tablet 50 mg PO BID Hold Instructions: Resume on 04/24/25. HOLD for now; resume if needed to control blood pressure at discretion of primary care doctor Discharge Orders: Discharge Order (Routine); Ordered 04/02/25 Ordered By: Alexa Ware Diet: Low salt diet Activity on Discharge: As tolerated Stand Alone Forms: Patient Portal Discharge page Print Language: Ukrainian Care Plan Goals: cure of infection Health Concerns: ESBL complicated UTI/bacteremia due to indwelling Vicente catheter iron deficiency anemia paraplegia Plan of Treatment: ertapenem 1 gram IV daily via PICC line until 04/12; then remove PICC line follow up with urologist; discuss suprapubic catheter take iron as prescribed; increase iron-rich foods HOLD furosemide and captopril for now due to low blood pressure follow up with [facility] after MRIs done Please follow up with your primary care doctor within 1 week. Return to the hospital if you experience recurrent or worsening symptoms. Assessment: See Discharge Summary. Discharge Date/Time: 04/02/25 18:48
--- NOTE | 2025-04-02 14:02 | MHC.CM.PN ---
Addendum entered by Danya Duron 04/02/25 16:41: LINE REPORT SENT TO [facility] WHO WILL DELIVER MEDS TOMORROW MORNING [facility] AWARE OF DC AND DCS SENT VIA [facility] Addendum entered by Danya Duron 04/02/25 14:09: BLS TRANSPORT TENTATIVELY BOOKED FOR 1730 WITH SAGRARIO Berry Note: PT TO DC HOME ON IV ABX, [facility] HAS COMPLETED BEDSIDE TEACH WITH SON, ANN. [facility] WILL SEE PT TOMORROW TO REINFORCE TEACH PT WILL DC VIA BLS ONCE MIDLINE IS IN PLACE
[2025-04-02 16:00] VITALS: BP 132/74; PULSE 74; RESP 20; TEMP 36.7; O2SAT 100
--- NOTE | 2025-04-02 16:19 | HO.MIDLINE_ITS ---
Midline Insertion MIDLINE INSERTION Diagnosis: UTI Indication: 14 days of Antibx Pertinent Labs: Reviewed Technique: Using sterile technique including cap and mask, glove and drape, the Left arm was prepped and draped in the usual sterile fashion of full barrier technique with CHG. Using ultrasound guidance, Left Cephalic vein access was obtained by Yazmin Corral RN. [id number] PowerMidline Non-PASV was positioned. The procedure was performed in 272. Ultrasound was used to document vein patency and for needle entry. A formal ultrasound picture was recorded. [facility] has released the line for use and it is currently dressed with a StatLock, Tegaderm, and CHG disc. Verification has been performed for blood return and line patency. Arm Circumference: 26.5CM Equipment: Bard PowerMidline Catheter Catheter Type: [id number] PowerMidline Non-PASV Lot #: [id number]
[2025-04-02] MEDS: Ertapenem Sodium 1 GM VIAL IVPUSH (16:33)
[2025-04-02 16:34] LABS: Glucose, Whole Blood 105 mg/dL (60-115)
[2025-04-02] MEDS: 0.9 % Sodium Chloride Flush 10 ML SYRINGE IVFLUSH (16:40)
== END 2025-04-02 18:48 | disposition home health service (06) | DRG 698 ==
LOC: HO.ED 21:11 → HO.EDOVER 03-27 04:21 → HO.IMC 03-27 06:33 → HO.EDOVER 03-27 07:01 → HO.IMC 03-27 14:49 → HO.EDOVER 03-27 15:35 → HO.IMC 03-27 16:19
PROVIDERS: Nurse Practitioner Acute Care; Admitting Provider Physician Assistant; Emergency Provider Internal Medicine; Visit Provider Family Medicine
DX: T83.511A Infection and inflammatory reaction due to indwelling urethral catheter, initial encounter (principal); A41.9 Sepsis, unspecified organism; G82.20 Paraplegia, unspecified; G93.49 Other encephalopathy; Z16.12 Extended spectrum beta lactamase (ESBL) resistance; N39.0 Urinary tract infection, site not specified; B96.20 Unspecified Escherichia coli [E. coli] as the cause of diseases classified elsewhere; I12.9 Hypertensive chronic kidney disease with stage 1 through stage 4 chronic kidney disease, or unspecified chronic kidney disease; N31.9 Neuromuscular dysfunction of bladder, unspecified; D50.9 Iron deficiency anemia, unspecified; N18.2 Chronic kidney disease, stage 2 (mild); I95.9 Hypotension, unspecified; E11.22 Type 2 diabetes mellitus with diabetic chronic kidney disease; Z87.440 Personal history of urinary (tract) infections; Z79.899 Other long term (current) drug therapy
CPT/HCPCS: 36410; 36415; 73020; 74178; 80048; 80053; 81001; 82040; 82728; 82803; 82947; 83540; 83605; 85025; 87040; 87077; 87086; 87088; 87147; 87186; 87205; 93005; 99285; C1751; J0131; J1335; J1650; J1938; J2185; J7120; P9047; Q9967

== ENCOUNTER → 2025-03-26 20:42 | Outpatient (BNV) | payer MEDICARE, MEDICAID, SELFPAY | PROVIDERS: Admitting Provider Physician Assistant; Emergency Provider Internal Medicine; Visit Provider Internal Medicine | DX: R00.0 Tachycardia, unspecified (principal) | CPT/HCPCS: 93010 ==

== ENCOUNTER → 2025-03-27 02:08 | Outpatient (BNV) | payer MEDICARE, MEDICAID, SELFPAY | PROVIDERS: Admitting Provider Physician Assistant; Emergency Provider Internal Medicine; Visit Provider Internal Medicine | DX: R00.0 Tachycardia, unspecified (principal) | CPT/HCPCS: 93010 ==

== ENCOUNTER 2025-03-27 06:59 | Outpatient (BNV) | payer MEDICARE, MEDICAID, SELFPAY | END 2025-03-28 17:16 | PROVIDERS: Admitting Provider Physician Assistant; Emergency Provider Internal Medicine; Visit Provider Student in an Organized Health Care Education/Training Program | DX: K56.41 Fecal impaction (principal); K44.9 Diaphragmatic hernia without obstruction or gangrene; N32.89 Other specified disorders of bladder | CPT/HCPCS: 74178 ==

== ENCOUNTER 2025-03-27 06:59 | Outpatient (BNV) | payer MEDICARE, MEDICAID, SELFPAY | END 2025-03-27 17:50 | PROVIDERS: Admitting Provider Physician Assistant; Emergency Provider Internal Medicine; Visit Provider Radiology Vascular & Interventional Radiology | DX: M25.511 Pain in right shoulder (principal) | CPT/HCPCS: 73020 ==

== ENCOUNTER → 2025-03-27 06:59 | Outpatient (BNV) | payer MEDICARE, MEDICAID, SELFPAY | PROVIDERS: Admitting Provider Physician Assistant; Emergency Provider Internal Medicine; Visit Provider Internal Medicine | DX: A41.9 Sepsis, unspecified organism (principal); N39.0 Urinary tract infection, site not specified; M47.14 Other spondylosis with myelopathy, thoracic region | CPT/HCPCS: 99232 ==

== ENCOUNTER → 2025-03-27 06:59 | Outpatient (BNV) | payer MEDICARE, MEDICAID, SELFPAY | PROVIDERS: Admitting Provider Physician Assistant; Emergency Provider Internal Medicine; Visit Provider Urology | DX: N18.2 Chronic kidney disease, stage 2 (mild) (principal); N31.9 Neuromuscular dysfunction of bladder, unspecified; N39.0 Urinary tract infection, site not specified | CPT/HCPCS: 99222 ==

== ENCOUNTER 2025-04-11 12:31 | Outpatient (REF) | payer MEDICARE, MEDICAID, SELFPAY ==
--- NOTE | ~2025-04-11 | MR_ITS ---
EXAMINATION: MR BRAIN WITHOUT AND WITH CONTRAST CLINICAL INFORMATION: Other spondylosis with myelopathy, thoracic region. Patient unable to ambulate. COMPARISON: None available. TECHNIQUE: Multiplanar, multisequence MRI of the brain was obtained before and after the intravenous administration of 6.5 mL Gadavist. Examination performed on a 1.5 Niya high-field Siemens unit. FINDINGS: There is motion degradation on multiple pulsing sequences. This limits the sensitivity of the exam. There is no diffusion restriction. There is no intracranial hemorrhage, acute infarction, mass effect, or edema. Ventricles, sulci, and cisterns are normal in size and configuration for patient age. No shift of midline. There is a small amount of hemosiderin deposition in the bilateral paramedian occipital sulci, possibly on the basis of old hemorrhage. There are scattered punctate and minimally confluent foci of white matter T2 hyperintensity in the periventricular, subcortical, and hemispheric deep white matter. These foci are nonspecific but statistically most likely relate to mild to moderate small vessel ischemic changes. No distribution or morphology specific to demyelination. Midline structures appear normally formed. The pituitary gland appears normal. Posterior fossa structures appear normal. Cerebellar tonsils are appropriately located. Major flow voids are preserved within the skull base. 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 Orbital contents appear normal. Paranasal sinuses are clear bilaterally. Nasal septum is midline without spur. The mastoids and tympanic cavities are normally aerated. Extracranial soft tissues demonstrate no abnormalities. No suspicious bone marrow changes are evident. Atlantoaxial joint is normal. MR/MR head/brain wo/w con IMPRESSION: 1. Somewhat motion degraded exam. 2. No evidence of intracranial hemorrhage, acute infarction, mass effect, edema, or abnormal contrast enhancement. 3. Mild to moderate changes of small vessel ischemia. Electronically signed by: Santi Alcantara MD 04/11/2025 02:52 PM EDT
--- NOTE | ~2025-04-11 | MR_ITS ---
EXAMINATION: MR THORACIC SPINE WITHOUT AND WITH CONTRAST CLINICAL INFORMATION: Thoracic myelopathy. Patient unable to ambulate. COMPARISON: None available. TECHNIQUE: MRI of the thoracic spine was obtained using routine sequences with and without contrast. Intravenous contrast: Gadavist 6.5 mL. Exam performed on a Siemens 1.5 Niya high-field unit. FINDINGS: There is an acute/subacute mild superior endplate compression deformity of L2 with edema in the superior endplate. No additional bone marrow edema, compression deformity, or abnormal infiltrating bone marrow signal. Hemangiomata are present in T5 and T6, as well as T11. Of note, there is abnormal cord expansion and diffusely abnormal increased signal spanning T1-T12 with sparing of the most distal conus. There is no abnormal intra or extradural enhancement to suggest a mass lesion. Findings are most likely on the basis of diffuse cord infarct versus large region of transverse myelitis. No significant disc herniation or significant central canal stenosis at any level. Mild to moderate multilevel disc degeneration present. The esophagus is patulous in appearance. The aorta is nonaneurysmal. Paraspinous and paravertebral soft tissues appear grossly normal. MR/MR thoracic spine wo/w con IMPRESSION: 1. Acute/subacute mild superior endplate compression fracture of L2. 2. Diffuse cord expansion and increased cord signal spanning T1-T12, with sparing of the most distal conus. 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 There is no evidence of enhancing mass. Electronically signed by: Santi Alcantara MD 04/11/2025 03:09 PM EDT
--- NOTE | ~2025-04-11 | MR_ITS ---
EXAMINATION: MR CERVICAL SPINE WITH AND WITHOUT CONTRAST CLINICAL INFORMATION: Thoracic myelopathy. Patient is unable to ambulate. COMPARISON: None TECHNIQUE: Multiplanar multisequence MR imaging of the cervical spine was done prior to and without the administration IV gadolinium. Examination was performed on a 1.5 Niya Siemens unit, using standard sequences. FINDINGS: CORONAL ALIGNMENT: -Normal. SAGITTAL ALIGNMENT: -Reversal of the normal lordosis centered at C3. -2 mm degenerative retrolistheses of C4 on C5 and C5 on C6. CRANIOCERVICAL JUNCTION/C1-2 ARTICULATIONS: -Intact and aligned. VERTEBRAL BODIES/BONE MARROW: -There is no compression deformity or evidence of fracture. There is no gross bone marrow edema or abnormal infiltrating bone marrow signal. DISCS: -Mild to moderate loss of height and signal diffusely, most significant at C5-6. CERVICAL CORD: -The cervical cord to the level of C7-T1 is normal in caliber and signal, without impingement or abnormal enhancement. -Extensive abnormal signal with cord expansion begins at T1 and extends caudad. Refer to the dedicated thoracic spine MRI. PARAVERTEBRAL SOFT TISSUES: -Normal. No abnormal edema or fluid collection. The thyroid is obscured by a saturation band. VISUALIZED INTRACRANIAL STRUCTURES: -Mild atrophy of the posterior fossa structures, likely age-related. AXIAL DISC SPACE IMAGING: C2-C3: No significant central canal or neural foraminal narrowing. Mild facet arthropathy bilaterally. C3-C4: Minimal disc bulge. No significant central canal or neural foraminal narrowing. Mild facet arthropathy bilaterally. C4-C5: Mild disc osteophytic ridge complex with bilateral uncinate spurring. Mild facet spurring bilaterally. Moderate bilateral neural foraminal narrowing. Mild central canal narrowing. C5-C6: Shallow disc osteophytic ridge complex present with bilateral uncinate spurring right greater than left. Mild to moderate bilateral facet spurring. This contributes to moderate to severe bilateral neural foraminal stenosis. There is mild central canal stenosis. C6-C7: There is no significant central canal or neural foraminal narrowing. C7-T1: There is no significant central canal or neural foraminal narrowing. MR/MR cervical spine wo/w con IMPRESSION: 1. Moderate multilevel cervical spondylosis without evidence of significant central canal stenosis, cord impingement or signal abnormality. See above for details. 2. At the T1 level and inferiorly, there is cord expansion and diffusely increased cord signal consistent with myelopathy. Differential includes cord infarct versus transverse myelitis. Please refer to the dedicated MRI of the thoracic spine. Electronically signed by: Santi Alcantara MD 04/11/2025 03:02 PM EDT RP
[2025-04-11] MEDS: gadobutroL 7.5 ML VIAL IVPUSH (14:33)
== END 2025-04-11 12:32 | disposition home or self-care (01) ==
LOC: HO.MRI 12:31
PROVIDERS: Visit Provider Physician Assistant
DX: M47.14 Other spondylosis with myelopathy, thoracic region (principal); G95.89 Other specified diseases of spinal cord; M48.56XA Collapsed vertebra, not elsewhere classified, lumbar region, initial encounter for fracture; M47.812 Spondylosis without myelopathy or radiculopathy, cervical region; I67.82 Cerebral ischemia
CPT/HCPCS: 70553; 72156; 72157; A9585

== ENCOUNTER → 2025-04-11 12:38 | Outpatient (BNV) | payer MEDICARE, MEDICAID, SELFPAY | PROVIDERS: Visit Provider Radiology Diagnostic Radiology | DX: G95.29 Other cord compression (principal); M47.812 Spondylosis without myelopathy or radiculopathy, cervical region; I67.82 Cerebral ischemia | CPT/HCPCS: 70553; 72156; 72157 ==

== ENCOUNTER 2025-04-13 14:48 | Outpatient (AMB) | payer MEDICARE, MEDICAID, SELFPAY ==
[2025-04-13 15:58] VITALS: PULSE 89; O2SAT 99
--- NOTE | 2025-04-13 15:58 | MHC.OFFVIS ---
Vital Signs 04/13/25 15:58 Pulse 89 Pulse Source Pulse Oximeter Pulse Oximetry (%) 99 Oxygen Delivery Method Room Air Intake Visit Reasons: [facility] reff /sepsis/Ertapenem Allergies No Known Allergies Allergy (Verified 04/16/25 11:23) HPI HPI [facility] reff /sepsis/Ertapenem: Details: He is doing well and has no complaints [facility] Medical History Type 2 diabetes mellitus with diabetic peripheral angiopathy without gangrene Type 2 diabetes mellitus with hyperglycemia Rash and other nonspecific skin eruption Neurogenic bowel, not elsewhere classified Other hemorrhoids Hiccough Nontraumatic subarachnoid hemorrhage, unspecified Hypertensive 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, with stage 1 through stage 4 chronic kidney disease, or unspecified chronic kidney disease Chronic kidney disease, stage 2 (mild) 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, complete Chronic indwelling Vicente catheter Neurogenic bladder Conus medullaris syndrome Hypertension Type 2 diabetes mellitus Chronic paraplegia Surgical History History of carpal tunnel release Social History Household Members: None Housing: Apartment Do you presently have visiting nurse or other home services: Yes Patient Tobacco Use Status: Never used Tobacco Smoked in Last 30 Days: No e-Cigarette/Vaping Use: Never Used Second Hand Smoke Exposure: No Use of substances other than those prescribed or required for medical reasons: No Advance Directives: No Advance Directives Information Provided: Yes Do you have a plan to hurt others: No Plan service: No Current occupational status: retired and disabled Cognitive needs: No Hearing needs: No Vision needs: No Review of Systems Const All systems reviewed & are unremarkable except as noted in HPI and below Physical Exam Vital Signs: Last Vital Signs Pulse 89 04/13/25 15:58 Pulse Ox 99 04/13/25 15:58 Oxygen Delivery Method Room Air 04/13/25 15:58 Const General: cooperative Orientation/consciousness: patient oriented x3 HEENT Head: Yes normal to inspection Mouth: Normal oral and palatal mucosa present Eyes General: appearance normal, both eyes and all related structures Pupils: Equal, round and reactive pupils present Resp Effort & Inspection: normal respiratory effort Cardio Rate: regular rate Rhythm: regular rhythm GI Palpation (GI): Soft to palpation and nontender General: Yes no CVA tenderness Back/Spine/Pelvis Back: no CVA tenderness Skin General skin exam: no rashes or lesions noted Neuro General: patient oriented x3 Cranial nerves: Yes CN's II-XII intact bilaterally and Yes Equal, round and reactive pupils present Extrem General: Yes normal to inspection Psych Appearance: grossly normal Assessment & Plan Assessment & Plan (1) ESBL (extended spectrum beta-lactamase) producing bacteria infection: Code(s): A49.9 - Bacterial infection, unspecified; Z16.12 - Extended spectrum beta lactamase (ESBL) resistance Category: Medical Plan: Finish IV antibiotics. Pull PICC Line Orders: Orders IR cvc remove any age 0604/13/25 N39.0 - Urinary tract infection, site not specified Coding Level of Care Code Est Pt Level 3 (69770) Diagnoses ESBL (extended spectrum beta-lactamase) producing bacteria infection A49.9; Z16.12
== END 2025-04-13 16:09 | disposition home or self-care (01) ==
LOC: HO.HID 14:48
PROVIDERS: Visit Provider Internal Medicine
DX: A49.9 Bacterial infection, unspecified (principal); Z16.12 Extended spectrum beta lactamase (ESBL) resistance
CPT/HCPCS: 99213

== ENCOUNTER → 2025-04-13 14:48 | Outpatient (BNVA) | payer MEDICARE, MEDICAID, SELFPAY | PROVIDERS: Visit Provider Internal Medicine | DX: A49.9 Bacterial infection, unspecified (principal); Z16.12 Extended spectrum beta lactamase (ESBL) resistance | CPT/HCPCS: 99212 ==

== ENCOUNTER 2025-04-16 11:08 | Emergency (ER) | payer MEDICARE, MEDICAID, SELFPAY ==
--- NOTE | 2025-04-16 | ECG_ITS ---
Test Reason : TACHYCARDIA Blood Pressure : */* mmHG Vent. Rate : 104 BPM Atrial Rate : 104 BPM P-R Int : 128 ms QRS Dur : 78 ms QT Int : 372 ms P-R-T Axes : 59 58 64 degrees QTcB Int : 489 ms Artifact in tracing Sinus tachycardia Otherwise normal ECG When compared with ECG of 27-Mar-2025 06:17, No significant changes seen Referred By: Generic ED Physician Electronically Signed By: RIKI BALL
[2025-04-16 11:12] VITALS: BP 128/62; BP 139/65; PULSE 111; PULSE 119; RESP 18; TEMP 36.7; O2SAT 98; O2SAT 99; BMI 25.1
[2025-04-16 11:46] LABS: Basophils Percent Auto 0.6 % (0-2); Eosinophils Absolute Auto 0.3 X10*3/uL (0.0-0.4); Eosinophils Percent Auto 4.6 % (0-4); Hematocrit 34.9 % (42.0-52.0); Hemoglobin 11.6 g/dl (14.0-18.0); Imm Gran Abs Auto 0.02 X10*3/uL (0.00-0.03); Imm Gran Pct Auto 0.3 % (0.0-0.4); Lymphocytes Absolute Auto 1.7 X10*3/uL (1.2-4.9); Lymphocytes Percent Auto 27.5 % (20-40); MANUAL DIFF FLAG NO; Mean Corpuscular HGB Conc 33.2 g/dl (31.0-36.0); Mean Corpuscular Hemoglobin 25.8 pg (27.0-33.0); Mean Corpuscular Volume 77.7 fL (80.0-98.0); Mean Platelet Volume 9.8 fL (9.4-12.4); Monocytes Percent Auto 16.5 % (2-11); Neutrophils Absolute Auto 3.2 x10*3/uL (2.0-8.3); Neutrophils Percent Auto 50.5 % (45-73); Platelet Count 340 X10*3/uL (160-400); Red Blood Count 4.49 X10*6/uL (4.60-5.80); Red Cell Distribution Width 17.5 % (11.0-16.0); White Blood Count 6.3 X10*3/uL (4.8-10.8)
--- NOTE | 2025-04-16 12:11 | ED.GENADULT ---
HPI - General Adult General Chief complaint: General Medical Stated complaint: HIGH HR Time Seen by Provider: 04/16/25 12:04 Source: patient, family (A son), EMS and old records reviewed Mode of arrival: EMS Limitations: no limitations History of Present Illness ED Provider: DR. 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 No shortness of breath, currently patient has no chest pain, no abdominal pain, no extremity pain. Related Data Home Medications ?Medication ?Instructions ?Recorded ?Confirmed atorvastatin 40 mg tablet 40 mg PO DAILY 02/08/25 03/27/25 captopril 50 mg tablet 50 mg PO BID 02/08/25 03/27/25 Held on 04/02/25. Instructions: Resume on 04/24/25. HOLD for now; resume if needed to control blood pressure at discretion of primary care doctor pantoprazole 40 mg tablet,delayed 40 mg PO DAILY 02/08/25 03/27/25 release furosemide 40 mg tablet 40 mg PO Q2D 03/27/25 03/27/25 Held on 04/02/25. Instructions: Resume on 04/24/25. HOLD for now; resume if needed to control blood pressure and edema at discretion of primary care doctor Previous Rx's ?Medication ?Instructions ?Recorded blood pressure monitor #1 ea 02/12/25 comp.stocking,knee,long,medium #12 ea 02/12/25 Disposable bed pads #100 ea 02/15/25 adult diapers #240 ea 02/15/25 disposable gloves #200 ea 02/15/25 foam wedge #2 ea 02/15/25 wipes #3 ea 02/15/25 oral thermometer, electronic (Oral #1 ea 02/19/25 Temp Thermometer) [facility] bed #1 ea 03/05/25 power wheelchair #1 ea 03/05/25 ascorbic acid (vitamin C) 1,000 mg 1 g PO DAILY 90 days #90 tabs 03/12/25 tablet methenamine hippurate 1 gram tablet 1 g PO DAILY 90 days #90 tabs 03/12/25 ertapenem 1 gram solution for 1 g IV DAILY #10 ea 04/02/25 injection ferrous sulfate 324 mg (65 mg 324 mg PO DAILY #30 tabs 04/02/25 iron) tablet,delayed release lidocaine 5 % topical patch 1 patch topical DAILY #30 ea 04/05/25 meloxicam 15 mg tablet 15 mg PO DAILY PRN Pain #30 tabs 04/05/25 blood sugar diagnostic (FreeStyle #100 ea 04/06/25 Lite Strips) blood-glucose meter (FreeStyle #1 ea 04/06/25 Lite Meter kit) lancets 28 gauge (FreeStyle #100 ea 04/06/25 Lancets) Custom Wheelchair and Branden tracks #1 ea 04/09/25 branden lift #1 ea 04/09/25 cefuroxime axetil 500 mg tablet 500 mg PO BID 7 days #14 tabs 04/16/25 hip abductor wedge #1 ea 04/16/25 Allergies Allergy/AdvReac Type Severity Reaction Status Date / Time No Known Allergies Allergy Verified 04/16/25 11:23 Review of Systems Review of Systems: All other systems are reviewed and are negative Constitutional: Reports as per HPI and Reports no additional constitutional complaints Eyes: Reports as per HPI and Reports no additional eye complaints Reports system reviewed and no additional complaints, except as documented Cardiovascular: Reports as per HPI and Reports no additional cardiovascular complaints Respiratory: Reports as per HPI and Reports no additional respiratory complaints Gastrointestinal: Reports as per HPI and Reports no additional gastrointestinal complaints Genitourinary: Reports no additional female genitourinary complaints Musculoskeletal: Reports no additional musculoskeletal complaints Skin/Breast: Reports system reviewed and no additional complaints, except as docu Psychiatric: Reports no additional psychiatric complaints Endocrine: Reports no additional endocrine complaints Hematologic/Lymphatic: Reports no additional hematologic/lymphatic complaints Allergic/Immunologic: Reports no additional allergic/immunologic complaints Reports system reviewed and no additional complaints, except as documented and Reports Abnormal speech present [facility] Past Medical History Medical History Type 2 diabetes mellitus with diabetic peripheral angiopathy without gangrene Type 2 diabetes mellitus with hyperglycemia Rash and other nonspecific skin eruption Neurogenic bowel, not elsewhere classified Other hemorrhoids Hiccough Nontraumatic subarachnoid hemorrhage, unspecified Hypertensive 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, with stage 1 through stage 4 chronic kidney disease, or unspecified chronic kidney disease Chronic kidney disease, stage 2 (mild) 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, complete Chronic indwelling Vicente catheter Neurogenic bladder Conus medullaris syndrome Hypertension Type 2 diabetes mellitus Chronic paraplegia Surgical History History of carpal tunnel release Social History Social History Household Members: None Housing: Apartment Do you presently have visiting nurse or other home services: Yes Patient Tobacco Use Status: Never used Tobacco Smoked in Last 30 Days: No e-Cigarette/Vaping Use: Never Used Second Hand Smoke Exposure: No Use of substances other than those prescribed or required for medical reasons: No Advance Directives: No Advance Directives Information Provided: Yes Do you have a plan to hurt others: No Plan service: No Current occupational status: retired and disabled Cognitive needs: No Hearing needs: No Vision needs: No Physical Exam ED Vital Signs: Vital Signs - 24 hr 04/16/25 11:12 04/16/25 12:50 Temperature 98.1 F 97.4 F Pulse Rate 111 H 88 Respiratory Rate 18 10 L Blood Pressure 139/65 114/61 Pulse Oximetry 98 99 Oxygen Delivery Method Room Air Room Air BMI result Body Mass Index 25.1 Vital signs have been reviewed and appear to be correct. Blood pressure elevated. Heart rate normal. Respiratory rate normal. Temperature normal. Oxygen saturation normal. Appearance: Alert. Oriented X3. No acute distress. Head: Normal external exam. Normocephalic. Atraumatic. No Soriano signs noted. No raccoon eyes noted Eyes: PERRLA. EOMI. Conjunctiva and sclera normal. Eyelids normal. ENT: TM's Normal. Pharynx normal. Uvula midline. Moist mucous membranes. No trismus noted. No drooling noted. No muffled voice noted. Neck: Normal inspection. Neck supple. FROM. No adenopathy. Thyroid Normal. No meningeal signs. No neck mass noted. CVS: Normal heart rate and rhythm. Heart sound normal. No murmurs noted. Pulses normal throughout. Respiratory: No respiratory distress. Painless inspiration. Breath sounds normal. No wheezes/rales/rhonchi noted. Chest nontender. No accessory muscle usage noted or decreased air movement noted. Abdomen: Soft and nontender. Bowel sounds normal in all 4 quadrants. No distention noted. No organomegaly noted. No visible injury noted. Back: No CVA tenderness. Full range of motion noted. Skin: Skin warm and dry. Normal skin color. Normal skin turgor. No rashes/lesions/lacerations noted. Extremities: No lower extremity edema. Extremities exhibit normal range of motion. Extremities nontender. Neuro: Paraplegia Course Reevaluation(s) Reevaluation #1: Patient was brought in by his son for concern of a elevated heart rate, patient in the ED has no complaint, Vicente catheter was changed today, showing UTI start the patient on Ceftin, patient do not meet sepsis will discharge on Ceftin, encouraged to drink plenty of fluids. Patient is stable to be discharged home. Time: 14:00 Medical Decision Making Differential Diagnosis Differential Diagnoses: The differential diagnosis associated with the presentation includes (UTI, pyelonephritis, rapid AFib, dysrhythmia, electrolyte derangement, severe anemia.) Admission/Observation Consideration of admission/observation: Escalation of care including admission/observation considered Lab Data MDM Lab Attestation statement: I reviewed the patient's lab results. 04/16/25 11:37 04/16/25 11:58 Labs: Lab Results 04/16/25 04/16/25 04/16/25 Range/Units 11:37 11:58 12:47 WBC 6.3 (4.8-10.8) X10*3/uL RBC 4.49 L (4.60-5.80) X10*6/uL Hgb 11.6 L (14.0-18.0) g/dl Hct 34.9 L (42.0-52.0) % MCV 77.7 L (80.0-98.0) fL MCH 25.8 L (27.0-33.0) pg MCHC 33.2 (31.0-36.0) g/dl RDW 17.5 H (11.0-16.0) % Plt Count 340 D (160-400) X10*3/uL MPV 9.8 (9.4-12.4) fL Immature Gran % (Auto) 0.3 (0.0-0.4) % Neut % (Auto) 50.5 (45-73) % Lymph % (Auto) 27.5 (20-40) % [place] % (Auto) 16.5 H (2-11) % Eos % (Auto) 4.6 H (0-4) % Baso % (Auto) 0.6 (0-2) % Lymph # (Auto) 1.7 (1.2-4.9) X10*3/uL [place] # (Auto) 1.0 (0.1-1.2) X10*3/uL Eos # (Auto) 0.3 (0.0-0.4) X10*3/uL Baso # (Auto) 0.0 (0.0-0.2) X10*3/uL Abs Immat Gran (auto) 0.02 (0.00-0.03) X10*3/uL Absolute Neuts (auto) 3.2 (2.0-8.3) x10*3/uL Absolute Nucleated RBC 0.000 (0.0-0.012) X10*3/uL Nucleated RBC % (auto) 0.0 (0.0-0.2) /100WBC Sodium 137 (135-145) mmol/L Potassium 3.8 (3.3-5.1) mmol/L Chloride 108 (96-108) mmol/L Carbon Dioxide 22 (22-29) mmol/L Anion Gap 11 L (12-20) BUN 22 H (9-16) mg/dL Creatinine 0.59 (0.5-1.4) mg/dL Estim Creat Clear Calc 93.3 Estimated GFR > 60 Random Glucose 103 (60-115) mg/dL Calcium 8.9 (8.4-10.2) mg/dL Magnesium 1.7 (1.6-2.6) mg/dL Total Bilirubin 0.3 (0.0-1.0) mg/dL AST 38 H (5-37) U/L ALT 58 H (0-40) U/L Alkaline Phosphatase 138 H (39-117) U/L Troponin I High Sens < 2.7 (<3.5-35.0) ng/L Total Protein 7.0 (6.5-8.0) g/dL Albumin 3.7 (3.5-5.0) g/dL Urine Color Yellow Urine Appearance Cloudy Urine pH 5.5 (5.0-9.0) Ur Specific Perry <= 1.005 (1.005-1.025) Urine Protein Trace (Neg-Trace) mg/dL Urine Glucose (UA) Negative (Negative) mg/dL Urine Ketones Negative (Negative) mg/dL Urine Blood Large (3+) H (Negative) Urine Nitrite Negative (Negative) Ur Leukocyte Esterase Large (3+) H (Negative) Urine RBC 6-10 H (0-2) /HPF Urine WBC 21-50 H (0-5) /HPF Ur Squamous Epith Cells 0-2 (0-2) /HPF Urine Bacteria None Seen (None Seen) Hyaline Casts 0-2 (0-2) /LPF Discharge Plan Discharge Clinical Impression: Acute UTI, Urinary catheter (Vicente) change required Patient Disposition: Home, Self-Care Instructions: Vicente Catheter Care Prescriptions: New cefuroxime axetil 500 mg tablet 500 mg PO BID 7 Days Qty: 14 0RF No Action (DME) adult diapers large See Rx Instructions .Route .MEDSUPPLY Qty: 240 11RF Rx Instructions: As directed (DME) wipes See Rx Instructions .Route .MEDSUPPLY Qty: 3 11RF Rx Instructions: As directed (DME) Disposable bed pads See Rx Instructions .Route .MEDSUPPLY Qty: 100 11RF Rx Instructions: As directed (DME) disposable gloves Misc See Rx Instructions .Route Qty: 200 11RF Rx Instructions: As directed (DME) foam wedge See Rx Instructions .Route .MEDSUPPLY Qty: 2 0RF Rx Instructions: As directed (DME) oral thermometer, electronic [Oral Temp Thermometer] Misc See Rx Instructions .Route Qty: 1 0RF Rx Instructions: As directed (DME) power wheelchair See Rx Instructions .Route .MEDSUPPLY Qty: 1 0RF Rx Instructions: As directed (DME) power hospital bed See Rx Instructions .Route .MEDSUPPLY Qty: 1 0RF Rx Instructions: As directed lidocaine 5 % adhesive patch,medicated 1 patch topical DAILY Qty: 30 0RF Rx Instructions: leave on most painful area for up to 12 hrs meloxicam 15 mg tablet 15 mg PO DAILY PRN (Reason: Pain) Qty: 30 0RF (DME) lancets [FreeStyle Lancets] 28 gauge misc See Rx Instructions .Route Qty: 100 0RF Rx Instructions: As directed; TID (DME) FreeStyle Lite Strips Strip See Rx Instructions .Route Qty: 100 0RF Rx Instructions: As directed; TID (DME) blood-glucose meter [FreeStyle Lite Meter] Kit See Rx Instructions .Route Qty: 1 0RF Rx Instructions: As directed; to check blood sugars TID (DME) Custom Wheelchair and Branden tracks See Rx Instructions .Route .MEDSUPPLY Qty: 1 0RF Rx Instructions: As directed (DME) branden lift See Rx Instructions .Route .MEDSUPPLY Qty: 1 0RF Rx Instructions: As directed (DME) hip abductor wedge See Rx Instructions .Route .MEDSUPPLY Qty: 1 0RF Rx Instructions: As directed furosemide 40 mg tablet 40 mg PO Q2D ferrous sulfate 324 mg (65 mg iron) Tablet,Delayed Release (Dr/Ec) 324 mg PO DAILY Qty: 30 0RF ertapenem 1 gram recon soln 1 g IV DAILY Qty: 10 0RF atorvastatin 40 mg tablet 40 mg PO DAILY captopril 50 mg tablet 50 mg PO BID pantoprazole 40 mg tablet,delayed release (DR/EC) 40 mg PO DAILY (DME) blood pressure monitor Kit See Rx Instructions .Route Qty: 1 0RF Rx Instructions: As directed (DME) comp.stocking,knee,long,medium Misc See Rx Instructions .Route Qty: 12 0RF Rx Instructions: As directed 10-20 mmHg ascorbic acid (vitamin C) 1,000 mg tablet 1 g PO DAILY 90 Days Qty: 90 1RF methenamine hippurate 1 gram tablet 1 g PO DAILY 90 Days Qty: 90 1RF Referrals: Shilpa Marie PA-C [Primary Care Provider, Internal Medicine] Print Language: Lao
[2025-04-16 12:12] LABS: Troponin-I High Sensitivity < 2.7 ng/L (<3.5-35.0)
[2025-04-16 12:21] LABS: Alanine Aminotransferase 58 U/L (0-40); Albumin Level 3.7 g/dL (3.5-5.0); Alkaline Phosphatase 138 U/L (39-117); Anion Gap 11 (12-20); Aspartate Amino Transferase 38 U/L (5-37); Bilirubin Total 0.3 mg/dL (0.0-1.0); Blood Urea Nitrogen 22 mg/dL (9-16); Calcium 8.9 mg/dL (8.4-10.2); Carbon Dioxide 22 mmol/L (22-29); Chloride 108 mmol/L (96-108); Creatinine Clr Calc Pharmacy 93.3; Estimated Glomerular Filt Rate > 60; Glucose Random 103 mg/dL (60-115); Magnesium 1.7 mg/dL (1.6-2.6); Potassium 3.8 mmol/L (3.3-5.1); Sodium 137 mmol/L (135-145)
[2025-04-16 12:50] VITALS: BP 114/61; PULSE 88; RESP 10; TEMP 36.3; O2SAT 99
[2025-04-16 12:55] LABS: Appearance Urine Cloudy; Color Urine Yellow; Glucose Urine UA Negative (Negative); Leukocyte Esterase Urine Large (3+) (Negative); Nitrite Urine Negative (Negative); PH 5.5 (5.0-9.0); Specific Gravity - Urine <= 1.005 (1.005-1.025); UMIC TRIGGER UACC YES; Urine Blood Large (3+) (Negative); Urine Ketones Negative (Negative); Urine Protein Trace mg/dL (Neg-Trace)
--- NOTE | 2025-04-16 12:55 | PC.NURSE ---
patient awake/alert to person place, iv inserted, labs previously drawn, bobcat driver/labor applied, ekg performed, pt has chronic saha which was changed out today 16F inserted- 50ml urine output after change, UA sent off new saha, family at bedside, call [facility] within reach, plan of care ongoing.
[2025-04-16 13:05] LABS: Bacteria Urine None Seen (None Seen); Hyaline Casts Urine 0-2 /LPF (0-2); Squamous Epithelial Cell Urine 0-2 /HPF (0-2); UACC Culture Trigger YES; WBC Urine 21-50 /HPF (0-5)
[2025-04-16 14:10] VITALS: BP 107/63; PULSE 82; RESP 11; TEMP 36.6; O2SAT 100
[2025-04-16] MEDS: cefuroxime axetiL 250 MG TABLET PO (14:18)
[2025-04-16 15:05] VITALS: BP 108/68; PULSE 88; RESP 14; TEMP 36.6; O2SAT 99
== END 2025-04-16 15:06 | disposition home or self-care (01) ==
PROVIDERS: Emergency Provider Emergency Medicine
DX: N39.0 Urinary tract infection, site not specified (principal); R00.0 Tachycardia, unspecified; Z79.899 Other long term (current) drug therapy
CPT/HCPCS: 36415; 80053; 81001; 83735; 84484; 85025; 87086; 93005; 99283; 99285

== ENCOUNTER → 2025-04-16 12:04 | Outpatient (BNV) | payer MEDICARE, MEDICAID, SELFPAY | PROVIDERS: Emergency Provider Emergency Medicine; Visit Provider Internal Medicine | DX: R00.0 Tachycardia, unspecified (principal) | CPT/HCPCS: 93010 ==

== ENCOUNTER 2025-04-26 09:51 | Outpatient (REF) | payer MEDICARE, MEDICAID, SELFPAY | END 2025-04-26 09:52 | disposition home or self-care (01) | LOC: HO.HMGCX 09:51 | DX: Z13.89 Encounter for screening for other disorder (principal) ==

== ENCOUNTER 2025-05-01 08:24 | Outpatient (AMB) | payer MEDICARE, MEDICAID, SELFPAY ==
--- NOTE | 2025-05-01 08:32 | MHC.OFFVIS ---
Vital Signs 05/01/25 08:42 Height 5 ft 4 in Weight 160 lb BMI 27.5 Handedness Right Intake Visit Reasons: [employer]-Rt shoulder pain Intake Note: Kike is a 74 year old right hand dominant male who presents today with his son as a new patient for a evaluation of her his right shoulder pain. History of Chronic paraplegia. Patient mentions hat his pain is ongoing for about 2 + months. He states that his pain is on the aspect of the shoulder/radiates up to his neck. IMPRESSION: Limited study based on single projection. No definite fracture. Dislocation not excluded. Allergies No Known Allergies Allergy (Verified 05/01/25 09:29) HPI HPI [employer]-Rt shoulder pain: Details: Mr. Neto Botello is a 74-year-old right-hand dominant male who presents to the office today accompanied by his son for evaluation of chronic right shoulder pain. Patient is unable to recall how long the right shoulder has been hurting him when he presented to the emergency department on 01/29/2025 due to extreme pain. X-rays were obtained and he was found to have an anterior shoulder subluxation. This was reportedly reduced while in the emergency department and the patient was discharged home. Of note, the patient does have paraplegia and does not have sensation from the nipples down. Additionally, he did have a carpal tunnel release on the right wrist. It is unknown when this procedure was performed. Patient is primarily bed-bound. 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, complete Chronic indwelling Vicente catheter Neurogenic bladder Conus medullaris syndrome Hypertension Type 2 diabetes mellitus Chronic paraplegia Surgical History History of carpal tunnel release Social History (Updated 05/01/25 @ 08:45 by Pierce Cobian) Household Members: None Housing: Apartment Do you presently have visiting nurse or other home services: Yes Patient Tobacco Use Status: Never used Tobacco e-Cigarette/Vaping Use: Never Used Second Hand Smoke Exposure: No service: No Current occupational status: retired and disabled Current occupation: right hand dominant Cognitive needs: No Hearing needs: No Vision needs: No Review of Systems Const All systems reviewed & are unremarkable except as noted in HPI and below Physical Exam Vital Signs: BMI result Body Mass Index 27.5 Const General: cooperative, healthy appearing and no acute distress Resp Effort & Inspection: normal respiratory effort and able to speak in complete sentences Extrem Other: Right shoulder 45 degrees forward flexion and abduction. Patient is unable to participate in a special tests due to pain and range of motion restrictions. Patient does have limited range of motion in the right hand due to neurological injury to the upper extremities. Assessment & Plan Assessment & Plan (1) Chronic right shoulder pain: Code(s): M25.511 - Pain in right shoulder; G89.29 - Other chronic pain Category: Medical (2) Conus medullaris syndrome: Code(s): G95.81 - Conus medullaris syndrome Category: Medical (3) Paraplegia: Code(s): G82.20 - Paraplegia, unspecified Category: Medical Plan Mr. Neto Botello is a 74-year-old right-hand dominant male who presents to the office today accompanied by his son for evaluation of chronic right shoulder pain. Patient is unable to recall how long the right shoulder has been hurting him when he presented to the emergency department on 01/29/2025 due to extreme pain. X-rays were obtained and he was found to have an anterior shoulder subluxation. This was reportedly reduced while in the emergency department and the patient was discharged home. Of note, the patient does have paraplegia and does not have sensation from the nipples down. Additionally, he did have a carpal tunnel release on the right wrist. It is unknown when this procedure was performed. Patient is primarily bed-bound. Of note, the patient does have a history of spinal cord injury affecting lower extremities leaving him paraplegic. Additionally, he has a neurological injury that affected bilateral upper extremities. He has a resting tremor in the right hand as well as decreased strength and range of motion. While the office today, we discussed conservative treatment options including physical therapy and cortisone injection. At this time the patient will attend physical therapy to maximize range of motion. I would like to see the patient back in 8 weeks after physical therapy. If patient continues to have pain at that time cortisone injection may be considered. I did offer ordering home physical therapy however the patient and the patient's son would like to attempt to attend outpatient physical therapy. Follow up will be in 8 weeks, sooner if needed. X-rays of the right shoulder which were obtained while in the office today and were reviewed by me, Gabrielle Ragsdale PA-C, revealed degenerative changes of the AC joint as well as the glenohumeral joint. I do not appreciate any acute fracture or dislocation. Orders: Orders PT Evaluation and Treatment Today G89.29 - Other chronic pain, M25.511 - Pain in right shoulder XR shoulder RT min 2V Today M25.519 - Pain in unspecified shoulder Coding Level of Care Code New Pt Level 4 (24399) Diagnoses Chronic right shoulder pain M25.511; G89.29 Conus medullaris syndrome G95.81 Paraplegia G82.20
[2025-05-01 08:42] VITALS: BMI 27.5
== END 2025-05-01 09:20 | disposition home or self-care (01) ==
LOC: HO.HOS 08:25
PROVIDERS: Visit Provider Physician Assistant
DX: M25.511 Pain in right shoulder (principal); G89.29 Other chronic pain; G95.81 Conus medullaris syndrome; G82.20 Paraplegia, unspecified
CPT/HCPCS: 99204

== ENCOUNTER → 2025-05-01 08:26 | Outpatient (BNV) | payer MEDICARE, MEDICAID, SELFPAY | PROVIDERS: Visit Provider Student in an Organized Health Care Education/Training Program | DX: M25.511 Pain in right shoulder (principal) | CPT/HCPCS: 73030 ==

== ENCOUNTER 2025-05-01 09:23 | Outpatient (AMB) | payer MEDICARE, MEDICAID, SELFPAY ==
--- NOTE | 2025-05-01 09:28 | A.OFFVIS_ITS ---
Intake Visit Reasons: ER F/u sp tube discussion Intake Note: Patient presents to the office today for ER follow up/SP tube discussion Urology Medication:Vitamin C, Methenamine Hippurate Blood Thinner:None Antibiotic Allergies:None Allergies No Known Allergies Allergy (Verified 05/01/25 10:21) Medication List - Last Reconciled 05/01/25 by GINO Noguera [adult diapers As directed] ascorbic acid (vitamin C) 1 g PO DAILY 90 days atorvastatin 40 mg PO DAILY blood pressure monitor As directed blood sugar diagnostic (FreeStyle Lite Strips) As directed; TID blood-glucose meter (FreeStyle Lite Meter kit) As directed; to check blood sugars TID captopril 50 mg PO BID Held on 04/02/25. Instructions: Resume on 04/24/25. HOLD for now; resume if needed to control blood pressure at discretion of primary care doctor cefuroxime axetil 500 mg PO BID 7 days comp.stocking,knee,long,medium As directed 10-20 mmHg [Custom Wheelchair and Branden tracks As directed] diclofenac sodium 1% (Voltaren Arthritis Pain) 2 grams topical QID [Disposable bed pads As directed] disposable gloves As directed ertapenem 1 g IV DAILY ferrous sulfate 324 mg PO DAILY [foam wedge As directed] furosemide 40 mg PO Q2D Held on 04/02/25. Instructions: Resume on 04/24/25. HOLD for now; resume if needed to control blood pressure and edema at discretion of primary care doctor [hip abductor wedge As directed] [branden lift As directed] lancets (FreeStyle Lancets) As directed; TID lidocaine 5% 1 patch topical DAILY meloxicam 15 mg PO DAILY PRN menthol 10% (Biofreeze (menthol)) 1 appl topical BID PRN methenamine hippurate 1 g PO DAILY 90 days oral thermometer, electronic (Oral Temp Thermometer) As directed pantoprazole 40 mg PO DAILY [power hospital bed As directed] [power wheelchair As directed] [wipes As directed] HPI Comments Details: Kike is a very pleasant 74-year-old male patient of Dr. Marie was accompanied by his son at today's office visit. He has a past medical history of type 2 diabetes, neurogenic bowel, hemorrhoids, chronic kidney disease, neurogenic bladder, paraplegia, and hypertension. He presents to the office today for follow-up of his neurogenic bladder. Of note, patient was seen approximately 2 months ago as a new patient at which time a retroperitoneal ultrasound and PSA were ordered for further assessment evaluation however in discussion with the patient's son who provides all of today's health history he reports patient was recently hospitalized for increased lethargy and confusion. He seeked emergency room care approximately 1 week ago and again was treated for a urinary tract infection with Ceftin. In discussion with the son today he reports having completed antibiotic therapy as prescribed by ER physician and feels patient has been feeling and doing well. He discusses feeling UTI started due to malposition of indwelling Vicente catheter that was changed previously. In assessment of the patient today indwelling Vicente catheter in place and draining clear yellow urine. We again discussed further treatment options and risks and benefits of these treatment options. He reports compliance with methenamine and vitamin-C as prescribed. We discussed further treatment options of recurrent urinary tract infections as well as neurogenic bladder. All questions were answered. He would like to continue with indwelling Vicente catheter at this time. He denies hematuria, flank pain, fever, and or chills. CT 04/18 noted An indwelling urinary catheter balloon within the penile urethra and its tip within the prostatic urethra. Removal or repositioning of the catheter is recommended. Partially distended urinary bladder containing moderate air and with moderate circumferential wall thickening, concerning for cystitis. Correlate with urinalysis.No hydronephrosis or nephrolithiasis. Normal symmetric enhancement of the kidneys. Large colonic and rectal stool burden. Large hiatal hernia. All questions were answered. [facility] Medical History Type 2 diabetes mellitus with diabetic peripheral angiopathy without gangrene Type 2 diabetes mellitus with hyperglycemia Rash and other nonspecific skin eruption Neurogenic bowel, not elsewhere classified Other hemorrhoids Hiccough Nontraumatic subarachnoid hemorrhage, unspecified Hypertensive 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, with stage 1 through stage 4 chronic kidney disease, or unspecified chronic kidney disease Chronic kidney disease, stage 2 (mild) 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, complete Chronic indwelling Vicente catheter Neurogenic bladder Conus medullaris syndrome Hypertension Type 2 diabetes mellitus Chronic paraplegia Surgical History History of carpal tunnel release Social History Household Members: None Housing: Apartment Do you presently have visiting nurse or other home services: Yes Patient Tobacco Use Status: Never used Tobacco e-Cigarette/Vaping Use: Never Used Second Hand Smoke Exposure: No service: No Current occupational status: retired and disabled Current occupation: right hand dominant Cognitive needs: No Hearing needs: No Vision needs: No Review of Systems Eyes Reports no additional complaints ENT Reports no additional complaints Card Reports as per HPI Resp Reports no additional complaints GI Reports as per HPI Reports as per HPI Musc Reports as per HPI Neuro Reports as per HPI Psych Reports no additional complaints Endo Reports as per HPI Paul/Lymph Reports no additional complaints Physical Exam Const General: cooperative, healthy appearing, comfortable, no acute distress, well developed, alert and awake Orientation/consciousness: patient oriented x3 Limitations: other limitations (Stretcher) HEENT Head: Yes normal to inspection Eyes General: appearance normal, both eyes and all related structures Neck Neck: Yes normal visual inspection Chest Chest palpation & inspection: normal inspection of the chest Resp Effort & Inspection: normal respiratory effort and able to speak in complete sentences Cardio Rate: regular rate GI Inspection: Yes normal to inspection Other: Indwelling Vicente catheter draining clear yellow urine Skin General skin exam: no rashes or lesions noted Neuro General: patient oriented x3 Psych Appearance: well kempt Mental Status: mental status grossly normal Speech and movement: Clear speech present Affect: normal affect Attitude: cooperative Thought content: Normal thought content present Insight: Fair insight present (Psych) Judgement: Fair judgement present (Psych) Results Reviewed Results Reviewed: Date of Service: 03/28/25 Procedure(s): CT abdomen pelvis wo/w IV con Findings: Bibasilar atelectatic/dependent changes. Large hiatal hernia. Unremarkable gallbladder and solid organs. No urolithiasis. No hydronephrosis. No bowel obstruction, pneumoperitoneum, or pneumatosis. Large colonic and rectal stool burden. Normal appendix. Partially distended urinary bladder containing moderate air. An indwelling urinary catheter balloon is noted within the penile urethra and its tip within the prostatic urethra. The bones are intact. IMPRESSION: An indwelling urinary catheter balloon within the penile urethra and its tip within the prostatic urethra. Removal or repositioning of the catheter is recommended. Partially distended urinary bladder containing moderate air and with moderate circumferential wall thickening, concerning for cystitis. Correlate with urinalysis. No hydronephrosis or nephrolithiasis. Normal symmetric enhancement of the kidneys. Large colonic and rectal stool burden. Large hiatal hernia. Assessment & Plan Assessment & Plan (1) Neurogenic bladder: Code(s): N31.9 - Neuromuscular dysfunction of bladder, unspecified Category: Medical (2) UTI (urinary tract infection) due to urinary indwelling catheter: Code(s): T83.511A - Infection and inflammatory reaction due to indwelling urethral catheter, initial encounter; N39.0 - Urinary tract infection, site not specified Category: Medical (3) Complicated UTI (urinary tract infection): Code(s): N39.0 - Urinary tract infection, site not specified Category: Medical Plan Recent CT results were reviewed with the patient and his son today as noted above. We discussed at length recurrent urinary tract infections as well as suprapubic tube verses indwelling Vicente catheter. All questions were answered to the best of my ability. Continue methenamine and vitamin-C as discussed and prescribed. He currently denies any bothersome urinary issues or concerns. During last office visit recommendations were made for retroperitoneal ultrasound as well as PSA however given patient's most recent hospitalization CT was obtain therefore will not obtain retroperitoneal ultrasound however we did discussed importance of obtaining PSA as ordered. Will continue with indwelling Vicente catheter changes with [facility] services as kendrick nned. We also discussed adding low-dose trimethoprim for suppression. Follow-up in 3-6 months with PSA; or sooner with any issues, concerns, and or questions. Patient Instructions: The patient had an opportunity to ask questions regarding the treatment plan. All questions were answered. Physical exam, labs, and imaging were discussed and reviewed in detail. As well as risks, benefits, and discussion of treatment choices. No major barriers to understanding were identified. The patient expressed understanding and agreement with the above treatment plan. The patient was made aware they should contact our office by phone for worsening of their current condition, the appearance of new symptoms, or with any questions or concerns. Compliance is encouraged with any medications and follow up testing that is ordered. It is a privilege to be allowed the opportunity to participate in? your urological care.? Again, if you have any questions or concerns If you have any questions or concerns please do not hesitate to contact me. The office is [phone]. This note is constructed using voice recognition software. While every effort has been made to ensure accuracy electrical engineering manager errors may have been included. Yours sincerely, GINO Noguera Coding Level of Care Code Est Pt Level 4 (10250) Complex EM visit Add On G2211 Diagnoses Neurogenic bladder N31.9 UTI (urinary tract infection) due to urinary indwelling catheter T83.511A; N39.0 Complicated UTI (urinary tract infection) N39.0
== END 2025-05-01 10:12 | disposition home or self-care (01) ==
LOC: HO.HUSH 09:23
PROVIDERS: Visit Provider Nurse Practitioner Family
DX: N31.9 Neuromuscular dysfunction of bladder, unspecified (principal); T83.511A Infection and inflammatory reaction due to indwelling urethral catheter, initial encounter; N39.0 Urinary tract infection, site not specified
CPT/HCPCS: 99214; G2211

== ENCOUNTER 2025-05-01 09:54 | Outpatient (REF) | payer MEDICARE, MEDICAID, SELFPAY ==
--- NOTE | ~2025-05-01 | XR_ITS ---
CLINICAL HISTORY: M25.519 - Pain in unspecified shoulder 3 view right shoulder Comparison: CR - XR SHOULDER RT 1V - 03/27/25 17:50 EDT Findings: Suboptimal views. No evidence of acute fracture. Posterior dislocation can not be excluded. No significant loss of joint space or osteophytes. No erosions. No radiopaque foreign body. IMPRESSION: 1. Suboptimal views, posterior dislocation can not be excluded. No evidence of acute fracture. This document has been electronically signed by: iLnda Bedolla MD on 05/01/2025 20:06:27
== END 2025-05-01 09:55 | disposition home or self-care (01) ==
LOC: HO.HOSX 09:54
PROVIDERS: Visit Provider Physician Assistant
DX: M25.511 Pain in right shoulder (principal); G82.20 Paraplegia, unspecified; G95.81 Conus medullaris syndrome; G89.29 Other chronic pain
CPT/HCPCS: 73030; 99202; 99212

== ENCOUNTER 2025-05-02 10:08 | Outpatient (AMB) | payer MEDICARE, MEDICAID, SELFPAY ==
--- NOTE | 2025-05-02 10:13 | A.OFFVIS_ITS ---
Intake Visit Reasons: cervical myelopathy Allergies No Known Allergies Allergy (Verified 05/01/25 10:21) Medication List - Last Reconciled 05/02/25 by Flaco Belle MD [adult diapers As directed] ascorbic acid (vitamin C) 1 g PO DAILY 90 days atorvastatin 40 mg PO DAILY blood pressure monitor As directed blood sugar diagnostic (FreeStyle Lite Strips) As directed; TID blood-glucose meter (FreeStyle Lite Meter kit) As directed; to check blood s ugars TID captopril 50 mg PO BID Held on 04/02/25. Instructions: Resume on 04/24/25. HOLD for now; resume if needed to control blood pressure at discretion of primary care doctor cefuroxime axetil 500 mg PO BID 7 days comp.stocking,knee,long,medium As directed 10-20 mmHg [Custom Wheelchair and Branden tracks As directed] diclofenac sodium 1% (Voltaren Arthritis Pain) 2 grams topical QID [Disposable bed pads As directed] disposable gloves As directed ertapenem 1 g IV DAILY ferrous sulfate 324 mg PO DAILY [foam wedge As directed] furosemide 40 mg PO Q2D Held on 04/02/25. Instructions: Resume on 04/24/25. HOLD for now; resume if needed to control blood pressure and edema at discretion of primary care doctor [hip abductor wedge As directed] [branden lift As directed] lancets (FreeStyle Lancets) As directed; TID lidocaine 5% 1 patch topical DAILY meloxicam 15 mg PO DAILY PRN menthol 10% (Biofreeze (menthol)) 1 appl topical BID PRN methenamine hippurate 1 g PO DAILY 90 days oral thermometer, electronic (Oral Temp Thermometer) As directed pantoprazole 40 mg PO DAILY [power hospital bed As directed] [power wheelchair As directed] [wipes As directed] HPI Comments Details: This a previously healthy 74-year-old man who developed an illness?with some diarrhea went to the hospital about 18 months ago in [place],? and came out paralyzed from the nipple down with no recovery but with no definitive diagnosis.? He was told it was a blood clot and then he was told he had a heart attack.? He has now moved from [place] to [place] and is undergoing further evaluation.? He has an indwelling catheter.? He wears Depends, has no bladder or bowel control and no feeling below the nipples. 04/11/25 MRI of the cervical- thoracic and lumbar spine shows Diffuse cord expansion and increased cord signal spanning T1-T12 with sparing of the most distal conus. 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 There is no evidence of enhancing mass. 04/11/25 MRI brain shows mild to moderate small vessel disease. [facility] Medical History (Updated 05/02/25 @ 10:41 by Flaco Belle MD) Paraplegia Cervical myelopathy Type 2 diabetes mellitus with diabetic peripheral angiopathy without gangrene Type 2 diabetes mellitus with hyperglycemia Rash and other nonspecific skin eruption Neurogenic bowel, not elsewhere classified Other hemorrhoids Hiccough Nontraumatic subarachnoid hemorrhage, unspecified Hypertensive 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, with stage 1 through stage 4 chronic kidney disease, or unspecified chronic kidney disease Chronic kidney disease, stage 2 (mild) 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, complete Chronic indwelling Vicente catheter Neurogenic bladder Conus medullaris syndrome Hypertension Type 2 diabetes mellitus Chronic paraplegia Surgical History History of carpal tunnel release Social History Household Members: None Housing: Apartment Do you presently have visiting nurse or other home services: Yes Patient Tobacco Use Status: Never used Tobacco e-Cigarette/Vaping Use: Never Used Second Hand Smoke Exposure: No service: No Current occupational status: retired and disabled Current occupation: right hand dominant Cognitive needs: No Hearing needs: No Vision needs: No Review of Systems Const Details: Review of Systems Sleep:Difficulty getting to sleepdenies.? Difficulty maintaining sleepdenies?.? Urge to move legsdenies.? Teeth grindingdenies.? Shouting or Kicking during sleepdenies.? Abnormal behavior during sleepdenies.? Excessive sleepdenies.? Snoringdenies.? Daytime sleepinessdenies.General/Constitutional:Change in appetitedenies.? Chillsdenies.? Fatiguedenies.? Feverdenies.? Weight gaindenies .? Weight lossdenies.Ophthalmologic:Blurred visiondenies.? Diminished visual acuitydenies.ENT:Stuffinessdenies.? Decreased hearingdenies.? Dry mouthdenies.? Ear paindenies.? Nosebleeddenies.? Ringing in the earsdenies.? Sinus paindenies .? Sore throatdenies.? Swollen glandsdenies.Endocrine:Cold intolerancedenies.? Excessive thirstdenies.? Frequent urinationdenies.? Heat intolerancedenies. Respiratory:Shortness of breathdenies.? Chest paindenies.? Coughdenies.Breast :Breast lumpdenies.? Nipple dischargedenies.Cardiovascular:Chest pain at restden ies.? Chest pain with exertiondenies.? Claudicationdenies.? Dizzinessdenies.? Fluid accumulation in the legsdenies.? Irregular heartbeatdenies.? Palpitations denies.Gastrointestinal:Abdominal paindenies.? Constipationdenies.? Diarrhea denies.? Difficulty swallowingdenies.? Heartburndenies.? Nauseadenies.? Rectal bleedingdenies.Hematology:Easy bruisingdenies.? Prolonged bleedingdenies. Genitourinary:Frequent urinationdenies.? Urgencydenies.? Incontinencedenies.? Erectile Dysfunctiondenies.Musculoskeletal:Neck paindenies.? Back paindenies.? Muscle achesdenies.? Painful jointsdenies.? Sciaticadenies.? Weaknessparalyzed from the chest down.Podiatric:Difficulty walkingdenies.? Foot numbnessdenies. Neurologic:Difficulty swallowingdenies.? Balance difficultydenies.? Coordination normal.? Difficulty speakingdenies.? Dizzinessdenies.? Faintingdenies.? Gait abnormalityadmits.? Headachedenies.? Loss of strengthdenies.? Loss of use of extremitydenies.? Low back paindenies.? Memory lossdenies.? Seizuresdenies.? Ticsdenies.? Tingling/Numbnessdenies.? Transient loss of visiondenies.? Tremor denies.Psychiatric:Anxietydenies.? Auditory/visual hallucinationsdenies.? Delusionsdenies.? Depressed mooddenies.? Stressorsdenies.? Substance abusedenies .? Suicidal thoughtsdenies. Physical Exam Neuro Other: Neurological: Abnormal neurological findings:??spastic paraplegia with joint contractures at the ankles.? Plantar responses are neutral.? He is areflexic in the lower extremities with some hyperreflexia in the upper extremities.? Right upper extremity also has some spasticity.? Cranial nerves are normal..?Mental Status:??alert and oriented X 3,?Normal attention, orientation, memory and affect.?Cranial Nerves:??Pupils are equal, round and reactive to light. Fundoscopy shows normal disc bilaterally. External occular muscles are intact. Visual roland are full, no ptosis. Face is symmetrical, no facial weakness or droop. Facial sensations are normal. Tongue protrudes in midline. Palate elevates symmetrically. Shoulder shrugging is normal..?Motor Examination:??as above.?Straight Leg Raising:??90 degrees.?Sensory Exam:??he has a sensory level at T4, with no sensation below that.?Coordination:??no ataxia,?no titubation,?azjfgx-rv-brex, jvwq-rnjs-awvo test and rapid alternating movements were normal.?Gait Exam:??paraplegia.?Cerebellar Signs:??Ahcyyw-wh-imkl and fcfm-zt-czfe is normal,?no dysdiadochokinesia?.?Extrapyramidal System:??No tremor, rigidity with normal facial expressions,?No bradykinesia, no bradyphrenia. Normal arm swing and posture. No propulsion or retropulsion.?Speech:??Normal,?no dysphasia or dysarthria..? Mini Mental Status Exam: Level of Consciousness:??Alert.?Orientation:??Knows correct year, month, date, day and season,?Knows correct city, county and state. Knows correct location and floor.?Registration:??Able to register 3 objects.?Attention:??Serial 7's performed accurately.?Recall:??Able to recall 3 out of 3 objects.?Language:??Normal spontaneous speech, fluency, repetition,naming, c omprehension, reading and writing.?Total Score:??30/30.? General Examination: GENERAL APPEARANCE:??normal,?in no acute distress.?HEAD:??normocephalic,?atraumatic.?EYES:??sclera non- icteric,?conjunctiva clear.?EARS:??auditory canal clear,?tympanic membrane intact, clear.?NOSE:??no lesions.?ORAL CAVITY:??gums normal,?mucosa moist,?no lesions.?THROAT:??clear.?NECK/THYROID:??no cervical lymphadenopathy,?thyroid normal,?neck supple, full range of motion,?no carotid bruit.?SKIN:??no rashes,?no significant birthmarks.?HEART:??S1, S2 normal,?no murmurs.?LUNGS:??clear anteriorly and posteriorly.?CHEST:??no gross rib deformity,?clear to auscultation.?BACK:??normal exam of spine.?EXTREMITIES:??no edema.?PERIPHERAL PULSES:??normal.?PSYCH:??alert, oriented,?cognitive function intact,?cooperative with exam.? Assessment & Plan Assessment & Plan (1) Spinal cord infarction: Code(s): G95.11 - Acute infarction of spinal cord (embolic) (nonembolic) Category: Medical (2) Myelomalacia: Code(s): G95.89 - Other specified diseases of spinal cord Category: Medical Plan I have reviewed the MRI images with the patient and his son. Most likely etiology is a T1 level spinal cord infarct with wallerian degeneration of the remainder of the spinal cord down to the conus medullaris. There is almost no spinal cord tissue remaining in the thoracic spine except for some posterior columns. Nothing can be done in a meaningful way. He will remain a paraplegic for the rest of his life and needs care. He has an indwelling catheter. He should have an inflatable air mattress and needs to be turned every hour to avoid decubitus ulcers. Passive movement of the legs. He may have a telephone visit p.r.n. Coding Level of Care Code Est Pt Level 5 (13031) Diagnoses Spinal cord infarction G95.11 Myelomalacia G95.89
== END 2025-05-02 10:40 | disposition home or self-care (01) ==
LOC: HO.HSM 10:08
PROVIDERS: Visit Provider Psychiatry & Neurology Neurology
DX: G95.11 Acute infarction of spinal cord (embolic) (nonembolic) (principal); G95.89 Other specified diseases of spinal cord
CPT/HCPCS: 99213

== ENCOUNTER → 2025-05-02 10:08 | Outpatient (BNV) | payer MEDICARE, MEDICAID, SELFPAY | DX: T83.518A Infection and inflammatory reaction due to other urinary catheter, initial encounter (principal); A41.9 Sepsis, unspecified organism | CPT/HCPCS: G0179 ==

== ENCOUNTER → 2025-05-02 10:08 | Outpatient (BNVA) | payer MEDICARE, MEDICAID, SELFPAY | PROVIDERS: Visit Provider Psychiatry & Neurology Neurology | DX: G95.11 Acute infarction of spinal cord (embolic) (nonembolic) (principal); G95.89 Other specified diseases of spinal cord | CPT/HCPCS: 99212 ==

== ENCOUNTER 2025-05-23 10:49 | Outpatient (REF) | payer MEDICARE, MEDICAID, SELFPAY ==
--- NOTE | ~2025-05-23 | US_ITS ---
CLINICAL HISTORY: N31.9 - Neuromuscular dysfunction of bladder, unspecified US bladder with color Doppler Comparison: CT/SR - CT ABDOMEN PELVIS WO/W IV CON - 03/28/25 17:16 EDT Findings: Urinary bladder is partially filled. Vicente catheter within the urinary bladder.. Prevoid volume 85.6 mL. Postvoid volume 16.0 mL. Ureteral jets are visualized bilaterally Prostate measures 5.1 x 3.8 x 3.5 cm Impression: 1. Partially filled urinary bladder with Vicente balloon catheter. Can not exclude mild urinary bladder wall thickening. 2. Bilateral ureteral jets were demonstrated. Slightly elevated postvoid residual 3. Prostate volume 35.6 mL This document has been electronically signed by: Joe Huerta MD on 05/24/2025 09:32:38
--- OUTSIDE RECORDS SUMMARY | 2025-05-23 11:47 | XMS_ITS | Clinical Summary ---
Author Organization 175 [facility] Address [address] [place] [address] Phone Care Team Providers Care Compo Caster Name Role Phone Shilpa Marie Primary Care Provider [phone] Social History Tobacco Use Types Packs/Day Years Used Date Smoking Tobacco: Never Assessed Sex and Gender Information Value Date Recorded Sex Assigned at Not on file Legal Sex Male 9:55 AM EDT Gender Identity Not on file Sexual Orientation Not on file Plan of Treatment Upcoming Encounters Date Type Department Care Team ([facility] Contact Info) Description 07/24/2025 8:30 AM EDT Consult Orthopedic Surgery [place] [id number] [phone] Parveen Jurado, DPM [address] [phone] Health Maintenance Due Date Last Done Comments Diabetes: Annual GFR (Glomer ular Filtration Rate) 1951 Diabetes: Annual Foot Exam 1961 Diabetes: Annual Retina Eye Exam 1961 DTaP,Tdap,and Td Vaccines (1 - Tdap) 1970 Pneumococcal Vaccine: 50+ Ye ars (1 of 2 - PCV) 1970 Zoster Vaccines (1 of 2) 2001 COVID-19 Vaccine (2023-2 5 season) 2024 Depression Screening 10/25/2024 Abdominal Aortic Aneurysm (A AA) Screen 04/30/2025 Cholesterol Screening (Lipid Panel) 04/30/2025 Colorectal Cancer Screening: Colonoscopy 04/30/2025 Diabetes: Annual Urine Albumin-Creatinine Ratio (uACR) 04/30/2025 Diabetes: Blood Sugar Contro l Test (HGBA1C) 04/30/2025 Falls Risk Assessment 04/30/2025 Hepatitis C Screening 04/30/2025 Medicare Annual Wellness Visit 04/30/2025 Social Influencers of Health Screening 04/30/2025 Influenza Vaccine (#1) 2025 RSV Immunization Adult Patie nts (1 - 1-dose 75+ series) 2026 HIB Vaccines Aged Out No longer eligi ble based on patient's age to complete this topic HPV Vaccines Aged Out No longer eligi ble based on patient's age to complete this topic Hepatitis A Vaccines Aged Out No long er eligible based on patient's age to complete this topic Hepatitis B Vaccines Aged Out No long er eligible based on patient's age to complete this topic IPV Vaccines Aged Out No longer eligi ble based on patient's age to complete this topic MMR Vaccines Aged Out No longer eligi ble based on patient's age to complete this topic Meningococcal ACWY Vaccine Aged Out N o longer eligible based on patient's age to complete this topic Meningococcal B Vaccine Aged Out No l onger eligible based on patient's age to complete this topic RSV Immunization Patients Un candi 20 months Aged Out No longer eligible b ased on patient's age to complete this topic Varicella Vaccines Aged Out No longer eligible based on patient's age to complete this topic Insurance MEDICARE MEDICAID - [place] Care Teams Compo Caster Relationship Specialty Start Date End Date Shilpa Marie PA [address] [place] [address], [address] [place] [address] PCP - General 04/30/25
== END 2025-05-23 10:50 | disposition home or self-care (01) ==
LOC: HO.HMGCX 10:49
PROVIDERS: Visit Provider Nurse Practitioner Family
DX: N31.9 Neuromuscular dysfunction of bladder, unspecified (principal)
CPT/HCPCS: 76857

== ENCOUNTER 2025-05-24 10:24 | Emergency (ER) | payer MEDICARE, MEDICAID, SELFPAY ==
[2025-05-24 10:37] VITALS: BP 102/45; BP 161/88; PULSE 90; PULSE 94; RESP 14; TEMP 36.2; O2SAT 95; O2SAT 99; BMI 24.4
[2025-05-24 11:16] LABS: MANUAL DIFF FLAG NO
[2025-05-24 11:20] LABS: Hematocrit 33.9 % (42.0-52.0); Hemoglobin 11.6 g/dl (14.0-18.0); Imm Gran Abs Auto 0.04 X10*3/uL (0.00-0.03); Imm Gran Pct Auto 0.4 % (0.0-0.4); Lymphocytes Absolute Auto 1.4 X10*3/uL (1.2-4.9); Mean Corpuscular HGB Conc 34.2 g/dl (31.0-36.0); Mean Corpuscular Hemoglobin 25.0 pg (27.0-33.0); Mean Corpuscular Volume 73.1 fL (80.0-98.0); NRBC Abs Auto 0.000 X10*3/uL (0.0-0.012); NRBC Pct Auto 0.0 /100WBC (0.0-0.2); Platelet Count 372 X10*3/uL (160-400); Red Blood Count 4.64 X10*6/uL (4.60-5.80); White Blood Count 10.0 X10*3/uL (4.8-10.8)
[2025-05-24 11:31] LABS: Alanine Aminotransferase 110 U/L (0-40); Albumin Level 3.9 g/dL (3.5-5.0); Alkaline Phosphatase 135 U/L (39-117); Anion Gap 15 (12-20); Aspartate Amino Transferase 73 U/L (5-37); Blood Urea Nitrogen 12 mg/dL (9-16); Calcium 9.0 mg/dL (8.4-10.2); Carbon Dioxide 21 mmol/L (22-29); Chloride 89 mmol/L (96-108); Creatinine Clr Calc Pharmacy 104.0; Estimated Glomerular Filt Rate > 60; Potassium 4.2 mmol/L (3.3-5.1); Sodium 121 mmol/L (135-145); Total Protein 7.6 g/dL (6.5-8.0)
--- OUTSIDE RECORDS SUMMARY | 2025-05-24 11:39 | XMS_ITS | Clinical Summary ---
Author Organization [address] [facility] Address [address] [place] [address] Phone Care Team Providers Care Security Compliance Specialist Name Role Phone Shilpa Marie Primary Care Provider [phone] Social History Tobacco Use Types Packs/Day Years Used Date Smoking Tobacco: Never Assessed Sex and Gender Information Value Date Recorded Sex Assigned at Not on file Legal Sex Male 9:55 AM EDT Gender Identity Not on file Sexual Orientation Not on file Plan of Treatment Upcoming Encounters Date Type Department Care Team ([facility] Contact Info) Description 07/24/2025 8:30 AM EDT Consult Orthopedic Surgery [place] [id number] [id number] Parveen Jurado, DPM [address] [address] Health Maintenance Due Date Last Done Comments [...] Insurance MEDICARE MEDICAID - [place] Care Teams Security Compliance Specialist Relationship Specialty Start Date End Date Shilpa Marie PA [address] [place] [address], [address] [place] [address] PCP - General 04/30/25
--- NOTE | 2025-05-24 11:47 | ED_ITS ---
HPI - General Adult General Chief complaint: General Medical Stated complaint: AMS Time Seen by Provider: 05/24/25 11:47 History of Present Illness ED Provider: Cheri FREEMAN narrative: The patient is a 74-year-old male who has a history of paraplegia. Apparently he has no feeling from the nipples down. This occurred proximally 2 years ago when he was in [place]. The etiology for this event was not clear to the family. He has since had an MRI here which showed diffuse cord expansion and increased cord signal spinning T1-T12 with a sparing of the most distal conus. 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 There was no enhancing mass. The patient lives at home with his son who was his primary television writer. He has a chronic indwelling urinary catheter. The patient had an outpatient ultrasound of his bladder yesterday. According to the son the patient did not seem to be having significant urine output yesterday and the patient drink lot of water. He also had a very explosive bowel movement yesterday. The son says that the urine in the catheter has looked bloody your since yesterday and today the patient also seemed to have some erythema of the right eye. At that point the son felt that the patient should be seen at the hospital and called an ambulance and the patient was brought here. The patient has not had a fever. The patient did not offer any specific complaints. He has chronic pain in his right shoulder and right arm which is no different than usual. The the patient did not offer any complaints about the right eye but when asked he said that he thinks his vision is blurry in the right eye. Related Data Home Medications ?Medication ?Instructions ?Recorded ?Confirmed atorvastatin 40 mg tablet 40 mg PO DAILY 02/08/2507/19 captopril 50 mg tablet 50 mg PO BID 02/08/25 Held on 04/02/25. Instructions: Resume on 04/24/25. HOLD for now; resume if needed to control blood pressure at discretion of primary care doctor furosemide 40 mg tablet 40 mg PO Q2D 03/27/25 Held on 04/02/25. Instructions: Resume on 04/24/25. HOLD for now; resume if needed to control blood pressure and edema at discretion of primary care doctor Previous Rx's ?Medication ?Instructions ?Recorded blood pressure monitor #1 ea 02/12/25 comp.stocking,knee,long,medium #12 ea 02/12/25 Disposable bed pads #100 ea 02/15/25 adult diapers #240 ea 02/15/25 disposable gloves #200 ea 02/15/25 foam wedge #2 ea 02/15/25 wipes #3 ea 02/15/25 oral thermometer, electronic (Oral #1 02/19/25 Temp Thermometer) power wheelchair #1 ea 03/05/25 ertapenem 1 gram solution for 1 g IV DAILY #10 ea 07/19 injection Custom Wheelchair and Branden tracks #1 ea 04/09/25 cefuroxime axetil 500 mg tablet 500 mg PO BID 7 days # 14 tabs 04/16/25 hip abductor wedge #1 04/16/25 lidocaine 5 % topical patch 1 patch topical DAILY #30 ea 04/25/25 menthol 10 % topical cream 1 appl topical BID PRN pain #85 04/25/25 (Biofreeze (menthol)) grams brandne lift #1 ea 04/30/25 power hospital bed #1 ea 04/30/25 meloxicam 15 mg tablet 15 mg PO DAILY PRN Pain #30 tabs 05/03/25 ferrous sulfate 324 mg (65 mg 324 mg PO DAILY #30 tabs 05/04/25 iron) tablet,delayed release pantoprazole 40 mg tablet,delayed 40 mg PO DAILY #90 t abs 05/10/25 release diclofenac sodium 1 % topical gel 2 g topical QID #50 grams 05/11/25 (Voltaren Arthritis Pain) blood-glucose,repair coil winder,cont #1 ea 05/14/25 (Dexcom G7 Divorce Attorney) blood-glucose sensor (Dexcom G7 #3 05/18/25 Sensor device) blood sugar diagnostic (FreeStyle #100 ea 05/21/25 Lite Strips) blood-glucose meter (FreeStyle #1 05/21/25 Lite Meter kit) lancets 28 gauge (FreeStyle #100 ea 05/21/25 Lancets) ascorbic acid (vitamin C) 1,000 mg 1 g PO DAILY 90 day s #90 tabs 05/22/25 tablet methenamine hippurate 1 gram tablet 1 g PO DAILY 90 da ys #90 tabs 05/22/25 Allergies Allergy/AdvReac Type Severity Reaction Status Date / Time No Known Allergies Allergy Verified 05/24/25 10:41 Review of Systems 2 Review of Systems: Yes all other systems are reviewed and are negative [facility] Past Medical History Medical History (Updated 05/24/25 @ 14:55 by Francisco Alonzo MD) Paraplegia Cervical myelopathy Type 2 diabetes mellitus with diabetic peripheral angiopathy without gangrene Type 2 diabetes mellitus with hyperglycemia Rash and other nonspecific skin eruption Neurogenic bowel, not elsewhere classified Other hemorrhoids Hiccough Nontraumatic subarachnoid hemorrhage, unspecified Hypertensive 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, with stage 1 through stage 4 chronic kidney disease, or unspecified chronic kidney disease Chronic kidney disease, stage 2 (mild) 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, complete Chronic indwelling Vicente catheter Neurogenic bladder Conus medullaris syndrome Hypertension Type 2 diabetes mellitus Chronic paraplegia Surgical History History of carpal tunnel release Social History Social History Household Members: None Housing: Apartment Do you presently have visiting nurse or other home services: Yes Patient Tobacco Use Status: Never used Tobacco Smoked in Last 30 Days: No e-Cigarette/Vaping Use: Never Used Second Hand Smoke Exposure: No Advance Directives: No Advance Directives Information Provided: Yes service: No Current occupational status: retired and disabled Current occupation: right hand dominant Cognitive needs: No Hearing needs: No Vision needs: No Physical Exam ED Vital Signs: Vital Signs - 24 hr 05/24/25 10:37 05/24/25 12:37 05/24/25 14:10 Temperature 97.2 F Pulse Rate 90 91 109 H Respiratory Rate 14 19 18 Blood Pressure 102/45 L 102/45 L 118/73 Pulse Oximetry 99 100 Oxygen Delivery Method Room Air Room Air 05/24/25 15:05 Temperature 96.8 F Pulse Rate 109 H Respiratory Rate 18 Blood Pressure 118/73 Pulse Oximetry 100 Oxygen Delivery Method Room Air BMI result Body Mass Index 24.4 Const Other: The patient is awake and alert. He is pleasant. He seems chronically ill and is obviously paraplegic. He does not seem in obvious acute distress. HENMT Other: The face is symmetrical. Mucous membranes moist. Eyes Other: The left eye appears normal. The right eye has conjunctival injection. The pupil is midsized and does not react to light. Intra-ocular pressure is 46 in the right eye and 18 in the left eye Neck Neck: Yes normal visual inspection, Yes full ROM and Yes no JVD Resp Effort & Inspection: normal respiratory effort Auscultation: clear to auscultation bilaterally Cardio Rate: regular rate Rhythm: regular rhythm Heart sounds: S1 normal heart sound present and S2 normal heart sound present GI Other: The abdomen is soft and seems nontender. Other: The patient has an indwelling urinary catheter. There is some slight discharge at the meatus. The son says this is chronic. Skin Other: Skin is dry and unremarkable. Neuro Other: The patient is awake and alert. He is very pleasant. He has an abnormal right eye. The pupil is midsize or large and does not react to light. The left pupil is normal. Extraocular movements are intact. His speech is clear. Face is symmetrical. He moves his left arm normally. The right arm uses limited by pain which is apparently chronic. He has no strength or sensation in the legs. Extrem Other: The patient's left arm is normally and uses it normally. The patient's right arm appears normal but he keeps it close to his body because it is painful to move. This is chronic. He has wasted lower extremities. Medications Administered Discontinued Medications Generic Name Dose Route Start Last Admin Trade Name Freq PRN Reason Stop Dose Admin Fluorescein Sodium 1 strip 05/24/25 12:02 05/24/25 12:23 Fluorescein Sodium Strip EYE-RIGHT 05/24/25 12:03 1 strip ONCE ONE Administration Tetracaine HCl 1 drop 05/24/25 12:01 05/24/25 12:22 Tetracaine Hcl 0.5% Oph Myra 5 Ml Drops EYE-RIGHT 05/24/25 12:02 Not Given ONCE ONE Tetracaine HCl 1 drop 05/24/25 12:13 05/24/25 12:23 Tetracaine Hcl/Pf 0.5% Oph Myra 4 Ml Drops EYE-RIGHT 05/24/25 12:14 1 drop ONCE ONE Administration Medical Decision Making Medical Decision Making MDM Narrative: The patient is a 74-year-old male with paraplegia and a chronic indwelling urinary catheter who was brought to the hospital today by his son who was his primary caregiver. The son was concerned about the possibility of a UTI because the urine in the urine bag looked abnormal. The son also noticed this morning that the patient had redness to the right eye. The patient has right eye exam is significant for the fact that he does not seem to have any discomfort. The pupil seems midsize and nonreactive. Intra-ocular pressure is elevated at 45. Intra-ocular pressure in the good eye, the left eye, is 18. The patient has a sodium of 121. I contacted the illustrator set Dr. Naranjo who felt he would be able to evaluate the patient in his office if the patient could be discharged and brought to the office. I discussed this with the son. The son is very eager to have his father's I evaluated and was willing to transfer the patient into a wheelchair and wheel him over to Dr. Naranjo's office. Lab Data 05/24/25 11:13 05/24/25 11:13 Labs: Lab Results 05/24/25 Range/Units 11:13 WBC 10.0 (4.8-10.8) X10*3/uL RBC 4.64 (4.60-5.80) X10*6/uL Hgb 11.6 L (14.0-18.0) g/dl Hct 33.9 L (42.0-52.0) % MCV 73.1 L (80.0-98.0) fL MCH 25.0 L (27.0-33.0) pg MCHC 34.2 (31.0-36.0) g/dl RDW 15.2 (11.0-16.0) % Plt Count 372 (160-400) X10*3/uL MPV 9.3 L (9.4-12.4) fL Immature Gran % (Auto) 0.4 (0.0-0.4) % Neut % (Auto) 74.9 H (45-73) % Lymph % (Auto) 13.6 L (20-40) % Routt % (Auto) 9.8 (2-11) % Eos % (Auto) 1.0 (0-4) % Baso % (Auto) 0.3 (0-2) % Lymph # (Auto) 1.4 (1.2-4.9) X10*3/uL Routt # (Auto) 1.0 (0.1-1.2) X10*3/uL Eos # (Auto) 0.1 (0.0-0.4) X10*3/uL Baso # (Auto) 0.0 (0.0-0.2) X10*3/uL Abs Immat Gran (auto) 0.04 H (0.00-0.03) X10*3/uL Absolute Neuts (auto) 7.5 (2.0-8.3) x10*3/uL Absolute Nucleated RBC 0.000 (0.0-0.012) X10*3/uL Nucleated RBC % (auto) 0.0 (0.0-0.2) /100WBC ESR 28 H (0-15) MM/HR Sodium 121 L (135-145) mmol/L Potassium 4.2 (3.3-5.1) mmol/L Chloride 89 L (96-108) mmol/L Carbon Dioxide 21 L (22-29) mmol/L Anion Gap 15 (12-20) BUN 12 (9-16) mg/dL Creatinine 0.55 (0.5-1.4) mg/dL Estim Creat Clear Calc 104.0 Estimated GFR > 60 Random Glucose 97 (60-115) mg/dL Calcium 9.0 (8.4-10.2) mg/dL Total Bilirubin 0.8 (0.0-1.0) mg/dL AST 73 H (5-37) U/L ALT 110 H (0-40) U/L Alkaline Phosphatase 135 H (39-117) U/L C-Reactive Protein 2.04 H (< or = 0.50) mg/dL Total Protein 7.6 (6.5-8.0) g/dL Albumin 3.9 (3.5-5.0) g/dL Discharge Plan Discharge Clinical Impression: Raised intraocular pressure of right eye Patient Disposition: Home, Self-Care Prescriptions: No Action (DME) adult diapers large See Rx Instructions .Route .MEDSUPPLY Qty: 240 11RF Rx Instructions: As directed (DME) wipes See Rx Instructions .Route .MEDSUPPLY Qty: 3 11RF Rx Instructions: As directed (DME) Disposable bed pads See Rx Instructions .Route .MEDSUPPLY Qty: 100 11RF Rx Instructions: As directed (DME) disposable gloves Misc See Rx Instructions .Route Qty: 200 11RF Rx Instructions: As directed (DME) foam wedge See Rx Instructions .Route .MEDSUPPLY Qty: 2 0RF Rx Instructions: As directed (DME) oral thermometer, electronic [Oral Temp Thermometer] Misc See Rx Instructions .Route Qty: 1 0RF Rx Instructions: As directed (DME) power wheelchair See Rx Instructions .Route .MEDSUPPLY Qty: 1 0RF Rx Instructions: As directed (DME) Custom Wheelchair and Branden tracks See Rx Instructions .Route .MEDSUPPLY Qty: 1 0RF Rx Instructions: As directed (DME) hip abductor wedge See Rx Instructions .Route .MEDSUPPLY Qty: 1 0RF Rx Instructions: As directed Biofreeze (menthol) 10 % cream 1 appl topical BID PRN (Reason: pain) Qty: 85 0RF lidocaine 5 % adhesive patch,medicated 1 patch topical DAILY Qty: 30 0RF Rx Instructions: leave on most painful area for up to 12 hrs (DME) branden lift See Rx Instructions .Route .MEDSUPPLY Qty: 1 0RF Rx Instructions: As directed (DME) power hospital bed See Rx Instructions .Route .MEDSUPPLY Qty: 1 0RF Rx Instructions: As directed meloxicam 15 mg tablet 15 mg PO DAILY PRN (Reason: Pain) Qty: 30 0RF ferrous sulfate 324 mg (65 mg iron) tablet,delayed release (DR/EC) 324 mg PO DAILY Qty: 30 0RF pantoprazole 40 mg tablet,delayed release (DR/EC) 40 mg PO DAILY Qty: 90 1RF diclofenac sodium [Voltaren Arthritis Pain] 1 % gel 2 g topical QID Qty: 50 0RF Rx Instructions: apply to single elbow, wrist or hand; for hand includes palm/fingers/back of hand (DME) Dexcom G7 Divorce Attorney Misc See Rx Instructions .Route Qty: 1 0RF Rx Instructions: As directed; to check sugars (DME) Dexcom G7 Sensor Device See Rx Instructions .Route Qty: 3 1RF Rx Instructions: As directed; to check sugars. Change every 10 days (DME) FreeStyle Lite Strips Strip See Rx Instructions .Route Qty: 100 0RF Rx Instructions: As directed; daily (DME) blood-glucose meter [FreeStyle Lite Meter] Kit See Rx Instructions .Route Qty: 1 0RF Rx Instructions: As directed; to check blood sugars daily (DME) lancets [FreeStyle Lancets] 28 gauge misc See Rx Instructions .Route Qty: 100 0RF Rx Instructions: As directed; TID ascorbic acid (vitamin C) 1,000 mg tablet 1 g PO DAILY 90 Days Qty: 90 1RF methenamine hippurate 1 gram tablet 1 g PO DAILY 90 Days Qty: 90 1RF furosemide 40 mg tablet 40 mg PO Q2D ertapenem 1 gram recon soln 1 g IV DAILY Qty: 10 0RF cefuroxime axetil 500 mg tablet 500 mg PO BID 7 Days Qty: 14 0RF atorvastatin 40 mg tablet 40 mg PO DAILY captopril 50 mg tablet 50 mg PO BID (DME) blood pressure monitor Kit See Rx Instructions .Route Qty: 1 0RF Rx Instructions: As directed (DME) comp.stocking,knee,long,medium Misc See Rx Instructions .Route Qty: 12 0RF Rx Instructions: As directed 10-20 mmHg Referrals: Francois Naranjo [Physician, Ophthalmology] Interventions: ED Discharge Assessment Last Done: 05/24/25 15:05 Discharge Date/Time: 05/24/25 15:08 Print Language: Jamaican
[2025-05-24] MEDS: Fluorescein Sodium STRIP 1 STRIP EYE-RIGHT (12:23)
[2025-05-24] MEDS: Tetracaine HCl/PF 0.5% Oph Sol 4 ML DROPS 1 DROP EYE-RIGHT (12:23)
[2025-05-24 12:37] VITALS: BP 102/45; PULSE 91; RESP 19
[2025-05-24 14:10] VITALS: BP 118/73; PULSE 109; RESP 18; O2SAT 100
[2025-05-24 15:05] VITALS: BP 118/73; PULSE 109; RESP 18; TEMP 36; O2SAT 100
== END 2025-05-24 15:08 | disposition home or self-care (01) ==
PROVIDERS: Emergency Provider Emergency Medicine
DX: R41.82 Altered mental status, unspecified (principal); M25.511 Pain in right shoulder; H57.11 Ocular pain, right eye; Z79.899 Other long term (current) drug therapy
CPT/HCPCS: 36415; 80053; 85025; 85652; 86140; 99283; 99284

== ENCOUNTER 2025-05-24 16:03 | Inpatient (IN) | payer MEDICARE, MEDICAID, SELFPAY ==
--- NOTE | 2025-05-24 16:06 | ED_ITS ---
HPI - General Adult General Chief complaint: Urogenital-Male Stated complaint: abnormal labs Time Seen by Provider: 05/24/25 16:04 History of Present Illness ED Provider: Cheri FREEMAN narrative: The patient is a 74-year-old male with a history of a spinal cord injury that may have been the result of a spinal cord infarction. This happened in [place] 2 years ago. He has been paraplegic ever since. He has relocated to this area and lives with a son who looks after him. He has a chronic indwelling urinary catheter and has had frequent UTIs. He has had ESBL E coli and Pseudomonas infections in his urine. Yesterday the patient had an outpatient bladder ultrasound. This was apparently ordered by urology. The patient's son says that the patient drank lot of water yesterday. The son also says that the urine in the urine bag looked somewhat bloody yesterday and again this morning. This morning the son also noticed that there was some redness to the right eye. The patient was not complaining of any eye pain or headache. The son was concerned about a possible recurrent UTI and was also concerned about the appearance of the patient's right eye and so called an ambulance and he was brought here. There has been no fever. The patient has not had any specific complaints. He has a chronic right arm pain. Related Data Home Medications ?Medication ?Instructions ?Recorded ?Confirmed atorvastatin 40 mg tablet 40 mg PO DAILY 02/08/2504/26 pantoprazole 40 mg tablet,delayed 40 mg PO DAILY@0630 05/24/25 05/24/25 release Previous Rx's ?Medication ?Instructions ?Recorded blood pressure monitor #1 ea 02/12/25 comp.stocking,knee,long,medium #12 ea 02/12/25 Disposable bed pads #100 ea 02/15/25 adult diapers #240 ea 02/15/25 disposable gloves #200 ea 02/15/25 foam wedge #2 ea 02/15/25 wipes #3 ea 02/15/25 oral thermometer, electronic (Oral #1 ea 02/19/25 Temp Thermometer) power wheelchair #1 ea 03/05/25 Custom Wheelchair and Branden tracks #1 ea 04/09/25 hip abductor wedge #1 ea 04/16/25 lidocaine 5 % topical patch 1 patch topical DAILY #30 ea 04/25/25 branden lift #1 ea 04/30/25 [facility] bed #1 ea 04/30/25 meloxicam 15 mg tablet 15 mg PO DAILY PRN Pain #30 tabs 05/03/25 ferrous sulfate 324 mg (65 mg 324 mg PO DAILY #30 tabs 05/04/25 iron) tablet,delayed release diclofenac sodium 1 % topical gel 2 g topical QID #50 grams 05/11/25 (Voltaren Arthritis Pain) blood-glucose,corridor redevelopment manager,cont #1 ea 05/14/25 (Dexcom G7 Nut Orchardist) blood-glucose sensor (Dexcom G7 #3 ea 05/18/25 Sensor device) blood sugar diagnostic (FreeStyle #100 ea 05/21/25 Lite Strips) blood-glucose meter (FreeStyle #1 ea 05/21/25 Lite Meter kit) lancets 28 gauge (FreeStyle #100 ea 05/21/25 Lancets) ascorbic acid (vitamin C) 1,000 mg 1 g PO DAILY 90 day s #90 tabs 05/22/25 tablet methenamine hippurate 1 gram tablet 1 g PO DAILY 90 da ys #90 tabs 05/22/25 Allergies Allergy/AdvReac Type Severity Reaction Status Date / Time No Known Allergies Allergy Verified 05/24/25 16:27 Review of Systems 2 Review of Systems: Yes all other systems are reviewed and are negative [facility] Past Medical History Medical History Paraplegia Cervical myelopathy Type 2 diabetes mellitus with diabetic peripheral angiopathy without gangrene Type 2 diabetes mellitus with hyperglycemia Rash and other nonspecific skin eruption Neurogenic bowel, not elsewhere classified Other hemorrhoids Hiccough Nontraumatic subarachnoid hemorrhage, unspecified Hypertensive 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, with stage 1 through stage 4 chronic kidney disease, or unspecified chronic kidney disease Chronic kidney disease, stage 2 (mild) 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, complete Chronic indwelling Vicente catheter Neurogenic bladder Conus medullaris syndrome Hypertension Type 2 diabetes mellitus Chronic paraplegia Surgical History History of carpal tunnel release Social History Social History Household Members: None Housing: Apartment Do you presently have visiting nurse or other home services: Yes Patient Tobacco Use Status: Never used Tobacco e-Cigarette/Vaping Use: Never Used Second Hand Smoke Exposure: No Advance Directives Date on File: 02/23/25 service: No Current occupational status: retired and disabled Current occupation: right hand dominant Cognitive needs: No Hearing needs: No Vision needs: No Physical Exam ED Vital Signs: Vital Signs - 24 hr 05/24/25 16:25 Temperature 98.3 F Pulse Rate 92 Respiratory Rate 18 Blood Pressure 101/61 Pulse Oximetry 99 Oxygen Delivery Method Room Air BMI result Body Mass Index 23.7 Const Other: The patient is a chronically ill-appearing man who was awake and alert. He is very pleasant. He does not seem in acute distress. HENMT Other: There is some mild swelling to the eyelids of the right eye but otherwise the appearance of the face is unremarkable. Mucous membranes are moist. Eyes Other: The patient's right eye is midsize and nonreactive. There was some conjunctival injection. The left eye appears normal with a reactive pupil. Extraocular movements are intact. Vision is very poor in the right eye. Neck Neck: Yes normal visual inspection and Yes full ROM Resp Effort & Inspection: normal respiratory effort Auscultation: clear to auscultation bilaterally Cardio Rate: regular rate Rhythm: regular rhythm Heart sounds: S1 normal heart sound present and S2 normal heart sound present GI Other: Abdomen is soft and nontender Other: The patient has a an indwelling urinary catheter. There is some slight discharge at the meatus of the penis but the son says this is chronic. Skin Other: The skin is dry and unremarkable Neuro Other: The patient is awake and alert with a normal mental status. His right pupil is midsize and nonreactive. Poor or absent vision in the right eye. Extraocular movements are intact. Face is symmetrical. Speech is clear. He moves his left arm normally and appropriately. He has function of his right arm but he is limited by pain in the right shoulder. No sensory or motor function in the legs. Extrem Other: The patient left arm is normal. The patient's right arm looks fairly normal but he has pain with use of the right arm, primarily at the right shoulder. No shoulder swelling. This pain is chronic. He has chronic wasting of both lower extremities. Medications Administered Generic Name Dose Route Start Last Admin Trade Name Freq PRN Reason Stop Dose Admin Acetaminophen 650 mg 05/24/25 17:13 05/24/25 19:34 Acetaminophen 325 Mg Tablet PO 650 mg Q6H PRN Administration Pain, Mild 1-3,fever,headache Enoxaparin Sodium 40 mg 05/24/25 17:15 05/24/25 17:46 Enoxaparin Sodium 40 Mg/0.4 Ml Syringe SUBCUT 40 mg Q24H WAN Administration Insulin Human Lispro 0 unit 05/24/25 21:00 05/24/25 21:12 Insulin Lispro 100 Unit/Ml 3 Ml Vial SUBCUT Not Given QIDACHS [facility] Protocol Lidocaine 1 patch 05/24/25 19:00 05/24/25 19:34 Lidocaine 4 % Patch Adh..Patch TRANSDERMA 1 patch DAILY WAN Administration Discontinued Medications Generic Name Dose Route Start Last Admin Trade Name Freq PRN Reason Stop Dose Admin Apraclonidine HCl 1 drop 05/24/25 16:04 05/24/25 16:30 Apraclonidine Hcl 1 % Oph Myra 1 Each Droperette EYE-RIGHT 05/24/25 16:05 1 drop ONCE ONE Administration Medical Decision Making Medical Decision Making [facility] Narrative: The patient is a 74-year-old male who was paraplegic. He may have had a spinal cord infarction. This occurred approximately 2 years ago and was in [place] at the time. He is chronically ill and lives with a son who is his full-time door to door salesperson. The son has a Branden lift at home. The son was concerned about the possibility of a UTI because of the appearance of the patient's urine in his urine bag (he has a chronic indwelling urinary catheter). Additionally the patient seemed to have some redness of the left eye. He was brought to the emergency room by ambulance where I was concerned that his right eye seemed to be midsize and nonreactive and he had an intra-ocular pressure measured at 48. Intra-ocular pressure in the left eye was 18. I contacted Dr. Naranjo of Ophthalmology. The patient was discharged to so that he could be taken to Dr. Naranjo's office as an outpatient for further evaluation. Dr. 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 He recommended a dose of Iopidine and also recommended Cosopt b.i.d.. The patient had also been found to have a sodium of 121 on his 1st ER visit. Therefore after returning from Dr. Naranjo's office the patient was admitted to the hospitalist service because of his sodium of 121. Lab Data 05/24/25 18:43 Discharge Plan Discharge Clinical Impression: Hyponatremia, Paraplegia, Episcleritis of right eye Patient Disposition: Admitted As Inpatient Interventions: Admission Worksheet (ED) Last Done: 05/24/25 19:26 Discharge Date/Time: 05/24/25 20:34
--- NOTE | 2025-05-24 16:07 | ECG_ITS ---
Test Reason : weakness Blood Pressure : */* mmHG Vent. Rate : 94 BPM Atrial Rate : 94 BPM P-R Int : 150 ms QRS Dur : 90 ms QT Int : 384 ms P-R-T Axes : 64 59 50 degrees QTcB Int : 480 ms Normal sinus rhythm Possible Inferior infarct , age undetermined Abnormal ECG When compared with ECG of 16-Apr-2025 12:04, no1 Referred By: Francisco Alonzo Electronically Signed By: MARY GRIFFITH MD
[2025-05-24 16:25] VITALS: BP 101/61; PULSE 92; RESP 18; TEMP 36.8; O2SAT 99; BMI 23.7
[2025-05-24] MEDS: Apraclonidine HCl 1 % Oph Sol 1 EACH DROPERETTE 1 DROP EYE-RIGHT (16:30)
--- NOTE | 2025-05-24 16:35 | PC.NURSE ---
Pt arrived to ED with son via w/c after being d/c from ED earlier today so he could attend eye dr palacio. Pt readmitted to ED 10. VSS. Redness and swelling to right eye, MD aware. Per son reports hematuria after bladder ultrasound this week. EKG obtained and IV obtained
--- NOTE | 2025-05-24 17:17 | PM.IMHP ---
History of Present Illness Date of Service: 05/24/25 Attending physician on admission: Norma Naidu Chief Complaint: weakness, eye redness This is a 74-year-old male with history of paraplegia due to probable transverse myelitis, type 2 diabetes, neurogenic bladder who was brought to the emergency department by his son due to concern over right eye redness and generalized weakness. His intra-ocular pressure was noted to be elevated. In addition basic labs were drawn which revealed a sodium of 121. However do due urgent need for patient to see Ophthalmology he was discharged from the emergency department across the street to see Dr. Naranjo. Dr. Naranjo recommended starting Cosopt eyedrops in the right eye twice daily and follow-up with him in 4 weeks. He returned to the emergency department for ongoing investigation into his hyponatremia. History was obtained primarily from the patient's son and caregiver at the bedside who said that yesterday he had an outpatient bladder ultrasound. At the ultrasound multiple times it was noted that he did not have enough urine in his bladder and it was requested for him to drink water. Per the son's report he had approximately 10 bottles of water prior to having his ultrasound. After that he also had an episode of vomiting. He has not had any subsequent vomiting. He denies any recent medication adjustments. Prior to today he has had a good appetite. He will be admitted to the hospital for further management of hyponatremia. Review of Systems Review of Systems: Yes all other systems are reviewed and are negative Constitutional: Constitutional: Denies chills and Denies fever(s) Cardiovascular: Cardiovascular: Denies chest pain and Denies palpitations Endocrine: Endocrine: Denies palpitations [facility] Medical History Paraplegia Cervical myelopathy Type 2 diabetes mellitus with diabetic peripheral angiopathy without gangrene Type 2 diabetes mellitus with hyperglycemia Rash and other nonspecific skin eruption Neurogenic bowel, not elsewhere classified Other hemorrhoids Hiccough Nontraumatic subarachnoid hemorrhage, unspecified Hypertensive 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, with stage 1 through stage 4 chronic kidney disease, or unspecified chronic kidney disease Chronic kidney disease, stage 2 (mild) 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, complete Chronic indwelling Saha catheter Neurogenic bladder Conus medullaris syndrome Hypertension Type 2 diabetes mellitus Chronic paraplegia Surgical History History of carpal tunnel release Social History Household Members: None Housing: Apartment Do you presently have visiting nurse or other home services: Yes Patient Tobacco Use Status: Never used Tobacco Smoked in Last 30 Days: No e-Cigarette/Vaping Use: Never Used Second Hand Smoke Exposure: No Advance Directives: Yes Advance Directives Information Provided: Yes Advance Directives on File: Yes Advance Directives Date on File: 02/23/25 service: No Current occupational status: retired and disabled Current occupation: right hand dominant Cognitive needs: No Hearing needs: No Vision needs: No Meds Allergies Allergy/AdvReac Type Severity Reaction Status Date / Time No Known Allergies Allergy Verified 05/24/25 16:27 Active Medications: Current Medications Acetaminophen (Acetaminophen 325 Mg Tablet) 650 mg PO Q6H PRN PRN Reason: Pain, Mild 1-3,fever,headache Calcium Carbonate (Calcium Carbonate 750 Mg Tab.Chew) 750 mg PO Q4H PRN PRN Reason: Heartburn Dextrose (Dextrose 50 % 25 Gm/50 Ml Syringe) 25 gm IVPUSH Q15M PRN; Protocol PRN Reason: per Hypoglycemia Standing Ord. Enoxaparin Sodium (Enoxaparin Sodium 40 Mg/0.4 Ml Syringe) 40 mg SUBCUT Q24H WAN Glucose (Glucose Gel 15 Gm Gel..Gram.) 15 gm PO Q15M PRN; Protocol PRN Reason: per Hypoglycemia Standing Ord. Insulin Human Lispro (Insulin Lispro 100 Unit/Ml 3 Ml Vial) 0 unit SUBCUT QIDACHS WAN; Protocol Magnesium Hydroxide (Milk Of Magnesia 30 Ml Oral.Susp) 30 ml PO DAILY PRN PRN Reason: Constipation Melatonin (Melatonin 3 Mg Tablet) 6 mg PO BEDTIME PRN PRN Reason: Insomnia Ondansetron HCl (Ondansetron Hcl 4 Mg/2 Ml Vial) 4 mg IVPUSH Q8H PRN PRN Reason: Nausea and Vomiting Sodium Chloride (0.9 % Sodium Chloride Flush 3 Ml Syringe) 3 [facility] Medications ?Medication ?Instructions ?Recorded ?Confirmed ?Last Taken ?Type atorvastatin 40 mg tablet 40 mg PO DAILY 02/08/25 05/02/2503/26/25 History captopril 50 mg tablet 50 mg PO BID 02/08/25 05/02/25 03/26/25 History Held on 04/02/25. Instructions: Resume on 04/24/25. HOLD for now; resume if needed to control blood pressure at discretion of primary care doctor furosemide 40 mg tablet 40 mg PO Q2D 03/27/25 05/02/25 03/26/25 History Held on 04/02/25. Instructions: Resume on 04/24/25. HOLD for now; resume if needed to control blood pressure and edema at discretion of primary care doctor Physical Exam Vital Signs and Narrative: Vital Signs: Last Vital Signs Temp 98.3 F 05/24/25 16:25 Pulse 92 05/24/25 16:25 Resp 18 05/24/25 16:25 BP 101/61 05/24/25 16:25 Pulse Ox 99 05/24/25 16:25 O2 Del Method Room Air 05/24/25 16:25 BMI result Body Mass Index 23.7 Const: General: cooperative, comfortable, no acute distress, alert and awake Nutritional Appearance: average body habitus Orientation/consciousness: patient oriented x3 Resp: Effort & Inspection: normal respiratory effort, able to speak in complete sentences, no respiratory distress and no use of accessory muscles Cardio: Rate: regular rate GI: Inspection: No obesity : Other: Saha catheter in place draining yellow urine Neuro: Other: able to lift b/l arms slightly; no movement in lower extremities; heels in offloading boots General: patient oriented x3 Assessment and Plan (1) Raised intraocular pressure of right eye: Status: Acute (2) Indwelling Saha catheter present: Status: Acute (3) Hyponatremia: Status: Acute Plan This is a 74-year-old male with 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 Naranjo who recommended starting Cosopt eyedrops b.i.d. and Repeat evaluation in 4 weeks Type 2 Diabetes diabetic diet son reports diet controlled at this time SSI, POCs Mild transaminitis chronic outpatient follow up chronic indwelling saha catheter son concerned about UTI due to underlying weakness however no fever and no elevated WBC count to indicate fever will hold off on UA for now hyponatremia likely cause of generalized weakness Can continue methenamine for UTI suppression when med rec complete Chronic microcytic anemia Continue baseline iron supplementation and vitamin-C when med rec complete Med reconciliation pending at the time of admission DVT prophylaxis-Lovenox Code status-full code Patient will likely require 2 midnight stay in the hospital for hyponatremia requiring close lab monitoring and specialist evaluation Quality Stroke Does the patient have a stroke diagnosis?: No VTE Prior VTE?: No VTE Risk Level:: Medical - moderate - high VTE Device Contraindication: N/A - Device Ordered VTE Drug Contraindication: N/A - Med Ordered
--- NOTE | 2025-05-24 18:24 | PHA.MEDREC ---
Addendum entered by Dilan Casanova RPh 05/24/25 18:41: Reviewed by [facility]. Original Note: Pharmacy Consult ? Medication Reconciliation Pharmacy has completed the medication reconciliation. Spoke with pt son at bedside and he confirmed the pt medications and had on hand some RX bottles (Atorvastatin, Ferrous Sulfate, Methenamine, Pantoprazole and Vitamin C). Atorvastatin filled 11/15/2024 at a [place] pharmacy ([facility] [phone]) and has about 10-15 left in the bottle on hand.
[2025-05-24 18:47] VITALS: BP 114/73; PULSE 98; RESP 16; TEMP 36.6; O2SAT 99
[2025-05-24 19:00] LABS: Anion Gap 18 (12-20); Blood Urea Nitrogen 14 mg/dL (9-16); Calcium 9.2 mg/dL (8.4-10.2); Carbon Dioxide 18 mmol/L (22-29); Chloride 91 mmol/L (96-108); Creatinine Clr Calc Pharmacy 98.9; Estimated Glomerular Filt Rate > 60; Potassium 4.7 mmol/L (3.3-5.1); Sodium 122 mmol/L (135-145)
[2025-05-24] MEDS: Lidocaine 4 % Patch ADH..PATCH 1 PATCH TRANSDERMA (19:34)
--- NOTE | 2025-05-24 20:33 | PC.NURSE ---
sodium tab per mar not available in ED. [facility] RN Nora LINN aware and stated can give upon arrival to unit. pt transported at this time.
[2025-05-24 20:45] LABS: Osmolality, Serum 256 mosm/kg (281-305)
[2025-05-24 20:48] LABS: Uric Acid 5.7 mg/dL (3.4-7.0)
[2025-05-24 20:51] VITALS: BMI 23.3
[2025-05-24 21:00] LABS: Glucose, Whole Blood 85 mg/dL (60-115)
[2025-05-24 21:21] VITALS: BP 119/64; PULSE 85; RESP 18; TEMP 36.5; O2SAT 99
[2025-05-24] MEDS: Sodium Chloride Tab 1 GM TABLET PO (21:25)
[2025-05-24] MEDS: Dorzolamide/Timolo 2.23%/0.68% 10 ML DRBTL 1 DROP EYE-RIGHT (21:25)
[2025-05-24 21:32] LABS: Cannabinoid Screen Urine Not Detected (Not Detect)
[2025-05-24] MEDS: Tetracaine HCl/PF 0.5% Oph Sol 4 ML DROPS 1 DROP EYE-RIGHT (21:54)
[2025-05-24] MEDS: 0.9 % Sodium Chloride Flush 3 ML SYRINGE IVFLUSH (21:57)
[2025-05-25] VITALS (7 sets, daily range): BP systolic 92–121; BP diastolic 50–75; PULSE 79–95; RESP 16–20; TEMP 36.1–36.8; O2SAT 98–100
[2025-05-25 01:03] LABS: Anion Gap 15 (12-20); Blood Urea Nitrogen 15 mg/dL (9-16); Calcium 9.3 mg/dL (8.4-10.2); Carbon Dioxide 21 mmol/L (22-29); Chloride 93 mmol/L (96-108); Creatinine Clr Calc Pharmacy 106.0; Estimated Glomerular Filt Rate > 60; Potassium 4.3 mmol/L (3.3-5.1); Sodium 125 mmol/L (135-145)
[2025-05-25 07:12] LABS: Glucose, Whole Blood 66 mg/dL (60-115)
[2025-05-25 07:42] LABS: Glucose, Whole Blood 91 mg/dL (60-115)
[2025-05-25 07:46] LABS: Anion Gap 14 (12-20); Blood Urea Nitrogen 16 mg/dL (9-16); Calcium 9.1 mg/dL (8.4-10.2); Carbon Dioxide 23 mmol/L (22-29); Chloride 95 mmol/L (96-108); Creatinine Clr Calc Pharmacy 98.9; Estimated Glomerular Filt Rate > 60; Potassium 3.8 mmol/L (3.3-5.1); Sodium 128 mmol/L (135-145)
[2025-05-25 08:02] LABS: Thyroid Stimulating Hormone 4.67 uIU/mL (0.32-4.0)
[2025-05-25] MEDS: Ferrous Sulfate 324 MG TABLET.DR PO (08:44)
[2025-05-25] MEDS: Lidocaine 4 % Patch ADH..PATCH 1 PATCH TRANSDERMA (08:44)
[2025-05-25] MEDS: Dorzolamide/Timolo 2.23%/0.68% 10 ML DRBTL 1 DROP EYE-RIGHT ×2 (08:44→20:22)
[2025-05-25] MEDS: 0.9 % Sodium Chloride Flush 3 ML SYRINGE IVFLUSH ×3 (08:45→20:23)
--- NOTE | 2025-05-25 09:45 | MHC.CM.PN ---
IMM given 05/25. CM intake completed with pt and his son/[employer]/HCP Kike present at bedside. Pt paraplegic and dependent on care, he has 40Hrs/week [employer] care provided by his son who is currently staying with him at the home to assist in his care. [facility]. Pt has a wheelchair, a mechanical lift, and a hospital bed, pts son currently working on getting him a motorized wheelchair and ramp set up at the home. Pt uses BLS for all transportation. No HCP on file, pts son states it has been completed at their PCP's office. This CM called the PCP's office and they do not have a HCP on file. New HCP completed with pt today, now on file. PCP: Shilpa MOSQUEDA
[2025-05-25 11:10] LABS: Glucose, Whole Blood 100 mg/dL (60-115)
--- NOTE | 2025-05-25 11:54 | P.CONNP_ITS ---
History of Present Illness Reason for Consult Consult date: 05/25/25 Chief Complaint Chief complaint: Hyponatremia History of Present Illness Narrative: 74 y/o male with a medical history of paraplegia 2/2 transverse myelitis, DMII, neurogenic bladder with chronic saha, CKD. Brought to the ED by son 05/24, serum sodium was 121; however, was discharged to see ophthalmology as right eye swelling and increased intra-ocular pressure was most emergent. Then returned to the ED later that day after seeing ophthalmology for management of hyponatremia. Nephrology consulted for hyponatremia. urine osm 351, urine sodium 23. serum sodium was 121, has gone up to 128 this a.m. patient reportedly had drank 10 large bottles of water prior to a bladder ultrasound. He was and continues to make urine. No other concerns at this time. 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, with stage 1 through stage 4 chronic kidney disease, or unspecified chronic kidney disease Chronic kidney disease, stage 2 (mild) 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, complete Chronic indwelling Saha catheter Neurogenic bladder Conus medullaris syndrome Hypertension Type 2 diabetes mellitus Chronic paraplegia Surgical History Surgical History History of carpal tunnel release Social History Social History Household Members: Other Household Members Other:: son Housing: Apartment Do you presently have visiting nurse or other home services: Yes Patient Tobacco Use Status: Never used Tobacco e-Cigarette/Vaping Use: Never Used Second Hand Smoke Exposure: No Advance Directives Date on File: 02/23/25 service: No Current occupational status: retired and disabled Current occupation: right hand dominant Cognitive needs: No Hearing needs: No Vision needs: No Meds Allergies Allergy/AdvReac Type Severity Reaction Status Date / Time No Known Allergies Allergy Verified 05/24/25 16:27 Active Medications: Current Medications Acetaminophen (Acetaminophen 325 Mg Tablet) 650 mg PO Q6H PRN PRN Reason: Pain, Mild 1-3,fever,headache Last Admin: 05/24/25 19:34 Dose: 650 mg Ascorbic Acid (Ascorbic Acid 500 Mg Tablet) 1,000 mg PO DAILY [facility] Last Admin: 05/25/25 08:44 Dose: 1,000 mg Atorvastatin Calcium (Atorvastatin Calcium 40 Mg Tablet) 40 mg PO DAILY [facility] Last Admin: 05/25/25 08:44 Dose: 40 mg Calcium Carbonate (Calcium Carbonate 750 Mg Tab.Chew) 750 mg PO Q4H PRN PRN Reason: Heartburn Dextrose (Dextrose 50 % 25 Gm/50 Ml Syringe) 25 gm IVPUSH Q15M PRN; Protocol PRN Reason: per Hypoglycemia Standing Ord. Dorzolamide/Timolol (Dorzolamide/Timolo 2.23%/0.68% 10 Ml Drbtl) 1 drop EYE- RIGHT BID [facility] Last Admin: 05/25/25 08:44 Dose: 1 drop Enoxaparin Sodium (Enoxaparin Sodium 40 Mg/0.4 Ml Syringe) 40 mg SUBCUT Q24H [facility] Last Admin: 05/24/25 17:46 Dose: 40 mg Ferrous Sulfate (Ferrous Sulfate 324 Mg Tablet.) 324 mg PO DAILY [facility] Last Admin: 05/25/25 08:44 Dose: 324 mg Glucose (Glucose Gel 15 Gm Gel..Gram.) 15 gm PO Q15M PRN; Protocol PRN Reason: per Hypoglycemia Standing Ord. Insulin Human Lispro (Insulin Lispro 100 Unit/Ml 3 Ml Vial) 0 unit SUBCUT QIDACHS [facility]; Protocol Last Admin: 05/25/25 11:20 Dose: Not Given Lidocaine (Lidocaine 4 % Patch Adh..Patch) 1 patch TRANSDERMA DAILY [facility] Last Admin: 05/25/25 08:44 Dose: 1 patch Magnesium Hydroxide (Milk Of Magnesia 30 Ml Oral.Susp) 30 ml PO DAILY PRN PRN Reason: Constipation Melatonin (Melatonin 3 Mg Tablet) 6 mg PO BEDTIME PRN PRN Reason: Insomnia Methenamine Hippurate (Methenamine Hippurate 1 Gm Tablet) 1 gm PO DAILY [facility] Last Admin: 05/25/25 08:44 Dose: 1 gm Omeprazole (Omeprazole 20 Mg Capsule.) 20 mg PO DAILY@0630 [facility] Last Admin: 05/25/25 06:30 Dose: 20 mg Ondansetron HCl (Ondansetron Hcl 4 Mg/2 Ml Vial) 4 mg IVPUSH Q8H PRN PRN Reason: Nausea and Vomiting Sodium Chloride (0.9 % Sodium Chloride Flush 3 Ml Syringe) 3 ml IVFLUSH QSHIFT [facility] Last Admin: 05/25/25 08:45 Dose: 3 ml Home Medications ?Medication ?Instructions ?Recorded ?Confirmed ?Last Taken ?Type atorvastatin 40 mg tablet 40 mg PO DAILY 02/08/25 07/3 11/1805/23/25 History pantoprazole 40 mg tablet,delayed 40 mg PO DAILY@62905/24/25 05/24/25 05/23/25 History release Physical Exam Vital Signs: Last Vital Signs Temp 97.1 F 05/25/25 11:02 Pulse 80 05/25/25 11:02 Resp 18 05/25/25 11:02 BP 101/58 L 05/25/25 11:02 Pulse Ox 99 05/25/25 11:02 O2 Del Method Room Air 05/25/25 11:02 BMI result Body Mass Index 23.3 Const General: no acute distress, alert and awake Resp Effort & Inspection: normal respiratory effort Auscultation: clear to auscultation bilaterally Cardio Rate: regular rate Rhythm: regular rhythm Heart sounds: S1 normal heart sound present and S2 normal heart sound present GI Palpation (GI): Soft to palpation and nontender Skin Rashes: no rashes Extrem General: No edema Results Lab Results 05/25/25 06:50 Lab results: Chemistry 05/24/25 05/25/25 05/25/25 18:43 00:24 06:50 Sodium 122 L 125 L 128 L Potassium 4.7 4.3 3.8 Carbon Dioxide 18 L 21 L 23 BUN 14 15 16 Creatinine 0.60 0.56 0.60 Calcium 9.2 9.3 9.1 Urine Studies 05/24/25 18:59 Urine Osmolality 351 L Assessment and Plan (1) Hyponatremia: Status: Acute Plan Hyponatremia secondary to excess free water intake urine osm suggests ADH nto appropriately suppressed. Continue fluid restriction - 1.5L/24 hours recommend re-checking BMP at noon, if sodium is 130 or higher is ok to discharge from a renal standpoint- if lower can continue to monitor. Discussed with Dr Stearns. Procedures Date of Service Date of Service: 05/25/25
[2025-05-25 13:28] LABS: Anion Gap 12 (12-20); Blood Urea Nitrogen 19 mg/dL (9-16); Calcium 8.8 mg/dL (8.4-10.2); Carbon Dioxide 23 mmol/L (22-29); Chloride 94 mmol/L (96-108); Creatinine Clr Calc Pharmacy 88.6; Estimated Glomerular Filt Rate > 60; Potassium 4.0 mmol/L (3.3-5.1); Sodium 125 mmol/L (135-145)
--- NOTE | 2025-05-25 13:47 | P.PNIM_ITS ---
Subjective Subjective Date of Service: 05/25/25 Interval History: Seen and examined this morning History obtained with the assistance from son at the bedside Follow-up for hyponatremia. Patient feeling better today, denies weakness, dizziness Review of Systems Review of Systems: Yes all other systems are reviewed and are negative Constitutional Constitutional: Denies chills and Denies fever(s) ENT Ears, Nose, Mouth, and Throat: Denies dizziness Cardiovascular Cardiovascular: Denies chest pain and Denies palpitations Neurologic Neurologic: Denies dizziness Endocrine Endocrine: Denies palpitations Physical Exam 2 Vital Signs: Vital Signs: Last Vital Signs Temp 97.1 F 05/25/25 11:02 Pulse 80 05/25/25 11:02 Resp 18 05/25/25 11:02 BP 101/58 L 05/25/25 11:02 Pulse Ox 99 05/25/25 11:02 O2 Del Method Room Air 05/25/25 11:02 BMI result Body Mass Index 23.3 Const: General: cooperative, comfortable, no acute distress, alert and awake Nutritional Appearance: average body habitus Orientation/consciousness: p atient oriented x3 Resp: Effort & Inspection: normal respiratory effort, able to speak in complete sentences, no respiratory distress and no use of accessory muscles Cardio: Rate: regular rate GI: Inspection: No obesity : Other: Saha catheter in place draining yellow urine Neuro: Other: able to lift b/l arms slightly; no movement in lower extremities; heels in offloading boots General: patient oriented x3 Objective Data Active Medications Acetaminophen (Acetaminophen 325 Mg Tablet) 650 mg PO Q6H PRN PRN Reason: Pain, Mild 1-3,fever,headache Last Admin: 05/24/25 19:34 Dose: 650 mg Documented By: RANDA Ascorbic Acid (Ascorbic Acid 500 Mg Tablet) 1,000 mg PO DAILY [facility] Last Admin: 05/25/25 08:44 Dose: 1,000 mg Documented By: AMBER Atorvastatin Calcium (Atorvastatin Calcium 40 Mg Tablet) 40 mg PO DAILY [facility] Last Admin: 05/25/25 08:44 Dose: 40 mg Documented By: AMBER Calcium Carbonate (Calcium Carbonate 750 Mg Tab.Chew) 750 mg PO Q4H PRN PRN Reason: Heartburn Dextrose (Dextrose 50 % 25 Gm/50 Ml Syringe) 25 gm IVPUSH Q15M PRN; Protocol PRN Reason: per Hypoglycemia Standing Ord. Dorzolamide/Timolol (Dorzolamide/Timolo 2.23%/0.68% 10 Ml Drbtl) 1 drop EYE- RIGHT BID [facility] Last Admin: 05/25/25 08:44 Dose: 1 drop Documented By: AMBER Enoxaparin Sodium (Enoxaparin Sodium 40 Mg/0.4 Ml Syringe) 40 mg SUBCUT Q24H [facility] Last Admin: 05/24/25 17:46 Dose: 40 mg Documented By: ZADIA Ferrous Sulfate (Ferrous Sulfate 324 Mg Tablet.) 324 mg PO DAILY [facility] Last Admin: 05/25/25 08:44 Dose: 324 mg Documented By: AMBER Glucose (Glucose Gel 15 Gm Gel..Gram.) 15 gm PO Q15M PRN; Protocol PRN Reason: per Hypoglycemia Standing Ord. Insulin Human Lispro (Insulin Lispro 100 Unit/Ml 3 Ml Vial) 0 unit SUBCUT QIDACHS [facility]; Protocol Last Admin: 05/25/25 11:20 Dose: Not Given Documented By: AMBER Non-Admin Reason: No Insulin Coverage Lidocaine (Lidocaine 4 % Patch Adh..Patch) 1 patch TRANSDERMA DAILY [facility] Last Admin: 05/25/25 08:44 Dose: 1 patch Documented By: MABER Magnesium Hydroxide (Milk Of Magnesia 30 Ml Oral.Susp) 30 ml PO DAILY PRN PRN Reason: Constipation Melatonin (Melatonin 3 Mg Tablet) 6 mg PO BEDTIME PRN PRN Reason: Insomnia Methenamine Hippurate (Methenamine Hippurate 1 Gm Tablet) 1 gm PO DAILY [facility] Last Admin: 05/25/25 08:44 Dose: 1 gm Documented By: AMBER Omeprazole (Omeprazole 20 Mg Capsule.) 20 mg PO DAILY@0630 [facility] Last Admin: 05/25/25 06:30 Dose: 20 mg Documented By: VINCENT Ondansetron HCl (Ondansetron Hcl 4 Mg/2 Ml Vial) 4 mg IVPUSH Q8H PRN PRN Reason: Nausea and Vomiting Sodium Chloride (0.9 % Sodium Chloride Flush 3 Ml Syringe) 3 ml IVFLUSH QSHIFT [facility] Last Admin: 05/25/25 08:45 Dose: 3 ml Documented By: AMBER Labs 05/25/25 12:43 Labs: Laboratory Results - last 24 hr 05/24/25 05/24/25 05/24/25 18:43 18:59 20:17 ESR 28 H Hold Purple Top SEE NOTE Anion Gap 18 Estim Creat Clear Calc 98.9 Estimated GFR > 60 POC Glucose Random Glucose 101 Osmolality 256 L Lactic Acid 1.5 Uric Acid 5.7 Calcium 9.2 C-Reactive Protein 2.01 H Beta-Hydroxybutyrate 0.54 H TSH Random Cortisol Urine Osmolality 351 L Ur Random Sodium 23.0 Urine Opiates Screen Not Detected Ur Buprenorphine Scrn Not Detected Ur Oxycodone Screen Not Detected Urine Methadone Screen Not Detected Urine Fentanyl Screen Not Detected Ur Barbiturates Screen Not Detected Ur Phencyclidine Scrn Not Detected Ur Amphetamines Screen Not Detected U Benzodiazepines Scrn Not Detected Urine Cocaine Screen Not Detected U Marijuana (THC) Screen Not Detected Ethyl Alcohol < 10 05/24/25 05/25/25 05/25/25 20:50 00:24 06:50 ESR Hold Purple Top SEE NOTE Anion Gap 15 14 Estim Creat Clear Calc 106.0 98.9 Estimated GFR > 60 > 60 POC Glucose 85 Random Glucose 85 65 Osmolality Lactic Acid Uric Acid Calcium 9.3 9.1 C-Reactive Protein Beta-Hydroxybutyrate TSH 4.67 H Random Cortisol 9.6 Urine Osmolality Ur Random Sodium Urine Opiates Screen Ur Buprenorphine Scrn Ur Oxycodone Screen Urine Methadone Screen Urine Fentanyl Screen Ur Barbiturates Screen Ur Phencyclidine Scrn Ur Amphetamines Screen U Benzodiazepines Scrn Urine Cocaine Screen U Marijuana (THC) Screen Ethyl Alcohol 05/25/25 05/25/25 05/25/25 07:09 07:38 11:05 ESR Hold Purple Top Anion Gap Estim Creat Clear Calc Estimated GFR POC Glucose 66 91 100 Random Glucose Osmolality Lactic Acid Uric Acid Calcium C-Reactive Protein Beta-Hydroxybutyrate TSH Random Cortisol Urine Osmolality Ur Random Sodium Urine Opiates Screen Ur Buprenorphine Scrn Ur Oxycodone Screen Urine Methadone Screen Urine Fentanyl Screen Ur Barbiturates Screen Ur Phencyclidine Scrn Ur Amphetamines Screen U Benzodiazepines Scrn Urine Cocaine Screen U Marijuana (THC) Screen Ethyl Alcohol 05/25/25 12:43 ESR Hold Purple Top Anion Gap 12 Estim Creat Clear Calc 88.6 Estimated GFR > 60 POC Glucose Random Glucose 99 Osmolality Lactic Acid Uric Acid Calcium 8.8 C-Reactive Protein Beta-Hydroxybutyrate TSH Random Cortisol Urine Osmolality Ur Random Sodium Urine Opiates Screen Ur Buprenorphine Scrn Ur Oxycodone Screen Urine Methadone Screen Urine Fentanyl Screen Ur Barbiturates Screen Ur Phencyclidine Scrn Ur Amphetamines Screen U Benzodiazepines Scrn Urine Cocaine Screen U Marijuana (THC) Screen Ethyl Alcohol Assessment and Plan (1) Hyponatremia: Status: Acute (2) Myelomalacia of cervical cord: Status: Acute Plan This is a 74-year-old male with 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 cortisol normal. tsh 4.67 continue Fluid restriction sodium initially increased to 128 and then trended back down 125 start sodium chloride repeat urine studies Nephrology following plan to repeat sodium level tonight follow BMP in am Increased intra-ocular pressure of the right eye Seen by Dr. Naranjo 05/24 who recommended starting Cosopt eyedrops b.i.d. and follow up with him in the office in 4 weeks Type 2 Diabetes diabetic diet son reports diet controlled at this time POCs normal SSI, POCs Mild transaminitis chronic outpatient follow up chronic indwelling saha catheter son concerned about UTI due to underlying weakness however no fever and no elevated WBC count to indicate fever will hold off on UA for now hyponatremia likely cause of generalized weakness Can continue methenamine for UTI suppression Chronic microcytic anemia H/H at baseline and above transfusion threshold Continue baseline iron supplementation and vitamin-C DVT prophylaxis-Lovenox Code status-full code Patient will likely require 2 midnight stay in the hospital for hyponatremia requiring close lab monitoring and specialist evaluation Quality Stroke Does the patient have a stroke diagnosis?: No VTE Prior VTE?: No VTE Risk Level:: Medical - moderate - high VTE Device Contraindication: N/A - Device Ordered VTE Drug Contraindication: N/A - Med Ordered
[2025-05-25] MEDS: Sodium Chloride Tab 1 GM TABLET PO ×2 (16:21→20:22)
[2025-05-25 16:31] LABS: Glucose, Whole Blood 96 mg/dL (60-115)
[2025-05-25 17:11] LABS: Appearance Urine Cloudy; Glucose Urine UA Negative (Negative); PH 5.5 (5.0-9.0); Specific Gravity - Urine 1.015 (1.005-1.025); UMIC TRIGGER UA YES
[2025-05-25 17:20] LABS: Cannabinoid Screen Urine Not Detected (Not Detect)
[2025-05-25 20:17] LABS: Glucose, Whole Blood 120 mg/dL (60-115)
[2025-05-25 22:32] LABS: Sodium 130 mmol/L (135-145)
[2025-05-26 03:17] VITALS: BP 112/57; PULSE 91; RESP 18; TEMP 37.1; O2SAT 96
[2025-05-26 07:01] VITALS: BP 113/64; PULSE 86; RESP 17; TEMP 36.8; O2SAT 99
--- NOTE | 2025-05-26 07:23 | PC.NURSE ---
Patient with frequent attempts of removing tele leads, IV, touching saha catheter site. Initially attempted intervention by placing a camera in room. Patient still managed to remove IV. 1:1 sitter placed.
[2025-05-26 07:24] LABS: Glucose, Whole Blood 94 mg/dL (60-115)
[2025-05-26 07:31] LABS: Anion Gap 12 (12-20); Blood Urea Nitrogen 20 mg/dL (9-16); Calcium 8.9 mg/dL (8.4-10.2); Carbon Dioxide 24 mmol/L (22-29); Chloride 101 mmol/L (96-108); Creatinine Clr Calc Pharmacy 81.3; Estimated Glomerular Filt Rate > 60; Potassium 4.0 mmol/L (3.3-5.1); Sodium 133 mmol/L (135-145)
[2025-05-26] MEDS: Dorzolamide/Timolo 2.23%/0.68% 10 ML DRBTL 1 DROP EYE-RIGHT ×2 (09:30→20:33)
[2025-05-26] MEDS: Sodium Chloride Tab 1 GM TABLET PO ×2 (09:31→16:49)
[2025-05-26] MEDS: Lidocaine 4 % Patch ADH..PATCH 1 PATCH TRANSDERMA (09:31)
[2025-05-26] MEDS: Ferrous Sulfate 324 MG TABLET.DR PO (09:32)
[2025-05-26] MEDS: 0.9 % Sodium Chloride Flush 3 ML SYRINGE IVFLUSH ×2 (09:32→18:55)
[2025-05-26 11:10] VITALS: BP 125/66; PULSE 88; RESP 17; TEMP 36.1; O2SAT 97
[2025-05-26 11:36] LABS: Glucose, Whole Blood 129 mg/dL (60-115)
--- NOTE | 2025-05-26 15:33 | PM.PNNEP ---
Subjective Subjective Date of Service: 05/26/25 Interval history: No new events, sodium improved to 133 Seen and examined this morning History obtained with the assistance from son at the bedside Follow-up for hyponatremia. Patient feeling better today, denies weakness, dizziness Physical Exam Exam: Exam: General: Elderly gentleman lying in the bed with no acute distress Nutritional Appearance: well nourished and overweight Eyes: appearance normal, both eyes and all related structures; Alignment and Position: alignment normal and position normal Neck: No lymphadenopathy, no thyromegaly Resp: bilateral air entry equal, occasional added sounds present Cardio: Regular rate, regular rhythm; Heart sounds: S1 normal heart sound present and S2 normal heart sound present GI: soft, nontender, no guarding, no hepatosplenomegaly : bladder normal to inspection, bladder normal to palpation, no renal angle tenderness Skin: no rashes or lesions noted and elasticity normal Neuro: oriented to person, oriented to place, oriented to time and paraparesis Vital Signs: Vital Signs: Last Vital Signs Temp 96.9 F 05/26/25 11:10 Pulse 88 05/26/25 11:10 Resp 17 05/26/25 11:10 BP 125/66 05/26/25 11:10 Pulse Ox 97 05/26/25 11:10 O2 Del Method Room Air 05/26/25 11:10 BMI result Body Mass Index 23.3 Objective Data Labs 05/26/25 06:52 Labs: Laboratory Results - last 24 hr 05/25/25 05/25/25 05/25/25 16:26 16:33 20:14 Hold Purple Top Sodium Potassium Chloride Carbon Dioxide Anion Gap BUN Creatinine Estim Creat Clear Calc Estimated GFR POC Glucose 96 120 H Random Glucose Calcium Urine Color Yellow Urine Appearance Cloudy Urine pH 5.5 Ur Specific [place] 1.015 Urine Protein Trace Urine Glucose (UA) Negative Urine Ketones Negative Urine Blood Small (1+) H Urine Nitrite Positive H Ur Leukocyte Esterase Large (3+) H Urine RBC 3-5 H Urine WBC >50 H Urine WBC Clumps Present Ur Squamous Epith Cells 0-2 Urine Bacteria 4+ Hyaline Casts 3-5 Urine Osmolality 338 L Ur Random Sodium 21.0 Urine Opiates Screen Not Detected Ur Buprenorphine Scrn Not Detected Ur Oxycodone Screen Not Detected Urine Methadone Screen Not Detected Urine Fentanyl Screen Not Detected Ur Barbiturates Screen Not Detected Ur Phencyclidine Scrn Not Detected Ur Amphetamines Screen Not Detected U Benzodiazepines Scrn Not Detected Urine Cocaine Screen Not Detected U Marijuana (THC) Screen Not Detected 05/25/25 05/26/25 05/26/25 22:18 06:52 07:02 Hold Purple Top SEE NOTE Sodium 130 L 133 L Potassium 4.0 Chloride 101 Carbon Dioxide 24 Anion Gap 12 BUN 20 H Creatinine 0.73 Estim Creat Clear Calc 81.3 Estimated GFR > 60 POC Glucose Random Glucose 96 Calcium 8.9 Urine Color Urine Appearance Urine pH Ur Specific [place] Urine Protein Urine Glucose (UA) Urine Ketones Urine Blood Urine Nitrite Ur Leukocyte Esterase Urine RBC Urine WBC Urine WBC Clumps Ur Squamous Epith Cells Urine Bacteria Hyaline Casts Urine Osmolality Ur Random Sodium Urine Opiates Screen Ur Buprenorphine Scrn Ur Oxycodone Screen Urine Methadone Screen Urine Fentanyl Screen Ur Barbiturates Screen Ur Phencyclidine Scrn Ur Amphetamines Screen U Benzodiazepines Scrn Urine Cocaine Screen U Marijuana (THC) Screen 05/26/25 05/26/25 07:19 11:18 Hold Purple Top Sodium Potassium Chloride Carbon Dioxide Anion Gap BUN Creatinine Estim Creat Clear Calc Estimated GFR POC Glucose 94 129 H Random Glucose Calcium Urine Color Urine Appearance Urine pH Ur Specific [place] Urine Protein Urine Glucose (UA) Urine Ketones Urine Blood Urine Nitrite Ur Leukocyte Esterase Urine RBC Urine WBC Urine WBC Clumps Ur Squamous Epith Cells Urine Bacteria Hyaline Casts Urine Osmolality Ur Random Sodium Urine Opiates Screen Ur Buprenorphine Scrn Ur Oxycodone Screen Urine Methadone Screen Urine Fentanyl Screen Ur Barbiturates Screen Ur Phencyclidine Scrn Ur Amphetamines Screen U Benzodiazepines Scrn Urine Cocaine Screen U Marijuana (THC) Screen Procedures Date of Service Date of Service: 05/26/25 Assessment & Plan Assessment and plan (1) Hyponatremia: Status: Acute Plan Hyponatremia: Presented with a sodium of 121 on 05/24/2025, sodium slowly improved to 133 this morning over a period of 48 hours He had ingested over 10 L of water prior to presentation for bladder ultrasound which might have precipitated hyponatremia. But given his urine osmol of 330 in the setting of acute hyponatremia suggest there might be a coexisting other etiology for hyponatremia. Patient needs a follow up in the clinic in a month upon discharge. We will stop the salt tablets and we will monitor. Thanks for letting us taking care of the patient. Nephrology will sign off, please reconsult if clinical picture changes. Time Spent With Patient Time: Total time managing care of this patient today ____ minutes. Progress Note: Quality Stroke Does the patient have a stroke diagnosis?: No
[2025-05-26 15:47] VITALS: BP 136/59; PULSE 83; RESP 18; TEMP 36.2; O2SAT 99
[2025-05-26 16:19] LABS: Urea, Random Urine 482 mg/dL
[2025-05-26 16:34] LABS: Glucose, Whole Blood 113 mg/dL (60-115)
--- NOTE | 2025-05-26 18:05 | P.PNIM_ITS ---
Subjective Subjective Date of Service: 05/26/25 Interval History: According to son at bedside pt has moments of confusion last night: thinking he is at home, not remembering son's name Currently no confusion Pt himself has no complaints Reports feeling fine No N/V or abd pain Denies lightheadedness or weakness Review of Systems Review of Systems: Yes all other systems are reviewed and are negative Physical Exam 2 Exam: Exam: General: AOx3, no acute distress Resp: CTA bilaterally CVS: S1, S2, RRR GI: +BS, NT, no distention Skin: Warm, dry Neuro: Limited mobility of upper extremities. Lower extremeties contracted Extremities: No edema. Heels in offloading boots bilaterally Psych: Calm, cooperative Vital Signs: Vital Signs: Last Vital Signs Temp 97.2 F 05/26/25 15:47 Pulse 83 05/26/25 15:47 Resp 18 05/26/25 15:47 BP 136/59 L 05/26/25 15:47 Pulse Ox 99 05/26/25 15:47 O2 Del Method Room Air 05/26/25 15:47 BMI result Body Mass Index 23.3 Objective Data Active Medications Acetaminophen (Acetaminophen 325 Mg Tablet) 650 mg PO Q6H PRN PRN Reason: Pain, Mild 1-3,fever,headache Last Admin: 05/24/25 19:34 Dose: 650 mg Documented By: RANDA Ascorbic Acid (Ascorbic Acid 500 Mg Tablet) 1,000 mg PO DAILY [facility] Last Admin: 05/26/25 09:31 Dose: 1,000 mg Documented By: JUSTYNA Atorvastatin Calcium (Atorvastatin Calcium 40 Mg Tablet) 40 mg PO DAILY [facility] Last Admin: 05/26/25 09:31 Dose: 40 mg Documented By: JUSTYNA Calcium Carbonate (Calcium Carbonate 750 Mg Tab.Chew) 750 mg PO Q4H PRN PRN Reason: Heartburn Dextrose (Dextrose 50 % 25 Gm/50 Ml Syringe) 25 gm IVPUSH Q15M PRN; Protocol PRN Reason: per Hypoglycemia Standing Ord. Dorzolamide/Timolol (Dorzolamide/Timolo 2.23%/0.68% 10 Ml Drbtl) 1 drop EYE- RIGHT BID [facility] Last Admin: 05/26/25 09:30 Dose: 1 drop Documented By: JUSTYNA Enoxaparin Sodium (Enoxaparin Sodium 40 Mg/0.4 Ml Syringe) 40 mg SUBCUT Q24H [facility] Last Admin: 05/25/25 16:21 Dose: 40 mg Documented By: AMBER Ferrous Sulfate (Ferrous Sulfate 324 Mg Tablet.) 324 mg PO DAILY [facility] Last Admin: 05/26/25 09:32 Dose: 324 mg Documented By: JUSTYNA Glucose (Glucose Gel 15 Gm Gel..Gram.) 15 gm PO Q15M PRN; Protocol PRN Reason: per Hypoglycemia Standing Ord. Insulin Human Lispro (Insulin Lispro 100 Unit/Ml 3 Ml Vial) 0 unit SUBCUT QIDACHS [facility]; Protocol Last Admin: 05/26/25 16:50 Dose: Not Given Documented By: JUSTYNA Non-Admin Reason: No Insulin Coverage Lidocaine (Lidocaine 4 % Patch Adh..Patch) 1 patch TRANSDERMA DAILY [facility] Last Admin: 05/26/25 09:31 Dose: 1 patch Documented By: JUSTYNA Magnesium Hydroxide (Milk Of Magnesia 30 Ml Oral.Susp) 30 ml PO DAILY PRN PRN Reason: Constipation Melatonin (Melatonin 3 Mg Tablet) 6 mg PO BEDTIME PRN PRN Reason: Insomnia Last Admin: 05/26/25 02:19 Dose: 6 mg Documented By: SHANNA Meropenem (Meropenem 1 Gm Vial) 1 gm IVPUSH Q8H [facility] Methenamine Hippurate (Methenamine Hippurate 1 Gm Tablet) 1 gm PO DAILY [facility] Last Admin: 05/26/25 09:31 Dose: 1 gm Documented By: JUSTYNA Omeprazole (Omeprazole 20 Mg Capsule.) 20 mg PO DAILY@0630 [facility] Last Admin: 05/26/25 05:32 Dose: 20 mg Documented By: SHANNA Ondansetron HCl (Ondansetron Hcl 4 Mg/2 Ml Vial) 4 mg IVPUSH Q8H PRN PRN Reason: Nausea and Vomiting Sodium Chloride (0.9 % Sodium Chloride Flush 3 Ml Syringe) 3 ml IVFLUSH QSHIFT [facility] Last Admin: 05/26/25 09:32 Dose: 3 ml Documented By: JUSTYNA Labs 05/26/25 06:52 Labs: Laboratory Results - last 24 hr 05/24/25 05/25/25 05/26/25 18:59 20:14 06:52 Hold Purple Top Anion Gap 12 Estim Creat Clear Calc 81.3 Estimated GFR > 60 POC Glucose 120 H Random Glucose 96 Calcium 8.9 Ur Random Urea 482 05/26/25 05/26/25 05/26/25 07:02 07:19 11:18 Hold Purple Top SEE NOTE Anion Gap Estim Creat Clear Calc Estimated GFR POC Glucose 94 129 H Random Glucose Calcium Ur Random Urea 05/26/25 16:26 Hold Purple Top Anion Gap Estim Creat Clear Calc Estimated GFR POC Glucose 113 Random Glucose Calcium Ur Random Urea Assessment and Plan (1) Hyponatremia: Status: Acute Plan This is a 74-year-old male with 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 cortisol normal. tsh 4.67 sodium improved to 133 after taking salt tabs 1g tid x1 day continue Fluid restriction stop sodium chloride Nephrology following follow BMP in am Will need follow up with nephrology in 2 weeks Likely acute UTI chronic indwelling saha catheter son concerned about UTI due to underlying weakness and altered mental status UA concerning for acute infection; hx of ESBL cyctitis Will empirically start on meropemen, day 2 Infectious disease consult Follow urine cultures Increased intra-ocular pressure of the right eye Seen by Dr. Naranjo 05/24 who recommended starting Cosopt eyedrops b.i.d. and follow up with him in the office in 4 weeks Type 2 Diabetes diabetic diet son reports diet controlled at this time POCs normal SSI, POCs Mild transaminitis chronic outpatient follow up Chronic microcytic anemia H/H at baseline and above transfusion threshold Continue baseline iron supplementation and vitamin-C DVT prophylaxis-Lovenox Code status-full code Requires continued hospitalization for treatment with empiric IV antibiotics while awaiting urine cultures and specialist consultation. Quality Stroke Does the patient have a stroke diagnosis?: No VTE Prior VTE?: No VTE Risk Level:: Medical - moderate - high VTE Device Contraindication: N/A - Device Ordered VTE Drug Contraindication: N/A - Med Ordered
[2025-05-26 19:31] VITALS: BP 106/56; PULSE 88; RESP 16; TEMP 36.1; O2SAT 97
[2025-05-26 20:17] LABS: Glucose, Whole Blood 94 mg/dL (60-115)
[2025-05-26 23:28] VITALS: BP 119/71; PULSE 97; RESP 18; TEMP 36.8; O2SAT 98
[2025-05-27] MEDS: 0.9 % Sodium Chloride Flush 3 ML SYRINGE IVFLUSH ×4 (00:24→21:25)
[2025-05-27 03:11] VITALS: BP 113/63; PULSE 82; RESP 18; TEMP 36.6; O2SAT 99
[2025-05-27 08:00] VITALS: BP 118/55; PULSE 81; RESP 20; TEMP 36.4; O2SAT 97
[2025-05-27 08:21] LABS: Glucose, Whole Blood 102 mg/dL (60-115)
--- NOTE | 2025-05-27 09:03 | HO.PM.IMPN ---
Subjective Subjective Date of Service: 05/27/25 Interval History: No acute events overnight Pt reports feels sleepy , otherwise no acute complaints Resting comfortably in bed Review of Systems Review of Systems: Yes all other systems are reviewed and are negative Physical Exam Exam: Exam: General: Awake and alert, not oriented to time or situation, in no acute distress Resp: CTA bilaterally CVS: S1, S2, RRR GI: +BS, NT, no distention Skin: Warm, dry Neuro: Limited mobility of upper extremities. Lower extremeties contracted Extremities: No edema. Heels in offloading boots bilaterally Psych: Calm, cooperative Vital Signs: Vital Signs: Last Vital Signs Temp 97.6 F 05/27/25 08:00 Pulse 81 05/27/25 08:00 Resp 20 05/27/25 08:00 BP 118/55 L 05/27/25 08:00 Pulse Ox 97 05/27/25 08:00 O2 Del Method Room Air 05/27/25 08:00 BMI result Body Mass Index 23.3 Objective Data Active Medications Acetaminophen (Acetaminophen 325 Mg Tablet) 650 mg PO Q6H PRN PRN Reason: Pain, Mild 1-3,fever,headache Last Admin: 05/24/25 19:34 Dose: 650 mg Documented By: RANDA Ascorbic Acid (Ascorbic Acid 500 Mg Tablet) 1,000 mg PO DAILY [facility] Last Admin: 05/26/25 09:31 Dose: 1,000 mg Documented By: JUSTYNA Atorvastatin Calcium (Atorvastatin Calcium 40 Mg Tablet) 40 mg PO DAILY [facility] Last Admin: 05/26/25 09:31 Dose: 40 mg Documented By: JUSTYNA Calcium Carbonate (Calcium Carbonate 750 Mg Tab.Chew) 750 mg PO Q4H PRN PRN Reason: Heartburn Dextrose (Dextrose 50 % 25 Gm/50 Ml Syringe) 25 gm IVPUSH Q15M PRN; Protocol PRN Reason: per Hypoglycemia Standing Ord. Dorzolamide/Timolol (Dorzolamide/Timolo 2.23%/0.68% 10 Ml Drbtl) 1 drop EYE-RIGHT BID [facility] Last Admin: 05/26/25 20:33 Dose: 1 drop Documented By: ALISA Enoxaparin Sodium (Enoxaparin Sodium 40 Mg/0.4 Ml Syringe) 40 mg SUBCUT Q24H [facility] Last Admin: 05/26/25 18:56 Dose: 40 mg Documented By: JUSTYNA Ferrous Sulfate (Ferrous Sulfate 324 Mg Tablet.) 324 mg PO DAILY [facility] Last Admin: 05/26/25 09:32 Dose: 324 mg Documented By: JUSTYNA Glucose (Glucose Gel 15 Gm Gel..Gram.) 15 gm PO Q15M PRN; Protocol PRN Reason: per Hypoglycemia Standing Ord. Insulin Human Lispro (Insulin Lispro 100 Unit/Ml 3 Ml Vial) 0 unit SUBCUT QIDACHS [facility]; Protocol Last Admin: 05/27/25 08:29 Dose: Not Given Documented By: JANAE Non-Admin Reason: No Insulin Coverage Lidocaine (Lidocaine 4 % Patch Adh..Patch) 1 patch TRANSDERMA DAILY [facility] Last Admin: 05/26/25 09:31 Dose: 1 patch Documented By: JUSTYNA Magnesium Hydroxide (Milk Of Magnesia 30 Ml Oral.Susp) 30 ml PO DAILY PRN PRN Reason: Constipation Melatonin (Melatonin 3 Mg Tablet) 6 mg PO BEDTIME PRN PRN Reason: Insomnia Last Admin: 05/26/25 02:19 Dose: 6 mg Documented By: SHANNA Meropenem (Meropenem 1 Gm Vial) 1 gm IVPUSH Q8H [facility] Last Admin: 05/27/25 00:24 Dose: 1 gm Documented By: EDER Methenamine Hippurate (Methenamine Hippurate 1 Gm Tablet) 1 gm PO DAILY [facility] Last Admin: 05/26/25 09:31 Dose: 1 gm Documented By: JUSTYNA Omeprazole (Omeprazole 20 Mg Capsule.) 20 mg PO DAILY@0630 [facility] Last Admin: 05/27/25 05:48 Dose: 20 mg Documented By: EDER Ondansetron HCl (Ondansetron Hcl 4 Mg/2 Ml Vial) 4 mg IVPUSH Q8H PRN PRN Reason: Nausea and Vomiting Sodium Chloride (0.9 % Sodium Chloride Flush 3 Ml Syringe) 3 ml IVFLUSH QSHIFT [facility] Last Admin: 05/27/25 00:24 Dose: 3 ml Documented By: EDER Labs 05/26/25 06:52 Labs: Laboratory Results - last 24 hr 05/24/25 05/26/25 05/26/25 18:59 11:18 16:26 POC Glucose 129 H 113 Ur Random Urea 482 08/02/25 08/03/25 20:13 08:16 POC Glucose 94 102 Ur Random Urea Assessment and Plan (1) Hyponatremia: Status: Acute Plan This is a 74-year-old male with 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 cortisol normal. tsh 4.67 Sodium improved to 133 after taking salt tabs 1g tid x1 day Continue fluid restriction Stop sodium chloride Nephrology following Follow BMP in am Will need follow up with nephrology in 2 weeks Likely acute UTI chronic indwelling saah catheter son concerned about UTI due to underlying weakness and altered mental status UA concerning for acute infection; hx of ESBL cyctitis Will empirically start on meropemen, day 2 Infectious disease consult Follow urine cultures Increased intra-ocular pressure of the right eye Seen by Dr. Naranjo 05/24 who recommended starting Cosopt eyedrops b.i.d. and follow up with him in the office in 4 weeks Type 2 Diabetes diabetic diet son reports diet controlled at this time POCs normal SSI, POCs Mild transaminitis chronic outpatient follow up Chronic microcytic anemia H/H at baseline and above transfusion threshold Continue baseline iron supplementation and vitamin-C DVT prophylaxis-Lovenox Code status-full code Requires continued hospitalization for treatment with empiric IV antibiotics while awaiting urine cultures and specialist consultation. Quality Stroke Does the patient have a stroke diagnosis?: No VTE Prior VTE?: No VTE Risk Level:: Medical - moderate - high VTE Device Contraindication: N/A - Device Ordered VTE Drug Contraindication: N/A - Med Ordered
[2025-05-27] MEDS: Ferrous Sulfate 324 MG TABLET.DR PO (10:05)
[2025-05-27] MEDS: Lidocaine 4 % Patch ADH..PATCH 1 PATCH TRANSDERMA (10:08)
[2025-05-27] MEDS: Dorzolamide/Timolo 2.23%/0.68% 10 ML DRBTL 1 DROP EYE-RIGHT ×2 (11:23→21:25)
[2025-05-27 12:00] VITALS: BP 112/70; PULSE 84; RESP 20; TEMP 36.5; O2SAT 100
[2025-05-27 12:02] LABS: Glucose, Whole Blood 97 mg/dL (60-115)
[2025-05-27 16:00] VITALS: BP 129/72; PULSE 83; RESP 20; TEMP 36.3; O2SAT 100
[2025-05-27 17:07] LABS: Glucose, Whole Blood 128 mg/dL (60-115)
--- NOTE | 2025-05-27 19:47 | PC.NURSE ---
Pt's son asked RN to leave the following note: Pt is paraplegic from nipple down, remove denture before pt sleeps, put 3 pillows on the right side of his head to keep the pt's body straight before pt goes to bed, chronic pain on back of his left hand (pt will scream and smack you if touched).
[2025-05-27 20:00] VITALS: BP 126/73; PULSE 73; RESP 18; TEMP 36.5; O2SAT 100
[2025-05-27 22:13] LABS: Glucose, Whole Blood 112 mg/dL (60-115)
[2025-05-27 23:56] VITALS: BP 129/60; PULSE 78; RESP 18; TEMP 36.2; O2SAT 100
[2025-05-28 03:34] VITALS: BP 138/63; PULSE 81; RESP 16; TEMP 36.3; O2SAT 100
[2025-05-28 07:25] VITALS: BP 133/75; PULSE 81; RESP 18; TEMP 36.2; O2SAT 100
[2025-05-28 07:35] LABS: Anion Gap 11 (12-20); Blood Urea Nitrogen 25 mg/dL (9-16); Calcium 8.7 mg/dL (8.4-10.2); Carbon Dioxide 25 mmol/L (22-29); Chloride 104 mmol/L (96-108); Creatinine Clr Calc Pharmacy 73.2; Estimated Glomerular Filt Rate > 60; Potassium 4.4 mmol/L (3.3-5.1); Sodium 136 mmol/L (135-145)
[2025-05-28 07:37] LABS: Glucose, Whole Blood 101 mg/dL (60-115)
[2025-05-28] MEDS: Ferrous Sulfate 324 MG TABLET.DR PO (08:26)
[2025-05-28] MEDS: Dorzolamide/Timolo 2.23%/0.68% 10 ML DRBTL 1 DROP EYE-RIGHT (08:27)
[2025-05-28] MEDS: Lidocaine 4 % Patch ADH..PATCH 1 PATCH TRANSDERMA (08:27)
[2025-05-28] MEDS: 0.9 % Sodium Chloride Flush 3 ML SYRINGE IVFLUSH ×2 (08:49→16:15)
--- NOTE | 2025-05-28 10:40 | MHC.CM.PN ---
Per ROUNDS discussion, Patient is not yet medically cleared for dc (UTI/? of home with IV ABX,cultures are pending); home/resume services is the goal and CM will continue to follow.
[2025-05-28 11:33] LABS: Anti Nuclear Antibody Screen NEGATIVE (NEGATIVE)
[2025-05-28 12:00] VITALS: BP 133/75; PULSE 74; RESP 20; TEMP 36.8; O2SAT 98
[2025-05-28 12:12] LABS: Glucose, Whole Blood 115 mg/dL (60-115)
[2025-05-28 16:00] VITALS: BP 121/71; PULSE 84; RESP 17; TEMP 36.2; O2SAT 93
--- NOTE | 2025-05-28 16:19 | MHC.CM.PN ---
Per PA, Patient is medically cleared for dc to home today. Patient is active with [facility], who has been notified of today's dc. CM confirmed dc plan with Son/Kike @ [phone] and addressed IMM with him. Patient will transport to home today at 7PM, via [facility].
[2025-05-28 16:22] LABS: Glucose, Whole Blood 154 mg/dL (60-115)
--- NOTE | 2025-05-28 17:48 | P.DS_ITS ---
DS: Providers Provider Date of Service: 05/28/25 Date of admission: 05/24/25 17:16 Date of discharge: 05/28/25 Primary care physician: Shilpa Marie PA-C Consults: 05/24/25 17:17 Consult to Nephrology Routine Consulting Provider: [facility] Reason for consultation: Hyponatremia Has provider been notified: No 05/25/25 23:24 Consult to Infectious Diseases Routine Consulting Provider: [facility] Reason for consultation: UTI DS: Diagnosis Discharge Diagnosis (1) Hyponatremia: Status: Resolved DS: Summary Hospital Course Hospital Course: From admission HPI: Date of Service: 05/24/25 Attending physician on admission: Norma Naidu Chief Complaint: weakness, eye redness This is a 74-year-old male with history of paraplegia due to probable transverse myelitis, type 2 diabetes, neurogenic bladder who was brought to the emergency department by his son due to concern over right eye redness and generalized weakness. His intra-ocular pressure was noted to be elevated. In addition basic labs were drawn which revealed a sodium of 121. However do due urgent need for patient to see Ophthalmology he was discharged from the emergency department across the street to see Dr. Naranjo. Dr. Naranjo recommended starting Cosopt eyedrops in the right eye twice daily and follow-up with him in 4 weeks. He returned to the emergency department for ongoing investigation into his hyponatremia. History was obtained primarily from the patient's son and caregiver at the bedside who said that yesterday he had an outpatient bladder ultrasound. At the ultrasound multiple times it was noted that he did not have enough urine in his bladder and it was requested for him to drink water. Per the son's report he had approximately 10 bottles of water prior to having his ultrasound. After that he also had an episode of vomiting. He has not had any subsequent vomiting. He denies any recent medication adjustments. Prior to today he has had a good appetite. He will be admitted to the hospital for further management of hyponatremia. Hospital Course: Pt was admitted to the hospital due to hyponatremia of 121 of unclear etiology, though likely multifactorial: In the setting of increased water congestive of 10 L prior to bladder ultrasound as well as possible underlying other etiology. Pt was treated with fluid restriction and salt tablets, and seen and evaluated by Nephrology. Sodium slowly corrected in his currently at baseline. Pt should follow up with Nephrology in 1 month. The patient's family and caregiver was also concern that pt was occasionally confused, and thought pt might have acute UTI. Pt was treated empirically with meropenem due to chronic indwelling Vicente catheter and hx of ESBL UTI. Urine c ulture was negative and sensitivities not obtained as it consisted of mixed bacterial rachell characteristic of urogenital contamination. Pt will be discharged from the hospital without antibiotics. For elevated intra-ocular pressure, pt should continue Csoopt eyedrops in the right eye twice daily and follow up with Dr. Naranjo in 4 weeks. For diet-controlled type 2 diabetes, continue adhering to a diabetic diet. For mild chronic transaminitis, follow up outpatient for monitoring For chronic microcytic anemia H&H was at baseline and above transfusion threshold. Continue home iron and vitamin-C supplementation For HLD, continue statin For GERD continue pantoprazole. Time Attestation Discharge Coordination Time (in mins): 35 Quality: Safe Use of Opioids Does Pt have an Active Cancer Diagnosis on the Problem List?: No Quality: Stroke Does the patient have a stroke diagnosis?: No Physical Exam Exam: Exam: General: Awake and alert, not oriented to time or situation, but answering appropriately. In no acute distress Resp: CTA bilaterally CVS: S1, S2, RRR GI: +BS, NT, no distention Skin: Warm, dry Neuro: Limited mobility of upper extremities. Lower extremeties contracted Extremities: No edema. Heels in offloading boots bilaterally Psych: Calm, cooperative Vital Signs: Vital Signs: Last Vital Signs Temp 97.1 F 05/28/25 16:00 Pulse 84 05/28/25 16:00 Resp 17 05/28/25 16:00 BP 121/71 05/28/25 16:00 Pulse Ox 93 05/28/25 16:00 O2 Del Method Room Air 05/28/25 16:00 BMI result Body Mass Index 23.3 DS: Data Data Completed and Pending Completed studies during hospitalization [Text1]: Procedures Insertion of Infusion Device into Left Cephalic Vein, Percutaneous Approach (03/27/25) Labs on day of discharge: Laboratory Results - last 24 hr 05/24/25 05/27/25 05/28/25 20:17 20:56 06:42 Hold Purple Top SEE NOTE Sodium 136 Potassium 4.4 Chloride 104 Carbon Dioxide 25 Anion Gap 11 L BUN 25 H Creatinine 0.81 Estim Creat Clear Calc 73.2 Estimated GFR > 60 POC Glucose 112 Random Glucose 91 Calcium 8.7 JONN Screen NEGATIVE 05/28/25 05/28/25 05/28/25 07:32 11:52 15:40 Hold Purple Top Sodium Potassium Chloride Carbon Dioxide Anion Gap BUN Creatinine Estim Creat Clear Calc Estimated GFR POC Glucose 101 115 154 H Random Glucose Calcium JONN Screen Discharge Plan Discharge Anticipated Discharge Date/Time: 05/28/25 19:00 Patient Disposition: Home Health Service Discharge Diagnosis: Hyponatremia Referrals: [facility] [Outside] - 1 Week Michael Stearns MD [Physician, Critical Care ([facility])] - 1 Month Referral Note: F/U for hyponatremia Shilpa Marie PA-C [Primary Care Provider, Internal Medicine] - 1 Week Discharge Medications: Continued (DME) adult diapers large See Rx Instructions .Route .MEDSUPPLY Qty: 240 11RF Rx Instructions: As directed (DME) wipes See Rx Instructions .Route .MEDSUPPLY Qty: 3 11RF Rx Instructions: As directed (DME) Disposable bed pads See Rx Instructions .Route .MEDSUPPLY Qty: 100 11RF Rx Instructions: As directed (DME) disposable gloves Misc See Rx Instructions .Route Qty: 200 11RF Rx Instructions: As directed (DME) foam wedge See Rx Instructions .Route .MEDSUPPLY Qty: 2 0RF Rx Instructions: As directed (DME) oral thermometer, electronic [Oral Temp Thermometer] Misc See Rx Instructions .Route Qty: 1 0RF Rx Instructions: As directed (DME) power wheelchair See Rx Instructions .Route .MEDSUPPLY Qty: 1 0RF Rx Instructions: As directed (DME) Custom Wheelchair and Branden tracks See Rx Instructions .Route .MEDSUPPLY Qty: 1 0RF Rx Instructions: As directed (DME) hip abductor wedge See Rx Instructions .Route .MEDSUPPLY Qty: 1 0RF Rx Instructions: As directed lidocaine 5 % adhesive patch,medicated 1 patch topical DAILY Qty: 30 0RF Rx Instructions: leave on most painful area for up to 12 hrs (DME) branden lift See Rx Instructions .Route .MEDSUPPLY Qty: 1 0RF Rx Instructions: As directed (DME) power hospital bed See Rx Instructions .Route .MEDSUPPLY Qty: 1 0RF Rx Instructions: As directed meloxicam 15 mg tablet 15 mg PO DAILY PRN (Reason: Pain) Qty: 30 0RF ferrous sulfate 324 mg (65 mg iron) tablet,delayed release (DR/EC) 324 mg PO DAILY Qty: 30 0RF diclofenac sodium [Voltaren Arthritis Pain] 1 % gel 2 g topical QID Qty: 50 0RF Rx Instructions: apply to single elbow, wrist or hand; for hand includes palm/fingers/back of hand (DME) Dexcom G7 Fire Production Operator Misc See Rx Instructions .Route Qty: 1 0RF Rx Instructions: As directed; to check sugars (DME) Dexcom G7 Sensor Device See Rx Instructions .Route Qty: 3 1RF Rx Instructions: As directed; to check sugars. Change every 10 days (DME) FreeStyle Lite Strips Strip See Rx Instructions .Route Qty: 100 0RF Rx Instructions: As directed; daily (DME) blood-glucose meter [FreeStyle Lite Meter] Kit See Rx Instructions .Route Qty: 1 0RF Rx Instructions: As directed; to check blood sugars daily (DME) lancets [FreeStyle Lancets] 28 gauge misc See Rx Instructions .Route Qty: 100 0RF Rx Instructions: As directed; TID ascorbic acid (vitamin C) 1,000 mg tablet 1 g PO DAILY 90 Days Qty: 90 1RF methenamine hippurate 1 gram tablet 1 g PO DAILY 90 Days Qty: 90 1RF pantoprazole 40 mg tablet,delayed release (DR/EC) 40 mg PO DAILY@0630 atorvastatin 40 mg tablet 40 mg PO DAILY (DME) blood pressure monitor Kit See Rx Instructions .Route Qty: 1 0RF Rx Instructions: As directed (DME) comp.stocking,knee,long,medium Misc See Rx Instructions .Route Qty: 12 0RF Rx Instructions: As directed 10-20 mmHg Discharge Orders: Discharge Order (Routine); Ordered 05/28/25 Ordered By: Dustin Montilla Activity on Discharge: As tolerated Stand Alone Forms: Patient Portal Discharge page Print Language: Algerian Care Plan Goals: See below Health Concerns: Hyponatremia UTI Confusion/encephalopathy Plan of Treatment: You were admitted to the hospital because of low-sodium and treated with both fluid restriction and salt tablets. He was seen and evaluated by Nephrology who thought most sodium was slightly multifactorial: Secondary to increased water ingestion for bladder ultrasound, but also possibly some other coexisting etiology. Your sodium levels have now normalized and to not require any other acute intervention at this time. Follow up with Dr. Stearns in nephrology in one month You were also evaluated for possible UTI due to chronic indwelling Vicente catheter. However, urine cultures were negative and there is no indication for antibiotics at this time. You should resume all other home medications. Assessment: See discharge summary Discharge Date/Time: 05/28/25 18:53
--- NOTE | 2025-05-29 19:53 | P.CDIM_ITS ---
PROVIDER RESPONSE TEXT: To clarify, the appropriate diagnosis supported by the clinical indicators: No, UTI is not related to / associated with / due to indwelling Vicente catheter QUERY TEXT: PHYSICIAN'S DOCUMENTATION REQUEST Date of Query: 05/28/2025 10:18 AM EDT Patient Name: Kike Villanueva Admit Date: 05/24/2025 Dear Dustin MOSQUEDA, A review of the medical record indicates additional documentation may be needed. Please review below and update the documentation accordingly. Documentation includes the conditions of Acute UTI and chronic indwelling Vicente catheter. Clinical Indicators: weakness and altered mental status UA concerning for infection Empiric Meropemen, day 2 UC, ID Please clarify the relationship between these conditions: Yes, UTI is related to / associated with / due to indwelling Vicente catheter No, UTI is not related to / associated with / due to indwelling Vicente catheter Other (explain) Clinically unable to determine (explain) Thank you, Nandini Jarrell RN Use of terms such as suspected, likely, concern for, or probable (associated with a specific diagnosis that is being evaluated, monitored, or treated as if it exists) are acceptable and can be coded in the inpatient setting, when documented at the time of discharge. Please use your independent medical judgment in providing your response. THIS QUERY IS PART OF THE PERMANENT MEDICAL RECORD
== END 2025-05-28 18:53 | disposition home health service (06) | DRG 641 ==
LOC: HO.ED 16:56 → HO.EDOVER 17:19 → HO.IMC 19:22
PROVIDERS: Internal Medicine Critical Care Medicine; Nurse Practitioner Family; Student in an Organized Health Care Education/Training Program; Admitting Provider Physician Assistant Medical; Emergency Provider Emergency Medicine; Visit Provider Student in an Organized Health Care Education/Training Program
DX: E87.1 Hypo-osmolality and hyponatremia (principal); G37.3 Acute transverse myelitis in demyelinating disease of central nervous system; N39.0 Urinary tract infection, site not specified; G82.20 Paraplegia, unspecified; N31.9 Neuromuscular dysfunction of bladder, unspecified; H40.051 Ocular hypertension, right eye; I10 Essential (primary) hypertension; R74.01 Elevation of levels of liver transaminase levels; E11.9 Type 2 diabetes mellitus without complications; Z96.0 Presence of urogenital implants; D50.9 Iron deficiency anemia, unspecified; Z79.899 Other long term (current) drug therapy
CPT/HCPCS: 36415; 80048; 80307; 81001; 82010; 82533; 82947; 83605; 83930; 83935; 84295; 84300; 84443; 84540; 84550; 85652; 86038; 86140; 87086; 93005; 99285; J1335; J1650; J2185

== ENCOUNTER → 2025-05-24 16:07 | Outpatient (BNV) | payer MEDICARE, MEDICAID, SELFPAY | PROVIDERS: Admitting Provider Physician Assistant Medical; Emergency Provider Emergency Medicine; Visit Provider Internal Medicine Cardiovascular Disease | DX: R94.31 Abnormal electrocardiogram [ECG] [EKG] (principal); R53.1 Weakness | CPT/HCPCS: 93010 ==

== ENCOUNTER → 2025-05-24 17:16 | Outpatient (BNV) | payer MEDICARE, MEDICAID, SELFPAY | PROVIDERS: Admitting Provider Physician Assistant Medical; Emergency Provider Emergency Medicine; Visit Provider Internal Medicine Critical Care Medicine | DX: E87.1 Hypo-osmolality and hyponatremia (principal) | CPT/HCPCS: 99232 ==

== ENCOUNTER → 2025-05-24 17:16 | Outpatient (BNV) | payer MEDICARE, MEDICAID, SELFPAY | PROVIDERS: Admitting Provider Physician Assistant Medical; Emergency Provider Emergency Medicine; Visit Provider Nurse Practitioner Family | DX: E87.1 Hypo-osmolality and hyponatremia (principal) | CPT/HCPCS: 99221 ==

== ENCOUNTER → 2025-05-24 17:16 | Outpatient (BNV) | payer MEDICARE, MEDICAID, SELFPAY | PROVIDERS: Admitting Provider Physician Assistant Medical; Emergency Provider Emergency Medicine; Visit Provider Physician Assistant Medical | DX: E87.1 Hypo-osmolality and hyponatremia (principal) | CPT/HCPCS: 99223; 99232; 99239 ==

== ENCOUNTER 2025-06-13 07:18 | Outpatient (AMB) | payer MEDICARE, MEDICAID, SELFPAY ==
--- NOTE | 2025-06-13 07:21 | A.OFFVIS_ITS ---
Intake Visit Reasons: 3m follow up Intake Note: Patient presents to the office today for 3 mo follow up Urology Medication:Vitamin C, Methenamine Hippurate Blood Thinner:None Antibiotic Allergies:None Lumber Planer Required: No Accompanied by: Son Allergies No Known Allergies Allergy (Verified 06/13/25 08:31) Medication List - Last Reconciled 06/13/25 by GINO Noguera [adult diapers As directed] ascorbic acid (vitamin C) 1 g PO DAILY 90 days atorvastatin 40 mg PO DAILY blood pressure monitor As directed blood sugar diagnostic (FreeStyle Lite Strips) As directed; daily blood-glucose meter (FreeStyle Lite Meter kit) As directed; to check blood sugars daily blood-glucose sensor (Dexcom G7 Sensor device) As directed; to check sugars. Change every 10 days blood-glucose,monitoring manager,cont (Dexcom G7 Glucose And Syrup Weigher) As directed; to check sugars comp.stocking,knee,long,medium As directed 10-20 mmHg [Custom Wheelchair and Branden tracks As directed] diclofenac sodium 1% (Voltaren Arthritis Pain) 2 grams topical QID [Disposable bed pads As directed] disposable gloves As directed ferrous sulfate 324 mg PO DAILY [foam wedge As directed] [hip abductor wedge As directed] [branden lift As directed] lancets (FreeStyle Lancets) As directed; TID lidocaine 5% 1 patch topical DAILY meloxicam 15 mg PO DAILY PRN methenamine hippurate 1 g PO DAILY 90 days oral thermometer, electronic (Oral Temp Thermometer) As directed pantoprazole 40 mg PO DAILY@0630 [power hospital bed As directed] [power wheelchair As directed] [wipes As directed] HPI Comments Details: Kike is a very pleasant 74-year-old male patient of Dr. Marie was accompanied by his son at today's office visit. He has a past medical history of type 2 diabetes, neurogenic bowel, hemorrhoids, chronic kidney disease, neurogenic bladder, paraplegia, and hypertension. He presents to the office today for follow-up of his neurogenic bladder. In discussion with the patient and his son today he denies having had any bothersome urinary issues or concerns since his last office visit here. He continues with services with [facility] in [place] catheters have been changed as ordered. He continues with methenamine and vitamin-C. He does have a longstanding history of recurrent urinary tract infections. We have discussed at length neurogenic bladder. He is enquiring suprapubic tube placement. We did discuss cystoscopy with suprapubic tube placement at length. We discussed risks and benefits. All questions were answered. He denies hematuria, flank pain, fever, and or chills. CT 04/18 noted An indwelling urinary catheter balloon within the penile urethra and its tip within the prostatic urethra. Removal or repositioning of the catheter is recommended. Partially distended urinary bladder containing moderate air and with moderate circumferential wall thickening, concerning for cystitis. Correlate with urinalysis. No hydronephrosis or nephrolithiasis. Normal symmetric enhancement of the kidneys. Large colonic and rectal stool burden. Large hiatal hernia. Catheter has since been repositioned status post CT results previously. All questions were answered. [facility] Medical History Paraplegia Cervical myelopathy Type 2 diabetes mellitus with diabetic peripheral angiopathy without gangrene Type 2 diabetes mellitus with hyperglycemia Rash and other nonspecific skin eruption Neurogenic bowel, not elsewhere classified Other hemorrhoids Hiccough Nontraumatic subarachnoid hemorrhage, unspecified Hypertensive 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, with stage 1 through stage 4 chronic kidney disease, or unspecified chronic kidney disease Chronic kidney disease, stage 2 (mild) 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, complete Chronic indwelling [place] catheter Neurogenic bladder Conus medullaris syndrome Hypertension Type 2 diabetes mellitus Chronic paraplegia Surgical History History of carpal tunnel release Social History Household Members: Other Household Members Other:: son Housing: Apartment Do you presently have visiting nurse or other home services: Yes Comment: pt is paraplegic Patient Tobacco Use Status: Never used Tobacco e-Cigarette/Vaping Use: Never Used Second Hand Smoke Exposure: No Advance Directives Date on File: 02/23/25 service: No Current occupational status: retired and disabled Current occupation: right hand dominant Cognitive needs: No Hearing needs: No Vision needs: No Review of Systems Eyes Reports no additional complaints ENT Reports no additional complaints Card Reports as per HPI Resp Reports no additional complaints GI Reports as per HPI Reports as per [facility] Musc Reports as per [facility] Neuro Reports as per HPI Psych Reports no additional complaints Endo Reports as per HPI Paul/Lymph Reports no additional complaints Physical Exam Const General: cooperative, healthy appearing, comfortable, no acute distress, well developed, alert and awake Orientation/consciousness: patient oriented x3 Limitations: other limitations (Stretcher) HEENT Head: Yes normal to inspection Eyes General: appearance normal, both eyes and all related structures Neck Neck: Yes normal visual inspection Chest Chest palpation & inspection: normal inspection of the chest Resp Effort & Inspection: normal respiratory effort and able to speak in complete sentences Cardio Rate: regular rate GI Inspection: Yes normal to inspection Other: Indwelling [place] catheter draining clear yellow urine Skin General skin exam: no rashes or lesions noted Neuro General: patient oriented x3 Psych Appearance: well kempt Mental Status: mental status grossly normal Speech and movement: Clear speech present Affect: normal affect Attitude: cooperative Thought content: Normal thought content present Insight: Fair insight present (Psych) Judgement: Fair judgement present (Psych) Assessment & Plan Assessment & Plan (1) Neurogenic bladder: Code(s): N31.9 - Neuromuscular dysfunction of bladder, unspecified Category: Medical (2) Recurrent urinary tract infection: Code(s): N39.0 - Urinary tract infection, site not specified Category: Medical Plan: Risks, benefits and alternatives to therapy were discussed. These include but are not limited to infection, bleeding, damage to local organs and tissues, need for further interventions. ? Anesthetic risks regarding cardiac arrhythmia, blood clots, and potential mortality were discussed. The patient understands the typical recovery time and the outpatient nature of the procedure. After consideration of these risks the patient gives full informed consent and they wish to move ahead with the procedure. Plan We discussed importance of obtaining PSA as planned. Continue methenamine and vitamin-C as prescribed. We discussed risks and benefits of suprapubic tube placement. All questions were answered. We reviewed catheter cap verses [place] catheter bag He currently denies any bothersome urinary issues or concerns. Will schedule for suprapubic tube placement as discussed. Follow-up per doctor's orders; or sooner with any issues, concerns, and or questions. Patient Instructions: The patient had an opportunity to ask questions regarding the treatment plan. All questions were answered. Physical exam, labs, and imaging were discussed and reviewed in detail. As well as risks, benefits, and discussion of treatment choices. No major barriers to understanding were identified. The patient expressed understanding and agreement with the above treatment plan. The patient was made aware they should contact our office by phone for worsening of their current condition, the appearance of new symptoms, or with any questions or concerns. Compliance is encouraged with any medications and follow up testing that is ordered. It is a privilege to be allowed the opportunity to participate in? your urological care.? Again, if you have any questions or concerns If you have any questions or concerns please do not hesitate to contact me. The office is [phone]. This note is constructed using voice recognition software. While every effort has been made to ensure accuracy precision instrument maker errors may have been included. Yours sincerely, GINO Noguera Coding Level of Care Code Est Pt Level 4 (96186) Complex EM visit Add On G2211 Diagnoses Neurogenic bladder N31.9 Recurrent urinary tract infection N39.0
== END 2025-06-13 08:13 | disposition home or self-care (01) ==
LOC: HO.HUSH 07:19
PROVIDERS: Visit Provider Nurse Practitioner Family
DX: N31.9 Neuromuscular dysfunction of bladder, unspecified (principal); N39.0 Urinary tract infection, site not specified
CPT/HCPCS: 99214; G2211

== ENCOUNTER → 2025-06-13 07:18 | Outpatient (BNVA) | payer MEDICARE, MEDICAID, SELFPAY | PROVIDERS: Visit Provider Nurse Practitioner Family | DX: N31.9 Neuromuscular dysfunction of bladder, unspecified (principal); N39.0 Urinary tract infection, site not specified | CPT/HCPCS: 99212 ==

== ENCOUNTER 2025-06-18 08:35 | Outpatient (AMB) | payer MEDICARE, MEDICAID, SELFPAY ==
--- NOTE | 2025-06-18 08:37 | A.OFFPC_ITS ---
Vital Signs 06/18/25 08:39 06/18/25 09:12 Height 5 ft 6 in BP 160/98 H 136/82 Blood Pressure Location Lt brachial Lt brachial Position Sitting Sitting Pulse 71 Pulse Source Pulse Oximeter Pulse Oximetry (%) 96 Oxygen Delivery Method Room Air Intake Visit Reasons: f/u mult problems Scrap Metal Processing Worker Required: No Accompanied by: Self / Same As Patient Allergies No Known Allergies Allergy (Verified 06/18/25 08:48) Medication List - Last Reconciled 06/18/25 by Shilpa Marie PA-C [adult diapers As directed] ascorbic acid (vitamin C) 1 g PO DAILY 90 days atorvastatin 40 mg PO DAILY blood pressure monitor As directed blood sugar diagnostic (FreeStyle Lite Strips) As directed; daily blood-glucose meter (AppscoStyle Lite Meter kit) As directed; to check blood sugars daily blood-glucose sensor (DexLxDATA G7 Sensor device) As directed; to check sugars. Change every 10 days blood-glucose,rolling mill operator helper,cont (Dexcom G7 Cras) As directed; to check sugars comp.stocking,knee,long,medium As directed 10-20 mmHg [Custom Wheelchair and Branden tracks As directed] diclofenac sodium 1% (Voltaren Arthritis Pain) 2 grams topical QID [Disposable bed pads As directed] disposable gloves As directed ferrous sulfate 324 mg PO DAILY [foam wedge As directed] [hip abductor wedge As directed] [branden lift As directed] lancets (FreeStyle Lancets) As directed; TID lidocaine 5% 1 patch topical DAILY meloxicam 15 mg PO DAILY PRN methenamine hippurate 1 g PO DAILY 90 days oral thermometer, electronic (Oral Temp Thermometer) As directed pantoprazole 40 mg PO DAILY@0630 [power hospital bed As directed] [power wheelchair As directed] [wipes As directed] Tobacco use date assessed: 06/18/25 Fall risk assessment: No Falls in past year Last assessed Fall Risk: 06/18/25 Dental Screening Dental Screen Date: 06/18/25 Did you have a dental visit in the last 12 months?: No Did you have a dental problem in the last 6 months where you did not have access to dental care?: No Was dental information given to patient?: No HPI f/u mult problems HPI Details 74-year-old male with past medical histo ry of diabetes mellitus, paraplegia with chronic indwelling catheter, GERD, anxiety, depression, chronic kidney disease, hypertension last seen 02/2025 coming in for follow up. In review of the notes, patient was seen by Urology 05/2025 continue to on methenamine and vitamin-C plan to obtain PSA plan for suprapubic tube placement. He was seen in [facility] ED 05/24/2025 for right eye redness and generalized weakness found to be hyponatremic secondary to excess water intake. Ophthalmology recommended starting Cosopt eyedrops for episcleritis. Treated with fluid restriction and salt tablets and follow up with Nephrology in 4 weeks. Patient was discharged home 05/28/2025. 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 Neurology determined he will remain paraplegic for the rest of his life and needs continuous care and indwelling catheter and recommended inflatable air mattress. The patient has been experiencing recurrent urinary tract infections, which have been attributed to the presence of a catheter. There have been multiple visits to the emergency room due to complications related to the catheter and urinary tract infections. He is currently following with Urology and plan for suprapubic catheter. He has now been using the eyedrops consistently since his discharge from the ED and has a appointment to follow up with Dr. Naranjo later this week. The patient has diabetes mellitus, with a recent A1c measurement of 6%, indicating good control. [facility] Medical History Episcleritis of right eye Paraplegia Myelomalacia of cervical cord Indwelling [place] catheter present Paraplegia Cervical myelopathy Type 2 diabetes mellitus with diabetic peripheral angiopathy without gangrene Type 2 diabetes mellitus with hyperglycemia Rash and other nonspecific skin eruption Neurogenic bowel, not elsewhere classified Other hemorrhoids Hiccough Nontraumatic subarachnoid hemorrhage, unspecified Hypertensive 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, with stage 1 through stage 4 chronic kidney disease, or unspecified chronic kidney disease Chronic kidney disease, stage 2 (mild) 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, complete Chronic indwelling [place] catheter Neurogenic bladder Conus medullaris syndrome Hypertension Type 2 diabetes mellitus Chronic paraplegia Surgical History History of carpal tunnel release Social History Household Members: Other Household Members Other:: son Housing: Apartment Do you presently have visiting nurse or other home services: Yes Comment: pt is paraplegic Patient Tobacco Use Status: Never used Tobacco e-Cigarette/Vaping Use: Never Used Second Hand Smoke Exposure: No Advance Directives Date on File: 02/23/25 service: No Current occupational status: retired and disabled Current occupation: right hand dominant Cognitive needs: No Hearing needs: No Vision needs: No Questionnaire PHQ-9 Over the last 2 weeks, how often have you been bothered by any of the following problems? 1. Little interest or pleasure in doing things: several days 2. Feeling down, depressed, or hopeless: several days 3. Trouble falling or staying asleep, or sleeping too much: more than half the days 4. Feeling tired or having little energy: more than half the days 5. Poor appetite or overeating: more than half the days 6. Feeling bad about yourself - or that you are a failure or have let yourself or your family down: nearly every day 7. Trouble concentrating on things, such as reading the newspaper or watching television: more than half the days 8. Moving or speaking so slowly that other people could have noticed. Or the opposite - being so fidgety or restless that you have been moving around a lot more than usual: more than half the days 9. Thoughts that you would be better off or of hurting yourself in some way: not at all Total score: 15 Depression Screening Interpretation: Positive Depression Screening Follow-up: Existing condition and Declines treatment Depression Screening Done: Yes Source: Developed by Drs. Lemuel Blake, Yazmin Simpson, Alphonso Oneill and colleagues, with an educational alisha from [employer]. Thrive Questionnaire Date Thrive assessed: 05/25/25 I am a: Patient What is your living situation today?: I have a steady place to live Within the past 12 months, did the food you bought not last and you didn't have the money to get more?: I choose not to answer this question Within the past 12 months, did you worry whether your food would run out before you got money to buy more?: I choose not to answer this question Do you have trouble paying for medicines?: Yes Do you have trouble getting transportation to medical appointments?: Yes Do you have trouble paying your heating and electricity bill?: Yes Do you have trouble taking care of your child, family member or friend?: No Do you have trouble with day-to-day activities such as bathing, preparing meals, shopping, managing finances, etc.?: Yes Are you currently unemployed and looking for a job?: I choose not to answer this question Are you interested in more education?: Yes Currently or been in a relationship where the following occur: I choose not to answer THRIVE Score: 2 AUDIT C Alcohol Use Questionnaire (AUDIT-C) 1. How often do you have a drink containing alcohol?: Never 3. How often do you have six or more drinks on one occasion?: Never Total Score: 0 NASEEM-7 AMB Questionnaire NASEEM-7 Date NASEEM - 7 assessed: 06/18/25 Source: Developed by Drs. Lemuel Blake, Yazmin Simpson, Alphonso Oneill and colleagues, with an educational alisha from [employer]. Review of Systems Const Denies body aches, Denies chills, Denies fever(s), Denies headache(s) and Denies poor appetite Eyes Reports no additional complaints ENT Denies dizziness and Denies headache(s) Card Denies chest pain, Denies edema and Denies dyspnea Resp Denies cough and Denies dyspnea GI Denies abdominal pain, Denies nausea and Denies vomiting Reports no additional complaints Musc Reports no additional complaints Skin/Breast Reports system reviewed and no additional complaints, except as documented Neuro Denies dizziness and Denies headache(s) Psych Reports no additional complaints Physical exam (Primary Care) Vital Signs: Last Vital Signs Pulse 71 06/18/25 08:39 BP 136/82 06/18/25 09:12 Pulse Ox 96 06/18/25 08:39 Oxygen Delivery Method Room Air 06/18/25 08:39 Tobacco/Smoking Status: Tobacco use Status Tobacco use date assessed 06/18/25 06/18/25 08:47 Patient Tobacco Use Status Never used Tobacco 06/18/25 08:47 e-Cigarette/Vaping Use Never Used 06/18/25 08:47 PHQ-9: PHQ-9 Score PHQ-9: Total score 15 06/18/25 13:33 Depression Screening Interpretation: Positive Depression Screening Follow-up: Existing condition and Declines treatment Thrive Assessment: Date of Thrive Assessment Date Thrive assessed 05/25/25 06/18/25 08:47 Currently or been in a relationship where the following occur: I choose not to answer Const General: cooperative, healthy appearing, comfortable and no acute distress Orientation/consciousness: patient oriented x3 HENWY Head: Yes normocephalic Ears: hearing grossly normal bilaterally General nose exam: Normal external nose present Eyes General: appearance normal, both eyes and all related structures Conjunctivae: conjunctivae normal Neck Neck: Yes full ROM and Yes no lymphadenopathy Resp Effort & Inspection: normal respiratory effort Auscultation: clear to auscultation bilaterally, no crackles, no rales, no rhonchi and no wheezes Cardio Rate: regular rate Rhythm: regular rhythm Skin General skin exam: no rashes or lesions noted Neuro General: patient oriented x3 and Unable to assess gait Gait exam (Neuro): Unable to assess gait Extrem General: Yes normal to inspection, Yes full ROM and No edema Psych Affect: normal affect Attitude: cooperative Insight: Good insight present (Psych) Judgement: Good judgement present (Psych) Results AMB Hemoglobin A1c AMB Hemoglobin A1c 6.0 % Last Edit by Gurwinder Goins MA on 06/18/25 09:28 Results Reviewed Results Reviewed: Laboratory Last Values Hgb A1c (Clinic) 6.0 % (4.0-6.0) 06/18/25 09:09 Coding Level of Care Code Est Pt Level 4 (99324) Diagnoses Hypertension I10 Type 2 diabetes mellitus E11.9 Neurogenic bowel, not elsewhere classified K59.2 Paraplegia, complete G82.21 Assessment & Plan Assessment & Plan (1) Hypertension: Code(s): I10 - Essential (primary) hypertension Category: Medical Plan: Continue on current blood pressure medication. Avoid salt intake and encourage healthy diet and regular exercise. (2) Type 2 diabetes mellitus: Code(s): E11.9 - Type 2 diabetes mellitus without complications Category: Medical Plan: Decrease the amount of carbohydrates such as pasta, bread, rice, and potatoes and limit the amount of sweets. Although fruits are generally healthy they should be eaten in moderation as they are still high in sugar. Hemoglobin A1c goal of less than 7%. A1c in the clinic today 6.0% without medical management. (3) Neurogenic bowel, not elsewhere classified: Code(s): K59.2 - Neurogenic bowel, not elsewhere classified Category: Medical Plan: He will continue to follow with Urology and has plans for suprapubic catheter replaced in the upcoming months and is awaiting scheduling at this time. Denies any urinary complaints or altered mental status concerning for UTI. 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 Neurology determined he will remain paraplegic for the rest of his life and needs continuous care and indwelling catheter and recommended inflatable air mattress. Regarding GROUND CREWMAN services it is recommended patient is rotated every hour to avoid decubitus ulcers along with inflatable air mattress and boots to avoid ulcers in the feet as well. Currently patient does not have sufficient enough GROUND CREWMAN hours and son is unable to provide around the clock care for this patient. I do believe he would benefit in re-evaluation considering his paraplegic status and recommended increase of hours to accommodate for patient rotation recommended by Neurology. Patient also requires a power wheelchair as he does not have use of his legs and is unable to self propel due to the paraplegia and weakness in bilateral upper extremities. A power wheelchair but allow the patient to perform ADLs in the home and improved mobility and overall quality of life. He had also benefit from an elevate and tilt feature on the chair for transferring to toilet and bed with the help of a charter school executive director. Plan The plan includes addressing the recurrent urinary tract infections by coordinating with urology for catheter management. The patient will continue to monitor blood pressure and manage hypertension through lifestyle modifications and follow-up visits. For diabetes mellitus, the patient will maintain dietary management and monitor A1c levels, with a follow-up scheduled in three months to reassess control. An eye examination is scheduled to address the eye condition and ensure proper use of prescribed eye drops. Additionally, the patient will be provided with an inflatable mattress and a power wheelchair to aid in mobility and comfort. This note was constructed using voice recognition software. While every effort has been made to ensure accuracy and neighborhood coordinator, still areas may have been included sometimes these areas may affect the content or meeting of the given symptoms. Total time spent caring for the patient today was 20 minutes. This includes time spent before the visit reviewing the chart, time spent during the visit, and time spent after the visit and documentation. Patient was informed and verbally consented to the use of an ambient scribe for clinic note documentation during this visit. Orders: Orders AMB Hemoglobin A1c Today E11.9 - Type 2 diabetes mellitus without complications Medications: New [inflatable mattress] As directed 1 ea 0RF G82.21 - Paraplegia, complete, K59.2 - Neurogenic bowel, not elsewhere classified, M47.14 - Other spondylosis with myelopathy, thoracic region, R60.0 - Localized edema
[2025-06-18 08:39] VITALS: BP 160/98; PULSE 71; O2SAT 96
--- OUTSIDE RECORDS SUMMARY | 2025-06-18 09:01 | XMS_ITS | Clinical Summary ---
Author Organization [address] [facility] Address [address] [place] [address] Phone Care Team Providers Care Correctional Counselor Name Role Phone Shilpa Marie Primary Care Provider [phone] Social History Tobacco Use Types Packs/Day Years Used Date Smoking Tobacco: Never Assessed Sex and Gender Information Value Date Recorded Sex Assigned at Not on file Legal Sex Male 9:55 AM EDT Gender Identity Not on file Sexual Orientation Not on file Plan of Treatment Upcoming Encounters Date Type Department Care Team ([facility] Contact Info) Description 07/24/2025 8:30 AM EDT Consult Orthopedic Surgery [place] [id number] [phone] Parveen Jurado, DPM [address] [address] Health Maintenance Due Date Last Done Comments [...] Insurance MEDICARE MEDICAID - [place] Care Teams Correctional Counselor Relationship Specialty Start Date End Date Shilpa Marie PA [address] [place] [address], [address] [place] [address] PCP - General 04/30/25
[2025-06-18 09:12] VITALS: BP 136/82
== END 2025-06-18 09:21 | disposition home or self-care (01) ==
LOC: HO.HMCH 08:36
DX: I10 Essential (primary) hypertension (principal); E11.9 Type 2 diabetes mellitus without complications; K59.2 Neurogenic bowel, not elsewhere classified; G82.21 Paraplegia, complete

== ENCOUNTER → 2025-06-18 08:35 | Outpatient (BNVA) | payer MEDICARE, MEDICAID, SELFPAY | DX: I10 Essential (primary) hypertension (principal); E11.9 Type 2 diabetes mellitus without complications; K59.2 Neurogenic bowel, not elsewhere classified; G82.21 Paraplegia, complete | CPT/HCPCS: 83036; 99212 ==

== ENCOUNTER 2025-07-03 08:40 | Outpatient (REF) | payer MEDICARE, MEDICAID, SELFPAY ==
--- OUTSIDE RECORDS SUMMARY | 2025-07-04 10:04 | XMS_ITS | Clinical Summary ---
Author Organization [address] [facility] Address [address] [place] [address] Phone Care Team Providers Care Tent Worker Name Role Phone Shilpa Marie Primary Care Provider [phone] Social History Tobacco Use Types Packs/Day Years Used Date Smoking Tobacco: Never Assessed Sex and Gender Information Value Date Recorded Sex Assigned at Not on file Legal Sex Male 9:55 AM EDT Gender Identity Not on file Sexual Orientation Not on file Plan of Treatment Upcoming Encounters Date Type Department Care Team ([facility] Contact Info) Description 07/24/2025 8:30 AM EDT Consult Orthopedic Surgery [place] [id number] [address] Parveen Jurado, DPM [address] [address] Health Maintenance Due Date Last Done Comments Diabetes: Annual GFR (Glomer ular Filtration Rate) 1951 Diabetes: Annual Foot Exam 1961 Diabetes: Annual Retina Eye Exam 1961 DTaP,Tdap,and Td Vaccines (1 - Tdap) 1970 Pneumococcal Vaccine: 50+ Ye ars (1 of 2 - PCV) 1970 Zoster Vaccines (1 of 2) 2001 Depression Screening 10/25/2024 Abdominal Aortic Aneurysm (A AA) Screen 04/30/2025 Cholesterol Screening (Lipid Panel) 04/30/2025 Colorectal Cancer Screening: Colonoscopy 04/30/2025 Diabetes: Annual Urine Albumin-Creatinine Ratio (uACR) 04/30/2025 Diabetes: Blood Sugar Contro l Test (HGBA1C) 04/30/2025 Falls Risk Assessment 04/30/2025 Hepatitis C Screening 04/30/2025 Medicare Annual Wellness Visit 04/30/2025 Social Influencers of Health Screening 04/30/2025 COVID-19 Vaccine ( - 2023-2 5 season) 2025 Influenza Vaccine (#1) 2025 RSV Immunization Adult [...] Insurance MEDICARE MEDICAID - [place] Care Teams Tent Worker Relationship Specialty Start Date End Date Shilpa Marie PA [address] [place] [address], [address] [place] [address] PCP - General 04/30/25
== END 2025-07-03 08:41 | disposition home or self-care (01) ==
LOC: HO.HOSX 08:40
PROVIDERS: Visit Provider Physician Assistant
DX: Z13.89 Encounter for screening for other disorder (principal)

== ENCOUNTER 2025-08-30 13:58 | Outpatient (REF) | payer MEDICARE, MEDICAID, SELFPAY ==
--- NOTE | ~2025-08-30 | US_ITS ---
EXAMINATION: US PELVIS LIMITED (BLADDER) CLINICAL INFORMATION: Neurogenic bladder. COMPARISON: Ultrasound 05/23/2025 TECHNIQUE: Real-time imaging of the bladder. FINDINGS: BLADDER: Partially distended. No mass lesion seen. Limited evaluation for wall thickening. Bilateral ureteral jets are not demonstrated. Prevoid bladder volume is 93 mL. Postvoid bladder volume is 20.[address] in place. Technically limited examination. US/US bladder IMPRESSION: 1. Partially distended bladder. Possible mild urinary bladder wall thickening. 2. Bilateral ureteral jets not demonstrated. 3. Postvoid volume 20.5 mL. Electronically signed by: Jos Ramirez MD 08/31/2025 08:07 AM EST
== END 2025-08-30 13:59 | disposition home or self-care (01) ==
LOC: HO.HMGCX 13:58
PROVIDERS: Visit Provider Nurse Practitioner Family
DX: N31.9 Neuromuscular dysfunction of bladder, unspecified (principal)
CPT/HCPCS: 76857

== ENCOUNTER → 2025-08-30 14:07 | Outpatient (BNV) | payer MEDICARE, MEDICAID, SELFPAY | PROVIDERS: Visit Provider Radiology Diagnostic Ultrasound | DX: N32.89 Other specified disorders of bladder (principal); R33.9 Retention of urine, unspecified | CPT/HCPCS: 76857 ==

== ENCOUNTER 2025-09-18 08:35 | Outpatient (AMB) | payer MEDICARE, MEDICAID, SELFPAY ==
[2025-09-18 08:40] VITALS: BP 160/100; PULSE 63; TEMP 36.3; O2SAT 99
--- NOTE | 2025-09-18 08:51 | A.OFFVIS_ITS ---
Intake Vital Signs 09/18/25 08:40 Height 5 ft 6 in BP 160/100 H Blood Pressure Location Lt brachial Position Sitting Pulse 63 Pulse Source Pulse Oximeter Temp 97.3 F Temp Source Temporal Artery Scan Pulse Oximetry (%) 99 Oxygen Delivery Method Room Air Intake Visit Reasons: Annual Exam Allergies No Known Allergies Allergy (Verified 09/18/25 08:54) Medication List - Last Reconciled 09/18/25 by Shilpa Marie PA-C [adult diapers As directed] ascorbic acid (vitamin C) 1 g PO DAILY 90 days atorvastatin 40 mg PO DAILY blood pressure monitor As directed blood sugar diagnostic (FreeStyle Lite Strips) As directed; daily blood-glucose meter (FreeStyle Lite Meter kit) As directed; to check blood sugars daily blood-glucose sensor (Zapier G7 Sensor device) As directed; to check sugars. Change every 10 days blood-glucose,environmental technician,cont (Dexcom G7 Regional Sales Trainer) As directed; to check sugars captopril 50 mg PO DAILY comp.stocking,knee,long,medium As directed 10-20 mmHg [Custom Wheelchair and Branden tracks As directed] diclofenac sodium 1% (Voltaren Arthritis Pain) 2 grams topical QID [Disposable bed pads As directed] disposable gloves As directed dorzolamide-timolol 22.3-6.8 mg/mL 1 drp ophthalmic-Right ferrous sulfate 324 mg PO DAILY [foam wedge As directed] [hip abductor wedge As directed] [branden lift As directed] [inflatable mattress As directed] lancets (FreeStyle Lancets) As directed; TID lidocaine 5% 1 patch topical DAILY meloxicam 15 mg PO DAILY PRN methenamine hippurate 1 g PO DAILY 90 days oral thermometer, electronic (Oral Temp Thermometer) As directed pantoprazole 40 mg PO DAILY@0630 [power hospital bed As directed] [power wheelchair As directed] [Reusable Bed Pads As directed] [wipes As directed] HPI Annual Exam HPI Details 75-year-old male with past medical histo ry of diabetes mellitus, paraplegia with chronic indwelling catheter, GERD, anxiety, depression, chronic kidney disease, hypertension last seen 05/2025 coming in for annual exam. Presenting for a Medicare wellness visit and management of chronic conditions. The patient has a history of anxiety and depression, which are reportedly managed. The caregiver reports new concerns for poor sleep, nocturnal confusion with disorientation to place, and significant memory loss. Regarding specialist care, the patient is followed by a urologist, Dr. Arellano, for prostate monitoring and has a procedure scheduled. The patient's diabetes is diet-controlled, and metformin has been discontinued, partly due to kidney health. He did not take his medications today colonoscopy: cologuard ordered PSA: following with Urology 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, with stage 1 through stage 4 chronic kidney disease, or unspecified chronic kidney disease Chronic kidney disease, stage 2 (mild) 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, complete Chronic indwelling Vicente catheter Neurogenic bladder Conus medullaris syndrome Hypertension Type 2 diabetes mellitus Chronic paraplegia Surgical History History of carpal tunnel release Social History Household Members: Other Household Members Other:: son Housing: Apartment Do you presently have visiting nurse or other home services: Yes Comment: pt is paraplegic Patient Tobacco Use Status: Never used Tobacco e-Cigarette/Vaping Use: Never Used Second Hand Smoke Exposure: No Advance Directives Date on File: 02/23/25 service: No Current occupational status: retired and disabled Current occupation: right hand dominant Cognitive needs: No Hearing needs: No Vision needs: No Questionnaire Medicare Wellness Checkup [age] What gender do you identify with?: male During the past 4 weeks, how much have you been bothered by emotional problems such as feeling anxious, depressed, irritable, sad or downhearted, and blue?: quite a bit During the past 4 weeks, has your physical & emotional health limited your social activities with family, friends, neighbors, or groups?: quite a bit During the past 4 weeks, how much bodily pain have you generally had?: moderate pain During the past 4 weeks, was someone available to help you if you needed & wanted help?: yes, as much as I wanted During the past 4 weeks, what was the hardest physical activity you could do for at least 2 minutes?: very light Can you get to places out of walking distance without help? (For eg., can you travel alone on buses, taxis or drive your car?): No Can you go shopping for groceries or clothes without someone's help?: No Can you prepare your own meals?: No Can you do your housework without help?: No Because of any health problems, do you need the help of another person with your personal care needs such as eating, bathing, dressing or getting around the house?: Yes Can you handle your own money without help?: No During the past 4 weeks, how would you rate your health in general?: fair During the past 4 weeks how have things been going for you?: good & bad parts about equal Are you having difficulties driving your car?: not applicable, I don't use a car Do you always fasten your seat belt when you are in a car?: yes, sometimes During past 4 weeks, have you been bothered by the following: never: Falling or dizzy when standing up, seldom: Teeth or denture problems?, sometimes: Trouble eating well? and Tiredness or fatigue? and always: Sexual problems? and Problems using the telephone? Have you fallen 2 or more times in the past year?: No Are you afraid of falling?: Yes Are you a smoker?: no During the past 4 weeks, how many drinks of wine, beer, or other alcoholic beverages did you have?: no alcohol at all Do you exercise for about 20 minutes 3 or more times a week?: no, I usually do not exercise this much Have you been given information to help with the following?: no: Hazards in your house that might hurt you? and no: Keeping track of your medications? How often do you have trouble taking medicines the way you have been told to take them?: I seldom take medications as prescribed How confident are you that you can control & manage most of your health problems?: not very confident What is your race?: or origin or descent Mini Mental State Exam (MMSE) Orientation What is the (year) (season) (date) (day) (month)?: year, season, date, day and month Where are we (state) (county) (town or city) (hospital) (floor)?: state, county, town or city, hospital/clinic and floor Score Score: 10 PHQ-9 Over the last 2 weeks, how often have you been bothered by any of the following problems? 1. Little interest or pleasure in doing things: several days 2. Feeling down, depressed, or hopeless: several days 3. Trouble falling or staying asleep, or sleeping too much: more than half the days 4. Feeling tired or having little energy: more than half the days 5. Poor appetite or overeating: more than half the days 6. Feeling bad about yourself - or that you are a failure or have let yourself or your family down: nearly every day 7. Trouble concentrating on things, such as reading the newspaper or watching television: more than half the days 8. Moving or speaking so slowly that other people could have noticed. Or the opposite - being so fidgety or restless that you have been moving around a lot more than usual: more than half the days 9. Thoughts that you would be better off or of hurting yourself in some way: not at all Total score: 15 Depression Screening Interpretation: Positive Depression Screening Follow-up: Existing condition and Declines treatment Depression Screening Done: Yes Source: Developed by Drs. Lemuel Blake, Yazmin Simpson, Alphonso Oneill and colleagues, with an educational alisha from [employer] by [employer]. Review of Systems Const Denies body aches, Denies chills, Denies fatigue, Denies fever(s), Denies headache(s) and Denies poor appetite Eyes Reports no additional complaints ENT Denies dizziness and Denies headache(s) Card Denies chest pain, Denies edema and Denies dyspnea Resp Denies cough and Denies dyspnea GI Denies abdominal pain, Denies constipation, Denies diarrhea, Denies nausea and Denies vomiting Reports no additional complaints Musc Reports no additional complaints Skin/Breast Reports system reviewed and no additional complaints, except as documented Neuro Denies dizziness and Denies headache(s) Psych Reports no additional complaints Endo Denies fatigue Physical Exam Vital Signs: Last Vital Signs Temp 97.3 F 09/18/25 08:40 Pulse 63 09/18/25 08:40 BP 160/100 H 09/18/25 08:40 Pulse Ox 99 09/18/25 08:40 Oxygen Delivery Method Room Air 09/18/25 08:40 Const General: cooperative, healthy appearing, comfortable and no acute distress Orientation/consciousness: patient oriented x3 HEENT Head: Yes normocephalic Ears: hearing grossly normal bilaterally, external ears normal, TM's normal bilaterally and EAC's normal General nose exam: Normal external nose present Face and sinus: Yes normal facial exam and Yes sinuses nontender Mouth: Normal oral and palatal mucosa present and tongue normal Throat: Yes posterior oropharynx normal Eyes General: appearance normal, both eyes and all related structures Conjunctivae: conjunctivae normal Pupils: Equal, round and reactive pupils present EOM: EOMs intact bilaterally and No Nystagmus present Neck Neck: Yes normal visual inspection, Yes full ROM and Yes no lymphadenopathy Chest Chest palpation & inspection: normal inspection of the chest Resp Effort & Inspection: normal respiratory effort Auscultation: clear to auscultation bilaterally, no crackles, no rales, no rhonchi, no wheezes and breath sounds present Cardio Rate: regular rate Rhythm: regular rhythm Peripheral pulses: radial pulses present and dorsalis pedis present GI Inspection: Yes normal to inspection and No Abdominal wall edema Palpation (GI): Soft to palpation, not firm and nontender Auscultation: normal bowel sounds Rectal Exam - Male: Yes deferred Skin General skin exam: no rashes or lesions noted Neuro General: patient oriented x3 Cranial nerves: Yes Equal, round and reactive pupils present, Yes Midline tongue present and No Nystagmus present Extrem Other: no ulcerations or areas of open skin on the toes or feet General: Yes normal to inspection, No no pedal edema and No edema Psych Speech and movement: Normal speech and movement present Affect: normal affect Insight: Good insight present (Psych) Judgement: Good judgement present (Psych) Results AMB Hemoglobin A1c AMB Hemoglobin A1c 5.8 % Last Edit by Heide Gonzalez MA on 09/18/25 09:26 Results Reviewed Results Reviewed: Laboratory Last Values Hgb A1c (Clinic) 5.8 % (4.0-6.0) 09/18/25 09:06 Assessment & Plan Assessment & Plan (1) Encounter for annual wellness visit (AWV) in Medicare patient: Code(s): Z00.00 - Encounter for general adult medical examination without abnormal findings Plan: [place] of care was reviewed with patient patient was provided with a written screening schedule. Healthcare proxy/ MOLST forms were reviewed with patient patient advised to bring completed forms to office to be scanned to chart. Healthy diet and regular exercise is encouraged. (2) Depression: Code(s): F32.A - Depression, unspecified Plan: Feels symptoms are well managed at this time without medication or counseling. (3) Anxiety: Code(s): F41.9 - Anxiety disorder, unspecified Plan: See above (4) Hypertension: Code(s): I10 - Essential (primary) hypertension Plan: Continue on current blood pressure medication. Avoid salt intake and encourage healthy diet and regular exercise. Elevated in the office today however patient has not taken his blood pressure medications this morning. His blood pressure readings at home have been within normal limits. (5) Type 2 diabetes mellitus: Code(s): E11.9 - Type 2 diabetes mellitus without complications Plan: Decrease the amount of carbohydrates such as pasta, bread, rice, and potatoes and limit the amount of sweets. Although fruits are generally healthy they should be eaten in moderation as they are still high in sugar. Hemoglobin A1c goal of less than 7%. It is A1c in the office today was 5.8% without medication management. (6) GERD (gastroesophageal reflux disease): Code(s): K21.9 - Gastro-esophageal reflux disease without esophagitis Plan: Avoid trigger foods such as citrus, tomato products, soda, caffeine, spicy foods and other foods that may be irritating to your stomach. Avoid laying flat 3-4 hours after eating and elevate the head of the bed 30 degrees to prevent acid from moving into the esophagus. (7) Neurogenic bowel, not elsewhere classified: Code(s): K59.2 - Neurogenic bowel, not elsewhere classified Plan: Scheduled for procedure with Urology next month and has a appointment to follow up. (8) Chronic kidney disease, stage 2 (mild): Code(s): N18.2 - Chronic kidney disease, stage 2 (mild) Plan: Continue to monitor kidney function. Advised good hydration and avoidance of kidney irritants such as NSAIDs (9) Paraplegia, complete: Code(s): G82.21 - Paraplegia, complete Plan: Patient is no longer following with spine center. He is requesting a referral to [place] for further evaluation. I will reach out to the spine clinic about next steps. Orders: Orders Lipid Panel Today E78.00 - Pure hypercholesterolemia, unspecified AMB Hemoglobin A1c Today Z13.9 - Encounter for screening, unspecified PSA, Ultra Sensitive Today Z12.5 - Encounter for screening for malignant neoplasm of prostate Influenza [id number] Immunization Today Z23 - Encounter for immunization Referrals Gastroenterology Referral Z12.11 - Encounter for screening for malignant neoplasm of colon Podiatry Referral E11.9 - Type 2 diabetes mellitus without complications Medications: New Fluarix [id number] (PF) (flu vac ts 2024-(6mos up)-PF) 0.5 mL IM ONCE 0.5 mL 0RF NS Z23 - Encounter for immunization Changed From lancets (FreeStyle Lancets) As directed; TID 100 ea 0RF E11.9 - Type 2 diabetes mellitus without complications To lancets (FreeStyle Lancets) As directed; daily 100 ea 0RF E11.9 - Type 2 diabetes mellitus without complications Discontinued meloxicam Discontinued Reason: Patient no longer taking 15 mg PO DAILY PRN 30 tabs 0RF Pain blood-glucose,environmental technician,cont (Dexcom G7 Regional Sales Trainer) Discontinued Reason: Patient no longer taking As directed; to check sugars 1 ea 0RF E11.9 - Type 2 diabetes mellitus without complications blood-glucose sensor (Dexcom G7 Sensor device) Discontinued Reason: Patient no longer taking As directed; to check sugars. Change every 10 days 3 ea 1RF E11.9 - Type 2 diabetes mellitus without complications Quality Reporting (2019) Depression/Bipolar (159/160/161/177) PHQ-9: Total score: 15 Coding Level of Care Code Medicare Subsequent (G0439) Diagnoses Encounter for annual wellness visit (AWV) in Medicare patient Z00.00 Depression F32.A Anxiety F41.9 Hypertension I10 Type 2 diabetes mellitus E11.9 GERD (gastroesophageal reflux disease) K21.9 Neurogenic bowel, not elsewhere classified K59.2 Chronic kidney disease, stage 2 (mild) N18.2 Paraplegia, complete G82.21
== END 2025-09-18 09:37 | disposition home or self-care (01) ==
LOC: HO.HMCH 08:36
DX: Z00.00 Encounter for general adult medical examination without abnormal findings (principal); I12.9 Hypertensive chronic kidney disease with stage 1 through stage 4 chronic kidney disease, or unspecified chronic kidney disease; E11.9 Type 2 diabetes mellitus without complications; G82.21 Paraplegia, complete; N18.2 Chronic kidney disease, stage 2 (mild); F32.A Depression, unspecified; F41.9 Anxiety disorder, unspecified; K21.9 Gastro-esophageal reflux disease without esophagitis; K59.2 Neurogenic bowel, not elsewhere classified

== ENCOUNTER → 2025-09-18 08:35 | Outpatient (BNVA) | payer MEDICARE, MEDICAID, SELFPAY | DX: Z13.1 Encounter for screening for diabetes mellitus (principal) | CPT/HCPCS: 83036 ==

== ENCOUNTER 2025-09-24 12:21 | Outpatient (AMB) | payer MEDICARE, MEDICAID, SELFPAY ==
[2025-09-24 12:52] VITALS: BMI 27.5
--- NOTE | 2025-09-24 12:52 | MHC.OFFVIS ---
Vital Signs 09/24/25 12:52 Height 5 ft 4 in Weight 160 lb BMI 27.5 Intake Visit Reasons: Nail clipping Intake Note: Kike is a 75 year old male who presents today with his son as anew patient for a diabetic foot exam. Patient glucose is currently at 184 and his last known A1c was 5.8%. Patient son mentions his father is paralyzed from his chest down and he has a previous history of injury to his feet. Allergies No Known Allergies Allergy (Verified 09/24/25 12:53) Medication List - Last Reconciled 09/24/25 by Ericka Villalpando DPM [adult diapers As directed] ammonium lactate 12% 1 appl topical DAILY ascorbic acid (vitamin C) 1 g PO DAILY 90 days atorvastatin 40 mg PO DAILY blood pressure monitor As directed blood sugar diagnostic (FreeStyle Lite Strips) As directed; daily blood-glucose meter (FreeStyle Lite Meter kit) As directed; to check blood sugars daily captopril 50 mg PO DAILY comp.stocking,knee,long,medium As directed 10-20 mmHg [Custom Wheelchair and Branden tracks As directed] diclofenac sodium 1% (Voltaren Arthritis Pain) 2 grams topical QID [Disposable bed pads As directed] disposable gloves As directed dorzolamide-timolol 22.3-6.8 mg/mL 1 drp ophthalmic-Right ferrous sulfate 324 mg PO DAILY [foam wedge As directed] [hip abductor wedge As directed] [branden lift As directed] [inflatable mattress As directed] lancets (FreeStyle Lancets) As directed; daily lidocaine 5% 1 patch topical DAILY methenamine hippurate 1 g PO DAILY 90 days oral thermometer, electronic (Oral Temp Thermometer) As directed pantoprazole 40 mg PO DAILY@0630 [power hospital bed As directed] [power wheelchair As directed] [Reusable Bed Pads As directed] [wipes As directed] HPI Comments Details: The patient is a 75 year old individual with a PMH as seen below presenting for B/L fungal toenails. The patient has a history of a significant medical event that occurred two years ago in [place], identified as a spinal issue. 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 The patient is currently wheelchair-bound and unable to provide a history. Patient was accompanied by his son and caretakers who assisted in providing a history. Patient was seen wearing multi Podus boots. Patient is nonverbal. Patient's most recent blood glucose level was 184 mg/dL. [facility] Medical History (Updated 09/26/25 @ 18:59 by Ericka Villalpando DPM) Nail dystrophy Nail disorder Tinea unguium Xerosis of skin Episcleritis of right eye Paraplegia Myelomalacia of cervical cord Indwelling Vicente catheter present Paraplegia Cervical myelopathy Type 2 diabetes mellitus with diabetic peripheral angiopathy without gangrene Type 2 diabetes mellitus with hyperglycemia Rash and other nonspecific skin eruption Neurogenic bowel, not elsewhere classified Other hemorrhoids Hiccough Nontraumatic subarachnoid hemorrhage, unspecified Hypertensive 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, with stage 1 through stage 4 chronic kidney disease, or unspecified chronic kidney disease Chronic kidney disease, stage 2 (mild) 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, complete Chronic indwelling Vicente catheter Neurogenic bladder Conus medullaris syndrome Hypertension Type 2 diabetes mellitus Chronic paraplegia Surgical History History of carpal tunnel release Social History Household Members: Other Household Members Other:: son Housing: Apartment Do you presently have visiting nurse or other home services: Yes Comment: pt is paraplegic Patient Tobacco Use Status: Never used Tobacco e-Cigarette/Vaping Use: Never Used Second Hand Smoke Exposure: No Advance Directives Date on File: 02/23/25 service: No Current occupational status: retired and disabled Current occupation: right hand dominant Cognitive needs: No Hearing needs: No Vision needs: No Review of Systems Const Details: Reports based on caretakers. - Dermatologic: Reports peeling skin on the feet. Thickened, elongated, and dystrophic toenails x10. - Neurological: Reports loss of sensation in the feet. - Musculoskeletal: Denies any new injuries to the feet. All systems reviewed & are unremarkable except as noted in HPI and below Physical Exam Vital Signs: BMI result Body Mass Index 27.5 Extrem Other: Bilateral lower extremity focused physical exam: Derm: Xerosis and flaking of skin noted bilaterally to the forefoot. Toenails noted to be discolored, dystrophic, elongated, and thickened with subungual debris x10. No open lesions abrasions or wounds noted. No clinical signs of infection noted. No ecchymosis, erythema, or discoloration noted. Skin supple and turgor within normal limits. Vascular: DP/PT pulses palpable. Capillary refill time less than 3 seconds. Temperature gradient warm to warm. Pedal hair diminished. No varicosities noted. Neuro: Protective sensation is grossly absent. Patient is paralyzed from the chest down, unable to fully assess. MSK: Patient is paralyzed from the chest down and unable to partake in range of motion. No crepitus or fluctuance noted. Unable to perform full exam. Office Procedures AMB Debridement/Avulsion Podia Details: Debrided toenails x10 using sterile nail nippers without any incidents. 51280-[id number] of Nail 6+ Procedure code (CPT) selection complete Results Reviewed Results Reviewed: Patient's caretakers report most recent blood glucose is 184 mg/dL. Assessment & Plan Assessment & Plan (1) Xerosis of skin: Code(s): L85.3 - Xerosis cutis Category: Medical (2) Type 2 diabetes mellitus: Code(s): E11.9 - Type 2 diabetes mellitus without complications Category: Medical (3) Conus medullaris syndrome: Code(s): G95.81 - Conus medullaris syndrome Category: Medical (4) Paraplegia, complete: Code(s): G82.21 - Paraplegia, complete Category: Medical (5) Thoracic myelopathy: Code(s): M47.14 - Other spondylosis with myelopathy, thoracic region Category: Medical (6) Myelomalacia: Code(s): G95.89 - Other specified diseases of spinal cord Category: Medical (7) Spinal cord infarction: Code(s): G95.11 - Acute infarction of spinal cord (embolic) (nonembolic) Category: Medical (8) Tinea unguium: Code(s): B35.1 - Tinea unguium Category: Medical (9) Nail disorder: Code(s): L60.9 - Nail disorder, unspecified Category: Medical (10) Nail dystrophy: Code(s): L60.3 - Nail dystrophy Category: Medical Plan Patient was informed and verbally consented to the use of an ambient scribe for clinic note documentation during this visit. Educated patient's caretakers on diabetes in the affects on the lower extremities. I discussed with the patient's caregivers the importance of routine nail care every 9 weeks to prevent the nails from curling over, thickening, and potentially causing wounds, especially given the patient's lack of sensation in the feet. I advised against using hard, rigid braces because they could create pressure points and lead to wounds since the patient is not walking. Advised for patient to continue using multi Podus boots. To address the peeling skin, I prescribed ammonium lactate cream and instructed to apply it on the top and bottom of the feet but to avoid the areas between the toes to prevent moisture buildup. For toe alignment, I recommended toe spacers. - Debrided toenails x10. - A prescription for ammonium lactate cream was sent to manage peeling skin on the feet. - Recommended toe spacers to prevent the toes from pressing together. - Endorsed the continued use of soft multi Podus boots over rigid braces to prevent pressure wounds, given the patient's non-ambulatory status. - Continue diabetic management as per PCP. RTC in 9 weeks. Orders: Orders AMB Debridement/Avulsion Podiatry 09/24/25 B35.1 - Tinea unguium, E11.9 - Type 2 diabetes mellitus without complications, G82.21 - Paraplegia, complete, G95.11 - Acute infarction of spinal cord (embolic) (nonembolic), G95.81 - Conus medullaris syndrome, G95.89 - Other specified diseases of spinal cord, L60.3 - Nail dystrophy, L60.9 - Nail disorder, unspecified, L85.3 - Xerosis cutis, M47.14 - Other spondylosis with myelopathy, thoracic region AMB Diabetic Foot Exam 09/24/25 E11.9 - Type 2 diabetes mellitus without complications Medications: New ammonium lactate 12% 1 appl topical DAILY 385 grams 0RF L85.3 - Xerosis cutis Coding Level of Care Code New Pt Level 4 (24488) Diagnoses Xerosis of skin L85.3 Type 2 diabetes mellitus E11.9 Conus medullaris syndrome G95.81 Paraplegia, complete G82.21 Thoracic myelopathy M47.14 Myelomalacia G95.89 Spinal cord infarction G95.11 Tinea unguium B35.1 Nail disorder L60.9 Nail dystrophy L60.3 CPT Codes Skin Debridement - CPT: 45330-[id number] of Nail 6+ ([id number]) Time Spent (min) 53 Comment 8 mins for procedure
== END 2025-09-24 13:16 | disposition home or self-care (01) ==
LOC: HO.HPODS 12:22
PROVIDERS: Visit Provider Student in an Organized Health Care Education/Training Program
DX: L85.3 Xerosis cutis (principal); E11.9 Type 2 diabetes mellitus without complications; G95.81 Conus medullaris syndrome; G82.21 Paraplegia, complete; M47.14 Other spondylosis with myelopathy, thoracic region; G95.89 Other specified diseases of spinal cord; G95.11 Acute infarction of spinal cord (embolic) (nonembolic); B35.1 Tinea unguium; L60.3 Nail dystrophy
CPT/HCPCS: 11721; 99204; G9226

== ENCOUNTER → 2025-09-24 12:21 | Outpatient (BNVA) | payer MEDICARE, MEDICAID, SELFPAY | PROVIDERS: Visit Provider Student in an Organized Health Care Education/Training Program | DX: L85.3 Xerosis cutis (principal); E11.9 Type 2 diabetes mellitus without complications; G95.81 Conus medullaris syndrome; G82.21 Paraplegia, complete; M47.14 Other spondylosis with myelopathy, thoracic region; G95.89 Other specified diseases of spinal cord; G95.11 Acute infarction of spinal cord (embolic) (nonembolic); B35.1 Tinea unguium; L60.9 Nail disorder, unspecified; L60.3 Nail dystrophy | CPT/HCPCS: 11721; 99202 ==

== ENCOUNTER 2025-10-02 10:06 | Day surgery (SDC) | payer MEDICARE, MEDICAID, SELFPAY ==
--- NOTE | 2025-08-10 14:06 | HO.ANESPROP2 ---
HPI - Anesthesia Eval Consult details Narrative: 75 yr old male for Cystoscopy Insertion Suprapubic Tube Paraplegia PMFSH Active Problems Active Problems: All Active Problems Recurrent urinary tract infection (Acute) Spinal cord infarction (Acute) Paraplegia, complete (Acute) Chronic right shoulder pain (Acute) Myelomalacia (Acute) Iron deficiency anemia (Acute) Encephalopathy due to infection (Acute) E coli bacteremia (Acute) ESBL (extended spectrum beta-lactamase) producing bacteria infection (Acute) Malfunction of Vicente catheter (Acute) UTI (urinary tract infection) due to urinary indwelling catheter (Acute) Complicated UTI (urinary tract infection) (Acute) Urinary tract infection (Acute) Thoracic myelopathy (Acute) Dysphagia (Acute) Tachycardia (Acute) Elevated LFTs (Acute) Neurogenic bladder (Acute) Encounter for wheelchair assessment (Acute) Hypertension (Acute) Chronic kidney disease, stage 2 (mild) (Acute) Neurogenic bowel, not elsewhere classified (Acute) Conus medullaris syndrome (Acute) GERD (gastroesophageal reflux disease) (Acute) Anxiety (Acute) Depression (Acute) Paraplegia (Acute) Incontinence (Acute) Leg edema (Acute) Multiple chronic diseases (Acute) Type 2 diabetes mellitus (Acute) Shoulder pain, right (Acute) Past Medical History Medical History Episcleritis of right eye Paraplegia Myelomalacia of cervical cord Indwelling Vicente catheter present Paraplegia Cervical myelopathy Type 2 diabetes mellitus with diabetic peripheral angiopathy without gangrene Type 2 diabetes mellitus with hyperglycemia Rash and other nonspecific skin eruption Neurogenic bowel, not elsewhere classified Other hemorrhoids Hiccough Nontraumatic subarachnoid hemorrhage, unspecified Hypertensive 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, with stage 1 through stage 4 chronic kidney disease, or unspecified chronic kidney disease Chronic kidney disease, stage 2 (mild) 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, complete Chronic indwelling Vicente catheter Neurogenic bladder Conus medullaris syndrome Hypertension Type 2 diabetes mellitus Chronic paraplegia Surgical History Surgical History History of carpal tunnel release Social History Social History Household Members: Other Household Members Other:: son Housing: Apartment Do you presently have visiting nurse or other home services: Yes Comment: pt is paraplegic Patient Tobacco Use Status: Never used Tobacco e-Cigarette/Vaping Use: Never Used Second Hand Smoke Exposure: No Advance Directives Date on File: 02/23/25 service: No Current occupational status: retired and disabled Current occupation: right hand dominant Cognitive needs: No Hearing needs: No Vision needs: No Meds Allergies Allergy/AdvReac Type Severity Reaction Status Date / Time No Known Allergies Allergy Verified 06/18/25 08:48 Home Medications ?Medication ?Instructions ?Recorded ?Confirmed ?Last Taken ?Type pantoprazole 40 mg tablet,delayed 40 mg PO DAILY@0630 05/24/25 08/10/25 05/23/25 History release Exam Narrative Narrative: EKG 04/2025 Vent. Rate : 94 BPM Atrial Rate : 94 BPM P-R Int : 150 ms QRS Dur : 90 ms QT Int : 384 ms P-R-T Axes : 64 59 50 degrees QTcB Int : 480 ms Normal sinus rhythm Possible Inferior infarct , age undetermined Abnormal ECG When compared with ECG of 16-Apr-2025 12:04,
--- NOTE | 2025-09-28 09:30 | P.CONAN_ITS ---
Documented by User: Radha Cortes NP 09/28/25 09:32 HPI - Anesthesia Eval Consult details Narrative: 75 yr old male for Cystoscopy Insertion Suprapubic Tube Paraplegia PMFSH Active Problems Active Problems: All Active Problems (Updated 09/26/25 @ 18:59 by Ericka Villalpando DPM) Nail dystrophy (Acute) Nail disorder (Acute) Tinea unguium (Acute) Xerosis of skin (Acute) Encounter for annual wellness visit (AWV) in Medicare patient (Acute) Recurrent urinary tract infection (Acute) Spinal cord infarction (Acute) Paraplegia, complete (Acute) Chronic right shoulder pain (Acute) Myelomalacia (Acute) Iron deficiency anemia (Acute) Encephalopathy due to infection (Acute) E coli bacteremia (Acute) ESBL (extended spectrum beta-lactamase) producing bacteria infection (Acute) Malfunction of Vicente catheter (Acute) UTI (urinary tract infection) due to urinary indwelling catheter (Acute) Complicated UTI (urinary tract infection) (Acute) Urinary tract infection (Acute) Thoracic myelopathy (Acute) Dysphagia (Acute) Tachycardia (Acute) Elevated LFTs (Acute) Neurogenic bladder (Acute) Encounter for wheelchair assessment (Acute) Hypertension (Acute) Chronic kidney disease, stage 2 (mild) (Acute) Neurogenic bowel, not elsewhere classified (Acute) Conus medullaris syndrome (Acute) GERD (gastroesophageal reflux disease) (Acute) Anxiety (Acute) Depression (Acute) Paraplegia (Acute) Incontinence (Acute) Leg edema (Acute) Multiple chronic diseases (Acute) Type 2 diabetes mellitus (Acute) Shoulder pain, right (Acute) Past Medical History Medical History (Updated 09/26/25 @ 18:59 by Ericka Villalpando DPM) Nail dystrophy Nail disorder Tinea unguium Xerosis of skin Episcleritis of right eye Paraplegia Myelomalacia of cervical cord Indwelling Vicente catheter present Paraplegia Cervical myelopathy Type 2 diabetes mellitus with diabetic peripheral angiopathy without gangrene Type 2 diabetes mellitus with hyperglycemia Rash and other nonspecific skin eruption Neurogenic bowel, not elsewhere classified Other hemorrhoids Hiccough Nontraumatic subarachnoid hemorrhage, unspecified Hypertensive 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, with stage 1 through stage 4 chronic kidney disease, or unspecified chronic kidney disease Chronic kidney disease, stage 2 (mild) 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, complete Chronic indwelling Vicente catheter Neurogenic bladder Conus medullaris syndrome Hypertension Type 2 diabetes mellitus Chronic paraplegia Surgical History Surgical History History of carpal tunnel release Social History Social History Household Members: Other Household Members Other:: son Housing: Apartment Do you presently have visiting nurse or other home services: Yes Comment: pt is paraplegic Patient Tobacco Use Status: Never used Tobacco e-Cigarette/Vaping Use: Never Used Second Hand Smoke Exposure: No Use of substances other than those prescribed or required for medical reasons: No Advance Directives: No Advance Directives Information Provided: Yes Advance Directives Date on File: 02/23/25 service: No Current occupational status: retired and disabled Current occupation: right hand dominant Cognitive needs: No Hearing needs: No Vision needs: No Meds Allergies Allergy/AdvReac Type Severity Reaction Status Date / Time No Known Allergies Allergy Verified 10/02/25 11:03 Home Medications ?Medication ?Instructions ?Recorded ?Confirmed ?Last Taken ?Type pantoprazole 40 mg tablet,delayed 40 mg PO DAILY@0630 05/24/25 10/02/25 05/23/25 History release dorzolamide 22.3 mg-timolol 6.8 1 drp ophthalmic-Right 09/18/25 09/24/25 Unknown History mg/mL eye drops Exam Narrative Narrative: EKG 04/2025 Vent. Rate : 94 BPM Atrial Rate : 94 BPM P-R Int : 150 ms QRS Dur : 90 ms QT Int : 384 ms P-R-T Axes : 64 59 50 degrees QTcB Int : 480 ms Normal sinus rhythm Possible Inferior infarct , age undetermined Abnormal ECG When compared with ECG of 16-Apr-2025 12:04, no1 Documented by User: Elda Guillen MD 10/02/25 12:03 [facility] Past Medical History Medical History (Updated 09/26/25 @ 18:59 by Ericka Villalpando DPM) Nail dystrophy Nail disorder Tinea unguium Xerosis of skin Episcleritis of right eye Paraplegia Myelomalacia of cervical cord Indwelling Vicente catheter present Paraplegia Cervical myelopathy Type 2 diabetes mellitus with diabetic peripheral angiopathy without gangrene Type 2 diabetes mellitus with hyperglycemia Rash and other nonspecific skin eruption Neurogenic bowel, not elsewhere classified Other hemorrhoids Hiccough Nontraumatic subarachnoid hemorrhage, unspecified Hypertensive 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, with stage 1 through stage 4 chronic kidney disease, or unspecified chronic kidney disease Chronic kidney disease, stage 2 (mild) 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, complete Chronic indwelling Vicente catheter Neurogenic bladder Conus medullaris syndrome Hypertension Type 2 diabetes mellitus Chronic paraplegia Surgical History Surgical History History of carpal tunnel release History of Problems with Anesthesia: No Social History Social History Household Members: Other Household Members Other:: son Housing: Apartment Do you presently have visiting nurse or other home services: Yes Comment: pt is paraplegic Patient Tobacco Use Status: Never used Tobacco e-Cigarette/Vaping Use: Never Used Second Hand Smoke Exposure: No Use of substances other than those prescribed or required for medical reasons: No Advance Directives: No Advance Directives Information Provided: Yes Advance Directives Date on File: 02/23/25 service: No Current occupational status: retired and disabled Current occupation: right hand dominant Cognitive needs: No Hearing needs: No Vision needs: No Meds Allergies Allergy/AdvReac Type Severity Reaction Status Date / Time No Known Allergies Allergy Verified 10/02/25 11:03 Home Medications ?Medication ?Instructions ?Recorded ?Confirmed ?Last Taken ?Type pantoprazole 40 mg tablet,delayed 40 mg PO DAILY@0630 05/24/25 10/02/25 05/23/25 History release dorzolamide 22.3 mg-timolol 6.8 1 drp ophthalmic-Right 09/18/25 09/24/25 Unknown History mg/mL eye drops Exam Airway Mallampati Class: II TM Dist: >3cm Neck ROM: Limited Partial: Upper and Lower Loose/Missing/Broken Teeth: Yes, Upper and Lower Heart: RRR Lungs: CTA Assessment and Plan Final Anesthetic Review History of Problems with Anesthesia: No NPO: Yes ASA Class: III Final Preanesthetic Review: Meds/Allgs Chart Reviewed, Consent Obtained/Reviewed and Anes Risks/Benef Reviewed Patient Risk: Intermediate Procedure Risk: Low Anesthetic Plan Anesthetic Plan: GA Disposition: Standard PACU
[2025-09-28 10:07] VITALS: BMI 27.5
[2025-10-02] VITALS (8 sets, daily range): BP systolic 99–129; BP diastolic 59–76; PULSE 65–76; RESP 10–18; TEMP 36.1–36.4; O2SAT 97–100; BMI 25.1
[2025-10-02] MEDS: Lactated Ringers 1,000 ML 100 ML IVCONT (11:31)
[2025-10-02 11:33] LABS: Glucose, Whole Blood 122 mg/dL (60-115)
--- NOTE | 2025-10-02 12:29 | MHC.SHP ---
Pre-Procedural Eval Section A - 24 Hr Update-Section A only Date of Service: 10/02/25 The patient is an INPATIENT: No The patient has been examined within 24 hours of the surgical procedure. The History & Physical has been completed within 30 days and I have reviewed it.: Yes Section B - Complete if H&P > 30 days Chief Complaint: neurogenic bladder, urinary retention Allergies: Allergies Allergy/AdvReac Type Severity Reaction Status Date / Time No Known Allergies Allergy Verified 10/02/25 11:03 Plan Diagnosis/Plan: Unchanged I have reviewed the history and physical and performed a pertinent physical examination on my patient. No changes have occurred unless specified. Cystoscopy, cystotomy, Suprapubid tube insertion. Risks discussed included but not limited to infection, bleeding, injury to bowel requiring another procedure. Time Spent With Patient Time: Total time managing care of this patient today ____ minutes.
--- NOTE | 2025-10-02 13:52 | W.PM.OPN ---
Operative Note Operative Note Date of Service: 10/02/25 Narrative: PREOP DIAGNOSIS: neurogenic bladder, urinary retention POSTOP DIAGNOSIS: neurogenic bladder, urinary retention PROCEDURE: Cystoscopy. cystotomy, suprapubic tube insertion SURGEON: Galilea aHgen MD ANESTHESIA: General Details of procedure: The patient was brought into the operating room placed on the OR table in supine position. Antibiotics confirmed. General anesthesia was administered. The patient was repositioned carefully into lithotomy position. The patient was prepped and draped in the usual sterile fashion. A 22 fr cystoscope was placed transurethrally into the bladder. The entire bladder was visualized. There were erythematous changes noted consistent with prior chronic catheter. The was thickening of the bladder with cellule changes. The cystoscope was removed. Attention was taken to the abdomen. Initially a spinal needle was used and trocar attempted. An small incision was made 2 fingerbreaths above the pubic bone in the midline, the subcutaneous tissue was dissected down to the fascia with blunt dissection and cautery. The lowsley retractor was then placed transurethrally and was palpated through the abdominal incision, using a knife an incision was made into the bladder over the lowsley and a 20 fr saha catheter was than attached to the lowsley and brought into the bladder. the lowsley retractor was removed and 10 mL was placed in the saha balloon. The incision was closed and the SP saha catheter secured. The cystoscope was removed. 2% lidocaine urojet was passed transurethrally into the bladder. The patient was brought out of anesthesia and taken to recovery in stable condition. Complications: None EBL: minimal (<5 mL) Drains: 20 fr saha catheter
== END 2025-10-02 15:38 | disposition home or self-care (01) ==
PROVIDERS: Visit Provider Urology
PROC: (CPT 51102; principal; 2025-10-02 12:10)
DX: N31.8 Other neuromuscular dysfunction of bladder (principal); R33.8 Other retention of urine; N39.0 Urinary tract infection, site not specified; I13.10 Hypertensive 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, with stage 1 through stage 4 chronic kidney disease, or unspecified chronic kidney disease; E11.22 Type 2 diabetes mellitus with diabetic chronic kidney disease; E11.65 Type 2 diabetes mellitus with hyperglycemia; E11.620 Type 2 diabetes mellitus with diabetic dermatitis; E11.51 Type 2 diabetes mellitus with diabetic peripheral angiopathy without gangrene; N18.2 Chronic kidney disease, stage 2 (mild); K59.2 Neurogenic bowel, not elsewhere classified; Z96.0 Presence of urogenital implants; G82.21 Paraplegia, complete; Z99.3 Dependence on wheelchair; K44.9 Diaphragmatic hernia without obstruction or gangrene; Z79.899 Other long term (current) drug therapy
CPT/HCPCS: 51040; 82947; J0690; J1580; J2003; J2371; J2405; J2704; J2795; J3010

== ENCOUNTER → 2025-10-02 10:06 | Outpatient (BNV) | payer MEDICARE, MEDICAID, SELFPAY | PROVIDERS: Visit Provider Urology | DX: N31.9 Neuromuscular dysfunction of bladder, unspecified (principal); R33.9 Retention of urine, unspecified | CPT/HCPCS: 51040 ==

== ENCOUNTER 2025-10-24 07:23 | Outpatient (REF) | payer MEDICARE, MEDICAID, SELFPAY ==
[2025-10-24 08:42] LABS: Appearance Urine Cloudy; Glucose Urine UA Negative (Negative); PH 6.0 (5.0-9.0); Specific Gravity - Urine 1.010 (1.005-1.025); UMIC TRIGGER UA YES
== END 2025-10-24 07:24 | disposition home or self-care (01) ==
LOC: HO.LNP 07:23
PROVIDERS: Visit Provider Urology
DX: N39.0 Urinary tract infection, site not specified (principal); T83.511A Infection and inflammatory reaction due to indwelling urethral catheter, initial encounter
CPT/HCPCS: 81001; 87086; 87088; 87186